=== PATIENT | male | born 1955 | race Caucasian/White ===

== ENCOUNTER 2018-06-12 15:47 | Outpatient (REF) | payer MEDICARE, SELFPAY ==
[2018-06-12 22:00] LABS: Abs Immature Grans 0.03 k/cumm (0.0-0.09); Absolute Basophil Count 0.02 k/cumm (0.0-0.2); Absolute Eosinophil Count 0.16 k/cumm (0.0-0.7); Absolute Lymphocyte Count 1.27 k/cumm (1.2-3.4); Absolute Monocyte Count 0.81 k/cumm (0.11-0.7); Absolute Neutrophil Count 4.76 k/cumm (1.2-6.7); Basophils % 0.3; Eosinophils % 2.3; HCT 38.2 % (40.0-50.0); Immature Grans % 0.4; Mean Corp. HGB Concentration 31.4 g/dL (32.0-36.0); Mean Corpuscular Hemoglobin 30.5 pg (27.0-33.0); Mean Corpuscular Volume 97.2 fL (80-95); Mean Platelet Volume 11.5 fL (8.0-11.0); Monocytes % 11.5; Neutrophils % 67.5; Platelet Count 260 x1000/uL (130-400); RBC 3.93 m/cumm (4.50-6.00); RBC Distribution Width 14.6 % (11.8-14.1); White Blood Cell Count 7.05 k/cumm (4.4-10.8)
[2018-06-12 22:10] LABS: Ferritin 151 ng/mL (8-388); Glucose 86 mg/dL (70-100)
== END 2018-06-12 16:07 ==
LOC: NCHCN 15:47
PROVIDERS: PCP Physician Assistant Medical; Visit Provider Nurse Practitioner Family
DX: D64.9 Anemia, unspecified (principal); E55.9 Vitamin D deficiency, unspecified; E78.5 Hyperlipidemia, unspecified; F32.9 Major depressive disorder, single episode, unspecified
CPT/HCPCS: 82947; 82728; 85025

== ENCOUNTER 2019-04-20 15:10 | Outpatient (REF) | payer MEDICARE, SELFPAY ==
[2019-04-20 21:42] LABS: HCT 37.2 % (40.0-50.0); HGB 12.3 g/dL (13.5-17.5); Mean Corp. HGB Concentration 33.1 g/dL (32.0-36.0); Mean Corpuscular Hemoglobin 31.8 pg (27.0-33.0); Mean Corpuscular Volume 96.1 fL (80-95); Mean Platelet Volume 11.7 fL (8.0-11.0); Platelet Count 245 x1000/uL (130-400); RBC 3.87 m/cumm (4.50-6.00); RBC Distribution Width 14.7 % (11.8-14.1); White Blood Cell Count 7.09 k/cumm (4.4-10.8)
[2019-04-20 21:55] LABS: Anion Gap 10.7 mmol/L (3-11); BUN 14 mg/dL (7-18); CO2 26.3 mmol/L (21.0-32.0); CREATININE 1.02 mg/dL (0.70-1.30); Calcium 9.1 mg/dL (8.5-10.1); Chloride 101 mmol/L (98-107); Glucose 85 mg/dL (74-106); Sodium 138 mmol/L (136-145)
== END 2019-04-20 15:30 ==
LOC: NCHCN 15:10
PROVIDERS: PCP Nurse Practitioner Family; Visit Provider Nurse Practitioner Family
DX: D64.9 Anemia, unspecified (principal)
CPT/HCPCS: 80048; 85027

== ENCOUNTER → 2019-04-21 01:12 | Outpatient (CLI) | payer MEDICARE, SELFPAY ==
--- NOTE | 2019-04-21 08:35 | DI.RAD_ITS ---
EXAM: XR KNEE RT 3V AP,LAT,SHAYE INDICATION: KNEE PAIN RT, M25.561. COMPARISON: No exams were available for comparison TECHNIQUE: 2D digital imaging was performed. FINDINGS: The joint spaces are well maintained. There is mild periarticular spurring. Hardware is noted in th e mid tibia, not fully included on the exam. There is a question of a small joint effusion. IMPRESSION: Mild degenerative changes.
== END ==
PROVIDERS: PCP Nurse Practitioner Family; Visit Provider Nurse Practitioner Family
DX: M25.561 Pain in right knee (principal); M17.11 Unilateral primary osteoarthritis, right knee; M25.461 Effusion, right knee
CPT/HCPCS: 73562

== ENCOUNTER 2019-07-21 11:52 | Outpatient (REF) | payer MEDICARE, SELFPAY ==
[2019-07-21 20:10] LABS: Abs Immature Grans 0.01 k/cumm (0.0-0.09); Absolute Basophil Count 0.04 k/cumm (0.0-0.2); Absolute Eosinophil Count 0.14 k/cumm (0.0-0.7); Absolute Lymphocyte Count 1.32 k/cumm (1.2-3.4); Absolute Monocyte Count 0.64 k/cumm (0.11-0.7); Absolute Neutrophil Count 3.35 k/cumm (1.2-6.7); Basophils % 0.7; Eosinophils % 2.5; HCT 42.2 % (40.0-50.0); Immature Grans % 0.2 %; Mean Corp. HGB Concentration 33.2 g/dL (32.0-36.0); Mean Corpuscular Hemoglobin 31.7 pg (27.0-33.0); Mean Corpuscular Volume 95.5 fL (80-95); Mean Platelet Volume 11.1 fL (8.0-11.0); Monocytes % 11.6; Platelet Count 261 x1000/uL (130-400); RBC 4.42 m/cumm (4.50-6.00); RBC Distribution Width 15.5 % (11.8-14.1)
[2019-07-21 20:47] LABS: Calculated LDL 198 mg/dL (<100); Cholesterol 260 mg/dL (<200); Glucose 96 mg/dL (74-106); HDL Cholesterol 48 mg/dL (40-60); Triglyceride 74 mg/dL (<150)
== END 2019-07-21 12:12 ==
LOC: NCHCN 11:52
PROVIDERS: PCP Nurse Practitioner Family; Visit Provider Nurse Practitioner Family
DX: E78.5 Hyperlipidemia, unspecified (principal); D64.9 Anemia, unspecified
CPT/HCPCS: 80061; 82947; 85025

== ENCOUNTER 2019-09-17 08:55 | Outpatient (REF) | payer MEDICARE, SELFPAY ==
[2019-09-17 19:16] LABS: ALT 32 U/L (16-63); AST 29 U/L (15-37); Creatine Kinase 181 U/L (39-308)
[2019-09-17 19:36] LABS: Calculated LDL 111 mg/dL (<100); Cholesterol 169 mg/dL (<200); HDL Cholesterol 50 mg/dL (40-60); Triglyceride 44 mg/dL (<150)
[2019-09-17 19:55] LABS: Hemoglobin A1C 5.9 % (3.8-5.6)
== END 2019-09-17 09:15 ==
LOC: NCHCN 08:55
PROVIDERS: PCP Nurse Practitioner Family; Visit Provider Nurse Practitioner Family
DX: R73.03 Prediabetes (principal); R53.83 Other fatigue; E78.5 Hyperlipidemia, unspecified
CPT/HCPCS: 80061; 82550; 83036; 84450; 84460

== ENCOUNTER 2019-09-22 00:38 | Outpatient (CLI) | payer MEDICARE, SELFPAY ==
--- NOTE | 2019-09-22 | DI.CTLCSR_ITS ---
EXAM: CT CHEST LUNG CANCER SCREEN CLINICAL HISTORY: SMOKER,F17.210 TECHNIQUE: COMPARISON: CT CHEST - LUNG CANCER SCREENING from 09/30/2017 FINDINGS: CT examination of chest was performed utilizing low-dose lung cancer screening protocol. Current exa mination is compared with prior study of September 30, 2017. Note is again made of severe emphysematous ch anges most prominent in the lung apices. No pulmonary nodule. No consolidation or mass. No pleural effusion. No mediastinal or hilar adenopathy. Tracheobronchial tree appears intact. Images obtained through the upper abdomen show unremarkable appearance of visualized portions of live r, spleen, pancreas, and adrenals. IMPRESSION: Lung RADS Cat 1 - Negative: No nodules and definitely benign nodules Resume annual screening in 12 months.
== END 2019-09-22 00:58 ==
PROVIDERS: PCP Nurse Practitioner Family; Visit Provider Nurse Practitioner Family
DX: Z12.2 Encounter for screening for malignant neoplasm of respiratory organs (principal); F17.210 Nicotine dependence, cigarettes, uncomplicated; J43.8 Other emphysema
CPT/HCPCS: G0297

== ENCOUNTER 2019-11-17 15:24 | Outpatient (REF) | payer MEDICARE, SELFPAY ==
[2019-11-17 20:25] LABS: ALT 125 U/L (16-63); AST 73 U/L (15-37); Anion Gap 11.2 mmol/L (3-11); BUN 23 mg/dL (7-18); CO2 25.8 mmol/L (21.0-32.0); CREATININE 1.21 mg/dL (0.70-1.30); Calcium 9.2 mg/dL (8.5-10.1); Calculated LDL 110 mg/dL (<100); Chloride 99 mmol/L (98-107); Cholesterol 177 mg/dL (<200); Glucose 148 mg/dL (74-106); HDL Cholesterol 48 mg/dL (40-60); Sodium 136 mmol/L (136-145); Triglyceride 97 mg/dL (<150)
[2019-11-17 20:47] LABS: Creatine Kinase 228 U/L (39-308)
== END 2019-11-17 15:44 ==
LOC: NCHCN 15:24
PROVIDERS: PCP Nurse Practitioner Family; Visit Provider Nurse Practitioner Family
DX: E78.5 Hyperlipidemia, unspecified (principal); R73.03 Prediabetes; F32.9 Major depressive disorder, single episode, unspecified; F51.04 Psychophysiologic insomnia
CPT/HCPCS: 80048; 80061; 82550; 84450; 84460

== ENCOUNTER → 2019-12-18 09:29 | Outpatient (BNVA) | payer MEDICARE, SELFPAY | PROVIDERS: PCP Nurse Practitioner Family; Referring Provider Nurse Practitioner Family; Visit Provider Physical Therapy Assistant | DX: Z12.11 Encounter for screening for malignant neoplasm of colon (principal); Z86.010 Personal history of colon polyps ==

== ENCOUNTER 2019-12-30 08:20 | Outpatient (REF) | payer MEDICARE, SELFPAY ==
[2019-12-30 21:49] LABS: ALT 50 U/L (16-63); AST 50 U/L (15-37); HDL Cholesterol 48 mg/dL (40-60); LDL CHOLESTEROL 98 mg/dL (<100)
== END 2019-12-30 08:40 ==
LOC: NCHCN 08:20
PROVIDERS: PCP Nurse Practitioner Family; Visit Provider Nurse Practitioner Family
DX: E78.5 Hyperlipidemia, unspecified (principal)
CPT/HCPCS: 83721; 83718; 84450; 84460

== ENCOUNTER 2020-01-04 08:29 | Day surgery (SDC) | payer MEDICARE, SELFPAY ==
--- NOTE | 2020-01-04 06:37 | W.COLOREPORT ---
Date of service: 01/04/20 Time of Service: : Colonoscopy Report Date of procedure: 01/04/20 Pre-op diagnosis general: Hx of polyps Post-op diagnosis procedure note: other (cecal polyp) Procedure: Colonoscopy with polypectomy Surgeon: Roseanne Altman Anesthesia proc note operative: other (General/ASA 2/Jasbir Newell CRNA) Estimated blood loss (mL): 3 Pathology: other (Cecal polyp) Complications: None Disposition: same day Indications: The patient is here for Colonoscopy pre-op. His last screening was in 2014 and was unremarkable. However previous Colonoscopy was remarkable for tubular adenoma. He has no family history of colon cancer. He has not had any bowel habit changes. -Discussed colonoscopy bowel prep as well as the procedure. Discussed possible complications of the procedure to include bleeding, pain, perforation, missed small lesion/polyp, sore throat, aspiration and adverse reaction to the medications. Questions were answered to patient?s satisfaction. No guarantees were implied or given. Prep: Miralax/Dulcolax Procedure Start Time: Procedure End Time: 10:13 Retraction Time: 18 minutes Findings: one small polyp in the cecum Procedure Description: After informed consent was obtained the patient was taken to the procedure room and placed in a left decubitous position. Monitors were applied and a time out was done. The patients name, date of , procedure, allergies to medications and metal in their body was reviewed. The patient was then sedated. Once sedated and comfortable a rectal exam was done. External exam was normal. Internal exam revealed a normal sphincter tone and no palpable masses. The prostate felt smooth. The scope was then introduced and retro-flexed. No internal hemorrhoids, masses or polyps were identified on retro-flexion. The scope was then advanced to the cecum without difficulty. The ileocecal valve and appendiceal orifice were identified. The prep was adequate. There was a film of stool and bile scattered throughout the large bowel. 1 L of fluid was used to clean the film off the ubsch. The scope was then slowly retracted over 18 minutes back into the rectum. Polyps were removed with cold forceps in the cecum. The scope was removed and the patient was woken up and taken back to Same day surgery in stable condition. The patient tolerated the procedure well and there were no immediate complications. Follow up: The patient should follow up in 5 years unless they develop changes in bowel habits or other new gastrointestinal complaints.
--- NOTE | 2020-01-04 06:38 | W.PM.DSUDISC ---
Discharge Plan Disposition Patient Disposition: HOME Condition: Good Discharge Details Reason For Visit: Colonoscopy Attending Provider: Roseanne Altman Primary Care Provider: Nahomy Curry Home Meds and New Rx's Prescriptions: Continued amitriptyline 150 mg tablet 150 mg PO QHS RF: 0 simvastatin 20 mg tablet 20 mg PO QHS RF: 0 cholecalciferol (vitamin D3) 25 mcg (1,000 unit) capsule 25 mcg PO DAILY RF: 0 trazodone 50 mg tablet 25 mg PO QHS RF: 0 Discontinued polyethylene glycol 3350 17 gram/dose powder 238 g PO ONCE Qty: 238 RF: 0 bisacodyl [Dulcolax (bisacodyl)] 5 mg tablet,delayed release (DR/EC) 5 mg PO ONCE Qty: 4 RF: 0 Discharge Instructions Additional Instructions: Findings:One small polyp Follow up: 5 years Please call if you develop: fevers >101.5 Nausea or Vomiting Abdominal pain that is not transient DAY SURGERY UNIT POST ENDOSCOPY INSTRUCTIONS 1. Because there will be medication in your system for the next 24 hours, you may feel a little sleepy. Your coordination will be affected. Therefore: a. Do not drive or operate dangerous equipment for 24 hours. b. Do not drink alcohol beverages for 24 hours (not even beer). c. Plan to go home and rest for the day. 2. Generally there are no restrictions on your activity after a day or so has gone by, but you may feel a bit fatigued for a few days. 3 After you arrive home you may have a light meal and return to a normal diet as you can tolerate it without feeling sick to your stomach. 4. After surgery, you may feel pain or discomfort. This should be only transient, but if it persists please contact your doctor. 5. If there are any questions regarding the findings of your procedure, please feel free to contact your doctor. 6. If you are unable to contact your doctor with a problem, contact the hospital at [phone]. 7. Continue all your regular medications unless directed otherwise. I understand the above instructions and have no questions. Signature of Patient or Responsible Adult Escort Date/Time Name of Responsible Adult Escort Signature of Nurse Date/Time Activity:: Activity as Tolerated Diet:: As Tolerated Discharge Orders Discharge Orders: Discharge Order (Routine); Ordered 01/04/20 Ordered By: Roseanne Altman
[2020-01-04 08:34] VITALS: BP 140/83; PULSE 103; RESP 22; TEMP 36.6; O2SAT 99
[2020-01-04] MEDS: Lactated Ringers 1,000 ML 80 ML IV (08:56)
--- NOTE | 2020-01-04 09:54 | BOWEL_PTH ---
PATIENT: Karyn Park LOC: [facility] U#:[id number] AGE/SX: 64/M ROOM: RE01/04/[address]: Roseanne Altman MD : [id number] BED: DIS: 01/04/2020 SPEC #: [id number] RECD: 01/04/20 12:45 STATUS: JOHN REQ #: [id number] NAVA: 01/04/20 09:[address]: Roseanne Altman DEPT: Surgical Specimen RECD BY: Kelsie Canchola ENTERED: 01/04/20 12:46 SP TYPE: Bowel OTHR DR: Nahomy Curry Tissues: 1 - BIOPSY BOWEL Procedures: GROSS AND MICRO LEVEL 4 IMMUNOPEROXIDASE STAIN Comments: [id number]
[2020-01-04 10:52] VITALS: BP 133/82; PULSE 90; RESP 18; TEMP 36.6; O2SAT 98
== END 2020-01-04 11:25 | disposition home or self-care (01) ==
LOC: SUR 08:31
PROVIDERS: PCP Nurse Practitioner Family; Visit Provider Surgery
PROC: 0DJD8ZZ Inspection of Lower Intestinal Tract, Via Natural or Artificial Opening Endoscopic (ICD-10-PCS; CPT 45378; principal; 2020-01-04 09:15)
DX: Z12.11 Encounter for screening for malignant neoplasm of colon (principal); Z86.010 Personal history of colon polyps; D12.0 Benign neoplasm of cecum
CPT/HCPCS: 45380; 88305; 88361; J2001

== ENCOUNTER 2020-02-11 11:29 | Outpatient (REF) | payer OTHER, SELFPAY ==
[2020-02-15 20:27] LABS: Nortriptyline 61 ng/mL (70-170)
== END 2020-02-11 11:49 ==
LOC: NCHCN 11:29
PROVIDERS: PCP Nurse Practitioner Family; Visit Provider Nurse Practitioner Family
DX: Z79.899 Other long term (current) drug therapy (principal); Z51.81 Encounter for therapeutic drug level monitoring
CPT/HCPCS: 80335

== ENCOUNTER 2020-12-19 10:16 | Outpatient (REF) | payer OTHER, SELFPAY ==
[2020-12-19 20:30] LABS: Hemoglobin A1C 5.5 % (<5.7)
[2020-12-19 20:42] LABS: ALT 37 U/L (16-63); AST 32 U/L (15-37); Anion Gap 8.7 mmol/L (3-11); BUN 22 mg/dL (7-18); CO2 28.3 mmol/L (21.0-32.0); CREATININE 1.1 mg/dL (0.70-1.30); Calcium 9.9 mg/dL (8.5-10.1); Chloride 102 mmol/L (98-107); Glucose 94 mg/dL (74-106); HDL Cholesterol 56 mg/dL (40-60); LDL CHOLESTEROL 177 mg/dL (<100); Potassium 5.1 mmol/L (3.5-5.1); Sodium 139 mmol/L (136-145)
[2020-12-19 21:06] LABS: Creatine Kinase 97 U/L (39-308)
[2020-12-19 21:44] LABS: Vitamin D 25 Total 36.5 ng/mL (30-100)
== END 2020-12-19 10:17 | disposition home or self-care (01) ==
LOC: NCHCN 10:16
PROVIDERS: PCP Nurse Practitioner Family; Visit Provider Nurse Practitioner Family
DX: E78.5 Hyperlipidemia, unspecified (principal); E55.9 Vitamin D deficiency, unspecified; R73.09 Other abnormal glucose
CPT/HCPCS: 80048; 82306; 82550; 83721; 83036; 83718; 84450; 84460

== ENCOUNTER → 2020-12-27 02:03 | Outpatient (CLI) | payer OTHER, SELFPAY ==
--- NOTE | 2020-12-27 09:00 | ETT_ITS ---
APPROVED REPORT Exam: Exercise Treadmill Patient Location: Out-Patient Room/Bed: Stress Nurse: Josefina Garcia RN Ordering Provider:JOEL FONSECA, Contact Number: [phone] BMI: 18.36 Baseline Rhythm: Sinus Rhythm Indications: Exerrtional SOB Medical History Medical History: Tobacco use, hyperlipidemia, pre-diabetes, ETOH use, brain damage (fall related), de pression, OCD Cardiac Medications: Simvastatin Allergies: bupropion Cardiac Risk Factors: Tobacco use (current), hyperlipidemia, pre-diabetes Previous Cardiac Procedures: None Pretest Chest Pain Characteristics: None Exercise History: Sedentary Physical Disabilities: None Lung Sounds: Diminished BLL Heart Sounds: Regular Stress Test Details Test: Exercise stress testing was performed using a Jono protocol. Rest Stress HR Resting HR Supine: 93 bpm Max Heart Rate (APMHR): 155 bpm Resting HR Standin bpm Target HR (85% APMHR): 131 bpm Max HR Achieved: 146 bpm % of APMHR: 94 Recovery HR: 94 bpm HR response to stress: Accelerated HR response to stress BP Resting BP Supine: 130/68 mmHg Resting BP Standin/72 mmHg Max BP: 198/90 mmHg Recovery BP: 140/72 mmHg BP response to stress: Normal blood pressure response to stress. ECG Resting ECG: Sinus Rhythm Ectopy: None Stress ECG: Sinus Tachycardia ST Change: No significant ST segment changes noted Arrhythmia: Rare PVC, couplet Recovery ECG: Sinus Rhythm Recovery ST Change: No significant ST segment changes noted Clinical Reason for Termination: Fatigue, Dyspnea Stress Symptoms: General Fatigue, Dyspnea Exercise duration: 3 min28 sec Highest Stage Reached: Stage 2: 2.5 mph at 12% grade. Exercise capacity: 5.19 METs Rangel Treadmill Score: 3 Rate Pressure Product: [id number] Stress ECG Conclusion 1. The patient exercised for 3 minutes and 28 seconds (5 METS). Exercise was stopped due to fatigue. 2. The patient's heart rate and blood pressure augmented appropriately. 3. There is no evidence of ischemia on the ECG portion of the exam. Rangel Treadmill Score is 3 which is Moderate risk. Stress Test Summary STAGE Time (mins) Speed (mph) Grade (%) HR BP SYMPTOMS METS Supine 93 130/68 Standing 107 122/72 SpO2 98% 1 3 1.7 10 141 140/70 SpO2 97% moderate/severe SOB 4.6 2 6 2.5 12 146 SpO2 98% 7 1 min recovery 138 148/80 SpO2 98% 3 min recovery 117 198/90 symptoms resolved 6 min recovery 94 140/72
== END ==
PROVIDERS: PCP Nurse Practitioner Family; Visit Provider Nurse Practitioner Family
DX: R06.02 Shortness of breath (principal); F17.210 Nicotine dependence, cigarettes, uncomplicated; E78.5 Hyperlipidemia, unspecified; R73.03 Prediabetes
CPT/HCPCS: 93016; 93018; 93017

== ENCOUNTER 2021-01-18 14:40 | Outpatient (REF) | payer OTHER, SELFPAY ==
[2021-01-18 17:19] LABS: ALT 68 U/L (16-63); AST 53 U/L (15-37); Calculated LDL 111 mg/dL (<100); Cholesterol 189 mg/dL (<200); HDL Cholesterol 67 mg/dL (40-60); Triglyceride 57 mg/dL (<150)
[2021-01-18 17:36] LABS: Creatine Kinase 139 U/L (39-308)
[2021-01-18 21:17] LABS: Bacteria Negative HPF (Negative); Casts Negative LPF (Negative); Crystals Negative HPF (Negative); Epithelial Cells Negative HPF (Negative); Mucus Negative (Negative); Other Cells Negative (Negative)
[2021-01-18 21:18] LABS: C & S Indicated? C&S Done As Ordered
[2021-01-19 17:04] LABS: Anion Gap 8.9 mmol/L (3-11); BUN 12 mg/dL (7-18); CO2 28.1 mmol/L (21.0-32.0); CREATININE 1.3 mg/dL (0.70-1.30); Calcium 9.6 mg/dL (8.5-10.1); Chloride 103 mmol/L (98-107); Glucose 99 mg/dL (74-106); Sodium 140 mmol/L (136-145)
== END 2021-01-18 14:41 | disposition home or self-care (01) ==
LOC: NCHCN 14:40
PROVIDERS: PCP Nurse Practitioner Family; Referring Provider Nurse Practitioner Family; Visit Provider Nurse Practitioner Family
DX: R82.90 Unspecified abnormal findings in urine (principal); E78.5 Hyperlipidemia, unspecified; J43.9 Emphysema, unspecified; R06.09 Other forms of dyspnea; F32.9 Major depressive disorder, single episode, unspecified; L81.9 Disorder of pigmentation, unspecified; R03.0 Elevated blood-pressure reading, without diagnosis of hypertension
CPT/HCPCS: 80048; 80061; 82550; 81015; 84450; 84460; 87086

== ENCOUNTER 2021-02-07 02:24 | Outpatient (CLI) | payer OTHER, SELFPAY ==
--- NOTE | 2021-02-07 | DI.CTLCSR_ITS ---
Exam(s) CT CHEST LUNG CANCER SCREEN EXAM: CT CHEST LUNG CANCER SCREEN CLINICAL HISTORY: SCREENING FOR LUNG CA,CURRENT SMOKER,Z12.9 TECHNIQUE: Imaging Protocol: Axial computed tomography images with coronal and sagittal reformatted images were created and reviewed COMPARISON: CT CT CHEST LUNG CANCER SCREEN from 09/22/2019 FINDINGS: Tracheobronchial tree: Patent where visualized. Pulmonary parenchyma: No consolidation or dominant measurable mass. Moderately severe centrilobular e mphysematous changes are present. Lung Nodules: None. Mediastinum and Sendy: No dominant adenopathy or fluid collection. Pleura: No effusion or pneumothorax. Heart: The heart is not dilated. Mild coronary artery calcification. No pericardial effusion. Aorta: Thoracic aorta non-dilated.Atherosclerosis. Upper abdomen: Unremarkable. Soft Tissues: Unremarkable. Bones: Within normal limits. IMPRESSION: No pulmonary nodules. Lung RADS Cat 1 - Negative: No nodules and definitely benign nodules Lung-RADS 1.0 CATEGORIES: Category 0 - Prior chest CT exam(s) being located for comparison. Category 1 - Annual screening in 12 months. No nodules or definitely benign nodules. Category 2 - Annual screening in 12 months. Benign appearance. Nodules with low likelihood of becomin g active cancer. Category 3 - 6-month follow-up. Probably benign. Short-term follow-up suggested. Nodules with low lik elihood of becoming active cancer. Category 4A - 3-month follow-up and CT/PET if >8 mm in size. Suspicious finding. Findings which requi re additional testing. Category 4B - Findings which require additional testing and tissue sampling. Suspicious finding. Modifier S- Potentially clinically significant finding. (Non lung cancer) RADIATION DOSE DELIVERED: 90.38mGy.cm Total DLP CTDIvol 90.38mGy.cm Total DLP CTDIvol DATA REPOSITORY: All CT scans at this facility are submitted to the National Radiology Data Registry (NRDR) Dose Index Registry (DIR) with the [employer] (ACR). RADIATION OPTIMIZATION: All CT scans at this facility use at least one of these dose optimization te chniques: automated exposure control; mA and/or kV adjustment per patient size (includes targeted exa ms where dose is matched to clinical indication); or iterative reconstruction.
== END 2021-02-07 02:44 ==
PROVIDERS: PCP Nurse Practitioner Family; Visit Provider Nurse Practitioner Family
DX: Z12.2 Encounter for screening for malignant neoplasm of respiratory organs (principal); F17.210 Nicotine dependence, cigarettes, uncomplicated
CPT/HCPCS: 71271

== ENCOUNTER 2021-02-09 04:10 | Outpatient (CLI) | payer OTHER, SELFPAY ==
[2021-02-09] MEDS: Albuterol HFA 18 GM 200 PUFF INH IH (11:04)
[2021-02-09] MEDS: Inhaler, Assist Device 1 EACH MC (11:04)
--- NOTE | 2021-02-14 15:47 | W.PFT ---
Date of service: 02/09/21 Time of Service: 09:59 Pulmonary Function Test Result Requesting Provider Nahomy Curry Indications: Dyspnea on Exertion Interpretation Spirometry: There is no airflow limitation. There is no significant bronchodilator effect. The flow volume loop appears normal. Lung Volumes: Lung volumes are normal. Diffusion Capacity: The diffusion is reduced. Airway Pressure: Noise resistance is normal. Impression There is no airflow limitation and there are normal lung volumes with an isolated decreased diffusion capacity. In the correct clinical setting this could represent pulmonary vascular disease and possibly pulmonary hypertension. Can consider an echocardiogram to assess pulmonary pressures. Clinical Correlation therefore is recommended.
== END 2021-02-09 04:11 | disposition home or self-care (01) ==
LOC: RT 04:10
PROVIDERS: PCP Nurse Practitioner Family; Visit Provider Nurse Practitioner Family
DX: R06.09 Other forms of dyspnea (principal); R94.2 Abnormal results of pulmonary function studies
CPT/HCPCS: 94060; 94726; 94729

== ENCOUNTER → 2021-02-21 08:25 | Outpatient (BNVA) | payer OTHER, SELFPAY | PROVIDERS: PCP Nurse Practitioner Family; Referring Provider Nurse Practitioner Family; Visit Provider Nurse Practitioner Gerontology | DX: R31.29 Other microscopic hematuria (principal); K40.90 Unilateral inguinal hernia, without obstruction or gangrene, not specified as recurrent | CPT/HCPCS: 99214 ==

== ENCOUNTER 2021-03-06 00:26 | Outpatient (CLI) | payer OTHER, SELFPAY ==
--- NOTE | 2021-03-06 15:10 | DI.US_ITS ---
APPROVED REPORT EXAM: Comprehensive 2D, Doppler, and color-flow Echocardiogram Patient Location: Out-Patient [employer]: Anita Brice RDCS (AE) Indications: Abnormal PFT's, Exertional SOB, Chest pain Other Information Study Quality: Adequate Conclusion Normal left ventricular wall thickness and chamber size. Estimated ejection fraction is 60 to 65%. There are no segmental wall motion abnormalities Normal right ventricular size and systolic function Both atria are normal in size Aortic valve is trileaflet and sclerotic. There is no aortic stenosis. There is moderate central ao rtic regurgitation Thickened mitral leaflets with systolic prolapse. There is mild mitral regurgitation. The regurgita nt aortic jet appears to impact the mitral leaflets and restrict their excursion, leading to function al moderate mitral stenosis. Normal tricuspid valve with mild regurgitation Estimated right ventricular systolic pressure is 52 mmHg, moderate pulmonary hypertension Normal pulmonic valve with trace regurgitation Wall motion Left Ventricle The left ventricle is normal size. The left ventricular systolic function is normal. The left ventric ular ejection fraction is within the normal range. There is normal left ventricular wall thickness. T here is normal LV segmental wall motion. There is no ventricular septal defect visualized. LVEF is 60 -65%. Right Ventricle The right ventricle is normal size. The right ventricular systolic function is normal. Estimated righ t ventricular systolic pressure is 52 mmHg Atria The left atrium size is normal. The right atrium size is normal. The interatrial septum is intact wit h no evidence for an atrial septal defect. Aortic Valve The Aortic valve is sclerotic. Aortic valve is trileaflet. There is no aortic valvular stenosis. Mode rate aortic regurgitation. Mitral Valve Mitral valve leaflets are moderately thickened. Moderate mitral stenosis. Mild mitral regurgitation. Bioprosthetic mitral valve appears normal. Tricuspid Valve The tricuspid valve is normal in structure. There is no tricuspid valve stenosis. Mild tricuspid regu rgitation. Pulmonic Valve The pulmonary valve is normal in structure. There is no pulmonic valvular stenosis. Trace pulmonic re gurgitation. Great Vessels The aortic root is normal in size. The ascending aorta is normal in size. Aortic arch is not well vis ualized. IVC is normal in size and collapses >50% with inspiration. Pericardium There is no pericardial effusion. 2D Dimensions IVSD d PLAX 0.89 cm M: 0.6-1.2 LV Vol A2C d MOD 89.7 mL LVPW d PLAX 0.89 cm M: 0.6 - 1.2 LV Vol A4C d MOD 87.8 mL LVID d PLAX 4.53 cm M: 4.2 - 5.8 LA vol/ BSA A2C s A-L 51.7 mL/m2 LVDs 3.05 cm M: 2.5 - 4.0 LA vol/ BSA A4C s A-L 38.6 mL/m2 Ao Root d 2.96 cm M: 3.1 - 3.7 LA Vol/ BSA Biplane s A-L 45.4 mL/m2 RA Area A4C 9.73 cm2 LA Area A4C s MOD 21.22 cm2 RA Vol/ BSA A4C s A-L 11.2 mL/m2 LA Area A2C s MOD 24.97 cm2 Ao Asc Diam d 3.04 cm M: 2.6 - 3.4 LV EF A4C MOD 61.4 % LV EF Teichholz 60.1 % LV EF A2C MOD 61.0 % LVEF (Ealsey's) 62.07 % M: 52 - 72 LV EF Biplane MOD 62.1 % LV Volume 71.68 mL M: 62 - 150 SV 56.35 mL LV Volume Index 41.67 mL/m2 M: 34 - 74 SV Index 32.64 mL/m2 LV Vol Biplane MOD 90.8 mL FS 31.90 % M-Mode TAPSE 2.47 cm (M/F) >1.7 LV Diastology MV E' medial 0.103 (>0.07 m/s) E/A Ratio 0.8 LV E/e MED 22.70 (<14) MV E Vmax 2.33 (0.4-1.3 m/s) MV E' lateral 0.066 (>0.1 m/s) MV A Vmax 2.90 (0.4-1.3 m/s) LV E/e LAT 35.35 (<14) MV E/A Ratio 0.80 MV E/E' medial 22.74 MV E/E' lateral 35.37 Aortic Valve LVOT Area 3.18 cm2 AoV Area Vmax 2.75 cm2 LVOT Vmax 1.18 m/s AoV Area/ BSA (Vmax) 1.59 cm2/m2 LVOT Mean Estiven. 0.82 m/s MERLYN Mean Estiven. 2.76 cm2 LVOT Peak Grad 5.6 mmHg MERLYN Mean Estiven. Index 1.60 cm2/m2 LVOT Mean Grad 3.0 mmHg AR DT 1333 msec LVOT VTI 0.213 m AR PHT 387 msec LVOT Diam s 2.00 cm AoV Vmax 1.37 m/s Velocity Ratio 0.86 AoV Mean Estiven. 0.94 m/s AoV Peak Grad 7.5 mmHg LVOT SV 67.71 mL AoV Mean Grad 4.1 mmHg AoV VTI 0.231 m AoV Area VTI 2.93 cm2 AoV Area/ BSA (VTI) 1.70 cm/m2 Mitral Valve MV DT 456 (160-240 msec) MR Vmax 5.35 m/s MV PHT 132 msec MR VTI 1.415 m MV Area PHT 1.66 cm2 MR Peak Grad 114.3 mmHg MV VTI 0.725 m MR Mean Grad 81.2 mmHg MV VTI Annulus 0.759 m MV Area VTI 0.98 (4.0-6.0 cm2) Pulmonary Valve PV Vmax 0.77 (0.5-1.5 m/s) RVOT Peak Gr. 1.55 mmHg PV Peak Grad 2.4 mmHg RVOT Mean Gr. 1.15 mmHg PV Mean Grad 1.4 mmHg RVOT VTI 0.099 m PV VTI 0.131 m RVOT Vmax 0.62 m/s Tricuspid Valve TR Peak Grad 49.6 mmHg TR Vmax 3.52 m/s RA Pressure 3.00 mmHg RVSP (TR) 52.6 mmHg
== END 2021-03-06 00:46 ==
PROVIDERS: PCP Nurse Practitioner Family; Visit Provider Nurse Practitioner Family
DX: R94.2 Abnormal results of pulmonary function studies; R06.09 Other forms of dyspnea; R07.9 Chest pain, unspecified; I08.3 Combined rheumatic disorders of mitral, aortic and tricuspid valves
CPT/HCPCS: 93306

== ENCOUNTER → 2021-03-16 02:07 | Outpatient (CLI) | payer OTHER, SELFPAY ==
--- NOTE | 2021-03-16 06:45 | DI.CT_ITS ---
Exam(s) CT ABDOMEN PELVIS WO/W EXAM: CT ABDOMEN PELVIS WO/W CLINICAL HISTORY: microhematuria, smoker, wt loss,R31.9. TECHNIQUE: Imaging Protocol: Axial computed tomography images with coronal and sagittal reformatted images were created and reviewed CONTRAST MATERIAL: Intravenous: Omnipaque 100cc Oral: None COMPARISON: CT CT CHEST LUNG CANCER SCREEN from 09/22/2019 FINDINGS: VISUALIZED LUNG BASES: No nodules nor pleural effusions evident. ABDOMEN: There is no ascites. LIVER: There are 2 small benign appearing hypodensities in right hepatic lobe, both measuring approxi mately 4 millimeters probably intrahepatic cysts. No obvious solid masses liver. No dilatation of i ntrahepatic ducts. GALLBLADDER/BILIARY: No obvious gallbladder pathology. CBD is not dilated. PANCREAS: No evidence of pancreatic mass nor dilatation of the pancreatic duct. SPLEEN: Spleen is not enlarged. No obvious intrasplenic lesions. Splenic and portal veins are paten t. ADRENALS: Small nodule noted in the medial limb of the left adrenal gland measuring 8 x 7 millimeters . No findings in the opposite-right adrenal gland KIDNEYS:There is a 5 millimeter benign cyst in the inferior pole region of the left kidney. There is a 3 millimeters cyst in the superior pole the left kidney. No solid renal masses. No calculi nor h ydronephrosis.. Solitary nondilated ureter on each side. There are no obvious filling defects withi n the renal pelves visualized nondilated ureters. There is mild uniform thickening of urinary bladde r wall without prominent trabeculation or obvious mural mass and there are no diverticuli. No calcul i seen. ABDOMINAL AORTA: The abdominal aorta is calcified and atherosclerotic but not enlarged. Same is true of the iliac arteries. LYMPH NODES:There is no retroperitoneal nor paraaortic adenopathy. ABDOMINAL WALL: No evidence of significant anterior abdominal wal hernia. There is a small right ing uinal hernia. GI: Abundant fecal material in the colon noted. No bowel obstruction. PELVIS: GI: No evidence of appendicitis.No evidence of sigmoid diverticulitis. LYMPH NODES: There is no intrapelvic nor inguinal adenopathy. REPRODUCTIVE: Prostate gland is mildly enlarged. Seminal vesicles appear unremarkable. No obvious o bturator adenopathy. URINARY BLADDER: As above. OSSEOUS: No significant osseous lesions. IMPRESSION: 1. No evidence of calculi nor solid masses in either kidney. Few small benign less than 1 cm cysts a re noted in left kidney. 2. There is mild uniform thickening of the urinary bladder wall, without evidence of an obvious focal mass, diverticulum, prominent trabeculation, nor calculus within the urinary bladder. 3. Mild fusiform thickening of the medial limb of the left adrenal gland which may be a small 8 x 7 m illimeter nodule, possibly an incidental adenoma. 4. No adenopathy. No ascites. RADIATION DOSE DELIVERED: 1,731.53mGy.cm Total DLP DATA REPOSITORY: All CT scans at this facility are submitted to the National Radiology Data Registry (NRDR) Dose Index Registry (DIR) with the [employer] (ACR). RADIATION OPTIMIZATION: All CT scans at this facility use at least one of these dose optimization te chniques: automated exposure control; mA and/or kV adjustment per patient size (includes targeted exa ms where dose is matched to clinical indication); or iterative reconstruction.
[2021-03-16] MEDS: Omnipaque 350 MG/ML 100 ML BTL IJ (11:29)
== END ==
PROVIDERS: PCP Nurse Practitioner Family; Visit Provider Nurse Practitioner Gerontology
DX: K40.90 Unilateral inguinal hernia, without obstruction or gangrene, not specified as recurrent; J44.9 Chronic obstructive pulmonary disease, unspecified; R31.29 Other microscopic hematuria; F17.210 Nicotine dependence, cigarettes, uncomplicated; R63.4 Abnormal weight loss
CPT/HCPCS: 99213; 99214; 74178; 82565; J3490

== ENCOUNTER → 2021-03-21 10:09 | Outpatient (BNVA) | payer OTHER, SELFPAY | PROVIDERS: PCP Nurse Practitioner Family; Referring Provider Nurse Practitioner Family; Visit Provider Nurse Practitioner Gerontology | DX: R31.29 Other microscopic hematuria (principal); N40.0 Benign prostatic hyperplasia without lower urinary tract symptoms | CPT/HCPCS: 99214 ==

== ENCOUNTER 2021-03-28 08:47 | Outpatient (CLI) | payer OTHER, SELFPAY ==
[2021-03-28 10:54] LABS: Source Nasal/Nares
[2021-03-28 17:36] LABS: COVID-19 PCR Negative (Negative)
== END 2021-03-28 08:48 | disposition home or self-care (01) ==
LOC: LBO 08:47
PROVIDERS: PCP Nurse Practitioner Family; Visit Provider Urology
DX: Z20.822 Contact with and (suspected) exposure to COVID-19 (principal)
CPT/HCPCS: 87635

== ENCOUNTER 2021-03-30 07:18 | Day surgery (SDC) | payer OTHER, SELFPAY ==
[2021-03-30 07:31] VITALS: BP 124/72; PULSE 78; RESP 18; TEMP 36.4; O2SAT 100
--- NOTE | 2021-03-30 07:44 | W.ANESPRE ---
General Info Date of Service Date Performed: 03/30/21 Height: 5 ft 10 in Weight: 60.9 kg Body Mass Index (BMI): 19.3 Surgical Procedure: Operation Date: 03/30/21 08:40 Proposed Procedures Side Surgeon p Cystoscopy Elian Keen MD s ? Transurethral Resection Bladder Tumor Elina Keen MD Meds Allergies and Home Medications Allergies Allergy/AdvReac Type Severity Reaction Status Date / Time bupropion [From Wellbutrin] Allergy Mild from Verified 03/30/21 07:42 referral note, no reaction noted Home Medication Medication Instructions Recorded cholecalciferol (vitamin D3) 25 25 mcg PO DAILY 11/12/19 mcg (1,000 unit) capsule albuterol sulfate 90 mcg/actuation 2 puff INHALATION Q6H PRN 01/24/21 aerosol inhaler amitriptyline 100 mg tablet 100 mg PO QHS 01/24/21 atorvastatin 80 mg tablet 80 mg PO DAILY 01/24/21 trazodone 50 mg tablet 25 mg PO QHS tab 01/24/21 Current Visit Medications: Current Medications Generic Name Dose Route Start Last Admin Trade Name Freq PRN Reason Stop Dose Admin Ringer's Solution 1,000 mls @ 80 mls/hr 03/30/21 06:00 IV 04/11/21 23:59 INFUSION ROJAS Cefazolin Sodium/Dextrose 1 gm in 50 mls @ 100 mls/hr 03/30/21 06:00 Ancef Duplex IVPB 03/30/21 16:00 PREOP ROJAS IV Miscellaneous Supplies 1 each 03/30/21 06:00 Iv Access IV 04/11/21 23:59 DIRECTED ROJAS Sodium Chloride 0 ml 03/30/21 06:00 Normal Saline Flush 10 Ml Syr IV 04/11/21 23:59 PRN PRN Sodium Chloride 0 ml 03/30/21 06:00 Normal Saline 10 Ml Vial IJ 04/11/21 23:59 DIRECTED PRN Sterile Water 0 ml 03/30/21 06:00 Water,Injection,Sterile 10 Ml Vial IJ 04/11/21 23:59 DIRECTED PRN PFSH Active Problems Active Problems: Problem Status Onset Code BPH (benign prostatic hyperplasia) N40.0 Emphysema lung J43.9 COPD (chronic obstructive pulmonary disease) J44.9 Obsessive compulsive disorder F42.9 Microscopic hematuria R31.29 Reducible right inguinal hernia K40.90 Pulmonary HTN I27.20 Mitral stenosis I05.0 Adenomatous colon polyp D12.6 Medical History Active Problem List BPH (benign prostatic hyperplasia) (Chronic) Emphysema lung (Acute) COPD (chronic obstructive pulmonary disease) (Chronic) Obsessive compulsive disorder (Acute) Microscopic hematuria (Acute) Reducible right inguinal hernia (Acute) Pulmonary HTN (Acute) Mitral stenosis (Acute) Adenomatous colon polyp (Acute) Medical History Abnormal pulmonary function test Alcohol abuse Bad odor of urine Brain damage from a fall Depression Dry skin Elevated blood pressure reading without diagnosis of hypertension Emphysema lung Exertional shortness of breath Fatigue Grief reaction Hamartoma History of anemia Hyperlipidemia Hyperpigmentation of skin Increased frequency of urination Inguinal hernia, right Insomnia Knee pain, right Medication monitoring encounter Other microscopic hematuria Prediabetes Short-term memory loss Smoker Stress at home Tobacco abuse Tubular adenoma of colon Vitamin D deficiency Surgical History Surgical History History of colonoscopy (~2007) 2007 villous adenoma 2014 normal Tibia and fibula open fracture, right plate remains from sx Tobacco Smoking/Tobacco Use Status: Former Tobacco Use Alcohol Alcohol Intake: current Alcohol intake frequency: a few times a week Alcohol type: hard liquor Substance Use Substance use: Daily Substance use type: marijuana Details: smoked marijuana yesterday 03.29.21 Vital Signs and Lab Results Vital Signs Most Recent Vital Signs in EMR: Most Recent Vital Signs Temp Pulse Resp BP Pulse Ox 36.4 C L 78 18 124/72 100 03/30/21 07:31 03/30/21 07:31 03/30/21 07:31 03/30/21 07:31 03/30/21 07:31 Lab Results Blood Type / Crossmatch: No Data to Display Complete Blood Count: No Data to Display Complete Metabolic Panel: Creatinine 1.0 mg/dL (0.70-1.30) 03/16/21 10:35 03/16/21 Estimated GFR/1.73 m2 >= 60.00 (mL/min/1.73m2) 03/16/21 10:35 03/16/21 Liver Function Panel: No Data to Display Coagulation Panel: No Data to Display Cardiac Panel: No Data to Display Arterial Blood Gas: No Data to Display Venous Blood Gas: No Data to Display Pancreas Panel: No Data to Display Thyroid Panel: No Data to Display Infectious Disease: Coronavirus (COVID-19)(PCR) Negative (Negative) 03/28/21 08:44 03/28/21 Coronavirus 2019 Source Nasal/Nares 03/28/21 08:44 03/28/21 Blood Cultures: No Data to Display Toxicology Panel: No Data to Display Imaging and Studies Imaging and Studies Stress Test Summary: DATE/TIME OF SERVICE: 12/27/20 ADMITTING PROVIDER: CARINA HERRERA MD Exam: Exercise Treadmill Indications: Exerrtional SOB Recovery ECG: Sinus Rhythm Recovery ST Change: No significant ST segment changes noted Clinical Reason for Termination: Fatigue, Dyspnea Stress Symptoms: General Fatigue, Dyspnea Exercise duration: 3 min28 sec Highest Stage Reached: Stage 2: 2.5 mph at 12% grade. Exercise capacity: 5.19 METs Rangel Treadmill Score: 3 Rate Pressure Product: [id number] Stress ECG Conclusion 1. The patient exercised for 3 minutes and 28 seconds (5 METS). Exercise was stopped due to fatigue. 2. The patient's heart rate and blood pressure augmented appropriately. 3. There is no evidence of ischemia on the ECG portion of the exam. Rangel Treadmill Score is 3 which is Moderate risk. Echocardiogram Summary: Date of Exam: 03/06/21Sex: M Admission Date: 03/06/21 : 1955 Age: 66 Indications: Abnormal PFT's, Exertional SOB, Chest pain Conclusion Normal left ventricular wall thickness and chamber size. Estimated ejection fraction is 60 to 65%. There are no segmental wall motion abnormalities Normal right ventricular size and systolic function Both atria are normal in size Aortic valve is trileaflet and sclerotic. There is no aortic stenosis. There is moderate central aortic regurgitation Thickened mitral leaflets with systolic prolapse. There is mild mitral regurgitation. The regurgitant aortic jet appears to impact the mitral leaflets and restrict their excursion, leading to functional moderate mitral stenosis. Normal tricuspid valve with mild regurgitation Estimated right ventricular systolic pressure is 52 mmHg, moderate pulmonary hypertension Normal pulmonic valve with trace regurgitation Pulmonary Function Summary: Date of service: 02/09/21 Time of Service: 09:59 Pulmonary Function Test Result Requesting Provider Nahomy Curry Indications: Dyspnea on Exertion Interpretation Spirometry: There is no airflow limitation. There is no significant bronchodilator effect. The flow volume loop appears normal. Lung Volumes: Lung volumes are normal. Diffusion Capacity: The diffusion is reduced. Airway Pressure: Noise resistance is normal. Impression There is no airflow limitation and there are normal lung volumes with an isolated decreased diffusion capacity. In the correct clinical setting this could represent pulmonary vascular disease and possibly pulmonary hypertension. Can consider an echocardiogram to assess pulmonary pressures. Clinical Correlation therefore is recommended. Anesthesia Assessment and Plan Anesthesia History Personal History: No History of Anesthesia Complications Family History: No Family History of Anesthesia Complications Exercise Tolerance Exercise Tolerance: Metabolic Equivalents>4 Pertinent Negatives Pertinent Negatives: No Symptoms of GERD Cardiac & Pulmonary Exam Cardiac Exam: Normal S1/S2 Heart Sounds Pulmonary Exam: Clear Bilateral Breath Sounds Implantable Cardiac Device Does patient have a Pacemaker or an ICD?: No Airway Exam Known Difficult Airway: No Mallampati Class: 2 Mouth Opening: Normal (> 3cm) Thyromental Distance: Greater than 3 cm Facial Hair: Full [place]ck Range of Motion: Full ROM Neck Circumference: Normal Teeth Condition: Edentulous ASA Classification ASA Score: ASA 3 Emergency Case?: No NPO Status NPO Status: NPO Clears >2 hours, Solids >8 hours Anesthesia Plan Resuscitation Status: Full Code Anesthesia Technique: General Anesthesia Airway Planned: Natural Airway Monitors Used: Standard Monitors
--- NOTE | 2021-03-30 07:52 | W.PM.HP.N ---
Date of service: 03/30/21 Time of Service: 07:52 Assessment and Plan Assessment and plan (1) Microscopic hematuria: Status: Acute Assessment and plan: For cystoscopy to complete his hematuria workup. We will be prepared to do a TURBT is a tumor is identified. History of Present Illness History of Present Illness Chief Complaint: microscopic hematuria Narrative: Karyn is a 66-year-old male that was previously seen for microscopic hematuria. He recently had a CTU was one of the first steps for this work-up. He was identified as having renal cysts, but no other abnormalities. he presents for cystoscopy with possible TURBT. He notes since we last saw him that he is having small frequent voids. He feels that he is emptying completely. He denies dysuria and gross hematuria. He notes no urgency or incontinence. He also states that he recently met with one of the general surgeons to have discussion about his hernia repair. His hernia repair is scheduled for early April. Review of Systems Narrative: No fevers or chills No vision change or dysphasia No diabetes or thyroid Shortness of breath related to COPD. No hemoptysis Hx mitral stenosis. No chest pain or palpitations No nausea, vomiting, hepatitis, ulcers, jaundice No seizures, strokes or peripheral neuropathy No bleeding disorders or anemia No gout PFSH Active Problem List BPH (benign prostatic hyperplasia) (Chronic) Emphysema lung (Acute) COPD (chronic obstructive pulmonary disease) (Chronic) Obsessive compulsive disorder (Acute) Microscopic hematuria (Acute) Reducible right inguinal hernia (Acute) Pulmonary HTN (Acute) Mitral stenosis (Acute) Adenomatous colon polyp (Acute) Medical History Abnormal pulmonary function test Alcohol abuse Bad odor of urine Brain damage from a fall Depression Dry skin Elevated blood pressure reading without diagnosis of hypertension Emphysema lung Exertional shortness of breath Fatigue Grief reaction Hamartoma History of anemia Hyperlipidemia Hyperpigmentation of skin Increased frequency of urination Inguinal hernia, right Insomnia Knee pain, right Medication monitoring encounter Other microscopic hematuria Prediabetes Short-term memory loss Smoker Stress at home Tobacco abuse Tubular adenoma of colon Vitamin D deficiency Surgical History History of colonoscopy (~2007) 2007 villous adenoma 2014 normal Tibia and fibula open fracture, right plate remains from sx Social History Smoking/Tobacco Use Status: Former Tobacco Use Quit Date: 03/07/21 Smoking risk assessment performed?: Yes Alcohol Intake: current Alcohol Intake frequency: a few times a week Alcohol type: hard liquor Drug use: Daily Substance use type: marijuana Details: smoked marijuana yesterday 03.29.21 Do you feel safe at home: Yes Do you feel safe in your relationship?: Yes Meds Allergies and Home Medications Allergies Allergy/AdvReac Type Severity Reaction Status Date / Time bupropion [From Wellbutrin] Allergy Mild from Verified 03/30/21 07:42 referral note, no reaction noted Home Medications Medication Instructions Recorded Confirmed Type cholecalciferol (vitamin D3) 25 25 mcg PO DAILY 11/12/19 03/30/21 History mcg (1,000 unit) capsule albuterol sulfate 90 mcg/actuation 2 puff INHALATION Q6H PRN 01/24/21 03/30/21 History aerosol inhaler amitriptyline 100 mg tablet 100 mg PO QHS 01/24/21 03/30/21 History atorvastatin 80 mg tablet 80 mg PO DAILY 01/24/21 03/30/21 History trazodone 50 mg tablet 25 mg PO QHS tab 01/24/21 03/30/21 History Exam Const General: cooperative and comfortable Neck Neck: supple Resp Auscultation: clear to auscultation bilaterally Cardio Rate: regular rate Rhythm: regular rhythm GI Palpation: soft and hernia Neuro General: patient alert, patient awake and patient oriented x3 Results Last Vital Signs Temp 36.4 C L 03/30/21 07:31 Pulse 78 03/30/21 07:31 Resp 18 03/30/21 07:31 BP 124/72 03/30/21 07:31 Pulse Ox 100 03/30/21 07:31
[2021-03-30 08:00] VITALS: BMI 19.3
[2021-03-30] MEDS: Lactated Ringers 1,000 ML 80 ML IV (08:15)
[2021-03-30] MEDS: ceFAZolin 1 GM/50 ML BAG IVPB (08:26)
[2021-03-30] MEDS: Lidocaine 2% Jelly 6 ML SYR (08:37)
--- NOTE | 2021-03-30 08:45 | PDOC.DSDIS_ITS ---
Discharge Plan Disposition Patient Disposition: HOME Condition: Stable Discharge Details Reason For Visit: cystoscopy Attending Provider: Elian Keen Primary Care Provider: Nahomy Curry Home Meds and New Rx's Prescriptions: No Action cholecalciferol (vitamin D3) 25 mcg (1,000 unit) capsule 25 mcg PO DAILY RF: 0 amitriptyline 100 mg tablet 100 mg PO QHS RF: 0 trazodone 50 mg tablet 25 mg PO QHS RF: 0 albuterol sulfate [ProAir HFA] 90 mcg/actuation HFA aerosol inhaler 2 puff inhalation Q6H PRNRF: 0 atorvastatin 80 mg tablet 80 mg PO DAILY RF: 0 Discharge Instructions Additional Instructions: may cancel scheduled followup appt with me (was meant to discuss pathology reports, but no tumor was found) Followup in office 2 to 3 months (either with me or 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
[2021-03-30 08:49] VITALS: BP 103/69; PULSE 82; RESP 16; TEMP 36.4; O2SAT 98
--- NOTE | 2021-03-30 08:49 | ROE_ITS ---
Date of service: 03/30/21 Time of Service: 08:49 Operative Note Operative Note DATE OF PROCEDURE: 03/30/21 PRE-OP DIAGNOSIS: microscopic hematuria POST-OP DIAGNOSIS: same PROCEDURE: cystoscopy SURGEON: Elian Keen ANESTHESIA TYPE: Local By Surgeon and General:No Airway Refer to Anesthesia Record ESTIMATED BLOOD LOSS: 0 PATHOLOGY: none sent COMPLICATIONS: None Patient was transported to: same day Patient's condition: stable Implants: none Indications: This is a 66-year-old gentleman who has a finding of microscopic hematuria. He has had a CT urogram that showed no significant uropathology. He presents now for cystoscopy to complete his hematuria work-up. Findings: No Bladder tumor Procedure Description: Mr Park was brought to the operating room on 03/30/2021. He was given a dose of preoperative antibiotics. After successful induction of general anesthesia without intubation, he was placed in the dorsal lithotomy position. His genitalia was prepped and draped. 2% Xylocaine jelly was instilled into the urethra to act as a local anesthetic. A 22 [place] rigid cystoscope was passed through the urethra into the bladder. The urethra and bladder were inspected with a 30 degree lens. The pendulous, bulbar and membranous urethra was all appeared normal with no strictures. The prostatic urethra showed some lateral lobe enlargement with the left side being larger than the right. No active bleeding was seen. No papillary lesions were seen in the prostatic urethra. The bladder neck was entered and the bladder mucosa was inspected. Both ureteral orifices appeared normal. No blood was seen coming from either side. The remainder of the bladder was trabeculated but no papillary or nodular lesions were seen. These findings were confirmed on reinspection of the bladder using a 70 degree lens. With no significant uropathology identified, we recommend yearly urinalysis and a repeat work-up in 3 to 5 years if the hematuria persists.
--- NOTE | 2021-03-30 08:58 | W.ANESPOSTOP ---
Postoperative Evaluation Date, Time and Location Date Performed: 03/30/21 Time Performed: 08:58 Patient Location: Day Surgery Unit Vital Signs Most Recent Imported Vital Signs: Most Recent Vital Signs Temp Pulse Resp BP Pulse Ox 36.4 C L 82 16 103/69 98 03/30/21 08:49 03/30/21 08:49 03/30/21 08:49 03/30/21 08:49 03/30/21 08:49 Pain Score Most Recent Pain Score: Most Recent Pain Score Pain Level 0 03/30/21 08:49 Assessment Mental Status: Awake (Alert & Oriented to Patient Baseline) Airway and Respiratory Function: Patent airway with normal (patient baseline) respiratory exam Cardiovascular Function: Hemodynamically Stable Hydration Status: Adequately Hydrated Nausea & Vomiting: No Nausea or Vomiting Pain: Pt. Denies Any Pain Peripheral Nerve Block: Patient did not receive a nerve block
[2021-03-30] MEDS: Phenazopyridine 200 MG TAB PO (09:05)
[2021-03-30 09:20] VITALS: BP 128/76; PULSE 73; RESP 16; TEMP 36.6; O2SAT 99
== END 2021-03-30 10:10 | disposition home or self-care (01) ==
PROVIDERS: PCP Nurse Practitioner Family; Visit Provider Urology
PROC: 0TJB8ZZ Inspection of Bladder, Via Natural or Artificial Opening Endoscopic (ICD-10-PCS; CPT 52000; principal; 2021-03-30 08:30)
DX: R31.29 Other microscopic hematuria (principal); J44.9 Chronic obstructive pulmonary disease, unspecified; I34.0 Nonrheumatic mitral (valve) insufficiency; N40.0 Benign prostatic hyperplasia without lower urinary tract symptoms
CPT/HCPCS: 52000; J0690; J1885; J2405

== ENCOUNTER 2021-05-23 18:42 | Outpatient (REF) | payer OTHER, SELFPAY ==
[2021-05-24 16:10] LABS: Rheumatoid Factor <8.6 IU/mL (<12.0)
[2021-05-25 09:20] LABS: Cyclic Citrullinated Peptide <2.5 U/mL (<5.0)
[2021-05-25 18:42] LABS: Scl 70 Antibodies, IgG <0.2 U
[2021-05-26 14:02] LABS: ANA Interpretation Positive (Negative); ANA Titer Pattern 1:320 Homogeneous
== END 2021-05-23 18:43 | disposition home or self-care (01) ==
LOC: LBN 18:42
PROVIDERS: PCP Nurse Practitioner Family; Visit Provider Student in an Organized Health Care Education/Training Program
DX: I27.20 Pulmonary hypertension, unspecified (principal)
CPT/HCPCS: 86200; 86038; 86225; 86235; 86431

== ENCOUNTER 2021-06-30 09:34 | Outpatient (CLI) | payer OTHER, SELFPAY ==
--- NOTE | 2021-06-30 09:45 | RT.EKG_ITS ---
APPROVED REPORT Exam: Resting ECG Reason for Exam: NPW, baseline needed Patient Location: O HR:87 bpm ECG Measurements Heart Rate 87 AXIS VT 148 P 84 QRSd 79 QRS 84 QT 360 T 70 QTc 433 Conclusion Sinus rhythm...normal P axis, V-rate 50- 99 Left atrial enlargement...P, P'>60mS, <-0.15mV V1 Borderline right axis deviation...QRS axis ( 81, 90) Incomplete right bundle branch block
== END 2021-06-30 09:35 | disposition home or self-care (01) ==
LOC: DI.CARD 09:48
PROVIDERS: PCP Nurse Practitioner Family; Referring Provider Nurse Practitioner Family; Visit Provider Internal Medicine Cardiovascular Disease
DX: I05.0 Rheumatic mitral stenosis (principal); I27.20 Pulmonary hypertension, unspecified
CPT/HCPCS: 93010

== ENCOUNTER → 2021-06-30 09:34 | Outpatient (BNVA) | payer OTHER, SELFPAY | PROVIDERS: PCP Nurse Practitioner Family; Referring Provider Nurse Practitioner Family; Visit Provider Internal Medicine Cardiovascular Disease | DX: I35.1 Nonrheumatic aortic (valve) insufficiency (principal); J43.9 Emphysema, unspecified; I27.20 Pulmonary hypertension, unspecified; I05.0 Rheumatic mitral stenosis | CPT/HCPCS: 93005; 99203; 99214 ==

== ENCOUNTER → 2021-07-06 12:32 | Outpatient (BNVA) | payer OTHER, SELFPAY | PROVIDERS: PCP Nurse Practitioner Family; Referring Provider Nurse Practitioner Family; Visit Provider Urology | DX: R31.29 Other microscopic hematuria (principal) | CPT/HCPCS: 81003; 99213 ==

== ENCOUNTER → 2021-11-06 09:50 | Outpatient (BNVA) | payer OTHER, SELFPAY | PROVIDERS: PCP Nurse Practitioner Family; Referring Provider Nurse Practitioner Family; Visit Provider Surgery | DX: F17.210 Nicotine dependence, cigarettes, uncomplicated (principal); K40.90 Unilateral inguinal hernia, without obstruction or gangrene, not specified as recurrent; I35.1 Nonrheumatic aortic (valve) insufficiency; J43.9 Emphysema, unspecified; I27.20 Pulmonary hypertension, unspecified | CPT/HCPCS: 99214; 99242 ==

== ENCOUNTER 2021-12-11 02:32 | Outpatient (CLI) | payer OTHER, SELFPAY ==
[2021-12-11 13:11] LABS: Source Nasal/Nares
[2021-12-11 15:41] LABS: COVID-19 PCR Negative (Negative)
== END 2021-12-11 02:33 | disposition home or self-care (01) ==
LOC: LBO 02:34
PROVIDERS: PCP Nurse Practitioner Family; Visit Provider Surgery
DX: Z20.822 Contact with and (suspected) exposure to COVID-19 (principal); Z01.818 Encounter for other preprocedural examination
CPT/HCPCS: 87635

== ENCOUNTER 2021-12-12 05:58 | Day surgery (SDC) | payer OTHER, SELFPAY ==
--- NOTE | 2021-12-11 20:19 | W.PM.HP.N ---
Assessment and Plan Assessment and plan (1) Alcohol abuse: Status: Chronic (2) Abnormal pulmonary function test: Status: Acute (3) Exertional shortness of breath: Status: Acute (4) Mitral stenosis: Status: Acute (5) Pulmonary HTN: Status: Acute (6) Reducible right inguinal hernia: Status: Acute (7) Emphysema lung: Status: Acute (8) Aortic regurgitation: Status: Acute (9) Edentulous: Status: Acute (10) Marijuana use: Status: Acute (11) Vitamin D deficiency: (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 Assessment and plan: Risks of the surgery include but are not limited to: Bleeding/infection/pneumonia/damage to blood vessels or bladder or? bowels/blood clots or PE/chronic pain/urinary retention/chronic numbness/reoccurrence/reaction to mesh requiring removal/damage to testicle or sterility/complications of anesthesia.? Patient understands that because he is not a smoker he is at increased risk for infections, chronic pain, mesh rejection, and other healing complications including and especially recurrence. The procedure will be done with abx and? under sterile conditions.? The pt requires a ride home from surgery and someone to stay with the pt for 24 hrs after anesthesia.? No lifting over 5 pounds for 2 weeks after surgery. History of Present Illness Narrative: Patient is here today for right inguinal hernia repair. He has been feeling good. no cp/sob. He has a chronic smoker's cough this is only clear. No fevers or chills. He has been having mild pain and has to push the hernia in often. He has had no changes in his medications or his health status. Exam is completed today. All questions are answered we reviewed postoperative instructions. He is stable for the proposed procedure Consult 11/06: ere [facility] that he has had a years, but is now bothering him. He reports having trouble pushing it back in when it? comes out. States it's what's holding my pants up. Patient developed a inguinal hernia after doing heavy lifting.? It is not a workers comp case.? It does keep him from doing any strenuous activities.? He denies straining to move his bowels or urinate.? I did review the consult from neurology. Unfortunately he has started smoking again.? And does have a chronic cough.? I did review with him the biggest risk with surgery for the hernia is pneumonia after surgery and recurrence.? Both of these things are increased risks because of smoking.? He would be much better served by stopping smoking prior to surgery.? He assures me that he is going to quit smoking again. Pulm: This is a 66 yo man referred to pulmonary clinic for pulmonary hypertension and exertional dyspnea. He has an isolated diffusion reduction on his PFT's which led to TTE that confirmed pulmonary HTN to 52mmHg as well as a few valvular pathologies. The mitral valvular abnormalities were though not to be the cause of his pulmonary hypertension by cardiology. He does have significant emphysema but technically no COPD so his pulmonary hypertension is not solely due to his emphysema. He had a negative autoimmune work up. He should have a VQ scan done to rule out CTEPH. I was planning on getting a sleep study but his Philadelphia score is zero and he has zero symptoms of sleep apnea so will defer this for now. It is possible that this is a multifactorial issue between his valvulopathies and emphysema. If his VQ scan returns as being normal then I will opt for conservative observation and repeat his TTE in 6 months time to reassess the pressures. CT 04/02 ABDOMINAL WALL: No evidence of significant anterior abdominal wal hernia.? There is a small right inguinal hernia. Cards: Plan The patient's most pertinent valvular abnormality is his aortic regurgitation.? There is has caused some degree of functional, not fixed , mitral stenosis.? I do not think that these findings are responsible for the patient's elevated pulmonary pressure.? That is more likely due to his chronic lung disease.? From the cardiac standpoint I would recommend he have a follow-up echocardiogram in 2 to 3 years? mostly to check the degree of aortic regurgitation He was advised to continue efforts for smoking cessation No new medications ordered additional cardiac testing was recommended today We have not scheduled a follow-up but remain available should new questions or concerns arise Review of Systems All systems reviewed & are unremarkable except as noted in HPI and below PFSH All Active Problems Right inguinal hernia (Acute) Alcohol abuse (Chronic) Abnormal pulmonary function test (Acute) Exertional shortness of breath (Acute) Mitral stenosis (Acute) Pulmonary HTN (Acute) PAP 52mmHg Reducible right inguinal hernia (Acute) Emphysema lung (Acute) Aortic regurgitation (Acute) Edentulous (Acute) Marijuana use (Acute) Medical History Adenomatous colon polyp Aortic regurgitation Bad odor of urine BPH (benign prostatic hyperplasia) 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 Depression Dry skin Elevated blood pressure reading without diagnosis of hypertension Fatigue Grief reaction Hamartoma History of anemia Hyperlipidemia Hyperpigmentation of skin Increased frequency of urination Insomnia Knee pain, right Medication monitoring encounter Microscopic hematuria Obsessive compulsive disorder Other microscopic hematuria Prediabetes Short-term memory loss Smoker Stress at home Tobacco abuse Tubular adenoma of colon Tubulovillous adenoma of colon Vitamin D deficiency Surgical History History of colonoscopy (~2007) 2007 villous adenoma 2014 normal Tibia and fibula open fracture, right plate remains from sx Social History Smoking/Tobacco Use Status: Current every day Tobacco Type: cigarettes Smoking risk assessment performed?: Yes Alcohol Intake: current Alcohol Intake frequency: a few times a week Alcohol type: hard liquor Drug use: Daily Substance use type: marijuana Details: smoked marijuana yesterday 12/11/21 Do you feel safe at home: Yes (Lives with 2 housemates) Do you feel safe in your relationship?: Yes Meds Allergies and Home Medications Allergies Allergy/AdvReac Type Severity Reaction Status Date / Time bupropion [From Wellbutrin] Allergy Mild from Verified 12/12/21 06:29 referral note, no reaction noted Home Medications Medication Instructions Recorded Confirmed Type cholecalciferol (vitamin D3) 25 25 mcg PO DAILY 11/12/19 12/12/21 History mcg (1,000 unit) capsule albuterol sulfate 90 mcg/actuation 2 puff inhalation Q6H PRN 01/24/21 12/12/21 History aerosol inhaler (ProAir HFA) amitriptyline 100 mg tablet 100 mg PO QHS 01/24/21 12/12/21 History atorvastatin 80 mg tablet 80 mg PO DAILY 01/24/21 12/12/21 History trazodone 50 mg tablet 25 mg PO QHS 01/24/21 12/12/21 History umeclidinium 62.5 mcg/actuation 1 inh inhalation DAILY #30 ea 05/26/21 12/12/21 Rx blister powder for inhalation (Incruse Ellipta) Exam Narrative Exam Narrative: PHYSICAL EXAM GENERAL APPEARANCE: Alert, healthy appearance, oriented, in no acute distress SKIN: No rashes.? No breakdown HYDRATION: Well hydrated HEAD, EYES, EARS, NECK, THROAT: Head is normocephalic, pupils equal, round, reactive to light and accommodation, ocular movement intact, sclera clear and no jaundice. ?no teeth. . No sore throat.? No jaw pain. No thrush NECK: Supple, Trachea midline. No JVD. LUNGS: normal respiration/nl chest excursion. ?Clear to auscultation B/l no R/R/W ?HEART: Regular rate and rhythm, EXTREMITY: No edema or cyanosis? no leg pain, redness, swelling.? No IV infiltration ABDOMEN: non tender to palpation, no masses or distention, . Normal bowel sounds. right inguinal hernia soft and easily reducible. Site marked. NEURO: no focal neuro deficits.
--- NOTE | 2021-12-11 20:27 | W.PM.DSUDISC ---
Discharge Plan Disposition Patient Disposition: HOME Condition: Good Discharge Details Reason For Visit: right hernia repair Attending Provider: Laurita Jacinto Primary Care Provider: Nahomy Curry Home Meds and New Rx's Prescriptions: New oxycodone 5 mg tablet 5 mg PO Q4H PRN (Reason: pain (scale score 7-10)) Qty: 10 0RF Rx Instructions: Will cause constipation. take w/ Miralax Continued cholecalciferol (vitamin D3) 25 mcg (1,000 unit) capsule 25 mcg PO DAILY amitriptyline 100 mg tablet 100 mg PO QHS trazodone 50 mg tablet 25 mg PO QHS albuterol sulfate [ProAir HFA] 90 mcg/actuation HFA aerosol inhaler 2 puff inhalation Q6H PRN atorvastatin 80 mg tablet 80 mg PO DAILY Incruse Ellipta 62.5 mcg/actuation blister with device 1 inh inhalation DAILY Qty: 30 3RF Discharge Instructions Additional Instructions: Dr. Jacinto HERNIA REPAIR ? POSTOPERATIVE INSTRUCTIONS Patients who have this type of surgery can usually be expected to return to work within two weeks and have minimal amounts of discomfort. ? ACTIVITY: The day of surgery should be spent resting. However, you can be up for short periods of time, I.E., going to the bathroom or kitchen. Avoid lifting or straining. On the day following surgery, you can be up and about as desired. ? LIFTING: Restrict your lifting to no more than five (5) pounds for the first week following surgery. For the second week after surgery, don?t lift more than ten pounds.? We will decide when you are done with restrictions and when you can return to work, at your follow-up appointment.? No sexual activity for two weeks.? ? DIET: There are no dietary restrictions following surgery. However, you may want to start with small amounts of liquids to avoid nausea the day of surgery. ? INCISION CARE: You will notice purple skin glue closing the incision.? Do not peel this off- it will wear off on its own.? After 24 hours you may shower. The dressing may be replaced for comfort, but is not necessary. ?An ice bag may be applied to the incision for 72 hours following surgery. ? SIGNS OF INFECTION: It is not unusual to have some black and blue discoloration of the skin around the incision, but also scrotum and penis.? ?It will slowly disappear. If you have any increased redness, drainage, fever (above 100 degrees), please contact your doctor for an examination. ? DISCOMFORT: You may expect to have some mild discomfort at the incision sight. If severe pain develops you should contact your doctor for further instructions. ? URINATION: Patients who have surgery occasionally have problems urinating. If you experience problems and are not able to urinate within 6 hours following your surgery, please call your doctor immediately or go to your nearest Emergency Room for evaluation. ? DRIVING: NO driving for three (3) days after surgery, or if you are still taking narcotic pain medication.? ? MEDICATIONS: Alternate Tylenol 1000mg by mouth every 8 hours and Ibuprofen 600mg every 6 hours. ?Make sure you take ibuprofen with food and not on an empty stomach. ?Take the Tylenol and ibuprofen continuously for the first 72hrs- not just when you have pain.? Use the tramadol for breakthrough pain.? Use ICE!?? Twenty minutes on, and then off, continuously for the first 72hours. If you are taking narcotic pain medication, follow the instructions on the label and do not drive. Pain medications can make you very constipated. Make sure you are moving your bowels daily. If not, take Miralax, milk of magnesia or magnesium citrate.?? Anesthesia makes you very constipated.? Take a dose of milk of magnesia the morning after surgery. ? REPORT: Unusual swelling, severe pain, unresolved nausea, signs of infection, or difficulty in urination to your surgeon. Follow up in clinic with Dr. Jacinto in 2 weeks.? [phone] Stand Alone Forms: Anesthesia Discharge InstTimothy, Nerve Block Instructions, Roni Conner (DSU) Activity:: see above Remove Dressings/Wound Care:: 24 hours Shower/Bathe:: 24 hours Diet:: As Tolerated Discharge Orders Discharge Orders: Discharge Order (Routine); Ordered 12/11/21 Ordered By: Laurita Jacinto DS: Diagnosis Discharge Diagnosis (1) Alcohol abuse: Status: Chronic (2) Abnormal pulmonary function test: Status: Acute (3) Exertional shortness of breath: Status: Acute (4) Mitral stenosis: Status: Acute (5) Pulmonary HTN: Status: Acute (6) Reducible right inguinal hernia: Status: Acute (7) Emphysema lung: Status: Acute (8) Aortic regurgitation: Status: Acute (9) Edentulous: Status: Acute (10) Marijuana use: Status: Acute (11) Vitamin D deficiency: (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
[2021-12-12] VITALS (9 sets, daily range): BP systolic 125–159; BP diastolic 70–83; PULSE 62–84; RESP 11–20; TEMP 36–36.6; O2SAT 94–99; BMI 18.1
[2021-12-12] MEDS: Gabapentin 300 MG CAP 600 MG PO (06:44)
[2021-12-12] MEDS: Tamsulosin 0.4 MG CAPCR PO (06:45)
[2021-12-12] MEDS: Acetaminophen 500 MG TAB 1000 MG PO (06:45)
--- NOTE | 2021-12-12 06:51 | ANES.PREOP_ITS ---
General Info Date of Service Date Performed: 12/12/21 Height: 5 ft 10 in Weight: 57.5 kg Body Mass Index (BMI): 18.1 Surgical Procedure: Operation Date: 12/12/21 07:40 Proposed Procedure Side Surgeon p Herniorrhaphy Inguinal w/Mesh Right Laurita Jacinto DO Meds Allergies and Home Medications Allergies Allergy/AdvReac Type Severity Reaction Status Date / Time bupropion [From Wellbutrin] Allergy Mild from Verified 12/12/21 06:29 referral note, no reaction noted Home Medication Medication Instructions Recorded cholecalciferol (vitamin D3) 25 25 mcg PO DAILY 11/12/19 mcg (1,000 unit) capsule albuterol sulfate 90 mcg/actuation 2 puff inhalation Q6H PRN 01/24/21 aerosol inhaler (ProAir HFA) amitriptyline 100 mg tablet 100 mg PO QHS 01/24/21 atorvastatin 80 mg tablet 80 mg PO DAILY 01/24/21 trazodone 50 mg tablet 25 mg PO QHS 01/24/21 umeclidinium 62.5 mcg/actuation 1 inh inhalation DAILY #30 ea 05/26/21 blister powder for inhalation (Incruse Ellipta) oxycodone 5 mg tablet 5 mg PO Q4H PRN pain (scale score 12/12/21 7-10) #10 tabs Current Visit Medications: Current Medications Generic Name Dose Route Start Last Admin Trade Name Freq PRN Reason Stop Dose Admin Acetaminophen 1,000 mg 12/12/21 06:00 12/12/21 06:45 Acetaminophen 500 Mg Tab PO 12/12/21 16:00 1,000 mg PREOP ROJAS Administration Gabapentin 600 mg 12/12/21 06:00 12/12/21 06:44 Gabapentin 300 Mg Cap PO 12/12/21 16:00 600 mg PREOP ROJAS Administration Ringer's Solution 1,000 mls @ 80 mls/hr 12/12/21 06:00 IV 01/10/22 23:59 INFUSION ROJAS Cefazolin Sodium/Dextrose 2 gm in 50 mls @ 100 mls/hr 12/12/21 06:00 Ancef Duplex IVPB 12/12/21 16:00 PREOP ROJAS Ondansetron HCl 4 mg/ Sodium 52 mls @ 200 mls/hr 12/11/21 20:25 Chloride IVPB Q6H PRN PRN IV Miscellaneous Supplies 1 each 12/12/21 06:00 Iv Access IV 01/10/22 23:59 DIRECTED ROJAS Morphine Sulfate 2 mg 12/11/21 20:25 Morphine 4 Mg/Ml Syr IVP Q1H PRN PRN Oxycodone HCl 5 mg 12/11/21 20:26 Oxycodone 5 Mg Tab PO Q4H PRN PRN Sodium Chloride 0 ml 12/12/21 06:00 Normal Saline Flush 10 Ml Syr IV 01/10/22 23:59 PRN PRN Sodium Chloride 0 ml 12/12/21 06:00 Normal Saline 10 Ml Vial IJ 01/10/22 23:59 DIRECTED PRN Sterile Water 0 ml 12/12/21 06:00 Water,Injection,Sterile 10 Ml Vial IJ 01/10/22 23:59 DIRECTED PRN Tamsulosin HCl 0.4 mg 12/12/21 06:00 12/12/21 06:45 Tamsulosin 0.4 Mg Capcr PO 12/12/21 16:00 0.4 mg PREOP ROJAS Administration PFSH Active Problems Active Problems: Problem Status Onset Code Right inguinal hernia K40.90 Alcohol abuse F10.10 Abnormal pulmonary function test R94.2 Exertional shortness of breath R06.02 Mitral stenosis I05.0 Pulmonary HTN I27.20 Reducible right inguinal hernia K40.90 Emphysema lung J43.9 Aortic regurgitation I35.1 Edentulous K08.109 Marijuana use F12.90 Medical History Medical History Adenomatous colon polyp Aortic regurgitation Bad odor of urine BPH (benign prostatic hyperplasia) 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 Depression Dry skin Elevated blood pressure reading without diagnosis of hypertension Fatigue Grief reaction Hamartoma History of anemia Hyperlipidemia Hyperpigmentation of skin Increased frequency of urination Insomnia Knee pain, right Medication monitoring encounter Microscopic hematuria Obsessive compulsive disorder Other microscopic hematuria Prediabetes Short-term memory loss Smoker Stress at home Tobacco abuse Tubular adenoma of colon Tubulovillous adenoma of colon Vitamin D deficiency Medical History Comments:: smoked cigarette today 12/12/21 smoked marijuana 12/11/21 Surgical History Surgical History History of colonoscopy (~2007) 2007 villous adenoma 2015 normal Tibia and fibula open fracture, right plate remains from sx Tobacco Smoking/Tobacco Use Status: Current every day Tobacco Type: cigarettes Alcohol Alcohol Intake: current Alcohol intake frequency: a few times a week Alcohol type: hard liquor Substance Use Substance use: Daily Substance use type: marijuana Details: smoked marijuana yesterday 12/11/21 Vital Signs and Lab Results Vital Signs Most Recent Vital Signs in EMR: Most Recent Vital Signs Temp Pulse Resp BP Pulse Ox 36.6 C 84 18 125/77 98 12/12/21 06:34 12/12/21 06:34 12/12/21 06:34 12/12/21 06:34 12/12/21 06:34 Lab Results Blood Type / Crossmatch: No Data to Display Complete Blood Count: No Data to Display Complete Metabolic Panel: No Data to Display Liver Function Panel: No Data to Display Coagulation Panel: No Data to Display Cardiac Panel: No Data to Display Arterial Blood Gas: No Data to Display Venous Blood Gas: No Data to Display Pancreas Panel: No Data to Display Thyroid Panel: No Data to Display Infectious Disease: Coronavirus (COVID-19)(PCR) Negative (Negative) 12/11/21 10:35 Coronavirus 2019 Source Nasal/Nares 12/11/21 10:35 Blood Cultures: No Data to Display Toxicology Panel: No Data to Display Imaging and Studies Imaging and Studies Study information below may be from another EMR and interpreted by another provider. Please see original notes in EMR for more complete details. EKG Summary: Conclusion Sinus rhythm...normal P axis, V-rate 50- 99 Left atrial enlargement...P, P'>60mS, <-0.15mV V1 Borderline right axis deviation...QRS axis ( 81, 90) Incomplete right bundle branch block 06/30/21 Stress Test Summary: DATE/TIME OF SERVICE: 12/27/20 ADMITTING PROVIDER: CARINA HERRREA MD Exam: Exercise Treadmill Indications: Exerrtional SOB Recovery ECG: Sinus Rhythm Recovery ST Change: No significant ST segment changes noted Clinical Reason for Termination: Fatigue, Dyspnea Stress Symptoms: General Fatigue, Dyspnea Exercise duration: 3 min28 sec Highest Stage Reached: Stage 2: 2.5 mph at 12% grade. Exercise capacity: 5.19 METs Rangel Treadmill Score: 3 Rate Pressure Product: 14050 Stress ECG Conclusion 1. The patient exercised for 3 minutes and 28 seconds (5 METS). Exercise was s topped due to fatigue. 2. The patient's heart rate and blood pressure augmented appropriately. 3. There is no evidence of ischemia on the ECG portion of the exam. Rangel Treadmill Score is 3 which is Moderate risk. Echocardiogram Summary: Date of Exam: 03/06/21Sex: M Admission Date: 03/06/21 : 1955 Age: 66 Indications: Abnormal PFT's, Exertional SOB, Chest pain Conclusion Normal left ventricular wall thickness and chamber size. Estimated ejection fraction is 60 to 65%. There are no segmental wall motion abnormalities Normal right ventricular size and systolic function Both atria are normal in size Aortic valve is trileaflet and sclerotic. There is no aortic stenosis. There is moderate central aortic regurgitation Thickened mitral leaflets with systolic prolapse. There is mild mitral regurgitation. The regurgitant aortic jet appears to impact the mitral leaflets and restrict their excursion, leading to functional moderate mitral stenosis. Normal tricuspid valve with mild regurgitation Estimated right ventricular systolic pressure is 52 mmHg, moderate pulmonary hypertension Normal pulmonic valve with trace regurgitation Pulmonary Function Summary: Date of service: 02/09/21 Time of Service: 09:59 Pulmonary Function Test Result Requesting Provider Nahomy Curry Indications: Dyspnea on Exertion Interpretation Spirometry: There is no airflow limitation. There is no significant bronchodilator effect. The flow volume loop appears normal. Lung Volumes: Lung volumes are normal. Diffusion Capacity: The diffusion is reduced. Airway Pressure: Noise resistance is normal. Impression There is no airflow limitation and there are normal lung volumes with an isolated decreased diffusion capacity. In the correct clinical setting this could represent pulmonary vascular disease and possibly pulmonary hypertension. Can consider an echocardiogram to assess pulmonary pressures. Clinical Correlation therefore is recommended. Anesthesia Assessment and Plan Anesthesia History Personal History: No History of Anesthesia Complications Family History: No Family History of Anesthesia Complications Exercise Tolerance Exercise Tolerance: Metabolic Equivalents>4 Pertinent Negatives Pertinent Negatives: No Symptoms of GERD, No Major Cardiovascular Symptoms or Complaints, No Major Pulmonary Symptoms or Complaints and No History of CVA/TIA Cardiac & Pulmonary Exam Cardiac Exam: Normal S1/S2 Heart Sounds Pulmonary Exam: Clear Bilateral Breath Sounds Implantable Cardiac Device Does patient have a Pacemaker or an ICD?: No Airway Exam Known Difficult Airway: No Mallampati Class: 2 Mouth Opening: Normal (> 3cm) Thyromental Distance: Greater than 3 cm Facial Hair: Full [place]ck Range of Motion: Full ROM Neck Circumference: Normal Teeth Condition: Edentulous ASA Classification ASA Score: ASA 3 Emergency Case?: No NPO Status NPO Status: NPO Clears >2 hours, Solids >8 hours Anesthesia Plan Resuscitation Status: Full Code Anesthesia Technique: General Anesthesia Airway Planned: LMA Pain Management: Surgeon and patient request nerve block Monitors Used: Standard Monitors
[2021-12-12] MEDS: Lactated Ringers 1,000 ML 80 ML IV (06:58)
[2021-12-12] MEDS: ceFAZolin 2 GM/50 ML BAG IVPB (07:37)
[2021-12-12] MEDS: Bupivacaine 0.25% Pres-Free 30 ML VIAL (08:45)
--- NOTE | 2021-12-12 09:00 | W.PM.OP ---
Date of service: 12/12/21 Time of Service: 09:00 Operative Note Operative Note DATE OF PROCEDURE: 12/12/21 PRE-OP DIAGNOSIS: RIH POST-OP DIAGNOSIS: other PROCEDURE: Open right inguinal hernia with mesh?in diagram SURGEON: Laurita Bustillo OFFICE SERVICES REPRESENTATIVE: Bela Eric ANESTHESIA TYPE: Local By Surgeon, General LMA/ETT and Primary Nerve Block Refer to Anesthesia Record ESTIMATED BLOOD LOSS: 5 PATHOLOGY: none sent COMPLICATIONS: None Patient was transported to: PACU Patient's condition: stable Procedure Description: INDICATIONS: The pt is here today for surgery regarding symptomatic Right inguinal hernia that has failed outpatient conservative medical management and he is here today for repair. Informed consent was obtained, explaining risks and benefits of the procedure including but not limited to bleeding, infection, pneumonia, blood clots, chronic pain, chronic numbness, damage to testicle resulting in removal, recurrence of hernia, reaction to Mesh necessitating removal, and other unforetold complications, and complications of anesthesia-which were addressed by the IRRIGATION SYSTEM INSTALLER. The patient is marked in preOp prior to the procedure DESCRIPTION OF PROCEDURE:? The pt is then brought to the operative room suite. Anesthesia was administered per the Department of Anesthesia. ?A nerve block was performed by anesthesia under US guidance. The patient was prepped and draped in the usual sterile fashion using ChloraPrep scrub solution. Pause for the cause was done. He did receive preop IV antibiotics, and 30 mL of .25% Marcaine w/out epinephrine, was used for local anesthetization. A #12 blade was used to make an incision over the external ring. Electrocautery used to provide hemostasis and dissect down to the fascia. The fascia was pretty much obliterated and there was nothing to open. The cord is elevated. The nerve was not identified. There medium is a cord lipomas.? Electro-cautery is used to provide hemostasis. A Morenci drain was placed around the cord to assist in mobilization. The cord was explored. ?There was is medium hernia sac on the cord. There is no direct hernia pushing through the floor. The hernia sac is dissected off the cord using a combination of blunt dissection and electrocautery.? Electrocautery is used to provide hemostasis.?? There are no contents within the hernia sac.? High ligation of the sac is then performed. The hernia sac stump is than inverted and returned to the abdominal cavity.? A Medium size plug is than inserted into the defect through the internal ring, and over sewn to tighten up the ring with 2-0 vicryl.? Please see RN notes from Lot number of the Bard mesh patch/plug.? The cord structures are still able to freely move through the ring itself.? The patch was then placed onto the floor, and using 2-0 Vicryl, sewn into the pubic tubercle and the shelving portions of the inguinal ligament, in the standard Lichenstein fashion.? ?The tails of the mesh are brought around the cord, sewn together w/ 2-0 Vicryl, and tucked under the external oblique.? The wound was copiously irrigated. There was no bleeding noted. The drain was removed. All structures are returned to normal anatomical position. The nerve is not sewn into the mesh, nor caught up in any sutures. The external oblique is re-approximated using 2-0 vicryl in a running fashion. ?Deep tissue was approximated with 3-0 Vicryl in a running fashion, and skin was approximated with 4-0 Monocryl in a running subcuticular fashion. Skin glue and sterile dressings are applied. The patient tolerated the procedure without complications to recovery in stable condition. LAURITA BUSTILLO, DO
--- NOTE | 2021-12-12 09:04 | W.ANESNERVE ---
Nerve Block Single Injection Procedure Date and Time Date Performed: 12/12/21 Procedure Start: 07:50 Location Where Procedure Performed Procedure Location: Operating Room Procedure Stop: 07:55 Reason Performed: Postoperative Analgesia Requesting Provider: Orville Timeout Performed Timeout Performed: Yes Monitoring Used ECG, Blood Pressure, SpO2 and ETCO2 Sterility Sterility: Hand Hygiene, Surgical Cap, Surgical Mask, Sterile Gloves, Sterile Drape/Sheet, Eye Protection and Chlorhexidine Sedation Given During Procedure Sedation Given (Indicate Dose Given): Propofol IV Dose:: 150 mg Patient Mental Status Patient Mental Status: Performed under general anesthesia Nerve Block 1st Nerve Block: Laterality: Right Block Type: TAP Unilateral Needle / Catheter Used: 100mm SonoPlex II Local Anesthetic Bolus (Indicate Dose Given): Injected in 3-5ml increments after negative blood aspiration, Bupivacaine 0.25% Dose:: 10 cc and Exparel Dose:: 10cc Additives (Indicate Dose Given): None Ultrasound: Sterile probe cover and gel used Ultrasound Image Saved?: Yes Nerve Stimulator: Not Used Paresthesia: None Procedure Tolerated: No Complications and Patient tolerated well Procedure Outcome: Successful Performed By: Jasbir Newell
--- NOTE | 2021-12-12 11:29 | W.ANESPOSTOP ---
Postoperative Evaluation Date, Time and Location Date Performed: 12/12/21 Time Performed: 11:20 Patient Location: Day Surgery Unit Vital Signs Most Recent Imported Vital Signs: Most Recent Vital Signs Temp Pulse Resp BP Pulse Ox 36 C L 74 16 141/70 H 97 12/12/21 10:30 12/12/21 10:30 12/12/21 10:30 12/12/21 10:30 12/12/21 10:30 Pain Score Most Recent Pain Score: Most Recent Pain Score Pain Level 2 12/12/21 10:30 Assessment Mental Status: Awake (Alert & Oriented to Patient Baseline) Airway and Respiratory Function: Patent airway with normal (patient baseline) respiratory exam Cardiovascular Function: Hemodynamically Stable Hydration Status: Adequately Hydrated Nausea & Vomiting: No Nausea or Vomiting Pain: Pain is tolerable per patient Peripheral Nerve Block: Regional nerve block not resolved at time of post operative discharge
== END 2021-12-12 11:20 | disposition home or self-care (01) ==
PROVIDERS: PCP Nurse Practitioner Family; Visit Provider Surgery
PROC: (CPT 49505; principal; 2021-12-12 07:30)
DX: K40.90 Unilateral inguinal hernia, without obstruction or gangrene, not specified as recurrent (principal); F17.210 Nicotine dependence, cigarettes, uncomplicated; E78.5 Hyperlipidemia, unspecified; R73.03 Prediabetes
CPT/HCPCS: 49505; 76942; C1781; J0690; J1100; J1885; J2250; J2405

== ENCOUNTER → 2021-12-21 13:29 | Outpatient (BNVA) | payer OTHER, SELFPAY | PROVIDERS: PCP Nurse Practitioner Family; Referring Provider Nurse Practitioner Family; Visit Provider Surgery | DX: Z48.817 Encounter for surgical aftercare following surgery on the skin and subcutaneous tissue (principal); K40.90 Unilateral inguinal hernia, without obstruction or gangrene, not specified as recurrent ==

== ENCOUNTER 2021-12-25 15:09 | Outpatient (REF) | payer OTHER, SELFPAY ==
[2021-12-25 16:40] LABS: ALT 41 U/L (16-63); AST 35 U/L (15-37); Albumin 3.4 g/dL (3.4-5.0); Alkaline Phosphatase 145 U/L (46-116); Anion Gap 9.9 mmol/L (3-11); BUN 13 mg/dL (7-18); Bilirubin, Total 0.4 mg/dL (0.2-1.0); CO2 26.1 mmol/L (21.0-32.0); CREATININE 0.9 mg/dL (0.70-1.30); Calcium 9.2 mg/dL (8.5-10.1); Calculated LDL 77 mg/dL (<100); Chloride 100 mmol/L (98-107); Cholesterol 133 mg/dL (<200); Glucose 100 mg/dL (74-106); HDL Cholesterol 47 mg/dL (40-60); Potassium 4.7 mmol/L (3.5-5.1); Sodium 136 mmol/L (136-145); Total Protein 7.9 g/dL (6.4-8.2); Triglyceride 46 mg/dL (<150)
[2021-12-25 21:25] LABS: Creatine Kinase 83 U/L (39-308)
[2021-12-26 08:25] LABS: GGT 51 U/L (15-85)
== END 2021-12-25 15:10 | disposition home or self-care (01) ==
LOC: NCHCN 15:09
PROVIDERS: PCP Nurse Practitioner Family; Visit Provider Nurse Practitioner Family
DX: E78.5 Hyperlipidemia, unspecified (principal); F10.10 Alcohol abuse, uncomplicated; Z51.81 Encounter for therapeutic drug level monitoring
CPT/HCPCS: 80053; 80061; 82550; 82977

== ENCOUNTER → 2022-01-25 09:58 | Outpatient (BNVA) | payer OTHER, SELFPAY | PROVIDERS: PCP Nurse Practitioner Family; Referring Provider Nurse Practitioner Family; Visit Provider Surgery | DX: Z48.817 Encounter for surgical aftercare following surgery on the skin and subcutaneous tissue (principal); K40.90 Unilateral inguinal hernia, without obstruction or gangrene, not specified as recurrent ==

== ENCOUNTER → 2022-02-28 12:57 | Outpatient (CLI) | payer OTHER, SELFPAY ==
--- NOTE | 2022-02-28 | DI.RAD_ITS ---
Exam(s) XR HAND LT COMPLETE EXAM: XR HAND LT COMPLETE CLINICAL HISTORY: LOCALIZED SWELLING ON LEFT HAND-R22.32, S/P DOG BITE 2 WKS AGO. TECHNIQUE: 2D digital imaging was performed. COMPARISON: No exams were available for comparison FINDINGS: 3 views Soft tissue swelling dorsally. No acute fracture evident. No radiopaque foreign body. No osseous l esions. Incidentally noted is what is either a remote nonunited fracture of the waist of the scaphoid or deve lopmental bipartite scaphoid-navicular bone of the wrist. IMPRESSION: Findings as above but no acute fractures evident. DATA REPOSITORY: RADIATION DOSE DELIVERED:
== END ==
PROVIDERS: PCP Nurse Practitioner Family; Visit Provider Nurse Practitioner Family
DX: R22.32 Localized swelling, mass and lump, left upper limb (principal)
CPT/HCPCS: 73130

== ENCOUNTER 2022-02-28 16:18 | Outpatient (REF) | payer OTHER, SELFPAY ==
[2022-02-28 14:58] LABS: Abs Immature Grans 0.02 10^3/uL (0.0-0.06); Absolute Basophil Count 0.04 10^3/uL (0.0-0.2); Absolute Eosinophil Count 0.07 10^3/uL (0.0-0.7); Absolute Lymphocyte Count 1.22 10^3/uL (1.2-3.4); Absolute Monocyte Count 0.76 10^3/uL (0.1-0.8); Absolute Neutrophil Count 4.77 10^3/uL (1.2-6.7); Basophils % 0.6; HGB 12.6 g/dL (13.5-17.5); Immature Grans % 0.3; Lymphocytes % 17.7; MCH 32.9 pg (27.0-33.0); MCHC 34.1 % (32.0-36.0); MCV 97 fL (80-95); MPV 11.4 fL (8.0-11.0); Neutrophils % 69.4; Platelet Count 244 10^3/uL (130-400); RBC 3.83 10^6/uL (4.36-5.78); RDW-SD 52.3 fL; WBC 6.88 10^3/uL (4.4-10.8)
[2022-02-28 15:13] LABS: Uric Acid 5.1 mg/dL (3.5-7.2)
== END 2022-02-28 16:19 | disposition home or self-care (01) ==
LOC: NCHCN 16:18
PROVIDERS: PCP Nurse Practitioner Family; Visit Provider Nurse Practitioner Family
DX: R22.32 Localized swelling, mass and lump, left upper limb (principal)
CPT/HCPCS: 84550; 85025

== ENCOUNTER → 2022-03-07 08:45 | Outpatient (BNVA) | payer OTHER, SELFPAY | PROVIDERS: PCP Nurse Practitioner Family; Referring Provider Nurse Practitioner Family; Visit Provider Student in an Organized Health Care Education/Training Program | DX: W54.0XXA Bitten by dog, initial encounter (principal); S66.902A Unspecified injury of unspecified muscle, fascia and tendon at wrist and hand level, left hand, initial encounter | CPT/HCPCS: 99203; 99213 ==

== ENCOUNTER 2022-04-02 11:44 | Outpatient (REF) | payer OTHER, SELFPAY ==
[2022-04-02 16:13] LABS: HCT 41.9 % (40.0-50.0); HGB 13.8 g/dL (13.5-17.5); MCH 31.7 pg (27.0-33.0); MCHC 32.9 % (32.0-36.0); MCV 96 fL (80-95); MPV 11.2 fL (8.0-11.0); Platelet Count 254 10^3/uL (130-400); RBC 4.36 10^6/uL (4.36-5.78); RDW 14.5 % (11.8-14.1); RDW-SD 51.8 fL; WBC 5.21 10^3/uL (4.4-10.8)
== END 2022-04-02 11:45 | disposition home or self-care (01) ==
LOC: NCHCN 11:44
PROVIDERS: PCP Nurse Practitioner Family; Visit Provider Nurse Practitioner Family
DX: R22.32 Localized swelling, mass and lump, left upper limb (principal); L03.114 Cellulitis of left upper limb; R79.89 Other specified abnormal findings of blood chemistry
CPT/HCPCS: 85027

== ENCOUNTER 2022-05-24 02:46 | Outpatient (CLI) | payer OTHER, SELFPAY ==
--- NOTE | 2022-05-24 14:30 | DI.CTLCSR_ITS ---
Exam(s) CT CHEST LUNG CANCER SCREEN EXAM: CT CHEST LUNG CANCER SCREEN CLINICAL HISTORY: SMOKER F17.210, SCREENING FOR CANCER Z12.9 TECHNIQUE: Imaging Protocol: Axial computed tomography images with coronal and sagittal reformatted images were created and reviewed COMPARISON: CT CT CHEST LUNG CANCER SCREEN from 02/07/2021 FINDINGS: Tracheobronchial tree: Patent where visualized. Pulmonary parenchyma: No consolidation or dominant measurable mass. Moderate emphysematous changes ar e present in the lungs. Lung Nodules: None. Mediastinum and Sendy: No dominant adenopathy or fluid collection. The esophagus is unremarkable. Thyroid gland: Unremarkable. Lymph nodes: Unremarkable. Pleura: No effusion or pneumothorax. Heart: The heart is not dilated. Coronary artery calcifications are present. No pericardial effusion . Aorta: Thoracic aorta non-dilated.Atherosclerosis is present. Upper abdomen: Unremarkable. Soft Tissues: Unremarkable. Bones: Within normal limits. IMPRESSION: No pulmonary nodules. Lung RADS Cat 1 - Negative: No nodules and definitely benign nodules Lung-RADS 1.0 CATEGORIES: Category 0 - Prior chest CT exam(s) being located for comparison. Category 1 - Annual screening in 12 months. No nodules or definitely benign nodules. Category 2 - Annual screening in 12 months. Benign appearance. Nodules with low likelihood of becomin g active cancer. Category 3 - 6-month follow-up. Probably benign. Short-term follow-up suggested. Nodules with low lik elihood of becoming active cancer. Category 4A - 3-month follow-up and CT/PET if >8 mm in size. Suspicious finding. Findings which requi re additional testing. Category 4B - Findings which require additional testing and tissue sampling. Suspicious finding. Category 4X - Category 3 or 4 nodules with additional features or imaging findings that increases the suspicion of malignancy. Modifier S- Potentially clinically significant finding. (Non lung cancer) RADIATION DOSE DELIVERED: 87.31mGy.cm Total DLP 87.31mGy.cmTotal DLP DATA REPOSITORY: All CT scans at this facility are submitted to the National Radiology Data Registry (NRDR) Dose Index Registry (DIR) with the [employer] ([employer]). RADIATION OPTIMIZATION: All CT scans at this facility use at least one of these dose optimization te chniques: automated exposure control; mA and/or kV adjustment per patient size (includes targeted exa ms where dose is matched to clinical indication); or iterative reconstruction.
== END 2022-05-24 03:06 ==
LOC: DI 02:47
PROVIDERS: PCP Nurse Practitioner Family; Visit Provider Nurse Practitioner Family
DX: Z12.2 Encounter for screening for malignant neoplasm of respiratory organs (principal); F17.210 Nicotine dependence, cigarettes, uncomplicated
CPT/HCPCS: 71271

== ENCOUNTER 2022-08-30 02:55 | Outpatient (CLI) | payer OTHER, SELFPAY ==
--- NOTE | 2022-08-30 13:50 | DI.US_ITS ---
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 Ejection fraction is 60 to 65%. Wall motio n is normal Normal right ventricular size and systolic function Left atrium is moderately dilated. Right atrial size is normal Thickened aortic valve leaflets. Valve is trileaflet. There is moderate to severe aortic regurgitat ion. There is no aortic stenosis Thickened mitral leaflets with moderate regurgitation Normal tricuspid valve with mild regurgitation. Estimated right ventricular systolic pressure is 43 mmHg Wall motion Left Ventricle The left ventricle is normal size. The left ventricular systolic function is normal. The left ventric ular ejection fraction is within the normal range. There is normal left ventricular wall thickness. T here is normal LV segmental wall motion. There is no ventricular septal defect visualized. LVEF is 60 -65%. Right Ventricle The right ventricle is normal size. The right ventricular systolic function is normal. The RVSP is 42 .6 mmHg. Atria Left atrium is moderately dilated. The right atrium size is normal. The interatrial septum is intact with no evidence for an atrial septal defect. Aortic Valve Thickened aortic valve leaflets Aortic valve is trileaflet. There is no aortic valvular stenosis. Mo derate to severe aortic regurgitation Mitral Valve Mitral valve leaflets are moderately thickened. Moderate mitral stenosis. Moderate mitral regurgitat ion. Tricuspid Valve The tricuspid valve is normal in structure. There is no tricuspid valve stenosis. Mild tricuspid regu rgitation. Pulmonic Valve The pulmonary valve is normal in structure. There is no pulmonic valvular stenosis. Trace pulmonic re gurgitation. Great Vessels The aortic root is normal in size. The ascending aorta is normal in size. IVC is normal in size and c ollapses >50% with inspiration. Pericardium There is no pericardial effusion. 2D Dimensions IVSD d PLAX 0.80 cm M: 0.6-1.2 LV Vol A2C d MOD 114.9 mL LVPW d PLAX 0.83 cm M: 0.6 - 1.2 LV Vol A4C d MOD 98.2 mL LVID d PLAX 4.91 cm M: 4.2 - 5.8 LA vol/ BSA A2C s A-L 40.2 mL/m2 LVDs 3.35 cm M: 2.5 - 4.0 LA vol/ BSA A4C s A-L 46.0 mL/m2 Ao Root d 3.17 cm M: 3.1 - 3.7 LA Vol/ BSA Biplane s A-L 43.4 mL/m2 RA Area A4C 10.62 cm2 LA Area A4C s MOD 24.33 cm2 RA Vol/ BSA A4C s A-L 13.2 mL/m2 LA Area A2C s MOD 22.56 cm2 Ao Asc Diam d 3.08 cm M: 2.6 - 3.4 LV EF A4C MOD 65.6 % LV EF Teichholz 58.5 % LV EF A2C MOD 60.6 % LVEF (Easley's) 60.40 % M: 52 - 72 LV EF Biplane MOD 60.4 % LV Volume 83.94 mL M: 62 - 150 SV 64.22 mL LV Volume Index 48.52 mL/m2 M: 34 - 74 SV Index 37.19 mL/m2 LV Vol Biplane MOD 106.3 mL FS 30.95 % M-Mode TAPSE 2.08 cm (M/F) >1.7 LV Diastology MV E' medial 0.060 (>0.07 m/s) E/A Ratio 0.9 LV E/e MED 27.60 (<14) MV E Vmax 1.66 (0.4-1.3 m/s) MV E' lateral 0.049 (>0.1 m/s) MV A Vmax 1.80 (0.4-1.3 m/s) LV E/e LAT 33.80 (<14) MV E/A Ratio 0.91 MV E/E' medial 27.62 MV E/E' lateral 33.84 Aortic Valve LVOT Area 3.21 cm2 AoV Area Vmax 3.01 cm2 LVOT Vmax 1.28 m/s AoV Area/ BSA (Vmax) 1.74 cm2/m2 LVOT Mean Estiven. 0.81 m/s MERLYN Mean Estiven. 2.68 cm2 LVOT Peak Grad 6.6 mmHg MERLYN Mean Estiven. Index 1.55 cm2/m2 LVOT Mean Grad 3.1 mmHg AR DT 1584 msec LVOT VTI 0.257 m AR PHT 459 msec LVOT Diam s 2.00 cm AoV Vmax 1.37 m/s Velocity Ratio 0.93 AoV Mean Estiven. 0.97 m/s AoV Peak Grad 7.5 mmHg LVOT SV 82.43 mL AoV Mean Grad 4.2 mmHg AoV VTI 0.273 m AoV Area VTI 3.02 cm2 AoV Area/ BSA (VTI) 1.75 cm/m2 Mitral Valve MV DT 791 (160-240 msec) MV Mean Grad 10.8 (<2mmHg) MV PHT 230 msec MV Area PHT 0.96 cm2 MV VTI 0.810 m MV VTI Annulus 0.810 m Pulmonary Valve PV Vmax 0.88 (0.5-1.5 m/s) RVOT Peak Gr. 1.89 mmHg PV Peak Grad 3.1 mmHg RVOT Mean Gr. 0.95 mmHg PV Mean Grad 1.6 mmHg RVOT VTI 0.131 m PV VTI 0.159 m RVOT Vmax 0.69 m/s Tricuspid Valve TR Peak Grad 39.5 mmHg TR Vmax 3.15 m/s RA Pressure 3.00 mmHg RVSP (TR) 42.6 mmHg
== END 2022-08-30 03:15 ==
PROVIDERS: PCP Nurse Practitioner Family; Visit Provider Nurse Practitioner Family
DX: R06.09 Other forms of dyspnea (principal)
CPT/HCPCS: 93306

== ENCOUNTER → 2022-10-11 15:06 | Outpatient (BNVA) | payer OTHER, SELFPAY | PROVIDERS: PCP Nurse Practitioner Family; Visit Provider Nurse Practitioner Gerontology | DX: R31.29 Other microscopic hematuria (principal) | CPT/HCPCS: 81003; 99213 ==

== ENCOUNTER 2022-11-15 10:08 | Outpatient (CLI) | payer OTHER, SELFPAY ==
--- NOTE | 2022-11-15 10:00 | RT.EKG_ITS ---
APPROVED REPORT Exam: Resting ECG Reason for Exam: aoritc regurg Patient Location: O HR:75 bpm ECG Measurements Heart Rate 75 AXIS IN 167 P 81 QRSd 86 QRS 91 QT 409 T 79 QTc 457 Conclusion Sinus rhythm...normal P axis, V-rate 50- 99 Right axis deviation...QRS axis ( 91,269) Baseline wander in lead(s) V2
== END 2022-11-15 10:09 | disposition home or self-care (01) ==
LOC: DI.CARD 10:09
PROVIDERS: PCP Nurse Practitioner Family; Visit Provider Internal Medicine Cardiovascular Disease
DX: I05.0 Rheumatic mitral stenosis (principal); I35.1 Nonrheumatic aortic (valve) insufficiency
CPT/HCPCS: 93010

== ENCOUNTER → 2022-11-15 12:41 | Outpatient (BNVA) | payer OTHER, SELFPAY | PROVIDERS: PCP Nurse Practitioner Family; Referring Provider Nurse Practitioner Family; Visit Provider Internal Medicine Cardiovascular Disease | DX: R06.09 Other forms of dyspnea (principal); I34.0 Nonrheumatic mitral (valve) insufficiency; F17.210 Nicotine dependence, cigarettes, uncomplicated; I35.1 Nonrheumatic aortic (valve) insufficiency | CPT/HCPCS: 93005; 99214 ==

== ENCOUNTER 2022-11-27 00:30 | Outpatient (CLI) | payer OTHER, SELFPAY ==
--- NOTE | 2022-11-27 06:45 | DI.NM_ITS ---
APPROVED REPORT Exam: Pharmacologic Patient Location: Out-Patient Room/Bed: Stress Nurse: Stacy Velazquez RN Ordering Provider:CORNELIA BARRON, Contact Number: [phone] BMI: 18.36 Baseline Rhythm: Sinus Rhythm Indications: Exertional SOB, SOB Medical History Medical History: Mitral regurgitation, ETOH abuse, abnormal PFT's, mitral stenosis, pulmonary HTN, em physema, aortic regurgitation, depression, HLD, prediabetes, smoker, Vit D deficiency Cardiac Medications: Trazadone, umeclidinium, fuosemide, vit D3, atorvastatin, amitriptyline, albuter ol sulfate Allergies: Bupropion Cardiac Risk Factors: Smoker, HLD Previous Cardiac Procedures: None Pretest Chest Pain Characteristics: None Exercise History: Sedentary Physical Disabilities: None Lung Sounds: Diminished throughout Heart Sounds: Regular Stress Test Details Test: Exercise stress converted to pharmacologic stress due to failure to obtain a diagnostic stress test. Reason for pharmacologic stress test: physical limitation. Nuclear Acquisition: Rest Tc-99m/Stress Tc-99m 1 day Rest Isotope: Tc-99m Sestamibi. Dose: 10.0 Date: 11/27/2022 Injection Time: 0825 Stress Isotope: Tc-99m Sestamibi. Dose: 31.0 Date: 11/27/2022 Injection Time: 1010 HR Resting HR Supine: 71 bpm Max Heart Rate (APMHR): 153.341848 bpm Resting HR Standin bpm Target HR (85% APMHR): 130.810584 bpm Max HR Achieved: 120 bpm % of APMHR: 78.43 Recovery HR: 92 bpm HR response to stress: Normal HR response to stress BP Resting BP Supine: 126/62 mmHg Resting BP Standin/60 mmHg Max BP: 140/64 mmHg Recovery BP: 130/64 mmHg BP response to stress: Normal blood pressure response to stress. ECG Resting ECG: Sinus Rhythm Ectopy: None Stress ECG: Sinus Tachycardia ST Change: Nondiagnostic low heart rate Arrhythmia: None Recovery ECG: Sinus Rhythm Recovery ST Change: Nondiagnostic low heart rate Recovery Arrhythmia: Rare Couplet Clinical Reason for Termination: Fatigue Stress Symptoms: Moderate SOB, fatigue Angina Score: None Rate Pressure Product: 80093 Stress ECG Conclusion 1. Resting electrocardiogram showed voltage for left ventricular hypertrophy 2. Patient underwent testing using a combination of low-level exercise and pharmacologic stress with regadenoson 3. Peak heart rate achieved was 78% of predicted for age 4. The electrocardiographic portion of the test was nondiagnostic 5. See MPI report Stress Test Summary STAGE Time (mins) Speed (mph) Grade (%) HR BP SpO2 SYMPTOMS METS Supine 71 126/62 98 Standing 81 102/60 98 1 3 1.7 10 102 98 Generalized fatigue 4.5 1 min post Lexiscan injection 113 126/60 Mod SOB, fatigue 3 min post Lexiscan injection 101 140/64 6 min post Lexiscan injection 92 130/60 98 All symptoms resolved MPI Conclusion Myocardial perfusion is normal. There is no ischemia or evidence of prior infarction EF is 61% with normal wall motion Radiologist Interpretation Radiologist Interpretation by: Harrison Welch MD Interpretation Date/Time: 11/27/2022 16:49:00
[2022-11-27] MEDS: Regadenoson 0.4 MG/5 ML SYR IVP (10:20)
== END 2022-11-27 00:50 ==
LOC: DI 00:30
PROVIDERS: PCP Nurse Practitioner Family; Visit Provider Internal Medicine Cardiovascular Disease
DX: R06.02 Shortness of breath (principal)
CPT/HCPCS: 78452; 93016; 93018; 93017; J2785

== ENCOUNTER 2022-12-24 12:09 | Outpatient (REF) | payer OTHER, SELFPAY ==
[2022-12-24 15:55] LABS: HCT 40.2 % (40.0-50.0); HGB 13.4 g/dL (13.5-17.5); MCH 32.4 pg (27.0-33.0); MCHC 33.3 % (32.0-36.0); MCV 97 fL (80-95); MPV 11.1 fL (8.0-11.0); Platelet Count 213 10^3/uL (130-400); RBC 4.14 10^6/uL (4.36-5.78); RDW 14.3 % (11.8-14.1); RDW-SD 51.3 fL; WBC 4.92 10^3/uL (4.4-10.8)
[2022-12-24 16:29] LABS: Anion Gap 7.2 mmol/L (3-11); BUN 15 mg/dL (7-18); CO2 29.8 mmol/L (21.0-32.0); Calcium 9.3 mg/dL (8.5-10.1); Calculated LDL 112 mg/dL (<100); Chloride 99 mmol/L (98-107); Cholesterol 184 mg/dL (<200); Estimated GFR 82.49 (mL/min/1.73m2); Glucose 134 mg/dL (74-106); HDL Cholesterol 58 mg/dL (40-60); Potassium 3.9 mmol/L (3.5-5.1); Sodium 136 mmol/L (136-145); Triglyceride 72 mg/dL (<150)
== END 2022-12-24 12:10 | disposition home or self-care (01) ==
LOC: NCHCN 12:09
PROVIDERS: PCP Nurse Practitioner Family; Visit Provider Nurse Practitioner Family
DX: E78.5 Hyperlipidemia, unspecified (principal); R06.09 Other forms of dyspnea; I34.0 Nonrheumatic mitral (valve) insufficiency; J43.8 Other emphysema
CPT/HCPCS: 80048; 80061; 85027

== ENCOUNTER → 2022-12-24 13:04 | Outpatient (BNVA) | payer OTHER, SELFPAY | PROVIDERS: PCP Nurse Practitioner Family; Visit Provider Internal Medicine Cardiovascular Disease | DX: J44.9 Chronic obstructive pulmonary disease, unspecified (principal); I34.0 Nonrheumatic mitral (valve) insufficiency; I35.1 Nonrheumatic aortic (valve) insufficiency; R06.02 Shortness of breath | CPT/HCPCS: 99214 ==

== ENCOUNTER → 2022-12-26 01:35 | Outpatient (CLI) | payer OTHER, SELFPAY ==
--- NOTE | 2022-12-26 | DI.US_ITS ---
Exam(s) US HERNIA EXAM: US HERNIA CLINICAL HISTORY: RT INGUINAL HERNIA, H/O REPAIR,RECENT WT LOSS. TECHNIQUE: Ultrasound was performed using standard protocol. COMPARISON: CT CT ABDOMEN PELVIS WO/W from 03/16/2021 FINDINGS: Sonographic assessment utilizing grayscale and color Doppler imaging was performed and targeted to th e area of clinical concern in the right inguinal region. There is shadowing in the right groin region likely related to mesh from prior inguinal hernia repair . There is a question of a new area of hernia medial to the area of shadowing mash with neck measuri ng 9 millimeters in diameter. The hernia appears to contain fat and no peristalsing bowel.. IMPRESSION: Prior right inguinal hernia repair. Question of new adjacent fatty hernia. DATA REPOSITORY:
== END ==
PROVIDERS: PCP Nurse Practitioner Family; Visit Provider Nurse Practitioner Family
DX: K40.90 Unilateral inguinal hernia, without obstruction or gangrene, not specified as recurrent (principal)
CPT/HCPCS: 76857

== ENCOUNTER → 2023-01-07 10:43 | Outpatient (BNVA) | payer OTHER, SELFPAY | PROVIDERS: PCP Nurse Practitioner Family; Referring Provider Nurse Practitioner Family; Visit Provider Surgery | DX: K40.90 Unilateral inguinal hernia, without obstruction or gangrene, not specified as recurrent (principal); F10.10 Alcohol abuse, uncomplicated; F17.210 Nicotine dependence, cigarettes, uncomplicated | CPT/HCPCS: 99212; 99213 ==

== ENCOUNTER 2023-01-24 16:39 | Outpatient (REF) | payer MEDICARE, SELFPAY ==
[2023-01-24 15:56] LABS: HCT 41.7 % (40.0-50.0); HGB 13.7 g/dL (13.5-17.5); MCH 31.9 pg (27.0-33.0); MCHC 32.9 % (32.0-36.0); MCV 97 fL (80-95); Platelet Count 193 10^3/uL (130-400); RBC 4.29 10^6/uL (4.36-5.78); RDW-SD 50.1 fL; WBC 4.91 10^3/uL (4.4-10.8)
== END 2023-01-24 16:40 | disposition home or self-care (01) ==
LOC: NCHCN 16:39
PROVIDERS: PCP Nurse Practitioner Family; Visit Provider Nurse Practitioner Family
DX: R89.8 Other abnormal findings in specimens from other organs, systems and tissues (principal); R71.8 Other abnormality of red blood cells
CPT/HCPCS: 85027

== ENCOUNTER 2023-02-13 10:22 | Outpatient (REF) | payer MEDICARE, SELFPAY ==
[2023-02-13 16:48] LABS: Vitamin B12 438 pg/mL (193-986)
[2023-02-13 17:04] LABS: Hemoglobin A1C 6.1 % (<5.7)
== END 2023-02-13 10:23 | disposition home or self-care (01) ==
LOC: NCHCN 10:22
PROVIDERS: PCP Nurse Practitioner Family; Visit Provider Nurse Practitioner Family
DX: R89.9 Unspecified abnormal finding in specimens from other organs, systems and tissues (principal)
CPT/HCPCS: 82607; 83036

== ENCOUNTER → 2023-05-01 12:53 | Outpatient (BNVA) | payer MEDICARE, SELFPAY | PROVIDERS: PCP Nurse Practitioner Family; Referring Provider Nurse Practitioner Family; Visit Provider Psychiatry & Neurology Neurology | DX: G56.03 Carpal tunnel syndrome, bilateral upper limbs (principal); J44.9 Chronic obstructive pulmonary disease, unspecified | CPT/HCPCS: 95910; 99214 ==

== ENCOUNTER → 2023-10-03 12:42 | Outpatient (BNVA) | payer MEDICARE, SELFPAY | PROVIDERS: PCP Nurse Practitioner Family; Referring Provider Nurse Practitioner Family; Visit Provider Student in an Organized Health Care Education/Training Program | DX: G56.01 Carpal tunnel syndrome, right upper limb (principal); G56.02 Carpal tunnel syndrome, left upper limb; M65.341 Trigger finger, right ring finger; M65.331 Trigger finger, right middle finger | CPT/HCPCS: 20550; J1010 ==

== ENCOUNTER → 2023-12-09 01:11 | Outpatient (CLI) | payer MEDICARE, SELFPAY ==
--- OUTSIDE RECORDS SUMMARY | 2023-12-09 01:13 | XMS_ITS | Encounter Summary ---
Author Name [facility] [place] Organization [facility] [place] [place] [facility] [place] Address [address] [place] [address] Care Team Providers Care Senior Computer Specialist Name Role Phone AG SALGUERO Primary Care Provider Unavailabl e Insurance Providers: All historical and current Section Date Range: From patient's date of to the date document was created. This section includes the names of all active insurance providers for the patient. Insurance Provider Type of Coverage Plan Name Start of Policy Coverage End of Policy Coverage Group Number Member ID Insurance Provider's Telephone Number Policy Lorenzo's Name Patient's Relationship to Policy [facility] ([facility]) MEDICARE ADVANTAGE [facility] (WNR) Feb 10, 2023 [id number] [place] PAT[place] Selected Encounter This section includes the information on record at [place] for the Encounter. Date/Time Encounter Type Encounter Description Reason Provider Source Feb 13, 2023 09:30 AM Outpatient Encounter TELEPHONE PRIMARY CARE BEN ALANIS Encounter Template Text not used by [place] Plan of Treatment: Future Appointments (+ 6 months) and Future Tests (+/- 45 days) The Plan of Treatment section includes future care activities for the patient from all [facility] treatmentfacilities. This section includes future appointments and future orders which are active, pending or scheduled. Future Appointments This section includes appointments that were scheduled to occur 6 months from the date of the Encounter, up to a maximum of 20 appointments. The data comes from all [place] treatment facilities. Appointment Date/Time Appointment Type Appointme nt Facility Name Feb 19, 2023 01:00 PM AMBULATORY - NONE [facility] [place] [facility] Mar 01, 2023 10:20 AM AMBULATORY - NONE [place] [facility] Mar 13, 2023 02:00 PM AMBULATORY - SURGERY [facility] Active, Pending, and Scheduled Orders This section includes a listing of several types of active, pending, and scheduled orders, including clinic medications orders, diagnostic test orders, procedure orders and consult orders; where the start date of the order is 45 days before the date of the Encounter or 45 days after the date of theEncounter. The data comes from all [facility]. Test Date/Time Test Type Test Details Facility Name Feb 04, 2023 12:00 AM Laboratory - Chemistry Order CBC PROFILE BLOOD(LAV-EDTA) [facility] Feb 04, 2023 12:00 AM Laboratory - Chemistry Order URINALYSIS W/REFLEX TO CULTURE CLEAN CATCH URINE [facility] Feb 04, 2023 12:00 AM Laboratory - Chemistry Order GLYCOHEMOGLOBIN (A1C ONLY) BLOOD(LAV-EDTA) [facility] Feb 04, 2023 12:00 AM Laboratory - Chemistry Order MICROALBUMIN/CREATININE RATIO PANEL URINE RANDOM [facility] Feb 04, 2023 12:00 AM Laboratory - Chemistry Order P4 GLU,BUN,CREAT,LYTES,CA LT GREEN(LI HEP) PLASMA [facility] Feb 04, 2023 12:00 AM Laboratory - Chemistry Order LIVER PROFILE LT GREEN(LI HEP) PLASMA [facility] Feb 04, 2023 12:00 AM Laboratory - Chemistry Order LIPOPROTEIN CHOLESTEROL FRACT. PANEL LT GREEN(LI HEP) PLASMA [facility] Encounter Notes: All associated encounter notes This section contains the clinical notes associated to the Encounter. Date/Time Encounter Note(s) Provider Source Feb 13, 2023 09:32 AM PRIMARY CARE TELEP NICKOLAS ENCOUNTER NOTE: LOCAL TITLE: Telephone Note/Tool Planner STANDARD TITLE: PRIMARY CARE TELEPHONE ENCOUNTER NOTE DATE OF NOTE: FEB 13, 2023@09:32 ENTRY DATE: FEB 13, 2023@09:32:09 AUTHOR: BEN ALANIS COSIGNER: URGENCY: STATUS: COMPLETED Work Phone: Cell phone: attempting to contact vet- no answer home phone- left vm to please contact clinic. (attempt cell number- disconnected.) will attempt contact at another time /kwesi/ BEN ALANIS RN Signed: 02/13/2023 09:38 BEN ALANIS [facility]
--- OUTSIDE RECORDS SUMMARY | 2023-12-09 01:13 | XMS_ITS ---
Author Name [facility] [place] Organization [facility] [place] [facility] [place] Address [address] [place] [address] Care Team Providers Care Concrete Bucket Hooker Name Role Phone AG SALGUERO Primary Care [...] Lorenzo's Name Patient's Relationship to Policy Lorenzo AARP [facility] (WNR) MEDICARE ADVANTAGE [facility] (WNR) Feb 10, 2023 [id number] [place] Y PATIENT Selected Encounter This section includes the information on record at [place] for the Encounter. Date/Time Encounter Type Encounter Description Reason Pro vider Source Feb 13, 2023 11:45 AM Outpatient Encounter ADMIN PAT ACTIVTIES (MASNONCT) I[facility] Encounter Template Text not used by [facility] Plan of Treatment: Future Appointments (+ 6 [...] 20 appointments. The data comes from all [facility] treatment facilities. Appointment Date/Time Appointment Type Appointme nt Facility Name Feb 19, 2023 01:00 PM AMBULATORY - NONE [facility] [place] [facility] Mar 01, 2023 10:20 AM AMBULATORY - NONE [place] [facility] Mar 13, 2023 02:00 PM AMBULATORY - SURG[facility] [place] [facility] Active, Pending, and Scheduled Orders This section includes a listing of several types of active, pending, and scheduled orders, including clinic medications orders, diagnostic test orders, procedure orders and consult orders; where the start date of the order is 45 days before the date of the Encounter or 45 days after the date of theEncounter. The data comes from all [facility]. Test Date/Time Test Type Test Details Facility Name Feb 04, 2023 12:00 AM Laboratory - Chemistry Order CBC PROFILE BLOOD(LAV-EDTA) [facility] Feb 04, 2023 12:00 AM Laboratory - Chemistry Order URINALYSIS W/REFLEX TO CULTURE CLEAN CATCH URINE [facility] Feb 04, 2023 12:00 AM Laboratory - Chemistry Order GLYCOHEMOGLOBIN (A1C ONLY) BLOOD(LAV-EDTA) [facility] Feb 04, 2023 12:00 AM Laboratory - Chemistry Order MICROALBUMIN/CREATININE RATIO PANEL URINE RANDOM [facility] Feb 04, 2023 12:00 AM Laboratory - Chemistry Order P4 GLU,BUN,CREAT,LYTES,CA LT GREEN(LI HEP) PLASMA [facility] Feb 04, 2023 12:00 AM Laboratory - Chemistry Order LIVER PROFILE LT GREEN(LI HEP) PLASMA [facility] Feb 04, 2023 12:00 AM Laboratory - Chemistry Order LIPOPROTEIN CHOLESTEROL FRACT. PANEL LT GREEN(LI HEP) PLASMA [facility] Encounter Notes: All associated encounter notes This section contains the clinical notes associated to the Encounter. Date/Time Encounter Note(s) Provider Source Feb 13, 2023 11:45 AM ADMINISTRATIVE NOT E: LOCAL TITLE: CCC: SCHEDULING ADMINISTRATION STANDARD TITLE: ADMINISTRATIVE NOTE DATE OF NOTE: FEB 13, 2023@11:45:58 ENTRY DATE: FEB 13, 2023@11:45:58 AUTHOR: MELVIN BROWN COSIGNER: URGENCY: STATUS: COMPLETED CCC: SCHEDULING ADMINISTRATION Has ADDENDA Patient Demographics Patient Name: ABBY PARTIDA SSN: [id number] Patient Primary Address: [address] [place] [address]
[place] [address] Patient Primary Phone: [phone] Patient : 1955 Patient Age: 67 Caller/Recipient Relation to Patient: Self Call Back Number: [phone] Administrative Administrative Note Reason: Returned Call Administrative Note Comments: Patient returning call to RN left on V/M states best time to call would be tomorrow morning 02/14/2023. /kwesi/ MELVIN TOMLIN 1 [facility] Signed: 02/13/2023 11:46 Receipt Acknowledged By: 02/13/2023 11:53 /es/ MICHAEL GRADY LPN 02/13/2023 17:12 /es/ BEN ALANIS RN for JEWELS BROWNE 02/13/2023 14:30 /kwesi/ HERMILO MORENO 02/13/2023 ADDENDUM STATUS: COMPLETED Appt was made with patient for 02/13/2023 No availablity for phone appt 02/14/2023 /kwesi/ MICHAEL GRADY LPN Signed: 02/13/2023 11:54 02/13/2023 ADDENDUM STATUS: COMPLETED TW attempted to reach to r/s today's phone intake, LMOM /kwesi/ HERMILO MORENO Signed: 02/13/2023 14:29 MELVIN BROWN [facility]
--- OUTSIDE RECORDS SUMMARY | 2023-12-09 01:13 | XMS_ITS | Encounter Summary ---
Author Name [facility] [place] Organization [facility] [place] Address [address] [place] [address] Care Team Providers Care Pneumatic Tube Repairer Name Role Phone AG SALGUERO Primary Care [...] Name Patient's Relationship to Policy Lorenzo AARP [facility] (WNR) MEDICARE ADVANTAGE [facility] (WNR) Feb 10, 2023 [id number] [place] Y PATIENT Selected Encounter This section includes the information on record at [place] for the Encounter. Date/Time Encounter Type Encounter Description Reason Pro vider Source Feb 07, 2023 11:27 AM Outpatient Encounter PRIMARY CARE/MEDICINE IHE Encounter Template Text not used by [place] Plan of Treatment: Future Appointments (+ 6 [...] 20 appointments. The data comes from all [place] treatment facilities. Appointment Date/Time Appointment Type Appointme nt Facility Name Feb 19, 2023 01:00 PM AMBULATORY - NONE [facility] Mar 01, 2023 10:20 AM AMBULATORY - NONE [facility] Mar 13, 2023 02:00 PM [facility]ORY - [place] [facility] Active, Pending, and Scheduled Orders This section includes a listing of several types of active, pending, and scheduled orders, including clinic medications orders, diagnostic test orders, procedure orders and consult orders; where the start date of the order is 45 days before the date of the Encounter or 45 days after the date of theEncounter. The data comes from all [facility]. Test Date/Time Test Type Test Details Facility Name Feb 04, 2023 12:00 AM Laboratory - Chemistry Order CBC PROFILE BLOOD(LAV-EDTA) [facility] Feb 04, 2023 12:00 AM Laboratory - Chemistry Order URINALYSIS W/REFLEX TO CULTURE CLEAN CATCH URINE [facility] Feb 04, 2023 12:00 AM Laboratory - Chemistry Order GLYCOHEMOGLOBIN (A1C ONLY) BLOOD(LAV-EDTA) [facility] Feb 04, 2023 12:00 AM Laboratory - Chemistry Order MICROALBUMIN/CREATININE RATIO PANEL URINE RANDOM [facility] Feb 04, 2023 12:00 AM Laboratory - Chemistry Order P4 GLU,BUN,CREAT,LYTES,CA LT GREEN(LI HEP) PLASMA [facility] Feb 04, 2023 12:00 AM Laboratory - Chemistry Order LIVER PROFILE LT GREEN(LI HEP) PLASMA [facility] Feb 04, 2023 12:00 AM Laboratory - Chemistry Order LIPOPROTEIN CHOLESTEROL FRACT. PANEL LT GREEN(LI HEP) PLASMA [facility] Encounter Notes: All associated encounter notes This section contains the clinical notes associated to the Encounter. Date/Time Encounter Note(s) Provider Source Feb 07, 2023 11:44 AM NURSING IMMUNIZATI ON NOTE: LOCAL TITLE: IMMUNIZATION AND VACCINATION NOTE STANDARD TITLE: NURSING IMMUNIZATION NOTE DATE OF NOTE: FEB 07, 2023@11:44 ENTRY DATE: FEB 07, 2023@11:44:14 AUTHOR: MICHAEL GRADY COSIGNER: URGENCY: STATUS: COMPLETED EVENT PROCEDURE: DATE OF SERVICE: TREATING FACILITY: THE ATTACHED SCANNED DOCUMENT HAS BEEN REVIEWED AND AUTHORIZED BY DOCUMENT (S) SENT TO [facility] TO BE SCANNED. TO VIEW THIS DOCUMENT, OPEN LellanS TOOLS MENU AND THEN OPEN THE IMAGE DISPLAY VIEWER. *Immunizations No INFLUENZA Immunizations on file within 1Y. No prior COVID-19 immunization No FLU,HI DOS Immunizations on file within 1Y. Recorded Pneumococcal Vaccinations Information: No prior doses of pneumococcal vaccine recorded. No TD-ADULT Immunizations on file within 10Y. No TDAP Immunizations on file within 10Y. Date of last Zoster Vaccine unknown Pneumovax 23 Prior pneumococcal vaccination The patient may have been vaccinated in the past but written documentation of vaccination is not available today. The patient has previously received the pneumococcal polysaccharide vaccine PPSV23 (Pneumovax). Documented: PNEUMOCOCCAL POLYSACCHARIDE PPV23 Historical Date Administered: Mar 02, 2020 Information Source: FROM OTHER REGISTRY Tdap Immunization: Td/Tdap given previously - written records available The patient has previously received the Tetanus, Diphtheria vaccine (Td). Documented: TD(ADULT) UNSPECIFIED FORMULATION Historical Date Administered: Feb 28, 2022 Information Source: FROM OTHER PROVIDER The patient has previously received the Tetanus, Diphtheria, Pertussis vaccine (Tdap). Documented: TDAP Historical Date Administered: Jul 15, 2013 Outside Location: [facility] Provider Information Source: FROM OTHER REGISTRY /kwesi/ MICHAEL GRADY INTERNATIONAL ACCOUNT EXECUTIVE Signed: 02/07/2023 11:48 MICHAEL GRADY [facility] Dec 24, 2022 11:27 AM NONVA NOTE: LOCAL TITLE: NonVA Laboratory STANDARD TITLE: NONVA NOTE DATE OF NOTE: DEC 24, 2022@11:27 ENTRY DATE: FEB 07, 2023@11:28:16 AUTHOR: MICHAEL GRADY EXP COSIGNER: URGENCY: STATUS: COMPLETED EVENT PROCEDURE: LAB REPORT TREATING FACILITY: [facility] BUN 15 Creat 1.0 Calcium 9.3 Glucose 134 eGFR 82.49 NA 136 K 3.9 Chlor 99 C02 29.8 anion gap 7.2 THE ATTACHED SCANNED DOCUMENT HAS BEEN REVIEWED AND AUTHORIZED BY DOCUMENT (S) SENT TO [facility] TO BE SCANNED. TO VIEW THIS DOCUMENT, OPEN LellanS TOOLS MENU AND THEN OPEN THE IMAGE DISPLAY VIEWER. Lipid Screening: has documentation of outside lipid profile results. Outside Location and date. Date: December 24, 2022 Location: [facility] Provider Total Cholesterol result: 184 FASTING Triglycerides result: 72 HDL result: 58 LDL result: 112 /kwesi/ MICHAEL GRADY INTERNATIONAL ACCOUNT EXECUTIVE Signed: 02/07/2023 11:32 MICHAEL GRADY [facility] Jan 04, 2020 08:00 AM NONVA OPERATIVE RE PORT: LOCAL TITLE: NonVA Operation Report STANDARD TITLE: NONVA OPERATIVE REPORT DATE OF NOTE: JAN 04, 2020@08:00 ENTRY DATE: FEB 07, 2023@11:35:38 AUTHOR: MICHAEL GRADY EXP COSIGNER: URGENCY: STATUS: COMPLETED NonVA Operation Report Has ADDENDA EVENT PROCEDURE: Colonoscopy Report TREATING FACILITY: [facility] Date of service: 01/04/20 Time of Service: : Colonoscopy Report Date of procedure: 01/04/20 Pre-op diagnosis general: 1-Ix of polyps Post-op diagnosis procedure note: other (cecal polyp) Procedure: Colonoscopy with polypectomy Surgeon: Jeremias Altman Anesthesia proc note operative: other (General/ASA 2/Jasbir Newell, PATRICIA) Estimated blood loss (mL); 3 Pathology: other (Cecal polyp) Complications: None Disposition: same day Indications: The patient is here for Colonoscopy pre-op. His last screening was in 2014 and was unremarkable, However previous Colonoscopy was remarkable ?or tubular adenoma. He has no family hi story of colon cancer. He has not had any bowel habit changes. -Discussed Colonoscopy bowel prep as well as the procedure. Discussed possible complications of the procedure to include bleeding, pain, perforation, missed small lesion/polyp, sore throat, aspiration and adverse reaction to the medications. Questions were answered to patient???s satisfaction. No guarantees were implied or given. Prep; Miralax/Dulcolax Procedure Start Time; Procedure End Time: 10:13 Retraction Time: 18 minutes Findings: one small polyp in the cecum Procedure Description: After informed consent was obtained the patient was taken to the procedure room and placed in a left decubitous position. Monitors were applied and a time out was done. The patients name, date of , procedure, allergies to medications and metal in their body was reviewed. The patient was then sedated. Once sedated and comfortable a rectal exam was done. External exam was normal. Internal exam revealed a normal sphincter tone and no palpable masses. The prostate felt smooth. The scope was then introduced and retro-flexed. No internal hemorrhoids, masses or polyps were identified on retro-flexion. The scope was then advanced to the cecum without difficulty. The ileocecal valve and appendiceal orifice were identified. The prep was adequate. There was a of stool and bile scattered throughout the large bowel. 1 L of fluid was usedto clean the film off the busch. The scope was then slowly retracted over 18 minutes back into the rectum. Polyps were removed with cold forceps in the cecum. The scope was removed and the patient was woken up and taken back to Same, day surgery in stable condition. The patient tolerated the procedure well and there were no immediate complications. Follow up: The patient should follow up in 5 years unless they develop changes in bowel habits or other new gastrointestinal complaints. THE ATTACHED SCANNED DOCUMENT HAS BEEN REVIEWED AND AUTHORIZED BY DOCUMENT (S) SENT TO [facility] TO BE SCANNED. TO VIEW THIS DOCUMENT, OPEN LellanS TOOLS MENU AND THEN OPEN THE IMAGE DISPLAY VIEWER. /kwesi/ MICHAEL GRADY LPN Signed: 02/07/2023 11:39 02/07/2023 ADDENDUM STATUS: COMPLETED Follow Up Colonoscopy: Colonoscopy is due based on information available to this reminder. Prior/outside Colonoscopy results: other (Cecal polyp) Date: January 04, 2020 Colonoscopy reminder set 2 years from FEB 07, 2023. /kwesi/ MICHAEL GRADY LPN Signed: 02/07/2023 11:42 MICHAEL GRADY [facility]
--- OUTSIDE RECORDS SUMMARY | 2023-12-09 01:13 | XMS_ITS | Encounter Summary ---
Author Name [facility] [place] Organization [place] Address [address] [place] [address] Care Team Providers Care Photographic Double Name Role Phone AG SALGUERO Primary Care [...] Name Patient's Relationship to Policy Lorenzo AARP [facility] (WNR) MEDICARE ADVANTAGE [facility] (WNR) Feb 10, 2023 [id number] JENN PARTIDA Y PATIENT Selected Encounter This section includes the information on record at [place] for the Encounter. Date/Time Encounter Type Encounter Description Reason Pro vider Source Feb 07, 2023 12:00 AM Outpatient Encounter EVENT (HISTORICAL) IHE Encounter Template Text not used by [...] 20 appointments. The data comes from all [place] treatment facilities. Appointment Date/Time Appointment Type Appointme nt Facility Name Feb 19, 2023 01:00 PM AMBULATORY - NONE [facility] Mar 01, 2023 10:20 AM AMBULATORY - NONE [facility] Mar 13, 2023 02:00 PM AM[facility] - [place] [facility] Active, Pending, and Scheduled Orders This section includes a listing of several types of active, pending, and scheduled orders, including clinic medications orders, diagnostic test orders, procedure orders and consult orders; where the start date of the order is 45 days before the date of the Encounter or 45 days after the date of theEncounter. The data comes from all [facility]. Test Date/Time Test Type Test Details Facility Name Feb 04, 2023 12:00 AM Laboratory - Chemistry Order CBC PROFILE BLOOD(LAV-EDTA) [facility] Feb 04, 2023 12:00 AM Laboratory - Chemistry Order URINALYSIS W/REFLEX TO CULTURE CLEAN CATCH URINE [facility] Feb 04, 2023 12:00 AM Laboratory - Chemistry Order GLYCOHEMOGLOBIN (A1C ONLY) BLOOD(LAV-EDTA) [facility] Feb 04, 2023 12:00 AM Laboratory - Chemistry Order MICROALBUMIN/CREATININE RATIO PANEL URINE RANDOM [facility] Feb 04, 2023 12:00 AM Laboratory - Chemistry Order P4 GLU,BUN,CREAT,LYTES,CA LT GREEN(LI HEP) PLASMA [facility] Feb 04, 2023 12:00 AM Laboratory - Chemistry Order LIVER PROFILE LT GREEN(LI HEP) PLASMA [facility] Feb 04, 2023 12:00 AM Laboratory - Chemistry Order LIPOPROTEIN CHOLESTEROL FRACT. PANEL LT GREEN(LI HEP) PLASMA [facility]
--- OUTSIDE RECORDS SUMMARY | 2023-12-09 01:13 | XMS_ITS | Encounter Summary ---
Author Name [facility] [place] Organization [place] Address [address] [place] [address] Care Team Providers Care Attorney General Name Role Phone AG SALGUERO Primary Care [...] Name Patient's Relationship to Policy Lorenzo AARP [facility] (WNR) MEDICARE ADVANTAGE [facility] (WNR) Feb 10, 2023 [id number] HELGAJENN Y PATIENT Selected Encounter This section includes the information on record at [place] for the Encounter. Date/Time Encounter Type Encounter Description Reason Pro vider Source Feb 14, 2023 09:53 AM Outpatient Encounter ADMIN PAT ACTIVTIES (MASNONCT) [...] - NONE [facility] Mar 01, 2023 10:20 AM AMBULATORY - NONE [facility] [place] [facility] Mar 13, 2023 02:00 PM AMBULATORY - [...] of theEncounter. The data comes from all [facility]. Test Date/Time Test Type Test Details Facility Name Feb 04, 2023 12:00 AM Laboratory - Chemistry Order CBC PROFILE BLOOD(LAV-EDTA) [facility] Feb 04, 2023 12:00 AM Laboratory - Chemistry Order URINALYSIS W/REFLEX TO CULTURE CLEAN CATCH URINE [facility] Feb 04, 2023 12:00 AM Laboratory - Chemistry Order GLYCOHEMOGLOBIN (A1C ONLY) BLOOD(LAV-EDTA) [facility] Feb 04, 2023 12:00 AM Laboratory - Chemistry Order MICROALBUMIN/CREATININE RATIO PANEL URINE RANDOM [facility] Feb 04, 2023 12:00 AM Laboratory - Chemistry Order P4 GLU,BUN,CREAT,LYTES,CA LT GREEN(LI HEP) PLASMA [facility] Feb 04, 2023 12:00 AM Laboratory - Chemistry Order LIVER PROFILE LT GREEN(LI HEP) PLASMA [facility] Feb 04, 2023 12:00 AM Laboratory - Chemistry Order LIPOPROTEIN CHOLESTEROL FRACT. PANEL LT GREEN(LI HEP) PLASMA [facility] Encounter Notes: All associated encounter notes This section contains the clinical notes associated to the Encounter. Date/Time Encounter Note(s) Provider Source Feb 14, 2023 09:54 AM ADDENDUM: LOCAL TITLE: Addendum STANDARD TITLE: ADDENDUM DATE OF NOTE: FEB 14, 2023@09:54:33 ENTRY DATE: FEB 14, 2023@09:54:34 AUTHOR: MICHAEL GRADY EXP COSIGNER: URGENCY: STATUS: COMPLETED Patient was a no show for this and needs to be rescheduled /es/ MICHAEL GRADY LPN Signed: 02/14/2023 09:54 Receipt Acknowledged By: 02/14/2023 11:36 /es/ JOEL SOLER * AWAITING SIGNATURE * HERMILO MORENO --- Original Document --- 02/14/23 CCC: SCHEDULING ADMINISTRATION: Patient Demographics Patient Name: ABBY PARTIDA SSN: [id number] Patient Primary Address: [address]
[place] [address] Patient Primary Phone: [phone] Patient : 1955 Patient Age: 67 Caller/Recipient Relation to Patient: Self Administrative Administrative Note Reason: Other Administrative Note Comments: Pt would like a call back regarding yesterday's appointment. He will be home at 1pm and would like a call back then. Thank you. /kwesi/ LEONARDA TOMLIN 1 [facility] Signed: 02/14/2023 09:53 Receipt Acknowledged By: 02/14/2023 09:55 /kwesi/ MICHAEL MERCADO LPN [facility] Feb 14, 2023 09:53 AM ADMINISTRATIVE NOT E: LOCAL TITLE: CCC: SCHEDULING ADMINISTRATION STANDARD TITLE: ADMINISTRATIVE NOTE DATE OF NOTE: FEB 14, 2023@09:53:35 ENTRY DATE: FEB 14, 2023@09:53:35 AUTHOR: LEONARDA SMITH COSIGNER: URGENCY: STATUS: COMPLETED CCC: SCHEDULING ADMINISTRATION Has ADDENDA Patient Demographics Patient Name: ABBY PARTIDA SSN: [id number] Patient Primary Address: [address]
[place] [address] Patient Primary Phone: [phone] Patient : 1955 Patient Age: 67 Caller/Recipient Relation to Patient: Self Administrative Administrative Note Reason: Other Administrative Note Comments: Pt would like a call back regarding yesterday's appointment. He will be home at 1pm and would like a call back then. Thank you. /kwesi/ LEONARDA TOMLIN 1 [facility] Signed: 02/14/2023 09:53 Receipt Acknowledged By: 02/14/2023 09:55 /kwesi/ MICHAEL GRADY LPN 02/14/2023 ADDENDUM STATUS: COMPLETED Patient was a no show for this and needs to be rescheduled /kwesi/ MICHAEL GRADY LPN Signed: 02/14/2023 09:54 Receipt Acknowledged By: * AWAITING SIGNATURE * JOEL XIE,LEONARDA STUART [facility]
--- OUTSIDE RECORDS SUMMARY | 2023-12-09 01:13 | XMS_ITS | Encounter Summary ---
Author Name Department of [place] Organization [place] Address [address] [place] [address] Care Team Providers Care Document Review Specialist Name Role Phone AG SALGUERO Primary [...] Name Patient's Relationship to Policy Lorenzo AARP [facility] ([place]NR) MEDICARE ADVANTAGE [facility] (WNR) Feb 10, 2023 [id number] 72 HELGAJENN Y PATIENT Selected Encounter This section includes the information on record at [place] for the Encounter. Date/Time Encounter Type Encounter Description Reason Pro vider Source Feb 05, 2023 12:14 PM Outpatient Encounter ADMIN PAT ACTIVTIES (MASNONCT) IHE [...] AMBULATORY - NONE [facility] [facility] Mar 01, 2023 10:20 AM AMBULATORY - NONE [facility] [place] [facility] Mar 13, 2023 02:00 PM AMBULATORY - SURGERY [place] [facility] Active, Pending, and Scheduled Orders This section includes a listing of several types of active, pending, and scheduled orders, including clinic medications orders, diagnostic test orders, procedure orders and consult orders; where the start date of the order is 45 days before the date of the Encounter or 45 days after the date of theEncounter. The data comes from all [facility]. Test Date/Time Test Type Test Details Facility Name Feb 04, 2023 12:00 AM Laboratory - Chemistry Order CBC PROFILE BLOOD(LAV-EDTA) [facility] Feb 04, 2023 12:00 AM Laboratory - Chemistry Order URINALYSIS W/REFLEX TO CULTURE CLEAN CATCH URINE [facility] Feb 04, 2023 12:00 AM Laboratory - Chemistry Order GLYCOHEMOGLOBIN (A1C ONLY) BLOOD(LAV-EDTA) [facility] Feb 04, 2023 12:00 AM Laboratory - Chemistry Order MICROALBUMIN/CREATININE RATIO PANEL URINE RANDOM [facility] Feb 04, 2023 12:00 AM Laboratory - Chemistry Order P4 GLU,BUN,CREAT,LYTES,CA LT GREEN(LI HEP) PLASMA [facility] Feb 04, 2023 12:00 AM Laboratory - Chemistry Order LIVER PROFILE LT GREEN(LI HEP) [facility]AS[facility] Feb 04, 2023 12:00 AM Laboratory - Chemistry Order LIPOPROTEIN CHOLESTEROL FRACT. PANEL LT GREEN(LI HEP) [facility]ASMA [facility] Encounter Notes: All associated encounter notes This section contains the clinical notes associated to the Encounter. Date/Time Encounter Note(s) Provider Source Jan 24, 2023 12:14 PM NONVA NOTE: LOCAL TITLE: NonVA Medical Records STANDARD TITLE: NONVA NOTE DATE OF NOTE: JAN 24, 2023@12:14 ENTRY DATE: FEB 05, 2023@12:14:49 AUTHOR: DELIA MEDINA COSIGNER: URGENCY: STATUS: COMPLETED NonVA Medical Records Has ADDENDA NONVA 12/24/2022 - LAB RESULTS 01/24/2023 - PRIMARY CARE VISIT/FOLLOW UP SOBE, PARASTHESIAS HANDS & ABNORMAL LABS [facility] /es/ Delia Domonique Medina MRT Signed: 02/05/2023 12:16 Receipt Acknowledged By: 02/05/2023 17:13 /kwesi/ AG SALGUERO PA-C 02/07/2023 ADDENDUM STATUS: COMPLETED Abnormal labs; decreased H&H?thought to be related to frequent blood donations. He has not donated blood in several months we will recheck CBC today. Paresthesias hands; tried and failed CTS splints, refer to [facility] neurology for EMGs, will plan to check vitamin B12 and hemoglobin A1c levels in 2 weeks. He did have a prediabetic level 5.9 in June. Right ingulnal hernia; he knows to call [facility] general surgery to schedule follow-up Exortional shortness of breath; thought to be multifactorial by cardiology? likely mainly driven by COPD. Unfortunately, he is not taking his Incruse Ellipta seems to be forgetting it every day, and he has not using his rescue inhaler. I have encouraged him to use both inhalers. He has not called pulmonology to schedule a follow-up?I have given him the phone number again and advised that he contact them for follow-up appointment. We will plan to follow-up in 6 weeks for hand symptoms. Problem list reviewed during this visit. Medication list reviewed during this visit. Medication List: nicotine (polacrilex) 2 mg gum (nicotine (polacrilex)) Chew 1 piece to inside of mouth (buccal) as directed with craving to smoke. Do not exceed 20 pieces of gum in 24 hours. furosemide 20 mg tablet (furosemide) Take I tablet by mouth once a day as needed cholecalciferol (vitamin 03) 25 mcg (1,000 unit) tablet (cholecalciferol (vitamin d3)) 1 tablet by mouth once a day atorvastatin 80 mg tablet (atorvastatin) Take 1 tablet by mouth every night amitriptyline 100 mg tablet (amitriptyline) Take 1 tablet by mouth every night trazodone 50 mg tablet (trazodone) Take 0.5 tablet by mouth every night Centrum Silver Ultra Men's 300-600-300 mcg tablet (otmgeetc-wft-jr-lycopen- lutein) take one a day Incruse Ellipta 62.5 mcg/actuation blister with device (umeclidinium) Inhale 1 puff as directed once a day ProAir HFA 90 mcg/actuation HFA aerosol inhaler (albuterol sulfate) Inhale 1-2 puff using inhaler every four to six hours as needed for wheezing/SOB Allergies: WELLBUTRIN (BUPROPION HCL) (Mild) History of Present Illness 67-year-old man here for follow-up abnormal labs, paresthesias in fingertips, exertional shortness of breath/emphysema, tobacco abuse. He has been riding his motorcycle throughout the winter and all summer, has noticed an increase in sensations of paresthesias in his fingertips on both hands?tried using a CTS splint which seemed to make symptoms worse. He is noticing that he does not feel as strong of a redipper in the left hand. Exertional shortness of breath intermittent persistent?no COPD exacerbations. He did meet with cardiology regarding symptoms on 12/24/2022 for MR?moderate, AR?moderate to severe (LV dimensions are normal would not indicating need for valvular intervention)?cardiology believes this is multifactorial and mostly driven by COPD. He has not scheduled with pulmonology for follow-up yet. Continues to smoke a pack of his own rolled cigarettes daily, Chantix was too expensive, and he feels that he can quit on his own without any medication. There is a question inguinal hernia that was seen through ultrasound?he met with general surgery he needs to call them in follow-up for intervention. /kwesi/ MICHAEL GRADY LPN Signed: 02/07/2023 11:34 DELIA MEDINA [facility]
--- OUTSIDE RECORDS SUMMARY | 2023-12-09 01:13 | XMS_ITS | Encounter Summary ---
Author Name [facility] Organization [facility] [place] Address [address] [place] [address] Care Team Providers Care Dry Sand Molder Name Role Phone AG SALGUERO Primary Care [...] Name Patient's Relationship to Policy Lorenzo AARP [facility] (WNR) MEDICARE ADVANTAGE [facility] (WNR) Feb 10, 2023 [id number] [place] PATIENT Selected Encounter This section includes the information on record at DC for the Encounter. Date/Time Encounter Type Encounter Description Reason Pro vider Source Jan 30, 2023 09:57 AM Outpatient Encounter PRIMARY CARE/MEDICINE IHE Encounter Template Text not used by DC Plan of Treatment: Future Appointments (+ 6 [...] 20 appointments. The data comes from all [place] treatment facilities. Appointment Date/Time Appointment Type Appointme nt Facility Name Feb 19, 2023 01:00 PM AMBULATORY - NONE [place] [facility] [facility] Mar 01, 2023 10:20 AM AMBULATORY - NONE [place] [facility] [facility] Mar 13, 2023 02:00 PM AMBULATORY - [...] of theEncounter. The data comes from all [facility]. Test Date/Time Test Type Test Details Facility Name Feb 04, 2023 12:00 AM Laboratory - Chemistry Order CBC PROFILE BLOOD(LAV-EDTA) [facility] Feb 04, 2023 12:00 AM Laboratory - Chemistry Order URINALYSIS W/REFLEX TO CULTURE CLEAN CATCH URINE [facility] Feb 04, 2023 12:00 AM Laboratory - Chemistry Order GLYCOHEMOGLOBIN (A1C ONLY) BLOOD(LAV-EDTA) [facility] Feb 04, 2023 12:00 AM Laboratory - Chemistry Order MICROALBUMIN/CREATININE RATIO PANEL URINE RANDOM [facility] Feb 04, 2023 12:00 AM Laboratory - Chemistry Order P4 GLU,BUN,CREAT,LYTES,CA LT GREEN(LI HEP) PLASMA [facility] Feb 04, 2023 12:00 AM Laboratory - Chemistry Order LIVER PROFILE LT GREEN(LI HEP) PLASMA [facility] Feb 04, 2023 12:00 AM Laboratory - Chemistry Order LIPOPROTEIN CHOLESTEROL FRACT. PANEL LT GREEN(LI HEP) PLASMA [facility] Encounter Notes: All associated encounter notes This section contains the clinical notes associated to the Encounter. 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 - Upon receipt, medical records will be forwarded to Pact Team and HIMS for scanning Patient encouraged to bring all active medications to this appt Appointment letter mailed, address and phone number confirmed with patient /es/ HERMILO MORENO Signed: 02/04/2023 09:06 Receipt Acknowledged By: 02/04/2023 10:42 /es/ JOEL SOLER 02/04/2023 09:13 /es/ MICHAEL GRADY LPN 02/04/2023 09:23 /es/ JEWELS BROWNE Registered Nurse --- Original Document --- 01/30/23 Letter To Patient: [facility] [address] [place] [address] JAN 30, 2023 MR. ABBY PARTIDA [address], [place] [address] Dear ABBY PARTIDA: The [facility] Primary Care Team is trying to reach you to schedule an appointment to establish your care with a VA Primary Care Provider. The [facility] is your nearest VA clinic, please confirm this is the clinic assignment you prefer. If you have already been in contact with the clinic and scheduled an appointment or if you are no longer interested in establishing with a VA PCP, you may disregard this letter. Please call one of the numbers provided below Saturday - Saturday 7:30am - 4:00pm Direct: [phone] Toll Free: [phone] I can also be reached via email at We look forward to hearing from you! Sincerely, KARLENE Bowman New Patient Coordinator for [facility] Primary Care [facility] [place] [facility] Email: 01/30/2023 ADDENDUM STATUS: COMPLETED Attempted to reach by phone, LMOM with TW direct call back ext. [phone], 14-day letter mailed /es/ HERMILO MORENO Signed: 01/30/2023 09:58 02/04/2023 ADDENDUM STATUS: COMPLETED LAbs ordered per protocol /es/ MICHAEL GRADY LPN Signed: 02/04/2023 09:11 HERMIOL MORENO [facility] Jan 30, 2023 09:57 AM LETTERS: LOCAL TITLE: Letter To Patient STANDARD TITLE: LETTERS DATE OF NOTE: JAN 30, 2023@09:57 ENTRY DATE: JAN 30, 2023@09:57:14 AUTHOR: HERMILO MORENO EXP COSIGNER: URGENCY: STATUS: COMPLETED Letter To Patient Has [facility] DEPART[facility] OF [facility] [address] [place] [address] JAN 30, 2023 MR. ABBY PARTIDA [address], [place] [address] Dear ABBY PARTIDA: The [facility] Primary Care Team is trying to reach you to schedule an appointment to establish your care with a [place] Primary Care Provider. The [facility] is your nearest VA clinic, please confirm this is the clinic assignment you prefer. If you have already been in contact with the clinic and scheduled an appointment or if you are no longer interested in establishing with a VA PCP, you may disregard this letter. Please call one of the numbers provided below Saturday - Saturday 7:30am - 4:00pm Direct: [phone] Toll Free: [phone] I can also be reached via email at We look forward to hearing from you! Sincerely, KARLENE Bowman New Patient Coordinator for [facility] Primary Care [facility] Email: 01/30/2023 ADDENDUM STATUS: COMPLETED Attempted to reach by phone, LMOM with TW direct call back ext. 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 - Upon receipt, medical records will be forwarded to Pact Team and HIMS for scanning Patient encouraged to bring all active medications to this appt Appointment letter mailed, address and phone number confirmed with patient /kwesi/ HERMILO MORENO Signed: 02/04/2023 09:06 Receipt Acknowledged By: 02/04/2023 10:42 /es/ JOEL SOLER 02/04/2023 09:13 /kwesi/ MICHAEL GARDY LPN 02/04/2023 09:23 /es/ JEWELS BROWNE Registered Nurse 02/04/2023 ADDENDUM STATUS: COMPLETED LAbs ordered per protocol /kwesi/ MICHAEL GRADY LPN Signed: 02/04/2023 09:11 02/05/2023 ADDENDUM STATUS: COMPLETED New patient medical records have been received, forwarded to HIMS for scanning and pact team for review /abigail MORENO Signed: 02/05/2023 11:17 HERMILO MORENO [facility]
--- OUTSIDE RECORDS SUMMARY | 2023-12-09 01:13 | XMS_ITS | Continuity of Care Document ---
Author Name [facility] Organization [facility] Care Team Providers Care Occupational Therapy Manager Name Role Phone [facility] Unavailable Unavailable Problems Combined list of problems from Department of Defense and Veterans Affairs facilities. It does not include entries that were removed or entered in error. Problem Status Onset Date Problem Type Date of Resolution Comments Source Alcohol intake above recommended sensible limits Active Condition [place] [facility] Chronic obstructive lung disease Active [facility] [place] [facility] Depression ([facility] [id number][facility] Active Condition [place] [facility] Hyperlipidemia ([facility] [id number]) Active [facility] [place] [facility] Impaired fasting glucose Active Condition [place] [facility] Insomnia Active Condition [place] [facility] Right inguinal hernia Active Condition [place] [facility] Tobacco User ([facility] [id number]) Active Condition [place] [facility] Traumatic brain injury Active Condition [place] [facility] Valvular heart disease Active Condition Feb 19, 2023 Entered By: AG SALGUERO Comment: Mod MR, Mod to severe AR [place] [facility] Diagnosis: ICD-10-CM Z46.0 Encounter for fit/adjst of spectacles and contact lenses Active Diagnosis [place] [facility] Diagnosis: ICD-10-CM Z76.89 Persons encountering health services in oth circumstances Active Diagnosis [place] [facility] Diagnosis: ICD-10-CM J44.9 Chronic obstructive pulmonary disease, unspecified Active Diagnosis [facility] Medications Combined list of outpatient medications from Department of Defense and Veterans Affairs facilities.Medications provided include 1) outpatient medications from the last 15 months, and 2) patient-reported medications. Medication Details Route Status Patient Instructions Prescription Expires Prescription Number Last Dispense Date Ordering Provider Order Date Order Qty Source ALBUTEROL 90MCG/ACTUA T (CFC-F) INHL,ORAL,8 .5GM DOSE COUNTER ALBUTERO L 90MCG/AC TUAT (CFC-F) INHL,ORA L,8.5GM DOSE COUNTER Active INHALE 2 PUFFS BY MOUTH FOUR TIMES DAILY NEEDED FOR COPD FOR COPD Feb 19, 2023 1 Feb 20, 2024 [id number] Jul 31, 2023 REKHA SALGUERO . [facility] [place] [facility] RESPIR ATORY (INHAL ATION) ACTIVE 02/20/2024 [id number] 4 KORIN SALGUERO N 2022 1 [facility] ALBUTEROL INHL,ORAL ALBUTERO L INHL,ORA L Non-VA INHALE BY MOUTH FOUR TIMES DAILY NEEDED Feb 19, 2023 Non-VA Document ed by: REKHA SALGUERO Document ed at: [facility] RESPIR ATORY (INHAL ATION) ACTIVE KORIN SALGUERO 2022 [facility] AMITRIPTYLI NE HCL 100MG TAB AMITRIPT YLINE HCL 100MG TAB Active TAKE ONE TABLET BY MOUTH AT BEDTIME FOR SLEEP FOR SLEEP Aug 02, 2023 90 Aug 02, 2024 [id number] Oct 19, 2023 REKHA SALGUERO [facility] ORAL ACTIVE 08/02/2024 [id number] 4 KORIN SALGUERO 2023 90 [facility] AMITRIPTYLI NE HCL 100MG TAB AMITRIPT YLINE HCL 100MG TAB Disconti nued TAKE ONE TABLET BY MOUTH AT BEDTIME FOR SLEEP FOR SLEEP Feb 28, 2023 90 Feb 29, 2024 [id number] Jul 31, 2023 REKHA SALGUERO [facility] ORAL DISCONT INUED 02/29/2024 [id number] KORIN SALGUERO 2022 90 [facility] AMITRIPTYLI NE HCL 100MG TAB AMITRIPT YLINE HCL 100MG TAB Non-VA TAKE ONE TABLET BY MOUTH AT BEDTIME Sep 02, 2020 Non-VA Document ed by: [place] Document ed at: [facility] ORAL ACTIVE [place] 2020 [facility] ATORVASTATI N CA 80MG TAB ATORVAST ATIN CA 80MG TAB Active TAKE ONE TABLET BY MOUTH ONCE DAILY TO LOWER CHOLESTE ROL TO LOWER CHOLESTE ROL Feb 28, 2023 90 Feb 29, 2024 [id number] Jul 31, [address] [place] [facility] ORAL ACTIVE 02/29/2024 [id number] 4 KORIN SALGUERO 2022 90 [facility] ATORVASTATI N CA 80MG TAB ATORVAST ATIN CA 80MG TAB Non-VA TAKE ONE TABLET BY MOUTH AT BEDTIME Feb 19, 2023 Non-VA Document ed by: REKHA SALGUERO Document ed at: [facility] ORAL ACTIVE KORIN SALGUERO 2022 [facility] CHOLECALCIF ZEYNEP 25MCG (1,000UNIT) TAB CHOLECAL CIFEROL 25MCG (1,000UN IT) TAB Active TAKE ONE TABLET BY MOUTH ONCE DAILY FOR VITAMIN D DEFICIEN CY FOR VITAMIN D DEFICIEN CY Feb 28, 2023 100 Feb 29, 2024 [id number] Jul 31, 2023 REKHA SALGUERO [facility] ORAL ACTIVE 02/29/2024 [id number] 4 KORIN SALGUERO 2022 100 [facility] CHOLECALCIF ZEYNEP 25MCG (1,000UNIT) TAB CHOLECAL CIFEROL 25MCG (1,000UN IT) TAB Non-VA TAKE ONE TABLET BY MOUTH EVERY DAY Sep 02, 2020 Non-VA Document ed by: [place] Document ed at: [facility] ORAL ACTIVE [place] 2020 [facility] FUROSEMIDE 20MG TAB FUROSEMI DE 20MG TAB Active TAKE ONE TABLET BY MOUTH EVERY MORNING FOR EDEMA FOR EDEMA Feb 28, 2023 90 Feb 29, 2024 [id number] Mar 01, 2023 REKHA SALGUERO [facility] ORAL ACTIVE 02/29/2024 [id number] KORIN SALGUERO 2022 90 [facility] FUROSEMIDE 20MG TAB FUROSEMI DE 20MG TAB Non-VA TAKE ONE TABLET BY MOUTH ONCE DAILY NEEDED Feb 19, 2023 Non-VA Document ed by: REKHA SALGUERO Document ed at: [facility] ORAL ACTIVE KORIN ASLGUERO 2022 [facility] MULTIVITAMI N W/MINERALS CAP/TAB MULTIVIT PATHAK W/MINERA LS CAP/TAB Non-VA TAKE BY MOUTH ONCE DAILY Feb 19, 2023 Non-VA Document ed by: REKHA SALGUERO Document ed at: [facility] ORAL ACTIVE KORIN SALGUERO 2022 [facility] MULTIVITAMI NS W/MINERALS CAP/TAB MULTIVIT AMINS W/MINERA LS CAP/TAB Active TAKE ONE CAP/TAB BY MOUTH ONCE DAILY TO SUPPLEME NT VITAMINS TO SUPPLEME NT VITAMINS Feb 28, 2023 130 Feb 29, 2024 [id number] Jul 31, 2023 REKHA SALGUERO EN [facility] ORAL ACTIVE 02/29/2024 [id number] KORIN SALGUERO N 2022 130 [facility] NICOTINE POLACRILEX 2MG TAB,CHEWG GUM NICOTINE POLACRIL EX 2MG TAB,CHEW G GUM Active CHEW 1 PIECE BY MOUTH EVERY TWO HOURS NEEDED FOR SMOKING CESSATIO N FOR SMOKING CESSATIO N Feb 28, 2023 110 Feb 29, 2024 [id number] Mar 01, 2023 REKHA SALGUERO EN [facility] ORAL ACTIVE 02/29/2024 [id number] KORIN SALGUERO N 2022 110 [facility] NICOTINE POLACRILEX 2MG TAB,CHEWG GUM NICOTINE POLACRIL EX 2MG TAB,CHEW G GUM Non-VA CHEW 1 PIECE BY MOUTH EVERY TWO HOURS NEEDED Feb 19, 2023 Non-VA Document ed by: REKHA SALGUERO Document ed at: [facility] ORAL ACTIVE KORIN SALGUERO 2022 [facility] TIOTROPIUM 2.5MCG/ACTU AT INHL,ORAL,6 0D,4GM TIOTROPI UM 2.5MCG/A CTUAT INHL,ORA L,60D,4G M Active INHALE 2 PUFFS BY MOUTH ONCE DAILY FOR COPD FOR COPD Feb 19, 2023 3 Feb 20, 2024 [id number] Jul 31, 2023 REKHA SALGUERO EN [facility] RESPIR ATORY (INHAL ATION) ACTIVE 02/20/2024 [id number] 4 KORIN SALGUERO N [address] [facility] TRAZODONE HCL 50MG TAB TRAZODON E HCL 50MG TAB Active TAKE ONE-HALF TABLET BY MOUTH AT BEDTIME FOR INSOMNIA FOR INSOMNIA Feb 28, 2023 45 Feb 29, 2024 [id number] Jul 31, [address] [facility] ORAL ACTIVE 02/29/2024 [id number] 4 KORIN SALGUERO N [address] [facility] TRAZODONE HCL 50MG TAB TRAZODON E HCL 50MG TAB Non-VA TAKE ONE-HALF TABLET BY MOUTH AT BEDTIME Feb 19, 2023 Non-VA Document ed by: REKHA SALGUERO Document ed at: [facility] ORAL ACTIVE KORIN SALGUERO [address] [facility] VARENICLINE 1MG TAB VARENICL INE 1MG TAB Active TAKE ONE-HALF TABLET BY MOUTH ONCE DAILY FOR 3 DAYS, THEN TAKE ONE-HALF TABLET TWICE A DAY FOR 4 DAYS, THEN TAKE ONE TABLET TWICE A DAY FOR SMOKING CESSATIO N FOR SMOKING CESSATIO N Aug 02, 2023 56 Aug 02, 2024 [id number] Aug 02, [address] [facility] [place] [facility] ORAL ACTIVE 08/02/2024 [id number] 4 KORIN SALGUERO N [address] [facility] VARENICLINE 1MG TAB VARENICL INE 1MG TAB TAKE ONE-HALF TABLET BY MOUTH ONCE DAILY FOR 3 DAYS, THEN TAKE ONE-HALF TABLET TWICE A DAY FOR 4 DAYS, THEN TAKE ONE TABLET TWICE A DAY FOR SMOKING CESSATIO N FOR SMOKING CESSATIO N Feb 19, 2023 168 May 14, 2023 [id number] Feb 19, [address] [facility] [place] [facility] ORAL 05/14/2023 [id number] KORIN SALGUERO N [address] [facility] Allergies, Adverse Reactions, Alerts Combined list of allergies from Department of Defense and Veterans Affairs facilities. It does not include entries that were removed or entered in error. Substance Category Reaction Severity Reaction type Status Date Reported Comments Source WELLBUTRIN Propensity to adverse reactions to drug (finding) active 02/19/2023 [facility] Immunizations Combined list of available immunizations from the Department of Defense and Veterans Affairs facilities. Immunization Series Date Given Administered By Site Reaction Lot Number CVX Code Drug Slat Twister Status Comments Source TD(ADULT) UNSPECIFIED FORMULATION 2021 139 complet ed [facility] PNEUMOCOCCAL POLYSACCHARID E PPV23 2019 33 complet ed [facility] TDAP 2013 115 complet ed [facility] Vital Signs Combined list of inpatient and outpatient Vital Signs from Department of Defense and Veterans Affairs, ranging from 12 months to all on record, depending upon the facility. Vital Sign Value Date Comments Source Encounters Combined list of: 1) Encounters from Department of Veterans Affairs facilities going back up to thelast 18 months. 2) Encounters from the Department of Defense facilities going back up to 280 months. Location Location Details Encounter Type Encounter Number Reason For Visit Attending Provider ADM Date DC Date Status Disposition Source [facility] Outpatient Encounter [id number] 12/24 [facility] Outpatient Encounter [id number] 01/30 [facility] Outpatient Encounter [id number] 02/05 [facility] Outpatient [facility]counter [id number] [facility] Out[facility]counter [id number] 02[facility] Outpatient Encounter [id number] BEN ALANIS 02/13 [facility] Outpatient Encounter [id number] 02/13 [facility] Outpatient Encounter [id number] 02/14 [facility] OFFICE O/P [place] 60-74 MIN [id number] Diagnos is: ICD-10- CM J44.9 Chronic obstruc tive pulmona ry disease , unspeci fied
AG SALGUERO 02/19 [facility] HC PRO PHONE CALL 5-10 MIN [id number] Diagnos is: ICD-10- CM Z76.89 Persons encount [facility] in oth circums tances< br/> BETTINAKatiHAMIDA Fontaine P 02/20 [facility] Outpatient Encounter [id number] 02/21 [facility] Outpatient Encounter [id number] 02/25 [facility] Outpatient Encounter [id number] 02/28 [place] [facility] Outpatient Encounter [id number] 02/28 [facility] Outpatient Encounter [id number] 03/08 [facility] Outpatient Encounter [id number] 03/11 [place] [facility] [place] [facility] FIT SPECTACLES BIFOCAL [id number] Diagnos is: ICD-10- CM Z46.0 Encount er for fit/adj st of spectac les and contact lenses< br/> MANISH DIETRICH JA 03/13 [facility] [place] [facility] FIT [employer] BIFOCAL [id number] Diagnos is: ICD-10- CM Z46.0 Encount er for fit/adj st of spectac les and contact lenses< br/> MANISH DIETRICH JA 05/01 [facility] Outpatient Encounter [id number] 07/17 [facility] Outpatient Encounter [id number] 07/29 [facility] Social History Combined list of available smoking, tobacco, and other social history from Department of Defense and Veterans Affairs facilities. Social History Type Response Date Comment [facility] e Tobacco smoking status INIS VA-TOBACCO USER EVERY DAY 02/19/2023 [facility] History of tobacco use VA-TOBACCO USE WI 30 MIN OF WAKEUP 02/19/2023 [facility]
--- OUTSIDE RECORDS SUMMARY | 2023-12-09 01:13 | XMS_ITS | Encounter Summary ---
Author Name [facility] Organization [facility] Address [address] [place] [address] Care Team Providers Care Retail Equipment Associate Name Role Phone AG SALGUERO Primary Care [...] Name Patient's Relationship to Policy Lorenzo AARP [facility] (WNR) MEDICARE ADVANTAGE [facility] (WNR) Feb 10, 2023 [id number] JENN PARTIDA Y PATIENT Selected Encounter This section includes the information on record at [facility] for the Encounter. Date/Time Encounter Type Encounter Description Reason Pro vider Source Dec 24, 2022 12:00 AM Outpatient Encounter EVENT (HISTORICAL) IHE [...] 20 appointments. The data comes from all [facility] treatment facilities. Appointment Date/Time Appointment Type Appointme nt Facility Name Feb 19, 2023 01:00 PM AMBULATORY - NONE [place] [facility] Mar 01, 2023 10:20 AM AMBULATORY - NONE [place] [facility] Mar 13, 2023 02:00 PM AMBULATORY - SURGERY [place] [facility] Active, Pending, and Scheduled Orders This section includes a listing of several types of active, pending, and scheduled orders, including clinic medications orders, diagnostic test orders, procedure orders and consult orders; where the start date of the order is 45 days before the date of the Encounter or 45 days after the date of theEncounter. The data comes from all [facility]. Test Date/Time Test Type Test Details Facility Name Feb 04, 2023 12:00 AM Laboratory - Chemistry Order CBC PROFILE BLOOD(LAV-EDTA) [facility] Feb 04, 2023 12:00 AM Laboratory - Chemistry Order URINALYSIS W/REFLEX TO CULTURE CLEAN CATCH URINE [facility] Feb 04, 2023 12:00 AM Laboratory - Chemistry Order GLYCOHEMOGLOBIN (A1C ONLY) BLOOD(LAV-EDTA) [facility] Feb 04, 2023 12:00 AM Laboratory - Chemistry Order MICROALBUMIN/CREATININE RATIO PANEL URINE RANDOM [facility] Feb 04, 2023 12:00 AM Laboratory - Chemistry Order P4 GLU,BUN,CREAT,LYTES,CA LT GREEN(LI HEP) PLASMA [facility] Feb 04, 2023 12:00 AM Laboratory - Chemistry Order LIVER PROFILE LT GREEN(LI HEP) PLASMA [facility] Feb 04, 2023 12:00 AM Laboratory - Chemistry Order LIPOPROTEIN CHOLESTEROL FRACT. PANEL LT GREEN(LI HEP) PLASMA [facility]
--- OUTSIDE RECORDS SUMMARY | 2023-12-09 01:14 | XMS_ITS | Encounter Summary ---
Author Name [facility] [place] Organization [facility] [place] Address [address] [place] [address] Care Team Providers Care Casing Sewer Name Role Phone AG SALGUERO Primary Care [...] Name Patient's Relationship to Policy Lorenzo AARP [facility] (WNR) MEDICARE ADVANTAGE [facility] (WNR) Feb 10, 2023 [id number] JENN PARTIDA Y PATIENT Selected Encounter This section includes the information on record at [place] for the Encounter. Date/Time Encounter Type Encounter Description Reason Pro vider Source Feb 28, 2023 02:37 PM Outpatient Encounter PRIMARY CARE/MEDICINE IHE Encounter Template Text not used by [place] Plan of Treatment: Future Appointments (+ 6 months) and Future Tests (+/- 45 days) The Plan of Treatment section includes future care activities for the patient from all [place] treatmentfacilities. This section includes future appointments and future orders which are active, pending or scheduled. Future Appointments This section includes appointments that were scheduled to occur 6 months from the date of the Encounter, up to a maximum of 20 appointments. The data comes from all [place] treatment facilities. Appointment Date/Time Appointment Type Appointme nt Facility Name Mar 01, 2023 10:20 AM AMBULATORY - NONE [place] [facility] Mar 13, 2023 02:00 PM AMBULATORY - SURGERY [place] [facility] Active, Pending, and Scheduled Orders This section includes a listing of several types of active, pending, and scheduled orders, including clinic medications orders, diagnostic test orders, procedure orders and consult orders; where the start date of the order is 45 days before the date of the Encounter or 45 days after the date of theEncounter. The data comes from all [place] treatment facilities. Test Date/Time Test Type Test Details Facility Name Feb 04, 2023 12:00 AM Laboratory - Chemistry Order CBC PROFILE BLOOD(LAV-EDTA) [facility] Feb 04, 2023 12:00 AM Laboratory - Chemistry Order URINALYSIS W/REFLEX TO CULTURE CLEAN CATCH URINE [facility] Feb 04, 2023 12:00 AM Laboratory - Chemistry Order GLYCOHEMOGLOBIN (A1C ONLY) BLOOD(LAV-EDTA) [facility] Feb 04, 2023 12:00 AM Laboratory - Chemistry Order MICROALBUMIN/CREATININE RATIO PANEL URINE RANDOM [facility] Feb 04, 2023 12:00 AM Laboratory - Chemistry Order P4 GLU,BUN,CREAT,LYTES,CA LT GREEN(LI HEP) PLASMA [facility] Feb 04, 2023 12:00 AM Laboratory - Chemistry Order LIVER PROFILE LT GREEN(LI HEP) PLASMA [facility] Feb 04, 2023 12:00 AM Laboratory - Chemistry Order LIPOPROTEIN CHOLESTEROL FRACT. PANEL LT GREEN(LI HEP) PLASMA [facility] Encounter Notes: All associated encounter notes This section contains the clinical notes associated to the Encounter. Date/Time Encounter Note(s) Provider Source Feb 28, 2023 02:38 PM PRIMARY CARE NOTE: LOCAL TITLE: Proofer Black And White Note STANDARD TITLE: PRIMARY CARE NOTE DATE OF NOTE: FEB 28, 2023@14:38 ENTRY DATE: FEB 28, 2023@14:38:10 AUTHOR: JEWELS BROWNE COSIGNER: URGENCY: STATUS: COMPLETED Pt. to clinic as walk-in. Reports that he is low on some of his meds and needs short scripts. Med Rec is done with pt. Short script for Amytriptyline//trazadone. Requesting all meds through. Non-VA ALBUTEROL INHL,ORAL BY MOUTH ACTIVE 2) Non-VA AMITRIPTYLINE HCL 100MG TAB 100MG BY MOUTH AT ACTIVE BEDTIME 3) Non-VA ATORVASTATIN CALCIUM 80MG TAB 80MG BY MOUTH AT ACTIVE BEDTIME 4) Non-VA CHOLECALCIF 25MCG (D3-1,000UNIT) TAB 25MCG BY ACTIVE MOUTH EVERY DAY 5) Non-VA FUROSEMIDE 20MG TAB 20MG BY MOUTH EVERY DAY ACTIVE NEEDED 6) Non-VA MULTIVITAMIN W/MINERALS CAP/TAB BY MOUTH ACTIVE 7) Non-VA NICOTINE 2MG GUM 1 PIECE BY MOUTH EVERY TWO ACTIVE HOURS NEEDED 8) Non-VA TRAZODONE HCL 50MG TAB 25MG BY MOUTH AT ACTIVE BEDTIME 9) Non-VA UMECLIDINIUM 62.5MCG 30D ORAL INHL ONE PUFF BY ACTIVE MOUTH ONCE DAILY /kwesi/ JEWELS BROWNE Registered Nurse Signed: 02/28/2023 14:48 Receipt Acknowledged By: 02/28/2023 17:17 /kwesi/ JEWELS BELL PA-C [facility]
--- OUTSIDE RECORDS SUMMARY | 2023-12-09 01:14 | XMS_ITS | Clinical Summary ---
Author Organization [facility] Address [facility] [place] [address] Care Team Providers Care Director Pharmacovigilance Name Role Phone Antoinette Nahomy Mae SMITH Primary Care Provider [phone] Allergies No known active allergies Medications Medication Sig Dispensed Refills Start Date End Date Status amitriptyline (Elavil) 100 mg Tablet Take 100 mg by mouth nightly. 02/28/2022 Active atorvastatin (Lipitor) 80 mg Tablet Take 80 mg by mouth nightly. 02/28/2022 Active cholecalciferol (Vitamin D3) 1,000 unit Tablet Take 1 tablet by mouth daily. 09/02/2020 Active traZODone (Desyrel) 50 mg Tablet TAKE 1/2 (ONE-HALF) TABLET BY MOUTH ONCE DAILY AT NIGHT 01/24/2022 Active Incruse Ellipta 62.5 mcg/actuation Disk with Device Inhale 1 puff into the lungs daily. 12/06/2021 Active Active Problems No known active problems Social History Tobacco Use Types Packs/Day Years Used Date Smoking Tobacco: Every Day Cigarettes Smokeless Tobacco: Never Alcohol Use Standard Drinks/Week Comments Yes 0 (1 standard drink = 0.6 oz pur e alcohol) Sex and Gender Information Value Date Recorded Sex Assigned at Not on file Gender Identity Not on file Sexual Orientation Not on file Last Filed Vital Signs Vital Sign Reading Time Taken Comments Blood Pressure 140/69 03/20/2022 11:54 AM EST Pulse - - Temperature - - Respiratory Rate - - Oxygen Saturation - - Inhaled Oxygen Concentration - - Weight 58.1 kg (128 lb) 03/20/2022 11:54 AM EST Height 177.8 cm (5' 10) 03/20/2022 11:54 AM EST Body Mass Index 18.37 03/20/2022 11:54 AM EST Plan of Treatment Health Maintenance Due Date Last Done Comments CT Colonography 1955 Colonoscopy 1955 Colorectal Cancer Screening 1955 FIT DNA 1955 FIT 1955 Sigmoidoscopy (10 year) with FIT yearly 1955 Sigmoidoscopy 1955 Pneumoccocal Vaccine: 65+ (1 of 2 - PCV) 1961 Hepatitis C Screening 1973 Tdap adult 1974 Tetanus vaccine 1974 Zoster vaccine (1 of 2) 2005 Advance Directive 2010 AAA Screen 02/24/2020 Covid-19 Vaccine ( - season) 2023 Influenza (Flu) vaccine (1 o f 1 - Influenza standard series) 01/12/2024 Care Teams Director Pharmacovigilance Relationship Specialty Start Date End Date Nahomy Curry APRN PCP - General Family Medicine 01/30/21
--- OUTSIDE RECORDS SUMMARY | 2023-12-09 01:14 | XMS_ITS | Encounter Summary ---
Author Organization [facility] [place] [address] Care Team Providers Care Rubber And Plastics Worker Name Role Phone Nahomy Curry GENERATOR SWITCHBOARD OPERATOR Primary Care Provider [phone] Encounter Details Date Type Department Care Team (Latest Contact Info) Description 03/20/2022 Travel Social History Tobacco Use Types Packs/Day Years Used Date Smoking Tobacco: Every Day Cigarettes Smokeless Tobacco: Never Alcohol Use Standard Drinks/Week Comments Yes 0 (1 standard drink = 0.6 oz pur e alcohol) Sex and Gender Information Value Date Recorded Sex Assigned at Not on file Gender Identity Not on file Sexual Orientation Not on file documented as of this encounter Plan of Treatment Not on file documented as of this encounter Visit Diagnoses Not on filedocumented in this encounter Care Teams Rubber And Plastics Worker Relationship Specialty Start Date End Date Nahomy Curry APRN PCP - General Family Medicine 01/30/21 documented as of this encounter
--- OUTSIDE RECORDS SUMMARY | 2023-12-09 01:14 | XMS_ITS | Encounter Summary ---
Author Name [facility] [place] Organization [facility] [place] [facility] [place] Address [address] [place] [address] Care Team Providers Care Museum Registrar Name Role Phone AG SALGUERO Primary Care [...] Name Patient's Relationship to Policy Lorenzo AARP [facility] (WNR) MEDICARE ADVANTAGE [facility] (WNR) Feb 10, 2023 [id number] SANT[place] PARTIDAReinaldo Y PATIENT Selected Encounter This section includes the information on record at [place] for the Encounter. Date/Time Encounter Type Encounter Description Reason Pro vider Source Feb 28, 2023 10:06 AM Outpatient Encounter PRIMARY CARE/MEDICINE IHE Encounter Template Text not used by [place] Plan of Treatment: Future Appointments (+ 6 [...] 20 appointments. The data comes from all [place] treatment facilities. Appointment Date/Time Appointment Type Appointme nt Facility Name Mar 01, 2023 10:20 AM AMBULATORY - NONE [place] [facility] Mar 13, 2023 02:00 PM AMBULATORY - SURGERY [place] [facility] Active, Pending, and Scheduled Orders This section includes a listing of several types of active, pending, and scheduled orders, including clinic medications orders, diagnostic test orders, procedure orders and consult orders; where the start date of the order is 45 days before the date of the Encounter or 45 days after the date of theEncounter. The data comes from all [place] treatment facilities. Test Date/Time Test Type Test Details Facility Name Feb 04, 2023 12:00 AM Laboratory - Chemistry Order CBC PROFILE BLOOD(LAV-EDTA) [facility] Feb 04, 2023 12:00 AM Laboratory - Chemistry Order URINALYSIS W/REFLEX TO CULTURE CLEAN CATCH URINE [facility] Feb 04, 2023 12:00 AM Laboratory - Chemistry Order GLYCOHEMOGLOBIN (A1C ONLY) BLOOD(LAV-EDTA) [facility] Feb 04, 2023 12:00 AM Laboratory - Chemistry Order MICROALBUMIN/CREATININE RATIO PANEL URINE RANDOM [facility] Feb 04, 2023 12:00 AM Laboratory - Chemistry Order P4 GLU,BUN,CREAT,LYTES,CA LT GREEN(LI HEP) PLASMA [facility] Feb 04, 2023 12:00 AM Laboratory - Chemistry Order LIVER PROFILE LT GREEN(LI HEP) PLASMA [facility] Feb 04, 2023 12:00 AM Laboratory - Chemistry Order LIPOPROTEIN CHOLESTEROL FRACT. PANEL LT GREEN(LI HEP) PLASMA [facility] Encounter Notes: All associated encounter notes This section contains the clinical notes associated to the Encounter. Date/Time Encounter Note(s) Provider Source Feb 28, 2023 10:06 AM NONVA MEDICATION M GT NOTE: LOCAL TITLE: Prescription Slip for NonVA Pharmacy STANDARD TITLE: NONVA MEDICATION MGT NOTE DATE OF NOTE: FEB 28, 2023@10:06 ENTRY DATE: FEB 28, 2023@10:06:30 AUTHOR: AG SALGUERO EXP COSIGNER: URGENCY: STATUS: [place] [address] Patient: Date: FEB 28, 2023 ABBY PARTIDA [address] [place] [id number] :Feb Medication: Amitriptyline HCL 100mg Quantity: 7 Sig: Administer one tab at HS Refills: 0 Substitution Permitted Medication: Trazadone HCL 50mg Quantity: 7 Sig: Administer 25mg po @HS Refills: 0 Substitution Permitted NPI # [id number] MARTÍNEZ # Feb /es/ AG Buchanan PA-C [facility]
--- OUTSIDE RECORDS SUMMARY | 2023-12-09 01:14 | XMS_ITS | Encounter Summary ---
[place] [address] Care Team Providers Care Fingernail Former Name Role Phone Nahomy Curry SARAH Primary Care Provider [phone] Reason for Referral * Consultation (Urgent) - Closed Specialty Diagnoses / Procedures Referred By Contac t Referred To Contact Orthopaedics Diagnoses Injury of extensor tendon of left hand, initial encounter Dog bite, initial encounter Injury of extensor tendon of left hand DOG BITE DOI APPROX 1 MONTH AGO Yvan Hodge MD [address] [place] [address] [facility] [address] [place] [id number] Referral ID Status Reason Start Date Expiration Date V isits Requested Visits Authorized [id number] Closed Consult, Test & Treat PCP Updated and/or Approved 03/07/2022 03/07/2023 6 6 Encounter Details Date Type Department Care Team (Latest Contact Info) Description 03/07/2022 Transcribe Orders eDH Incoming Referrals [phone] Yvan Hodge MD [address] [place], [place] [id number] Injury of extensor tendon of left hand, initial encounter; Dog bite, initial encounter Social History Tobacco Use Types Packs/Day Years Used Date Smoking Tobacco: Never Assessed Sex and Gender Information Value Date Recorded Sex Assigned at Not on file Gender Identity Not on file Sexual Orientation Not on file documented as of this encounter Plan of Treatment Scheduled Referrals Name Type Priority Associated Diagnoses Order Schedule Referral to Orthopaedics Outpatient Referral Urgent Injury of extensor tendon of left hand, initial encounter Dog bite, initial encounter Ordered: 03/07/2022 documented as of this encounter Visit Diagnoses Diagnosis Injury of extensor tendon of left hand, initial encounter Dog bite, initial encounter documented in this encounter Care Teams Fingernail Former Relationship Specialty Start Date End Date Nahomy Curry, WEBSPHERE ADMINISTRATOR PCP - General Family Medicine 01/30/21 documented as of this encounter
--- OUTSIDE RECORDS SUMMARY | 2023-12-09 01:14 | XMS_ITS | Referral Summary ---
Author Organization [facility] Address [address] [place] [address] Care Team Providers Care Dessert Cup Machine Feeder Name Role Phone Nahomy Curry SENIOR MORTGAGE UNDERWRITER Primary Care Provider [phone] Social History Tobacco Use Types Packs/Day Years Used Date Smoking Tobacco: Never Assessed Interpersonal Safety Answer Date Record ed Physically Hurt Never 01/14/2020 Verbally Threaten Not on file 01/14/2020 Sex and Gender Information Value Date Recorded Sex Assigned at Not on file Gender Identity Not on file Sexual Orientation Not on file Plan of Treatment Not on file Care Teams Dessert Cup Machine Feeder Relationship Specialty Start Date End Date Nahomy Curry NP [address] [place] [address] PCP - General 01/04/20
--- OUTSIDE RECORDS SUMMARY | 2023-12-09 01:14 | XMS_ITS | Encounter Summary ---
Author Name [facility] [place] Organization [facility] [place] Address [address] [place] [address] Care Team Providers Care Supervisor Sewer Maintenance Name Role Phone AG SALGUERO Primary Care [...] Name Patient's Relationship to Policy Lorenzo AARP [facility] (WNR) MEDICARE ADVANTAGE [facility] (WNR) Feb 10, 2023 [id number] HELGAJENN Y PATIENT Selected Encounter This section includes the information on record at [place] for the Encounter. Date/Time Encounter Type Encounter Description Reason Pro vider Source Feb 25, 2023 11:59 AM Outpatient Encounter ADMIN PAT ACTIVTIES (MASNONCT) [...] AM AMBULATORY - NONE [place] Mar 13, 2023 02:00 PM AMBULATORY [...] of theEncounter. The data comes from all [facility]. Test Date/Time Test Type Test Details [...] Encounter. Date/Time Encounter Note(s) Provider Source Feb 25, 2023 11:59 AM ADMINISTRATIVE NOT E: LOCAL TITLE: CCC: SCHEDULING ADMINISTRATION STANDARD TITLE: ADMINISTRATIVE NOTE DATE OF NOTE: FEB 25, 2023@11:59:33 ENTRY DATE: FEB 25, 2023@11:59:33 AUTHOR: JULIEN PRESTON COSIGNER: URGENCY: STATUS: COMPLETED Patient Demographics Patient Name: ABBY PARTIDA SSN: [id number] Patient Primary [address]: [address] [place] [address]
[place] [address] Patient Primary Phone: [phone] Patient : 1955 Patient Age: 68 Caller/Recipient Relation to Patient: Self Administrative Administrative Note Reason: Other Administrative Note Comments: Call the - he believes he left his Medicare card at the front end developer /kwesi/ JULIEN SOLER Signed: 02/25/2023 11:59 Receipt Acknowledged By: 02/25/2023 15:32 /es/ JULIEN LEE [facility]
--- OUTSIDE RECORDS SUMMARY | 2023-12-09 01:14 | XMS_ITS | Encounter Summary ---
Author Name [facility] [place] Organization [facility] [place] [place] Address [address] [place] [address] Care Team Providers Care Cylinder Head Assembler Name Role Phone AG SALGUERO Primary Care [...] Name Patient's Relationship to Policy Lorenzo AARP [facility] (WNR) MEDICARE ADVANTAGE [facility] (WNR) Feb 10, 2023 [id number] JENN PARTIDA Y PATIENT Selected Encounter This section includes the information on record at [place] for the Encounter. Date/Time Encounter Type Encounter Description Reason Provider Source Feb 20, 2023 08:57 AM HC PRO PHONE CALL 5-10 MIN TELEPHONE/ANCILLA RY ICD-10-CM Z76.89 Persons encountering health services in oth circumstances ELI AKBAR CAS P IHE Encounter Template Text not used by [facility] Assessments - Encounter Diagnoses This section includes the primary and secondary diagnoses documented for the Encounter. Date/Time Primary/Secondary Diagnosis Diagnosis Name Provider Source Feb 20, 2023 08:57 AM PRIMARY Persons encountering health services in oth circumstances DEWEY AKBAR P ANT [facility] Plan of Treatment: Future Appointments (+ 6 months) and Future Tests (+/- 45 days) The Plan of Treatment section includes future care activities for the patient [facility] [place] [facility] This section includes future appointments and future orders which are active, pending or scheduled. Future Appointments This section includes appointments that were scheduled to occur 6 months from the date of the Encounter, up to a maximum of 20 appointments. The data comes from all [facility]. Appointment Date/Time Appointment Type Appointme nt Facility Name Mar 01, 2023 10:20 AM AMBULATORY - NONE [place] [facility] Mar 13, 2023 02:00 PM AMBULATORY - SURGERY [place] [facility] Active, Pending, and Scheduled Orders This section includes a listing of several types of active, pending, and scheduled orders, including clinic medications orders, diagnostic test orders, procedure orders and consult orders; where the start date of the order is 45 days before the date of the Encounter or 45 days after the date of theEncounter. The data comes from all [facility]. Test Date/Time Test Type Test Details Facility [...] Encounter. Date/Time Encounter Note(s) Provider Source Feb 20, 2023 08:57 AM SOCIAL WORK CONSUL T: LOCAL TITLE: CONSULT: Social Work Service STANDARD TITLE: SOCIAL WORK CONSULT DATE OF NOTE: FEB 20, 2023@08:57 ENTRY DATE: FEB 20, 2023@08:57:58 AUTHOR: HAMIDA AKBAR EXP COSIGNER: URGENCY: STATUS: COMPLETED T/w called to introduce myself and to discuss possible financial resources. After talking to edmundo it was determined that he does not have any VA debt or bills that are effecting his financial situation. Reubens reported that he is in the process of switching his prescriptions through the VA to save money and will start receiving his VA prescriptions hopefully next month. reported he has one chord of wood so far and daigle about 5 chords of wood each winter. Reubens shared he knows someone whom he trusts to get his firewood. Reubens's reported income would qualify to receive fuel assistance through the [facility]. said he is two months behind on his rent because of unforeseen expenses, but added he ahs reached out to his lender who is working with him to catch up on his mortgage payments. feels he has enough income to pay his bills but things have been difficult after he was scammed for $7k. T/w discussed available resources with such as [facility] Fuel assistance and how to apply. Reubens requested a copy of financial resources specific be sent to his email adding he would contact t/w if he required further assistance or had a question but felt confident he could complete the applications independently. shared his appreciation at the end of our visit, no further questions currently. /kwesi/ WILFRED AKBAR SLEEVE SETTER Signed: 02/20/2023 09:12 HAMIDA AKBAR [facility]
--- OUTSIDE RECORDS SUMMARY | 2023-12-09 01:14 | XMS_ITS | Encounter Summary ---
Author Organization [facility] Address [facility] [place] [address] Care Team Providers Care Hot Braider Name Role Phone AnthonyNahomy veloz Mae SMITH Primary Care Provider [phone] Reason for Visit * Reason Comments Establish Care LT hand injury * Consultation (Urgent) - Closed Specialty Diagnoses / Procedures Referred By Contac t Referred To Contact Orthopaedics Diagnoses Injury of extensor tendon of left hand, initial encounter Dog bite, initial encounter Injury of extensor tendon of left hand DOG BITE DOI APPROX 1 MONTH AGO Yvan Hodge MD [address] [place] [address] [facility] [address] [place] [id number] Referral ID Status Reason Start Date Expiration Date V isits Requested Visits Authorized [id number] Closed Consult, Test & Treat PCP Updated and/or Approved 03/07/2022 03/07/2023 6 6 Encounter Details Date Type Department Care Team (Late st Contact Info) Description 03/20/2022 11:30 AM EST [place] [address] David Vaughn Jr., MD [facility] [address] [place] [address] Extensor tendon laceration of finger with open wound, sequela Social History Tobacco Use Types Packs/Day Years Used Date Smoking Tobacco: Every Day Cigarettes Smokeless Tobacco: Never Alcohol Use Standard Drinks/Week Comments Yes 0 (1 standard drink = 0.6 oz pur e alcohol) Sex and Gender Information Value Date Recorded Sex Assigned at Not on file Gender Identity Not on file Sexual Orientation Not on file documented as of this encounter Last Filed Vital Signs Vital Sign Reading Time Taken Comments Blood Pressure 140/69 03/20/2022 11:54 AM EST Pulse - - Temperature - - Respiratory Rate - - Oxygen Saturation - - Inhaled Oxygen Concentration - - Weight 58.1 kg (128 lb) 03/20/2022 11:54 AM EST Height 177.8 cm (5' 10) 03/20/2022 11:54 AM EST Body Mass Index 18.37 03/20/2022 11:54 AM EST documented in this encounter Progress Notes * David Vaughn Jr., MD - 03/20/2022 11:30 AM EST Karyn Park 1955 [id number] 03/20/2022 HPI: Karyn is 67 y.o. 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 The onset of symptoms was subacute, but immediately after the dogfight between his [place] and a small dog, he sustained multiple tooth wound punctures over the skin of the third LEFT MCPJ. He self-treated these and about 3 weeks later, when pickup up and loading some cut wood, he felt a snap in the finger and has not been able to fully extend the middle finger since that time . The pain is localized to the dorsum of the middle finger MCPJ and radiates nowhere. The patient notes NO neurosensory symptoms. There is modest pain at rest, no pain at night interfering with sleep, and primarily pain aggravated by activity. The patient complains of inability to fully extend the middle finger of the left hand and that it gets in the way when riding his motorcycle and he is grabbing the handle bars. Takes nothing specific in the way of medication. Specific treatment and/or therapy to date include self treatment and wound care. No related injury. Interferes with ADLs and use of motorcycle. History reviewed. No pertinent past medical history. History reviewed. No pertinent surgical history. History reviewed. No pertinent family history. Social History Socioeconomic History ??? Marital status: Spouse name: Not on file ??? Number of children: Not on file ??? Years of education: Not on file ??? Highest education level: Not on file Occupational History ??? Not on file Tobacco Use ??? Smoking status: Current Every Day Smoker Types: Cigarettes ??? Smokeless tobacco: Never Used Vaping Use ??? Vaping Use: Never used Substance and Sexual Activity ??? Alcohol use: Yes ??? Drug use: Never ??? Sexual activity: Not on file Other Topics Concern ??? Not on file Social History Narrative ??? Not on file Social Determinants of Health Financial Resource Strain: Not on file Food Insecurity: Not on file Transportation Needs: Not on file Physical Activity: Not on file Housing Stability: Not on file Review of Systems General: Negative Skin: Negative Eyes: Negative Cardiac: Negative Respiratory: Negative GI: Negative : Negative Musculoskeletal: Negative other than related to the chief complaint. Neurological: Negative Meds: Current Outpatient Medications on File Prior to Visit Medication Sig Dispense Refill ??? amitriptyline (Elavil) 100 mg Tablet Take 100 mg by mouth nightly. ??? atorvastatin (Lipitor) 80 mg Tablet Take 80 mg by mouth nightly. ??? cholecalciferol (Vitamin D3) 1,000 unit Tablet Take 1 tablet by mouth daily. ??? traZODone (Desyrel) 50 mg Tablet TAKE 1/2 (ONE-HALF) TABLET BY MOUTH ONCE DAILY AT NIGHT ??? Incruse Ellipta 62.5 mcg/actuation Disk with Device Inhale 1 puff into the lungs daily. No current facility-administered medications on file prior to visit. Physical Exam: Blood pressure 140/69, height 177.8 cm (5' 10), weight 58.1 kg (128 lb). Patient is well-appearing, alert and oriented, accompanied by noone. Breathing is easy at rest. Ambulates with normal gait. Uses no cane. 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 Range of motion Cervical spine; flex/extension, rotation, and lateral bending wnl. Remainder upper limbs with normal ROM bilaterally, EXCEPT 30 degree extensor lag LEFT middle fingerMCPJ. Once passively place in full extension on a table top, patient is still unable to extend the middleMCPJ. No thenar atrophy or softening noted. No palmar crepitus or flexor tenosynovitis. No clinical triggering. Pain to palpation at dorsum of left middle MCPJ, associated with localized swelling to moderate degree. Crank test neg LEFT, neg RIGHT; Grind test neg LEFT, neg RIGHT. Flexion-axial loading with no subluxation with no pain LEFT, and no subluxation and no pain RIGHT. Jerrica's test neg. Motor strength 5/5 bilateral to manual resistance testing, except inability to extend the LEFT MCPJmiddle finger. Deep tendon reflexes 2+, symmetrical bilateral. Sensation intact bilateral to light touch at rest. No skin lesions or stasis dermatitis. Minimal erythema suggested over LEFT middle MCPJ c/w resolving mild cellulitis. Imaging: Plain films of the and, from February, demonstrate no FB or bony abnormality Active Problem List: There is no problem list on file for this patient. Assessment: Traumatic rupture EDC LEFT middle finger from dog bite, 3 months old Plan: The nature of the problem and the individual situation was discussed at length with the patient. Consistent with treatment of the primary diagnosis, we have recommended observation to allow residual cellulitis to resolve. Should he realize persistent functional limitations he will return for delayed repair of EDC which should remain possible due to lack of EDC retraction secondary to juncturae tendinae. We will see him on prn basis per sxs. David Vaughn Jr, MD Department of Orthopaedics [facility] documented in this encounter Plan of Treatment Not on file documented as of this encounter Visit Diagnoses Diagnosis Extensor tendon laceration of finger with open wound, sequela documented in this encounter Care Teams Hot Braider Relationship Specialty Start Date End Date Nahomy Curry APRN PCP - General Family Medicine 01/30/21 documented as of this encounter
--- OUTSIDE RECORDS SUMMARY | 2023-12-09 01:14 | XMS_ITS | Encounter Summary ---
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 experienced this kind of event? NO 1. Had nightmares about the event(s) or thought about the event(s) when you did not want to? Response not required due to responses to other questions. 2. Tried hard not to think about the event(s) or went out of your way to avoid situations that reminded you of the event(s)? Response not required due to responses to other questions. 3. Been constantly on guard, watchful, or easily startled? Response not required due to responses to other questions. 4. [place] numb or detached from people, activities, or your surroundings? Response not required due to responses to other questions. 5. [place] guilty or unable to stop blaming yourself or others for the event(s) or any problems the event(s) may have caused? Response not required due to responses to other questions. /kwesi/ CELIA VO Health Access Lead Signed: 02/19/2023 13:44 CELIA VO [facility]
--- OUTSIDE RECORDS SUMMARY | 2023-12-09 01:14 | XMS_ITS | Encounter Summary ---
Author Organization [facility] Address [address] [place] [address] Care Team Providers Care Pin Sticker Name Role Phone Nahomy Curry INFRASTRUCTURE ENGINEER Primary Care Provider [phone] Encounter Details Date Type Department Care Team (Late st Contact Info) Description 01/04/2020 Lab Requisition [facility] Pathology & Laboratory Medicine - [address] [address] Huey Altman MD [address] [place] [address] [address] [place], [place] [id number] Encounter for screening for malignant neoplasm of colon Social History Tobacco Use Types Packs/Day Years Used Date Smoking Tobacco: Never Assessed Sex and Gender Information Value Date Recorded Sex Assigned at Not on file Gender Identity Not on file Sexual Orientation Not on file documented as of this encounter Plan of Treatment Not on file documented as of this encounter Procedures Procedure Name Priority Date/Time Associated Diagnosis Comments SURGICAL PATHOLOGY Today 01/04/2020 9:54 EDT Encounter for screening for malignant neoplasm of colon documented in this encounter Results * SURGICAL PATHOLOGY (01/04/2020 9:54 EDT) Final Diagnosis A. COLON, CECUM, POLYP, BIOPSY: - Mucosal schwann cell hamartoma. - Deeper sections have been examined. 01/08/2020 17:15 EDT [facility] Diagnosis Comment The immunohistochemical profile of this polypoid lesion is that of a benign mucosal schwann cell hamartoma. Vehicle Check In Clerk slides of this case were reviewed at the intradepartmental GI consultation conference. ANTIBODY(CLONE)(BLOCK ):RESULT SMA (alpha Smooth Muscle Actin (asm-1, Leica) (A1): Negative DOG-1 (K9,Leica) (A1): Negative S-100 Protein DAB (4C4.9, [place]) (A1): Strongly positive NOTE: One or more of the reagents used in immunoperoxidase testing in this case may not have been cleared or approved by the U.S. Food and Drug Administration (FDA). The FDA has determined that such clearance or approval is not necessary. These tests are used for clinical purposes. They should not be regarded as investigational or for research. These reagents' performance characteristics have been determined by [facility] and/or by the referring laboratory. The positive and negative controls worked appropriately. If immunoperoxidase staining has been performed on alcohol fixed cytology specimens, which has not been fully validated, the assays should be interpreted with caution and correlated with clinical data. This laboratory is certified under the Clinical Laboratory Improvement Amendments of 1988 (CLIA-88) as qualified to perform high complexity clinical laboratory testing. 01/08/2020 17:15 [facility] Attestation There was significan t resident/fellow involvement in the diagnostic evaluation of this case. By the signature below, the attending physician certifies that they have personally conducted a gross and/or microscopic examination of the described specimens and rendered or confirmed the above diagnosis. 01/08/2020 17:15 [facility] at 1715 Clinical History Colon cancer screening; personal history of polyp 01/08/2020 17:15 [facility] Gross Description A. Received in formalin labelled with proper patient identification (initials M, T) and cecal polyp is a single fragment of crystal tissue (0.2 x 0.2 x 0.2 cm). The specimen is submitted entirely in A1. 01/05/2020 7:26 01/08/2020 17:15 [facility] Resident/Fell ow: Dain Weems MD 01/08/2020 17:15 [facility] Performing Lab [facility] 01/08/2020 17:15 [facility] Scanned Images 01/08/2020 17:15 EDT [facility] Tissue CECUM STRUCTURE / Unknown 01/04/2020 9:54 EDT 01/04/2020 17:05 EDT Huey Altman MD PATHOLOGY OZZY US [facility] [address] [place] [address] documented in this encounter Visit Diagnoses Diagnosis Encounter for screening for malignant neoplasm of colon Special screening for malignant neoplasms, colon documented in this encounter Care Teams Pin Sticker Relationship Specialty Start Date End Date Nahomy Curry NP [address] [place] [address] PCP - General 01/04/20 documented as of this encounter
--- OUTSIDE RECORDS SUMMARY | 2023-12-09 01:14 | XMS_ITS | Clinical Summary ---
Author Organization [facility] Address [address] [place] [address] Care Team Providers Care Soil Technician Name Role Phone Nahomy Curry NARROW GAUGE BRAKEMAN Primary Care Provider [phone] Social History Tobacco Use Types Packs/Day Years Used Date Smoking Tobacco: Never Assessed Interpersonal Safety Answer Date Record ed Physically Hurt Never 01/14/2020 Verbally Threaten Not on file 01/14/2020 Sex and Gender Information Value Date Recorded Sex Assigned at Not on file Gender Identity Not on file Sexual Orientation Not on file Plan of Treatment Health Maintenance Due Date Last Done Comments Hepatitis C Screen 1955 RSV Immunization ( o r 60+ Years) (1 - 1-dose 60+ series) 2015 Fall Risk Screening 02/24/2020 COVID-19 Vaccine ( season) 2023 Care Teams Soil Technician Relationship Specialty Start Date End Date Nahomy Curry NP [address] [place] [address] PCP - General 01/04/20
--- OUTSIDE RECORDS SUMMARY | 2023-12-09 01:14 | XMS_ITS | Encounter Summary ---
Author Organization [facility] Address [address] [place] [address] Care Team Providers Care Pocket Creaser Name Role Phone Antoinette Nahomy Mae RAISE DRILL OPERATOR Primary Care Provider [phone] Encounter Details Date Type Department Care Team (Late st Contact Info) Description 05/24/2021 Lab Requisition [facility] Pathology & Laboratory Medicine - [address] [address] Outr Resulting Lab, Provider Social History Tobacco Use Types Packs/Day Years [...] Procedure Name Priority Date/Time Associated Diagnosis Comments HOLD SST Today 05/23/2021 15:35 EST HOLD SST Today 05/23/2021 15:35 EST CCP ANTIBODIES Today 05/23/2021 15:35 EST DOUBLE STRANDED DNA ANTIBODY, IGG Today 05/23/2021 15:35 EST RHEUMATOID FACTOR Today 05/23/2021 15: 35 EST ANTI NUCLEAR AB (LEATHA), IFA Today 05/23/2021 15:35 EST documented in this encounter Results * HOLD SST (05/23/2021 15:35 EST) Hold Hold 05/24/2021 17:01 EST [facility] Blood VENOUS BLOOD / Unknown 05/23/2021 15:35 EST 05/24/2021 15:54 EST Provider Outr Resulting Lab LAB INFO SER VICE AND SUPPORT & PHONE RESULT Performing Organization Address City/[facility]/ZIP Co de Phone Number [facility] [address] [place] [address] * HOLD SST (05/23/2021 15:35 EST) Hold Hold 05/24/2021 17:01 EST [facility] Blood VENOUS BLOOD / Unknown 05/23/2021 15:35 EST 05/24/2021 15:54 EST Provider Outr Resulting Lab LAB INFO SER VICE AND SUPPORT & PHONE RESULT Performing Organization Address [facility]/ZIP Co de Phone Number [facility] [address] [place] [address] * RHEUMATOID FACTOR (05/23/2021 15:35 EST) Pathologist [facility] Rheumatoid Factor <8.6 <12.0 IU/mL 05/24/2021 16:06 EST [facility] Blood VENOUS BLOOD / Unknown 05/23/2021 15:35 EST 05/24/2021 15:52 EST Provider Outr Resulting Lab CHEMISTRY & BLOOD GAS ORDERABLES Performing Organization Address [facility] Co de Phone Number [facility] [address] [place] [address] * ANTI DNA (DOUBLE STRANDED) (05/23/2021 15:35 EST) Anti-DNA (Double Stranded) 14.0 <30.0 IU/mL 05/25/2021 12:32 EST [facility] Comment: ? Negative: ??<30.0 IU/mL ? Borderline Positive: ??30.0 - 75.0 IU/mL ? Positive: ??>75.0 IU/mL Results were obtained with the INOVA QUANTA Lite dsDNA SC MOON assay on the Electric Imp DSX. Blood VENOUS BLOOD / Unknown 05/23/2021 15:35 EST 05/24/2021 15:52 EST Provider Outr Resulting Lab IMMUNOLOGY A ND SEROLOGY ORDERABLES Performing Organization Address [facility] Phone Number [facility] [address] [place] [address] * (ABNORMAL) ANTI NUCLEAR AB (LEATHA), IFA (05/23/2021 15:35 EST) LEATHA Interpretation Positive(A) Negative 05/26/2021 13:58 EST [facility] Comment: For titers greater than or equal to 1:160 (except the centromere and nucleolar patterns) it is recommended that specific follow-up autoantibody testing ??(such as for dsDNA and Extractable Nuclear Antigens) be performed on all diffuse and/or speckled patterns NOTE: For add-on testing dsDNA is stable for 7 days refrigerated while Extractable Nuclear Antigens are only stable for 48 hours refrigerated. LEATHA Titer and Pattern 1 1:320 Homogeneous 05/26/2021 13:58 EST [facility] Blood VENOUS BLOOD / Unknown 05/23/2021 15:35 EST 05/24/2021 15:52 EST Narrative [facility] - 05/26/2021 13:58 EST Results were obtained with the INOVA NOVA Lite HEp-2 LEATHA Kit by indirect immunofluorescence. Provider Outr Resulting Lab IMMUNOLOGY A ND SEROLOGY ORDERABLES Performing Organization Address [facility] de Phone Number [facility] [address] [place] [address] * CCP ANTIBODIES (05/23/2021 15:35 EST) CCP Antibodies <2.5 <5.0 U/mL 05/25/2021 9:16 EST [facility] Blood VENOUS BLOOD / Unknown 05/23/2021 15:35 EST 05/24/2021 15:52 EST Provider Outr Resulting Lab IMMUNOLOGY A ND SEROLOGY ORDERABLES [facility] [address] [place] [address] documented in this encounter Visit Diagnoses Not on filedocumented in this encounter Care Teams Pocket Creaser Relationship Specialty Start Date End Date Nahomy Curry NP [address] [place] [address] PCP - General 01/04/20 documented as of this encounter
--- OUTSIDE RECORDS SUMMARY | 2023-12-09 01:14 | XMS_ITS | Encounter Summary ---
Author Name [facility] Address [address] [place] [address] Care Team Providers Care Consumer Advocate Name Role Phone AG SALGUERO Primary Care [...] Name Patient's Relationship to Policy Lorenzo [facility] (WNR) MEDICARE ADVANTAGE [facility] (WNR) Feb 10, 2023 [id number] JENN PARTIDA Y PATIENT Selected Encounter This section includes the information on record at [place] for the Encounter. Date/Time Encounter Type Encounter Description Reason Pro vider Source Jul 18, 2023 02:02 PM Outpatient Encounter ADMIN PAT ACTIVTIES (MASNONCT) IHE Encounter Template Text not used by [facility] Encounter Notes: All associated encounter notes This section contains the clinical notes associated to the Encounter. Date/Time Encounter Note(s) Provider Source Jul 18, 2023 02:02 PM PHARMACY OUTPATIEN T NOTE: LOCAL TITLE: Pharmacy Outpatient Note STANDARD TITLE: PHARMACY OUTPATIENT NOTE DATE OF NOTE: JUL 18, 2023@14:02 ENTRY DATE: JUL 18, 2023@14:02:46 AUTHOR: GOVEA,LATRICE EXP COSIGNER: URGENCY: STATUS: COMPLETED Prescriptions were received from a non-VA provider. This patient does not have an active Community Care Consult for this provider. The patient has been contacted with instructions to have their non-VA provider send the prescriptions to an outside pharmacy. The prescription was from [facility]. /kwesi/ LATRICE GOVEA PHARM.D Clinical Pharmacist Signed: 07/18/2023 14:03 LATRICE GOVEA [facility]
--- OUTSIDE RECORDS SUMMARY | 2023-12-09 01:14 | XMS_ITS | Encounter Summary ---
Author Name [facility] Organization [facility] [place] Address [address] [place] [id number] Care Team Providers Care Event Attendant Name Role Phone AG SALGUERO Primary Care [...] Name Patient's Relationship to Policy Lorenzo AARP [facility] (WNR) MEDICARE ADVANTAGE [facility] (WNR) Feb 10, 2023 [id number] JENN PARTIDA Y PATIENT Selected Encounter This section includes the information on record at [place] for the Encounter. Date/Time Encounter Type Encounter Description Reason Pro vider Source Jul 30, 2023 12:06 PM Outpatient Encounter PRIMARY CARE/MEDICINE IHE Encounter Template Text not used by [facility] Encounter Notes: All associated encounter notes This section contains the clinical notes associated to the Encounter. Date/Time Encounter Note(s) Provider Source Aug 01, 2023 04:25 PM ADDENDUM: LOCAL TITLE: Addendum STANDARD TITLE: ADDENDUM DATE OF NOTE: AUG 01, 2023@16:25:34 ENTRY DATE: AUG 01, 2023@16:25:34 AUTHOR: MICHAEL GRADY COSIGNER: URGENCY: STATUS: COMPLETED It looks like they are all current these were script verifications with added refills for renewal so just adjust how many refills he will have in the future /kwesi/ MICHAEL GRADY LPN Signed: 08/01/2023 16:26 Receipt Acknowledged By: 08/02/2023 13:19 /kwesi/ AG SALGUERO PA-C --- Original Document --- 07/02/23 NonVA Medical Records: EVENT PROCEDURE: Primary Care Note [facility] Notes: Comments. Problems. 1. 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 traumatic brain injury 02/11, full disability 3. smoker, current 2003 4. ETOH? Pulm HTN, AR, emphysema, hip, depression, predm, insomnia, O00, vit D clef, tubulovillous adenoma, alcohol HX 68-year-old man here for follow-up COPD, tobacco abuse. He brought all of his prescription medications in today?he has been getting them from a Dr. Jennifer Salguero out of [place] at the OR, which has been more cost effective for him. He Is asking about coming off of some of his medications. He is , lives alone, sleeping 5 to 6 hours a night using trazodone and amitriptyline?he believes that if he came off of those medications his sleep would worsen. He is smoking anywhere between a pack and a half to a pack of cigarettes a day, is quite frustrated with himself that he cannot quit smoking. Has tried using the nicotine gum without much improvement. He has been successful quitting smoking for short periods of time in the past?typically for a few weeks, he notices that his breathing improves. He typically has to use his rescue elbuterol inhaler when he is carrying and stacking wood after each arm load. When he does not smoke he can take 3-4 loads into the house without needing his inhaler. No CP, cough or edema. Constitutional. General Appearance: Unkempt appearance, long white hair. Level of Distress: chronically Ill. Ambulation: i ambulates without assistance. Psychiatric: Insight: good judgement. Mental Status; normal mood and affect and active and alert. Orientation: oriented to time, place, and person. Lungs: Respiratory effort: no dyspnea. Auscultation: no wheezing, rales/crackles, or rhonchi and breath sounds normal, good air movement, and CTA except as noted; Diminished throughout.. Cardiovascular: Apical Impulse: not displaced. Heart Auscultation: normal Si and S2; no murmurs, rubs, or gallops; and RRR. 1. Nicotine dependence- Will trial Varenicline along with nicotene patch. F17.200: Nicotine dependence, unspecified, uncomplicated *varenicline 0.5 mg (11)-1 mg (42) tablets in a dose pack - Take I tablet by mouth as directed follow instructions on pack Qty: (42) tablet Pharmacy: [facility] [id number] Note to Pharmacy: please prescribe starter pack *nicotine 21 mg/24 hr daily tranadermal patch - Apply 1 patch to skin once a day removing old patch before putting on new patch and also alternating arms/areas Qty; (30) 21 patch, transdermal 24 hours box Refills: 1 Pharmacy: [facility] [id number] 2. Pulmonary emphysema - Stable. Continues on Spiriva inhaler, only using albuterol inhaler as needed for exertion. Encouraged smoking cessation. J43.9: Emphysema, unspecified 3. Hyperllipidemia - Reviewed last cholesterol reading?Ll3L 112 while taking atorvastatin 80 mg daily. Concern it will increase his cardiac risk of coming off this medication especially considering his smoking status (in the past LDLs have been 170? greater than 200 off statin). He is agreeable to stay on atorvastatin at the current time, plan to recheck lipids later this summer. Will meet with [facility] today for guidance on low-fat diet. He is asking me to refill all of his medications, although he has a [facility] prescriber?I have asked that he contact them for refills as to avoid confusion. E78.5: Hyperlipidemia, unspecified I. Major depression, single episode- 3QO-9 score of 11: will order BHS. F32.9: Major depressive disorder, single episode, unspecified 'atient Instructions Karyn: start varenicline: one tab daily for 3 days then increase to 1 tablet twice a day- after one week quit smoking and at that time start using the patch along with the pill, follow up in one month for smoking Prescriptions for the following cholecalciferol (vitamin 03) 25 mcg (1,000 unit) tablet 1 tablet by mouth daily 90 day supply 3 refills furosemide 20 mg tablet 1 tablet daily as needed 30 tabs 3 refills albuterol sulfate HFA 90 mcglactuation aerosol inhaler 1 (one) 200 inhalation canister (ALBUTEROL SULFATE HFA or equivalent) Inhale 2 puff using inhaler every four to six hours as needed 3 Refills amitriptyline 100 mg tablet 90 (ninety) tablet Take 1 tablet by mouth every night 3 Refills atorvastatin 80 mg tablet 90 (ninety) tablet Take 1 tablet by mouth every night 3 Refills Centrum Silver Ultra Men's 300 mcg-60 mcg-600 lili-300 lili tablet 90 (ninety) tablet take one a day 3 Refills nicotine (polacrilex) 2 mg gum 1 (one) 100 gum box Chew I piece to inside of mouth (buccal) as directed with craving to smoke. Do not exceed 20 pieces of gum in 24 hours. 2 Refills Spiriva Respimat 1.25 mcg/actuation solution for inhalation 1 (one) 60 inhalation aerosol with adapter Inhale 2 puff as directed once a day 3 Refills traZODone 50 mg tablet 45 (forty-five) tablet Take 0.5 tablet by mouth every night for sleep 2 Refills varenicline 0.5 mg (11)-1 mg (42) tablets in a dose pack 42 (forty-two) tablet Take 1 tablet by mouth as directed follow instructions on pack 2 Refills Nicotine Patch 21MG/24 HR daily Transdermal patch 30 21mg patch Apply 1 patch to skin once a day removing old patch before putting on new patch 1 refills THE ATTACHED SCANNED DOCUMENT HAS BEEN REVIEWED AND AUTHORIZED BY DOCUMENT (S) SENT TO [facility] TO BE SCANNED. TO VIEW THIS DOCUMENT, OPEN CPRS TOOLS MENU AND THEN OPEN THE IMAGE DISPLAY VIEWER. /kwesi/ MICHAEL GRADY LPN Signed: 07/30/2023 12:18 Receipt Acknowledged By: 08/01/2023 16:14 /kwesi/ AG SALGUERO PA-C 07/30/2023 ADDENDUM STATUS: COMPLETED all medications seem to be ordered please adjust refills /kwesi/ MICHAEL GRADY LPN Signed: 07/30/2023 12:19 08/01/2023 ADDENDUM STATUS: COMPLETED Tara: Can you please clarify what needs to be done? Does he need all meds refilled? /abigail SALGUERO PA-C Signed: 08/01/2023 16:15 Receipt Acknowledged By: 08/01/2023 16:25 /MICHAEL Honeycutt LPN [facility] Aug 01, 2023 04:14 PM ADDENDUM: LOCAL TITLE: Addendum STANDARD TITLE: ADDENDUM DATE OF NOTE: AUG 01, 2023@16:14:59 ENTRY DATE: AUG 01, 2023@16:14:59 AUTHOR: AG SALGUERO EXP COSIGNER: URGENCY: STATUS: COMPLETED Tara: Can you please clarify what needs to be done? Does he need all meds refilled? /abigail SALGUERO PA-C Signed: 08/01/2023 16:15 Receipt Acknowledged By: 08/01/2023 16:25 /kwesi/ MICHAEL GRADY LPN --- Original Document --- 07/02/23 NonVA Medical Records: EVENT PROCEDURE: Primary Care Note [facility] Notes: Comments. Problems. 1. 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 traumatic brain injury 02/11, full disability 3. smoker, current 2003 4. ETOH? Pulm HTN, AR, emphysema, hip, depression, predm, insomnia, O00, vit D clef, tubulovillous adenoma, alcohol HX 68-year-old man here for follow-up COPD, tobacco abuse. He brought all of his prescription medications in today?he has been getting them from a Dr. Jennifer Salguero out of [place] at the OR, which has been more cost effective for him. He Is asking about coming off of some of his medications. He is , lives alone, sleeping 5 to 6 hours a night using trazodone and amitriptyline?he believes that if he came off of those medications his sleep would worsen. He is smoking anywhere between a pack and a half to a pack of cigarettes a day, is quite frustrated with himself that he cannot quit smoking. Has tried using the nicotine gum without much improvement. He has been successful quitting smoking for short periods of time in the past?typically for a few weeks, he notices that his breathing improves. He typically has to use his rescue elbuterol inhaler when he is carrying and stacking wood after each arm load. When he does not smoke he can take 3-4 loads into the house without needing his inhaler. No CP, cough or edema. Constitutional. General Appearance: Unkempt appearance, long white hair. Level of Distress: chronically Ill. Ambulation: i ambulates without assistance. Psychiatric: Insight: good judgement. Mental Status; normal mood and affect and active and alert. Orientation: oriented to time, place, and person. Lungs: Respiratory effort: no dyspnea. Auscultation: no wheezing, rales/crackles, or rhonchi and breath sounds normal, good air movement, and CTA except as noted; Diminished throughout.. Cardiovascular: Apical Impulse: not displaced. Heart Auscultation: normal Si and S2; no murmurs, rubs, or gallops; and RRR. 1. Nicotine dependence- Will trial Varenicline along with nicotene patch. F17.200: Nicotine dependence, unspecified, uncomplicated *varenicline 0.5 mg (11)-1 mg (42) tablets in a dose pack - Take I tablet by mouth as directed follow instructions on pack Qty: (42) tablet Pharmacy: [facility] [id number] Note to Pharmacy: please prescribe starter pack *nicotine 21 mg/24 hr daily tranadermal patch - Apply 1 patch to skin once a day removing old patch before putting on new patch and also alternating arms/areas Qty; (30) 21 patch, transdermal 24 hours box Refills: 1 Pharmacy: [facility] [id number] 2. Pulmonary emphysema - Stable. Continues on Spiriva inhaler, only using albuterol inhaler as needed for exertion. Encouraged smoking cessation. J43.9: Emphysema, unspecified 3. Hyperllipidemia - Reviewed last cholesterol reading?Ll3L 112 while taking atorvastatin 80 mg daily. Concern it will increase his cardiac risk of coming off this medication especially considering his smoking status (in the past LDLs have been 170? greater than 200 off statin). He is agreeable to stay on atorvastatin at the current time, plan to recheck lipids later this summer. Will meet with [facility] today for guidance on low-fat diet. He is asking me to refill all of his medications, although he has a [facility] prescriber?I have asked that he contact them for refills as to avoid confusion. E78.5: Hyperlipidemia, unspecified I. Major depression, single episode- 3QO-9 score of 11: will order BHS. F32.9: Major depressive disorder, single episode, unspecified 'atient Instructions Karyn: start varenicline: one tab daily for 3 days then increase to 1 tablet twice a day- after one week quit smoking and at that time start using the patch along with the pill, follow up in one month for smoking Prescriptions for the following cholecalciferol (vitamin 03) 25 mcg (1,000 unit) tablet 1 tablet by mouth daily 90 day supply 3 refills furosemide 20 mg tablet 1 tablet daily as needed 30 tabs 3 refills albuterol sulfate HFA 90 mcglactuation aerosol inhaler 1 (one) 200 inhalation canister (ALBUTEROL SULFATE HFA or equivalent) Inhale 2 puff using inhaler every four to six hours as needed 3 Refills amitriptyline 100 mg tablet 90 (ninety) tablet Take 1 tablet by mouth every night 3 Refills atorvastatin 80 mg tablet 90 (ninety) tablet Take 1 tablet by mouth every night 3 Refills Centrum Silver Ultra Men's 300 mcg-60 mcg-600 lili-300 lili tablet 90 (ninety) tablet take one a day 3 Refills nicotine (polacrilex) 2 mg gum 1 (one) 100 gum box Chew I piece to inside of mouth (buccal) as directed with craving to smoke. Do not exceed 20 pieces of gum in 24 hours. 2 Refills Spiriva Respimat 1.25 mcg/actuation solution for inhalation 1 (one) 60 inhalation aerosol with adapter Inhale 2 puff as directed once a day 3 Refills traZODone 50 mg tablet 45 (forty-five) tablet Take 0.5 tablet by mouth every night for sleep 2 Refills varenicline 0.5 mg (11)-1 mg (42) tablets in a dose pack 42 (forty-two) tablet Take 1 tablet by mouth as directed follow instructions on pack 2 Refills Nicotine Patch 21MG/24 HR daily Transdermal patch 30 21mg patch Apply 1 patch to skin once a day removing old patch before putting on new patch 1 refills THE ATTACHED SCANNED DOCUMENT HAS BEEN REVIEWED AND AUTHORIZED BY DOCUMENT (S) SENT TO [facility] TO BE SCANNED. TO VIEW THIS DOCUMENT, OPEN CPRS TOOLS MENU AND THEN OPEN THE IMAGE DISPLAY VIEWER. /kwesi/ MICHAEL GRADY LPN Signed: 07/30/2023 12:18 Receipt Acknowledged By: 08/01/2023 16:14 /kwesi/ AG SALGUERO PA-C 07/30/2023 ADDENDUM STATUS: COMPLETED all medications seem to be ordered please adjust refills /abigail GRADY LPN Signed: 07/30/2023 12:[address] [facility] Jul 02, 2023 12:06 PM NONVA NOTE: LOCAL TITLE: NonVA Medical Records STANDARD TITLE: NONVA NOTE DATE OF NOTE: JUL 02, 2023@12:06 ENTRY DATE: JUL 30, 2023@12:06:58 AUTHOR: MICHAEL GRADY EXP COSIGNER: URGENCY: STATUS: COMPLETED NonVA Medical Records Has ADDENDA EVENT PROCEDURE: Primary Care Note [facility] Notes: Comments. Problems. 1. 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 traumatic brain injury 02/11, full disability 3. smoker, current 2003 4. ETOH? Pulm HTN, AR, emphysema, hip, depression, predm, insomnia, O00, vit D clef, tubulovillous adenoma, alcohol HX 68-year-old man here for follow-up COPD, tobacco abuse. He brought all of his prescription medications in today?he has been getting them from a Dr. Jennifer Salguero out of [place] at the OR, which has been more cost effective for him. He Is asking about coming off of some of his medications. He is , lives alone, sleeping 5 to 6 hours a night using trazodone and amitriptyline?he believes that if he came off of those medications his sleep would worsen. He is smoking anywhere between a pack and a half to a pack of cigarettes a day, is quite frustrated with himself that he cannot quit smoking. Has tried using the nicotine gum without much improvement. He has been successful quitting smoking for short periods of time in the past?typically for a few weeks, he notices that his breathing improves. He typically has to use his rescue elbuterol inhaler when he is carrying and stacking wood after each arm load. When he does not smoke he can take 3-4 loads into the house without needing his inhaler. No CP, cough or edema. Constitutional. General Appearance: Unkempt appearance, long white hair. Level of Distress: chronically Ill. Ambulation: i ambulates without assistance. Psychiatric: Insight: good judgement. Mental Status; normal mood and affect and active and alert. Orientation: oriented to time, place, and person. Lungs: Respiratory effort: no dyspnea. Auscultation: no wheezing, rales/crackles, or rhonchi and breath sounds normal, good air movement, and CTA except as noted; Diminished throughout.. Cardiovascular: Apical Impulse: not displaced. Heart Auscultation: normal Si and S2; no murmurs, rubs, or gallops; and RRR. 1. Nicotine dependence- Will trial Varenicline along with nicotene patch. F17.200: Nicotine dependence, unspecified, uncomplicated *varenicline 0.5 mg (11)-1 mg (42) tablets in a dose pack - Take I tablet by mouth as directed follow instructions on pack Qty: (42) tablet Pharmacy: [facility] 268 Note to Pharmacy: please prescribe starter pack *nicotine 21 mg/24 hr daily tranadermal patch - Apply 1 patch to skin once a day removing old patch before putting on new patch and also alternating arms/areas Qty; (30) 21 patch, transdermal 24 hours box Refills: 1 Pharmacy: [facility] [id number] 2. Pulmonary emphysema - Stable. Continues on Spiriva inhaler, only using albuterol inhaler as needed for exertion. Encouraged smoking cessation. J43.9: Emphysema, unspecified 3. Hyperllipidemia - Reviewed last cholesterol reading?Ll3L 112 while taking atorvastatin 80 mg daily. Concern it will increase his cardiac risk of coming off this medication especially considering his smoking status (in the past LDLs have been 170? greater than 200 off statin). He is agreeable to stay on atorvastatin at the current time, plan to recheck lipids later this summer. Will meet with [facility] today for guidance on low-fat diet. He is asking me to refill all of his medications, although he has a [facility] prescriber?I have asked that he contact them for refills as to avoid confusion. E78.5: Hyperlipidemia, unspecified I. Major depression, single episode- 3QO-9 score of 11: will order BHS. F32.9: Major depressive disorder, single episode, unspecified 'atient Instructions Karyn: start varenicline: one tab daily for 3 days then increase to 1 tablet twice a day- after one week quit smoking and at that time start using the patch along with the pill, follow up in one month for smoking Prescriptions for the following cholecalciferol (vitamin 03) 25 mcg (1,000 unit) tablet 1 tablet by mouth daily 90 day supply 3 refills furosemide 20 mg tablet 1 tablet daily as needed 30 tabs 3 refills albuterol sulfate HFA 90 mcglactuation aerosol inhaler 1 (one) 200 inhalation canister (ALBUTEROL SULFATE HFA or equivalent) Inhale 2 puff using inhaler every four to six hours as needed 3 Refills amitriptyline 100 mg tablet 90 (ninety) tablet Take 1 tablet by mouth every night 3 Refills atorvastatin 80 mg tablet 90 (ninety) tablet Take 1 tablet by mouth every night 3 Refills Centrum Silver Ultra Men's 300 mcg-60 mcg-600 lili-300 lili tablet 90 (ninety) tablet take one a day 3 Refills nicotine (polacrilex) 2 mg gum 1 (one) 100 gum box Chew I piece to inside of mouth (buccal) as directed with craving to smoke. Do not exceed 20 pieces of gum in 24 hours. 2 Refills Spiriva Respimat 1.25 mcg/actuation solution for inhalation 1 (one) 60 inhalation aerosol with adapter Inhale 2 puff as directed once a day 3 Refills traZODone 50 mg tablet 45 (forty-five) tablet Take 0.5 tablet by mouth every night for sleep 2 Refills varenicline 0.5 mg (11)-1 mg (42) tablets in a dose pack 42 (forty-two) tablet Take 1 tablet by mouth as directed follow instructions on pack 2 Refills Nicotine Patch 21MG/24 HR daily Transdermal patch 30 21mg patch Apply 1 patch to skin once a day removing old patch before putting on new patch 1 refills THE ATTACHED SCANNED DOCUMENT HAS BEEN REVIEWED AND AUTHORIZED BY DOCUMENT (S) SENT TO [facility] TO BE SCANNED. TO VIEW THIS DOCUMENT, OPEN CPRS TOOLS MENU AND THEN OPEN THE IMAGE DISPLAY VIEWER. /abigail GRADY LPN Signed: 07/30/2023 12:18 Receipt Acknowledged By: 08/01/2023 16:14 /abigail SALGUERO PA-C 07/30/2023 ADDENDUM STATUS: COMPLETED all medications seem to be ordered please adjust refills /abigail GRADY LPN Signed: 07/30/2023 12:19 08/01/2023 ADDENDUM STATUS: COMPLETED Tara: Can you please clarify what needs to be done? Does he need all meds refilled? /abigail SALGUERO PA-C Signed: 08/01/2023 16:15 Receipt Acknowledged By: 08/01/2023 16:25 /abigail GRADY LPN 08/01/2023 ADDENDUM STATUS: COMPLETED It looks like they are all current these were script verifications with added refills for renewal so just adjust how many refills he will have in the future /abigail GRADY LPN Signed: 08/01/2023 16:26 Receipt Acknowledged By: * AWAITING SIGNATURE * AG SALGUERO [facility]IZABETH M [facility]
--- OUTSIDE RECORDS SUMMARY | 2023-12-09 01:14 | XMS_ITS | Encounter Summary ---
Author Name [facility] [place] [facility] [place] Address [address] [place] [address] Care Team Providers Care Lead Slot Technician Name Role Phone AG SALGUERO Primary Care [...] Name Patient's Relationship to Policy Lorenzo AARP [facility] (WNR) MEDICARE ADVANTAGE [facility] (WNR) Feb 10, 2023 [id number] JENN PARTIDA Y PATIENT Selected Encounter This section includes the information on record at [place] for the Encounter. Date/Time Encounter Type Encounter Description Reason Pro vider Source Mar 11, 2023 04:13 PM Outpatient Encounter PRIMARY CARE/MEDICINE IHE Encounter Template Text not used by [place] Plan of Treatment: Future Appointments (+ 6 months) and Future Tests (+/- 45 days) The Plan of Treatment section includes future care activities for the patient from all [place] treatmentfacilities. This section includes future appointments and future orders which are active, pending or scheduled. Future Appointments This section includes appointments that were scheduled to occur 6 months from the date of the Encounter, up to a maximum of 20 appointments. The data comes from all [place] treatment facilities. Appointment Date/Time Appointment Type Appointme nt Facility Name Mar 13, 2023 02:00 PM AMBULATORY - SURGERY [facility] Active, Pending, and Scheduled Orders This section includes a listing of several types of active, pending, and scheduled orders, including clinic medications orders, diagnostic test orders, procedure orders and consult orders; where the start date of the order is 45 days before the date of the Encounter or 45 days after the date of theEncounter. The data comes from all [place] treatment facilities. Test Date/Time Test Type Test Details Facility Name Feb 04, 2023 12:00 AM Laboratory - Chemistry Order CBC PROFILE BLOOD(LAV-EDTA) [facility] Feb 04, 2023 12:00 AM Laboratory - Chemistry Order URINALYSIS W/REFLEX TO CULTURE CLEAN CATCH URINE [facility] Feb 04, 2023 12:00 AM Laboratory - Chemistry Order GLYCOHEMOGLOBIN (A1C ONLY) BLOOD(LAV-EDTA) [facility] Feb 04, 2023 12:00 AM Laboratory - Chemistry Order MICROALBUMIN/CREATININE RATIO PANEL URINE RANDOM [facility] Feb 04, 2023 12:00 AM Laboratory - Chemistry Order P4 GLU,BUN,CREAT,LYTES,CA LT GREEN(LI HEP) PLASMA [facility] Feb 04, 2023 12:00 AM Laboratory - Chemistry Order LIVER PROFILE LT GREEN(LI HEP) PLASMA [facility] Feb 04, 2023 12:00 AM Laboratory - Chemistry Order LIPOPROTEIN CHOLESTEROL FRACT. PANEL LT GREEN(LI HEP) PLASMA [facility] Encounter Notes: All associated encounter notes This section contains the clinical notes associated to the Encounter. Date/Time Encounter Note(s) Provider Source Mar 11, 2023 04:13 PM NONVA NOTE: LOCAL TITLE: NonVA Note STANDARD TITLE: NONVA NOTE DATE OF NOTE: MAR 11, 2023@16:13 ENTRY DATE: MAR 11, 2023@16:14:03 AUTHOR: MICHAEL GRADY EXP COSIGNER: URGENCY: STATUS: COMPLETED EVENT PROCEDURE: Request to forward all mnedical records TREATING FACILITY: [facility] This is forwarded to our medical records department THE ATTACHED SCANNED DOCUMENT HAS BEEN REVIEWED AND AUTHORIZED BY DOCUMENT (S) SENT TO [facility] TO BE SCANNED. TO VIEW THIS DOCUMENT, OPEN CPRS TOOLS MENU AND THEN OPEN THE IMAGE DISPLAY VIEWER. /kwesi/ MICHAEL GRADY LPN Signed: 03/11/2023 16:15 [facility]
--- OUTSIDE RECORDS SUMMARY | 2023-12-09 01:14 | XMS_ITS | Encounter Summary ---
Author Name [facility] [place] [facility] [place] Address [address] [place] [address] Care Team Providers Care Pet Care Technician Name Role Phone AG SALGUERO Primary [...] Name Patient's Relationship to Policy Lorenzo AARP [facility] (WNR) MEDICARE ADVANTAGE [facility] (WNR) Feb 10, 2023 [id number] HEL[address] Y PATIENT Selected Encounter This section includes the information on record at [place] for the Encounter. Date/Time Encounter Type Encounter Description Reason Provider Source Mar 13, 2023 02:00 PM FIT SPECTACLES BIFOCAL OPTOMETRY ICD-10-CM Z46.0 Encounter for fit/adjst of spectacles and contact lenses TAMMY DIETRICH Encounter Template Text not used by [place] Assessments - Encounter Diagnoses This section includes the primary and secondary diagnoses documented for the Encounter. Date/Time Primary/Secondary Diagnosis Diagnosis Name Provider Source Mar 13, 2023 02:40 PM PRIMARY Encounter for fit/adjst of spectacles and contact lenses TAMMY DIETRICH [facility] Plan of Treatment: Future Appointments (+ 6 months) and Future Tests (+/- 45 days) The Plan of Treatment section includes future care activities for the patient from all [place] treatmentfacilities. This section includes future appointments and future orders which are active, pending or scheduled. Active, Pending, and Scheduled Orders This section includes a listing of several types of active, pending, and scheduled orders, including clinic medications orders, diagnostic test orders, procedure orders and consult orders; where the start date of the order is 45 days before the date of the Encounter or 45 days after the date of theEncounter. The data comes from all [place] treatment facilities. Test Date/Time Test Type Test [...] Encounter. Date/Time Encounter Note(s) Provider Source Mar 13, 2023 02:35 PM EYE NOTE: LOCAL TITLE: Eye Optical Fitting Note STANDARD TITLE: EYE NOTE DATE OF NOTE: MAR 13, 2023@14:35 ENTRY DATE: MAR 13, 2023@14:35:58 AUTHOR: TAMMY DIETRICH COSIGNER: URGENCY: STATUS: COMPLETED NEW FIT Bifocal [place]farland was fit with new bifocal eyeglasses (58807), which will be mailed to the 's home address in approximately three weeks. was informed that he or she may return to the clinic by appointment for fittings, repairs and adjustments as needed. CC RX: [facility] [phone] 03/01/23 EXP - 03/01/25 REQUESTS BIFOCALS/AR/TRANSITIONS/POLYC ARB Dr Li Zaman, [place] [phone] The quote provided below is for informational purposes only. Please verify prior to the creation of a purchase order. ABBY M[employer] 1772 RX INFORMATION OD +1.50 -0.75 X130 Add:+2.50 Pzm:0.00 Dir: Prz2:0.00 Dir2: OS +2.00 -1.00 X60 Add:+2.50 Pzm:0.00 Dir: Prz2:0.00 Dir2: FITTING INFORMATION FPD:63 NPD:60 Adams:R: L: SEG HT:R:14 L:14 Tint:None Shade:None [place] Billable Items FRAME: [id number] ANTIQUE [facility] 52-20-140 Right Lens: POLY BIFOCAL FT28 TRANSITIONS [place] 1.586 POLY Left Lens: POLY BIFOCAL FT28 TRANSITIONS [place] 1.586 POLY SCRATCH RESISTANT COATING RHIANNON KLEAR ANTI-REFLECTIVE COATING Glasses fit by:Tammy Dietrich /kwesi/ TAMMY DIETRICH MILK RECEIVER TANK TRUCK Signed: 03/13/2023 14:40 Receipt Acknowledged By: 03/13/2023 16:04 /kwesi/ TOVA LEIVA FNP TAMMY DIETRICH [facility]
--- OUTSIDE RECORDS SUMMARY | 2023-12-09 01:14 | XMS_ITS | Encounter Summary ---
Author Organization [facility] Address [address] [place] [address] Care Team Providers Care Parking Lot Supervisor Name Role Phone Unavailable Primary Care Provider Unavailabl e Encounter Details Date Type Department Care Team (Late st Contact Info) Description 08/14/2007 Results Only [facility] [address] [place] [address] John Paul Menezes MD [address] [place] [id number] Social History Tobacco Use Types Packs/Day Years Used Date Smoking Tobacco: Never Assessed Sex and Gender Information Value Date Recorded Sex Assigned at Not on file Gender Identity Not on file Sexual Orientation Not on file documented as of this encounter Plan of Treatment Not on file documented as of this encounter Procedures Procedure Name Priority Date/Time Associated Diagnosis Comments SURGICAL PATHOLOGY Routine 08/14/2007 0:00 EDT documented in this encounter Results * SURGICAL PATHOLOGY (08/14/2007 0:00 EDT) Pathology Report: SURGICAL PATHOLOGY REPORT Reports generated via electronic interface contain original data; however they are lacking the format of the original report. Caution should be taken when reading/interpreti ng unformatted reports. Name: ? KARYN PARTIDA ? Accession #: ? [id number] ? : ? 1955 (Age: 52) ??M ? Collect Date: ? 08/14/2007 ? Location: ? [facility] ? Receive Date: ? 08/15/2007 ? Provider: JOHN PAUL MENEZES MD Copy to: CORNELIA ERIC MD ? Final Pathologic Diagnosis: ? Rectum, polyp, biopsy: - Tubular adenoma (1 piece); no high grade dysplasia. Document reviewed and electronically signed by: Elver Moy MD Report ??Date: 08/18/2007 17:08 By the signature above, the attending physician certifies that he/she has personally conducted a gross and/or microscopic examination of the described specimens and rendered or confirmed the above diagnosis. Specimen(s) Received: ? Polyp rectum Clinical History: ? Rectal bleeding Gross Description: ? Received in Hollande's fixative labelled [place] and #1 polyp rectum is a 0.5 x 0.4 x 0.4 cm firm smooth surfaced sessile polyp which is trisected and submitted entirely in one cassette. ??(Ruslan Gee/vinicius End of Report ALTHEA ESPINOZA 08/14/2007 08/15/2007 10: 20 EDT John Paul Menezes MD PATHOLOGY ORDERABLE S [facility] [address] [place] [address] documented in this encounter Visit Diagnoses Not on filedocumented in this encounter
--- OUTSIDE RECORDS SUMMARY | 2023-12-09 01:14 | XMS_ITS ---
Author Name [facility] [place] [facility] [place] Organization [facility] [place] Address [address] [place] [address] Care Team Providers Care Sheet Metal Layout Worker Name Role Phone AG SALGUERO Primary Care [...] Name Patient's Relationship to Policy Lorenzo AARP [facility] (WNR) MEDICARE ADVANTAGE [facility] (WNR) Feb 10, 2023 [id number] HELGASANTAReinaldo Y PATIENT Selected Encounter This section includes the information on record at [place] for the Encounter. Date/Time Encounter Type Encounter Description Reason Pro vider Source Feb 21, 2023 04:53 PM Outpatient Encounter ADMIN PAT ACTIVTIES (MASNONCT) [...] AM AMBULATORY - NONE [place] Mar 13, 2023 02:00 PM AMBULATORY - SURGERY [place] [facility] Active, Pending, and Scheduled Orders This section includes a listing of several types of active, pending, and scheduled orders, including clinic medications orders, diagnostic test orders, procedure orders and consult orders; where the start date of the order is 45 days before the date of the Encounter or 45 days after the date of theEncounter. The data comes from all [facility]. Test Date/Time Test Type Test Details Facility [...] LT GREEN(LI HEP) PLASMA [facility] Encounter Notes: All associated encounter notes This section contains the clinical notes associated to the Encounter. Date/Time Encounter Note(s) Provider Source May 17, 2009 04:53 PM NONVA NOTE: LOCAL TITLE: NonVA Medical Records STANDARD TITLE: NONVA NOTE DATE OF NOTE: MAY 17, 2009@16:53 ENTRY DATE: FEB 21, 2023@16:54:33 AUTHOR: AKANKSHA RODRIGUEZ EXP COSIGNER: URGENCY: STATUS: COMPLETED NONVA DATE RANGE: 05/17/2009-04/25/2022 IMMUNIZATION RECORD [facility] /kwesi/ AKANKSHA RODRIGUEZ CONDUIT INSTALLER Signed: 02/21/2023 16:55 Receipt Acknowledged By: 02/21/2023 19:09 /kwesi/ AKANKSHA FUNEZ PA-C [facility]
--- OUTSIDE RECORDS SUMMARY | 2023-12-09 01:14 | XMS_ITS ---
Author Name [facility] [place] [facility] [place] Organization [facility] [place] Address [address] [place] [address] Care Team Providers Care Certified Personal Trainer Name Role Phone AG SALGUERO Primary Care [...] Policy Lorenzo's Name Patient's Relationship to Policy Lorezno AARP [facility] (WNR) MEDICARE ADVANTAGE [facility] (WNR) Feb 10, 2023 [id number] 72 HELGAJENN Y PATIENT Selected Encounter This section includes the information on record at [place] for the Encounter. Date/Time Encounter Type Encounter Description Reason Pro vider Source Mar 08, 2023 12:12 PM Outpatient Encounter ADMIN PAT ACTIVTIES (MASNONCT) [...] 2023 02:00 PM AMBULATORY - SURGERY [facility] Active, Pending, and Scheduled Orders This section includes a listing of several types of active, pending, and scheduled orders, including clinic medications orders, diagnostic test orders, procedure orders and consult orders; where the start date of the order is 45 days before the date of the Encounter or 45 days after the date of theEncounter. The data comes from all [facility]. Test Date/Time Test Type Test Details Facility Name Feb 04, 2023 12:00 AM Laboratory - Chemistry Order CBC PROFILE BLOOD(LAV-EDTA) [facility] Feb 04, 2023 12:00 AM Laboratory - Chemistry Order URINALYSIS W/REFLEX TO CULTURE CLEAN CATCH URINE [facility] Feb 04, 2023 12:00 AM Laboratory - Chemistry Order GLYCOHEMOGLOBIN (A1C ONLY) BLOOD(LAV-EDTA) [facility] Feb 04, 2023 12:00 AM Laboratory - Chemistry Order MICROALBUMIN/CREATININE RATIO PANEL URINE RANDOM [facility] Feb 04, 2023 12:00 AM Laboratory - Chemistry Order P4 GLU,BUN,CREAT,LYTES,CA LT GREEN(LI HEP) PLASMA [facility] Feb 04, 2023 12:00 AM Laboratory - Chemistry Order LIVER PROFILE LT GREEN(LI HEP) PLASMA [facility] Feb 04, 2023 12:00 AM Laboratory - Chemistry Order LIPOPROTEIN CHOLESTEROL FRACT. PANEL LT GREEN(LI HEP) PLASMA [facility] Encounter Notes: All associated encounter notes This section contains the clinical notes associated to the Encounter. Date/Time Encounter Note(s) Provider Source Mar 08, 2023 12:12 PM ADMINISTRATIVE NOT E: LOCAL TITLE: Has Admin Note STANDARD TITLE: ADMINISTRATIVE NOTE DATE OF NOTE: MAR 08, 2023@12:12 ENTRY DATE: MAR 08, 2023@12:12:41 AUTHOR: LELAND MARINELLI EXP COSIGNER: URGENCY: STATUS: COMPLETED Has Admin Note Has ADDENDA The pt left a vm (maybe regarding the eye clinic). I called call and left a vm. /kwesi/ LELAND MARINELLI Signed: 03/08/2023 12:15 03/08/2023 ADDENDUM STATUS: COMPLETED *called back /kwesi/ LELAND MARINELLI Signed: 03/08/2023 12:16 LELAND MARINELLI [facility]
--- OUTSIDE RECORDS SUMMARY | 2023-12-09 01:14 | XMS_ITS ---
Author Name [facility] [place] [facility] [place] Organization [facility] [place] Address [address] [place] [address] Care Team Providers Care Museum Exhibit Designer Name Role Phone AG SALGUERO Primary Care [...] Name Patient's Relationship to Policy Lorenzo AARP [facility] (WNR) MEDICARE ADVANTAGE [facility] (WNR) Feb 10, 2023 [id number] 72 HELGAJENN Y PATIENT Selected Encounter This section includes the information on record at [place] for the Encounter. Date/Time Encounter Type Encounter Description Reason Provider Source May 01, 2023 08:32 AM FIT SPECTACLES BIFOCAL ADMIN PAT ACTIVTIES (MASNONCT) ICD-10-CM Z46.0 Encounter for fit/adjst of spectacles and contact lenses TAMMY DIETRICH Encounter Template Text not used by [place] Assessments - Encounter Diagnoses This section includes the primary and secondary diagnoses documented for the Encounter. Date/Time Primary/Secondary Diagnosis Diagnosis Name Provider Source May 01, 2023 08:32 AM PRIMARY Encounter for fit/adjst of spectacles and contact lenses TAMMY DIETRICH [facility]3] Encounter Notes: All associated encounter notes This section contains the clinical notes associated to the Encounter. Date/Time Encounter Note(s) Provider Source May 01, 2023 08:54 AM ADDENDUM: LOCAL TITLE: Addendum STANDARD TITLE: ADDENDUM DATE OF NOTE: MAY 01, 2023@08:54:31 ENTRY DATE: MAY 01, 2023@08:54:33 AUTHOR: TAMMY DIETRICH COSIGNER: URGENCY: STATUS: COMPLETED NEW FIT Bifocal was fit with new bifocal eyeglasses (13585), which will be mailed to the 's home address in approximately three weeks, replacement for 03/15/23 pair LOST by !!! was informed that he or she may return to the clinic by appointment for fittings, repairs and adjustments as needed. The quote provided below is for informational purposes only. Please verify prior to the creation of a purchase order. [facility]Y M[employer] 1772 RX INFORMATION OD +1.50 -0.75 X130 Add:+2.50 Pzm:0.00 Dir: Prz2:0.00 Dir2: OS +2.00 -1.00 X60 Add:+2.50 Pzm:0.00 Dir: Prz2:0.00 Dir2: FITTING INFORMATION FPD:63 NPD:60 Schleicher:R: L: SEG HT:R:14 L:14 Tint:None Shade:None [place] Billable Items FRAME: [id number] ANTIQUE [facility] 52-20-140 Right Lens: POLY BIFOCAL FT28 TRANSITIONS [place] 1.586 POLY Left Lens: POLY BIFOCAL FT28 TRANSITIONS [place] 1.586 POLY SCRATCH RESISTANT COATING RHIANNON KLEAR ANTI-REFLECTIVE COATING Glasses fit by:Tammy Dietrich /kwesi/ TAMMY DIETRICH INSURANCE CUSTOMER SERVICE SPECIALIST Signed: 05/01/2023 08:57 Receipt Acknowledged By: 05/01/2023 09:20 /kwesi/ TOVA LEIVA PROCESS VALIDATION ENGINEER --- Original Document --- 05/01/23 Has Admin Note: Reason for call 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 The new glasses have been lost. Could the pt order a new pair? /kwesi/ LELAND MARINELLI Signed: 05/01/2023 08:36 Receipt Acknowledged By: 05/01/2023 08:57 /es/ TAMMY DIETRICH INSURANCE CUSTOMER SERVICE SPECIALIST TAMMY DIETRICH [facility] May 01, 2023 08:32 AM ADMINISTRATIVE NOT E: LOCAL TITLE: Has Admin Note STANDARD TITLE: ADMINISTRATIVE NOTE DATE OF NOTE: MAY 01, 2023@08:32 ENTRY DATE: MAY 01, 2023@08:32:28 AUTHOR: LELAND MARINELLI EXP COSIGNER: URGENCY: STATUS: COMPLETED Has Admin Note Has ADDENDA Reason for call Clinic Name:[facility] eye paper reel operator 1 The pt left a vm. The new glasses have been lost. Could the pt order a new pair? /kwesi/ LELAND MARINELLI Signed: 05/01/2023 08:36 Receipt Acknowledged By: 05/01/2023 08:57 /es/ TAMMY DALE 05/01/2023 ADDENDUM STATUS: COMPLETED NEW FIT Bifocal Agency was fit with new bifocal eyeglasses (94275), which will be mailed to the 's home address in approximately three weeks, replacement for 03/15/23 pair LOST by !!! Agency was informed that he or she may return to the clinic by appointment for fittings, repairs and adjustments as needed. The quote provided below is for informational purposes only. Please verify prior to the creation of a purchase order. A[facility]Y M[facility] 1772 RX INFORMATION OD +1.50 -0.75 X130 Add:+2.50 Pzm:0.00 Dir: Prz2:0.00 Dir2: OS +2.00 -1.00 X60 Add:+2.50 Pzm:0.00 Dir: Prz2:0.00 Dir2: FITTING INFORMATION FPD:63 NPD:60 Schleicher:R: L: SEG HT:R:14 L:14 Tint:None Shade:None [place] Billable Items FRAME: OG090 ANTIQUE [facility] 52-20-140 Right Lens: POLY BIFOCAL FT28 TRANSITIONS [place] 1.586 POLY Left Lens: POLY BIFOCAL FT28 TRANSITIONS [place] 1.586 POLY SCRATCH RESISTANT COATING RHIANNON LO ANTI-REFLECTIVE COATING Glasses fit by:Tammy Dietrich /kwesi/ TAMMY DIETRICH INSURANCE CUSTOMER SERVICE SPECIALIST Signed: 05/01/2023 08:57 Receipt Acknowledged By: * AWAITING SIGNATURE * TOVA LEIVA JEANIE M [facility]
--- OUTSIDE RECORDS SUMMARY | 2023-12-09 01:15 | XMS_ITS | Encounter Summary ---
Author Organization [facility] [place] [address] Care Team Providers Care Access Nurse Name Role Phone Nahomy Curry APRN Primary Care Provider [phone] Encounter Details Date Type Department Care Team (Late st Contact Info) Description 02/28/2022 Ancillary Procedure Radiology Library at [facility] [place] [address] Nahomy Curry APRN [address] [place] [address] Social History Tobacco Use Types Packs/Day Years Used Date Smoking Tobacco: Never Assessed Sex and Gender Information Value Date Recorded Sex Assigned at Not on file Gender Identity Not on file Sexual Orientation Not on file documented as of this encounter Plan of Treatment Not on file documented as of this encounter Procedures Procedure Name Priority Date/Time Associated Diagnosis Comments FILM LIBRARY STORAGE ONLY DX HAND Routine 02/28/2022 12:00 AM EDT documented in this encounter Results * Film Library- Storage Only DX Hand (02/28/2022 12:00 AM EDT) Narrative KENRICK - 03/07/2022 4:10 PM EDT This exam is auto-finalizing. It's purpose is for storage only. Nahomy Curry APRN IMG FILM LIBRARY ORD ERABLES [place], [place] documented in this encounter Visit Diagnoses Not on filedocumented in this encounter Care Teams Access Nurse Relationship Specialty Start Date End Date Nahomy Curry APRN PCP - General Family Medicine 01/30/21 documented as of this encounter
--- OUTSIDE RECORDS SUMMARY | 2023-12-09 01:15 | XMS_ITS | Encounter Summary ---
Author Organization [facility] Address [facility] [place] [address] Care Team Providers Care Cryptologic Supervisor Name Role Phone Nahomy Curry BIAS CUTTER HELPER Primary Care Provider [phone] Reason for Visit * Consultation (Routine) - Closed Specialty Diagnoses / Procedures Referred By Kaylie pope Referred To Contact Dermatology Diagnoses Disorder of pigmentation, unspecified Macule - L forearm and forehead Nahomy Curry, SARAH [address] [place] [address] [facility] Dermatology [address] [place] [address] Referral ID Status Reason Start Date Expiration Date V isits Requested Visits Authorized [id number] Closed Consult, Test & Treat Connection Center PCP Updated and/or Approved 01/24/2021 01/24/2022 6 6 Encounter Details Date Type Department Care Team (Late st Contact Info) Description 03/23/2021 10:00 AM EST Office Visit Dermatology at [facility] [address] [place] [address] Carl Seo MD [facility] [place] [address] SK (seborrheic keratosis); Ecchymosis Social History Tobacco Use Types Packs/Day Years Used Date Smoking Tobacco: Never Assessed Sex and Gender Information Value Date Recorded Sex Assigned at Not on file Gender Identity Not on file Sexual Orientation Not on file documented as of this encounter Progress Notes * Carl Seo MD - 03/23/2021 10:00 AM EST Images from the original note were not included. DEPARTMENT OF DERMATOLOGY Medical Dermatology Clinic Note Provider: Carl Seo MD Patient's preferred name Karyn Preferred contact method for results [x]Phone []myD-H []Letter Detailed phone message OK? yes Are there any other people with whom we may discuss your care? Past Medical History Date, location, treatment Melanoma no Dysplastic nevi no SCC no BCC no AKs no UV Exposure & Protection Sun Protection: no Other relevant past medical history no Family History Details Melanoma no NMSC no Other relevant family history no Social History Occupation: retired Hobbies: Other: Pre-Procedure Questions Details Allergy to lidocaine, epinephrine, Dermabond, chlorhexidine, or adhesives no Bleeding disorder or blood thinners no Implanted devices (Pacemaker, defibrillator, deep brain stimulator, cochlear implant) no History of Present Illness: Karyn Park is a 66 y.o. Patient is referred to the clinic at the request of Nahomy Curry for lesions of concern - Left forearm irregular lesion. Comes and goes gets solar electric practitioner and darker. Denies bleeding. Reports carries firewood a lot. - Dark spot on forehead present for most of life, also has a wound from a fall when he was a toddler. Denies symptom. Review of Systems: General: Feeling well. Skin: No other skin concerns. Medications: Reviewed in eD-H Allergies: Reviewed in eD-H Skin Examination: Focused skin examination of the left forearm forehea was normal with the exception of the findings below. Assessment/Plan #. Seborrheic keratoses - yellow to crystal stuck on plaque on mid forehead -benign nature of lesions discussed -patient reassured. #. Ecchymosis - On the left forearm, dark red subcutaneous hemorrhage noted. -Reassured. Other: ??? N/A RTC: PRN Scribe attestation: FLOR GONZALEZ LPN has performed the documentation for this encounter in the presence of and acting as a scribe for Carl Seo MD. I performed the above scribed service and agree with the accuracy of the documentation in this encounter. Reviewed and signed by: Carl Seo MD Dermatology [facility] Patient seen and evaluated with staff transmission repairer: Grayson Fernandez MD Department of Dermatology [facility] * Grayson Fernandez MD - 03/23/2021 10:00 AM EST I directly supervised Dr. Seo in the care of this patient. I saw and evaluated this patient with Dr. Seo. He presented the history and physical exam detailsto me, then we saw the patient together and I confirmed these findings. I agree with details as written. My physical examination confirms Dr. Seo's findings. The assessment and plan were formulated in discussion with me at the time of visit and I agree withthem as documented. GRAYSON FERNANDEZ MD FAAD Staff Physician documented in this encounter Plan of Treatment Not on file documented as of this encounter Visit Diagnoses Diagnosis SK (seborrheic keratosis) Other seborrheic keratosis Ecchymosis Other specified circulatory system disorders documented in this encounter Care Teams Cryptologic Supervisor Relationship Specialty Start Date End Date Nahomy Curry APRN PCP - General Family Medicine 01/30/21 documented as of this encounter
--- NOTE | 2023-12-09 13:45 | DI.US_ITS ---
APPROVED REPORT EXAM: Comprehensive 2D, Doppler, and color-flow Echocardiogram Patient Location: Out-Patient Grain Packer: Ifeanyi Oliveros RDCS (AE) Indications: Mixed valve disease, exertional SOB Conclusion Normal left ventricular wall thickness and chamber size. Ejection fraction is 60 to 65%. Wall motio n is normal Normal right ventricular size and function Left atrium is moderately dilated. Right atrial size is normal Aortic valve is sclerotic and trileaflet with moderate regurgitation. There is no hemodynamically si gnificant aortic stenosis Thickened mitral leaflets. Mild eccentric mitral regurgitation. Moderate mitral stenosis Estimated right ventricular systolic pressure is 40 mmHg Wall motion Left Ventricle The left ventricle is normal size. The left ventricular systolic function is normal. The left ventric ular ejection fraction is within the normal range. There is normal left ventricular wall thickness. T here is normal LV segmental wall motion. There is no ventricular septal defect visualized. LVEF is 60 -65%. Right Ventricle The right ventricle is normal size. The right ventricular systolic function is normal. Atria The left atrium is moderately dilated The right atrium size is normal. The interatrial septum is inta ct with no evidence for an atrial septal defect. Aortic Valve Aortic valve is thickened but has adequate excursion. There is no aortic valvular stenosis. Moderate aortic regurgitation. Mitral Valve Mitral valve leaflets are moderately thickened. Moderate mitral stenosis. Mild eccentric mitral regur gitation. Tricuspid Valve The tricuspid valve is normal in structure. There is no tricuspid valve stenosis. Mild tricuspid regu rgitation. The RVSP is 40.5 mmHg. Pulmonic Valve The pulmonary valve is normal in structure. There is no pulmonic valvular stenosis. There is no pulmo louis valvular regurgitation. Great Vessels The aortic root is normal in size. The ascending aorta is normal in size. IVC is normal in size and c ollapses >50% with inspiration. Pericardium There is no pericardial effusion. 2D Dimensions IVSD d PLAX 0.58 cm M: 0.6-1.2 Ao Root d 3.12 cm M: 3.1 - 3.7 LVPW d PLAX 0.58 cm M: 0.6 - 1.2 Ao Asc Diam d 2.93 cm M: 2.6 - 3.4 LVID d PLAX 4.83 cm M: 4.2 - 5.8 LVDs 3.28 cm M: 2.5 - 4.0 LV EF Teichholz 60.2 % FS 32.14 % LV EDV (Teich) 109.2 mL LV ESV (Teich) 43.5 mL Stroke Vol Index (Teich) 38.01 M-Mode TAPSE 2.74 cm (M/F) >1.7 Auto EF LV EDV A4C 79.7 mL LV EDV A2C 81.8 mL LV EDV BP 82.1 mL LV ESV A4C 32.1 mL LV ESV A2C 31.5 mL LV ESV BP 32.6 mL LVEF(%) A4C 59.7 % LVEF(%) A2C 61.5 % LVEF(%) BP 60.3 % LV SV A4C 47.5 ml LV SV A2C 50.4 ml LV SV BP 49.5 ml LV CO A4C 3.7 L/min LV CO A2C 4.0 L/min LV CO BP 3.8 L/min HR A4C 77.42 BPM HR A2C 79.13 BPM LV EDV Index (BP) LA Volume LA Length A4C 5.6 cm LA Length A2C 5.9 cm LA Area A4C s 14.51 cm2 LA Area A2C s 24.33 cm2 LA Vol A4C A-L 31.77 mL LA Vol A2C A-L 85.75 mL LA Vol Biplane A-L 53.3 mL LA Vol/BSA A4C A-L LA Vol/BSA A2C A-L LA Vol/BSA BP A-L 30.8 mL/m2 LA Vol A4C MOD 30.3 mL LA Vol A2C MOD 81.0 mL LA Vol BP MOD 50.2 mL RA Volume RA Area A4C 8.2 cm2 RA ESV A4C (A-L) 16.9mL RA Vol/BSA A4C A-L RA Length A4C 3.4 cm RA ESV A4C (MOD) 15.4mL LV Diastology MV E' medial 0.071 (>0.07 m/s) MV E Vmax 1.49 (0.4-1.3 m/s) MV E/E' MED 20.91 (<14) MV A Vmax 1.95 (0.4-1.3 m/s) MV E' lateral 0.045 (>0.1 m/s) E/A Ratio 0.8 MV E/E' LAT 33.15 (<14) MV E' Average 0.058 m/s MV E/E'(average) 25.64 Aortic Valve AoV Vmax 1.47 m/s LVOT Vmax 1.25 m/s AoV Peak Grad 44.7 mmHg LVOT Peak Grad 6.2 mmHg AoV Area (Vmax) 2.54 cm2 LVOT VTI 0.272 m AoV VTI 0.316 m LVOT Mean Grad 2.9 mmHg AoV Mean Estiven. 1.08 m/s LVOT SV 81.86 mL AoV Mean Grad 5.2 mmHg LVOT Diam s 1.95 cm AoV Area (VTI) 2.59 cm2 AV Regurg Peak Gr. 8.67 mmHg Velocity Ratio 0.85 AR Decel Dauphin 3.2m/sec2 AR DT 1382 msec AR PHT 401 msec AR Vmax 4.49 m/s Mitral Valve MV DT 335 (160-240 msec) MV Vmax TIPS 2.26 m/s MV Mean Grad 9.5 (<2mmHg) MV VTI 0.713 m Pulmonary Valve PV Vmax 0.89 (0.5-1.5 m/s) RVOT Vmax 0.70 m/s PV Peak Grad 3.2 mmHg RVOT Peak Gr. 2.0 mmHg PV Mean Estiven 0.61 m/s RVOT VTI 0.144 m PV Mean Grad 1.7 mmHg RVOT Mean Gr. 1.0 mmHg Tricuspid Valve RA Pressure 3.00 mmHg TR Vmax 3.06 m/s TR Peak Grad 37.4 mmHg RVSP (TR) 40.5 mmHg
== END ==
PROVIDERS: PCP Nurse Practitioner Family; Visit Provider Internal Medicine Cardiovascular Disease
DX: R06.02 Shortness of breath (principal); I34.0 Nonrheumatic mitral (valve) insufficiency; I35.1 Nonrheumatic aortic (valve) insufficiency
CPT/HCPCS: 93306

== ENCOUNTER 2024-01-14 06:13 | Day surgery (SDC) | payer MEDICARE, SELFPAY ==
--- NOTE | 2024-01-14 06:18 | ANES.PREOP_ITS ---
General Info Date of Service Date Performed: 01/14/24 Height: 5 ft 10 in Weight: 58.06 kg Body Mass Index (BMI): 18.3 Surgical Procedure: Operation Date: 01/14/24 07:40 Proposed Procedure Side Surgeon p Wrist ECTR Left Vijay Blank MD Meds Allergies and Home Medications Allergies Allergy/AdvReac Type Severity Reaction Status Date / Time bupropion (From Wellbutrin) Allergy Mild from Verified 01/14/24 06:36 referral note, no reaction noted Home Medication ?Medication ?Instructions ?Recorded cholecalciferol (vitamin D3) 25 25 mcg PO DAILY 11/12/19 mcg (1,000 unit) capsule albuterol sulfate 90 mcg/actuation 2 puff inhalation Q6H PRN 01/24/21 aerosol inhaler (ProAir HFA) amitriptyline 100 mg tablet 100 mg PO QHS 01/24/21 atorvastatin 80 mg tablet 80 mg PO DAILY 01/24/21 trazodone 50 mg tablet 25 mg PO QHS 01/24/21 umeclidinium 62.5 mcg/actuation See Rx Instructions .Route 06/28/22 blister powder for inhalation .COMPLEX #30 ea (Incruse Ellipta) thrpvwud-nd-daflc 300 mcg-K 60 1 tab PO DAILY 09/21/22 mcg-lycop 600 mcg-lutein 300 mcg tablet (Centrum Silver Ultra Men's) furosemide 20 mg tablet 20 mg PO DAILY #90 tabs 11/15/22 trazodone 50 mg tablet 50 mg PO DAILY 09/10/23 Current Visit Medications: Current Medications Generic Name Dose Route Start Last Admin Trade Name Freq PRN Reason Stop Dose Admin Ringer's Solution 1,000 mls @ 80 mls/hr 01/14/24 06:00 IV 01/14/24 23:59 INFUSION ROJAS Cefazolin Sodium/Dextrose 2 gm in 50 mls @ 100 mls/hr 01/14/24 06:00 Ancef Duplex IVPB 01/14/24 23:59 PREOP ROJAS IV Miscellaneous Supplies 1 each 01/14/24 06:00 Iv Access IV 01/14/24 23:59 DIRECTED ORJAS Sodium Chloride 0 ml 01/14/24 06:00 Normal Saline Flush 10 Ml Syr IV 01/14/24 23:59 PRN PRN Sodium Chloride 0 ml 01/14/24 06:00 Normal Saline 10 Ml Vial IJ 01/14/24 23:59 DIRECTED PRN Sterile Water 0 ml 01/14/24 06:00 Water,Injection,Sterile 10 Ml Vial IJ 01/14/24 23:59 DIRECTED PRN PFSH Active Problems Active Problems: Problem Status Onset Code Trigger finger, right middle finger Acute M65.331 Trigger finger, right ring finger Acute M65.341 Carpal tunnel syndrome of right wrist Acute G56.01 Carpal tunnel syndrome of left wrist Acute G56.02 Mitral regurgitation Chronic I34.0 Alcohol abuse Chronic F10.10 Abnormal pulmonary function test Acute R94.2 Exertional shortness of breath Acute R06.02 Mitral stenosis Acute I05.0 Pulmonary HTN Acute I27.20 Reducible right inguinal hernia Acute K40.90 Emphysema lung Acute J43.9 Aortic regurgitation Acute I35.1 Edentulous Acute K08.109 Marijuana use Acute F12.90 Medical History Medical History Right inguinal hernia Recurrence. 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 Aortic regurgitation BPH (benign prostatic hyperplasia) Dry skin Elevated blood pressure reading without diagnosis of hypertension Hyperpigmentation of skin Medication monitoring encounter Other microscopic hematuria Tobacco abuse Bad odor of urine Microscopic hematuria Adenomatous colon polyp Hamartoma Knee pain, right Tubular adenoma of colon Short-term memory loss Smoker Depression Hyperlipidemia History of anemia 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 Increased frequency of urination Fatigue Vitamin D deficiency Obsessive compulsive disorder Insomnia Stress at home Grief reaction Prediabetes Surgical History Surgical History S/P hernia repair Tibia and fibula open fracture, right plate remains from sx History of colonoscopy (~2007) 2007 villous adenoma 2014 normal Tobacco Smoking/Tobacco Use Status: Current every day Tobacco Type: cigarettes Years smoked: 50 Alcohol Alcohol Intake: former Substance Use Substance use: Daily Substance use type: marijuana Vital Signs and Lab Results Vital Signs Most Recent Vital Signs in EMR: Temp Pulse Resp BP Pulse Ox 36.6 C 82 16 105/81 99 01/14/24 06:26 01/14/24 06:26 01/14/24 06:26 01/14/24 06:26 01/14/24 06:26 Lab Results Blood Type / Crossmatch: No Data to Display Complete Blood Count: No Data to Display Complete Metabolic Panel: No Data to Display Liver Function Panel: No Data to Display Coagulation Panel: No Data to Display Cardiac Panel: No Data to Display Arterial Blood Gas: No Data to Display Venous Blood Gas: No Data to Display Pancreas Panel: No Data to Display Thyroid Panel: No Data to Display Infectious Disease: No Data to Display Blood Cultures: 2 No Data to Display Toxicology Panel: No Data to Display Imaging and Studies Imaging and Studies Study information below may be from another EMR and interpreted by another provider. Please see original notes in EMR for more complete details. EKG Summary: 12/02: sinus. Stress Test Summary: 12/02: ECG with LVH. perfusion is normal. no ischemia or evidence of prior infarction. 61%. Echocardiogram Summary: 12/03: LVEF 60-65%. LA moderate dilation. moderate AR. moderate MS. RVSP 40 mmhg. Pulmonary Function Summary: 03/02: no airflow limitation and normal lung volumes with isolated decreased diffusion capacity. Anesthesia Assessment and Plan Anesthesia History Personal History: No History of Anesthesia Complications Family History: No Family History of Anesthesia Complications Exercise Tolerance Exercise Tolerance: Metabolic Equivalents>4 Cardiac & Pulmonary Exam Cardiac Exam: Heart Murmur Present Pulmonary Exam: Clear Bilateral Breath Sounds Implantable Cardiac Device Does patient have a Pacemaker or an ICD?: No Airway Exam Known Difficult Airway: No Mallampati Class: 2 Mouth Opening: Normal (> 3cm) Thyromental Distance: Greater than 3 cm Neck Range of Motion: Full ROM Neck Circumference: Normal Teeth Condition: Edentulous ASA Classification ASA Score: ASA 3 Emergency Case?: No NPO Status NPO Status: NPO Clears >2 hours, Solids >8 hours Anesthesia Plan Resuscitation Status: Full Code Anesthesia Technique: General Anesthesia Airway Planned: Natural Airway Monitors Used: Standard Monitors Preoperative Comments:: 68 yo male for ECTR. Sig PMHx: mod AR/MS (furosemide), COPD Previous Anes: - inguinal hernia, LMA 4, no issues. - cysto, prop, natural airway, no issues. - colo, prop, no issues.
[2024-01-14 06:25] VITALS: BMI 18.3
[2024-01-14 06:26] VITALS: BP 105/81; PULSE 82; RESP 16; TEMP 36.6; O2SAT 99
[2024-01-14] MEDS: Lactated Ringers 1,000 ML 80 ML IV (06:53)
--- NOTE | 2024-01-14 07:15 | PDOC.DSDIS_ITS ---
Date of service: 01/14/24 Time of Service: 07:17 Discharge Plan Disposition Patient Disposition: Home Condition: Good Discharge Details Reason For Visit: Left carpal tunnel syndrome Attending Provider: Vijay Blank Primary Care Provider: Nahomy Yo Home Meds and New Rx's Prescriptions: New hydrocodone-acetaminophen 5-325 mg tablet 1 tab PO Q6H PRN (Reason: severe pain) Qty: 4 0RF Rx Instructions: Take one tablet up to every 6 hours as needed for severe postoperative pain acetaminophen 500 mg tablet 500 mg PO Q6H PRN (Reason: pain) Qty: 60 2RF ibuprofen 600 mg tablet 600 mg PO TID PRN (Reason: pain) Qty: 60 0RF Continued furosemide 20 mg tablet 20 mg PO DAILY Qty: 90 3RF cholecalciferol (vitamin D3) 25 mcg (1,000 unit) capsule 25 mcg PO DAILY amitriptyline 100 mg tablet 100 mg PO QHS trazodone 50 mg tablet 25 mg PO QHS albuterol sulfate [ProAir HFA] 90 mcg/actuation HFA aerosol inhaler 2 puff inhalation Q6H PRN atorvastatin 80 mg tablet 80 mg PO DAILY Incruse Ellipta 62.5 mcg/actuation blister with device See Rx Instructions .ROUTE .COMPLEX Qty: 30 12RF Dose Instruction: Inhale 1 puff by mouth once daily Rx Instructions: Inhale 1 puff by mouth once daily Centrum Silver Ultra Men's 300-600-300 mcg tablet 1 tab PO DAILY trazodone 50 mg tablet 50 mg PO DAILY Discharge Instructions Stand Alone Forms: Anesthesia Discharge Inst., Roni Conner (DS[facility]), Abhay Weinstein Tunnel Release Referrals: Vijay Blank MD [ [facility] STAFF PHYSICIAN] - 01/24/24 10:15 am Activity:: Elevate Remove Dressings/Wound Care:: 48 hours Shower/Bathe:: 48 hours Diet:: As Tolerated Discharge Orders Discharge Orders: Discharge Order (Routine); Ordered 01/14/24 Ordered By: Laurita Montana
--- NOTE | 2024-01-14 07:16 | HPE_ITS ---
Assessment and Plan Assessment and plan (1) Carpal tunnel syndrome of left wrist: Status: Acute Assessment and plan: Karyn is a 68-year-old male with carpal tunnel syndrome about the left side. He has failed other nonoperative options and does have severe carpal tunnel syndrome with some early atrophy and therefore I recommend proceeding with carpal tunnel release. I discussed the technical details of carpal tunnel release and that I perform an endoscopic release, but would make a larger, open, incision if necessary for visualization. I discussed the risks of the procedure to include, but not limited to, bleeding, infection, palmar pain, stiffness, damage to nerves, damage to vessels, damage to tendons, weakness, recurrence, and incomplete release. Given these risks, Karyn desires to proceed. History of Present Illness Narrative: Karyn is a 68-year-old male who has known carpal tunnel syndrome, worse on the left side. Please see the previous office note for complete detailed history. He continues to be limited by numbness and tingling about the hand. I have recommended carpal tunnel releases. He is here today for that procedure. He denies any acute changes to his medical history. Review of Systems All systems reviewed & are unremarkable except as noted in HPI and below PFSH All Active Problems Trigger finger, right middle finger (Acute) Trigger finger, right ring finger (Acute) Carpal tunnel syndrome of right wrist (Acute) Carpal tunnel syndrome of left wrist (Acute) Mitral regurgitation (Chronic) Alcohol abuse (Chronic) Abnormal pulmonary function test (Acute) Exertional shortness of breath (Acute) Mitral stenosis (Acute) Severe Pulmonary HTN (Acute) PAP 52mmHg Reducible right inguinal hernia (Acute) Emphysema lung (Acute) Aortic regurgitation (Acute) Edentulous (Acute) Marijuana use (Acute) Medical History Right inguinal hernia Recurrence. 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 Aortic regurgitation BPH (benign prostatic hyperplasia) Dry skin Elevated blood pressure reading without diagnosis of hypertension Hyperpigmentation of skin Medication monitoring encounter Other microscopic hematuria Tobacco abuse Bad odor of urine Microscopic hematuria Adenomatous colon polyp Hamartoma Knee pain, right Tubular adenoma of colon Short-term memory loss Smoker Depression Hyperlipidemia History of anemia 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 Increased frequency of urination Fatigue Vitamin D deficiency Obsessive compulsive disorder Insomnia Stress at home Grief reaction Prediabetes Surgical History S/P hernia repair Tibia and fibula open fracture, right plate remains from sx History of colonoscopy (~2007) 2007 villous adenoma 2014 normal Family History Other Hyperlipidemia Social History Smoking/Tobacco Use Status: Current every day Tobacco Type: cigarettes Years smoked: 50 Smoking risk assessment performed?: Yes Alcohol Intake: former Drug use: Daily Substance use type: marijuana Details: 01/13/24 smoked marijuana Household members: none Housing: house Number of Children: 0 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 Current gender identity: male What is your relationship status?: Panel score (0-1 are the most socially isolated patients): 0 Do you feel safe at home: Yes (Lives with 2 housemates) Do you feel safe in your relationship?: Yes Meds Allergies and Home Medications Allergies Allergy/AdvReac Type Severity Reaction Status Date / Time bupropion (From Wellbutrin) Allergy Mild from Verified 01/14/24 06:36 referral note, no reaction noted Home Medications ?Medication ?Instructions ?Recorded ?Confirmed ?Type cholecalciferol (vitamin D3) 25 25 mcg PO DAILY 11/12/19 01/14/24 History mcg (1,000 unit) capsule albuterol sulfate 90 mcg/actuation 2 puff inhalation Q6H PRN 01/24/21 01/14/24 History aerosol inhaler (ProAir HFA) amitriptyline 100 mg tablet 100 mg PO QHS 01/24/21 01/14/24 History atorvastatin 80 mg tablet 80 mg PO DAILY 01/24/21 01/14/24 History trazodone 50 mg tablet 25 mg PO QHS 01/24/21 01/14/24 History umeclidinium 62.5 mcg/actuation See Rx Instructions .Route 06/28/22 01/14/24 Rx blister powder for inhalation .COMPLEX #30 ea (Incruse Ellipta) ceulapdw-rx-dprsw 300 mcg-K 60 1 tab PO DAILY 09/21/22 01/14/24 History mcg-lycop 600 mcg-lutein 300 mcg tablet (Centrum Silver Ultra Men's) furosemide 20 mg tablet 20 mg PO DAILY #90 tabs 11/15/22 01/14/24 Rx trazodone 50 mg tablet 50 mg PO DAILY 09/10/23 01/14/24 History acetaminophen 500 mg tablet 500 mg PO Q6H PRN pain #60 tabs 01/14/24 Rx hydrocodone 5 mg-acetaminophen 325 1 tab PO Q6H PRN severe pain #4 01/14/24 Rx mg tablet tabs ibuprofen 600 mg tablet 600 mg PO TID PRN pain #60 tabs 01/14/24 Rx Exam Const General: cooperative, healthy appearing, comfortable and no acute distress Resp Effort & Inspection: normal respiratory effort Auscultation: clear to auscultation bilaterally Cardio Rate: regular rate Rhythm: regular rhythm Results Last Vital Signs Temp 36.6 C 01/14/24 06:26 Pulse 82 01/14/24 06:26 Resp 16 01/14/24 06:26 BP 105/81 01/14/24 06:26 Pulse Ox 99 01/14/24 06:26
[2024-01-14] MEDS: ceFAZolin 2 GM/50 ML BAG IVPB (07:25)
[2024-01-14] MEDS: Lidocaine 1% Pres-Free W/EPI 1/200,000 10 ML VIAL (07:34)
--- NOTE | 2024-01-14 07:49 | W.PM.OP ---
Date of service: 01/14/24 Time of Service: 07:30 Operative Note Operative Note PRE-OP DIAGNOSIS: Left Carpal Tunnel Syndrome POST-OP DIAGNOSIS: same PROCEDURE: Left Endoscopic Carpal Tunnel Release SURGEON: Vijay Blank ANESTHESIA TYPE: General:No Airway Refer to Anesthesia Record ESTIMATED BLOOD LOSS: 0 PATHOLOGY: none sent TOURNIQUET TIME: 4 COMPLICATIONS: None Patient was transported to: same day Patient's condition: stable Indications: I have seen Karyn in clinic for symptoms of carpal tunnel syndrome. The numbness, tingling, and pain limited function. Clinical exam findings [with nerve conduction tests ]confirmed the diagnosis of carpal tunnel syndrome. Nonoperative measures such as bracing, time, activity modifications had been tried but disability and pain persisted. I discussed carpal tunnel release with the patient. I reviewed the risks of the procedure to include, but not limited to, bleeding, infection, pain, stiffness, incomplete release, damage to nerves or vessels, persistent numbness, recurrence. Despite these risks, the patient elected to proceed. Findings: There was tightened carpal tunnel. This was dilated and released successfully with the endoscopic with increased space within the tunnel. The antebrachial fascia was released proximally freeing the median nerve at the wrist. Procedure Description: Karyn was greeted in the preoperative holding area where the correct side was identified and marked. The consent was reviewed with the patient and signed. The history and physical was updated. All questions were answered. Karyn was taken back to the operating room. The patient was placed into the supine position on the operating room table with the left arm on an arm board. A nonsterile tourniquet was placed high onto the arm. All bony prominences were well padded. Prophylactic antibiotics in the form of Cefazolin were administered. The left arm was then prepped with Chloraprep and draped in a standard fashion with stockinette and extremity drape. A timeout to confirm correct identity, side and site, procedure, allergies, anesthesia, and medical concerns was performed. The surgical site was marked in the volar wrist creases in line with the radial border of the fourth ray. This area was anesthetized with approximately 6cc of 1% Lidocaine. The limb was then exsanguinated with an Esmarch. The skin was incised with a 15 blade, approximately 1cm. The skin only was cut and the deeper tissue was dissected bluntly with a tenotomy scissor, avoiding passing nerve and venous structures. The fascia was penetrated and opened bluntly. A two-prong skin hook was placed under this proximal fascial edge. A series of hamate finders were used to identify and dilate the carpal tunnel. Synovial elevator was used to free synovial attachments to the underside of the transverse carpal ligament. My thumb was kept in the palm to marielle the distal extent of the carpal tunnel and correctly position the hand. The [employer] endoscope was inserted without difficulty and without resistance. Excellent visualization showed horizontally running fibers of the transverse carpal ligament (TCL). The distal extent of the TCL was visualized and the end of the scope palpated with the thumb. The blade was elevated and withdrawn from distal to proximal. The TCL was split into two flaps. The endoscope was reinserted to confirm complete release and any remnant ligament was incised. The scope was withdrawn and the proximal aspect of the carpal tunnel was grossly inspected and appeared release with the median nerve visible. The antebrachial fascia at the level of the wrist was then freed from the overlying skin and then the underlying median nerve with blunt dissection. This was transected longitudinally for about 3cm proximal to the wrist incision. The wound was then irrigated with easy flow of irrigant distally and proximally. The incision was closed with a single 4-0 Nylon suture. The wound was dressed with Xeroform, Gauze, Kerlix and Rick. The tourniquet was deflated with the initial dressing and held with some pressure. Blood flow returned easily to all digits with capillary refill less than 2 seconds. The patient tolerated the procedure well and was returned to the Same Day Surgery area in a stable condition suffering no known complication.
[2024-01-14 07:50] VITALS: BP 101/56; PULSE 80; RESP 16; TEMP 36.3; O2SAT 97
--- NOTE | 2024-01-14 08:18 | W.ANESPOSTOP ---
Postoperative Evaluation Date, Time and Location Date Performed: 01/14/24 Time Performed: 08:18 Patient Location: Day Surgery Unit Vital Signs Most Recent Imported Vital Signs: Most Recent Vital Signs Temp Pulse Resp BP Pulse Ox 36.3 C L 80 16 101/56 L 97 01/14/24 07:50 01/14/24 07:50 01/14/24 07:50 01/14/24 07:50 01/14/24 07:50 Pain Score Most Recent Pain Score: Most Recent Pain Score Pain Level 0 01/14/24 07:50 Assessment Mental Status: Awake (Alert & Oriented to Patient Baseline) Airway and Respiratory Function: Patent airway with normal (patient baseline) respiratory exam Cardiovascular Function: Hemodynamically Stable Hydration Status: Adequately Hydrated Nausea & Vomiting: No Nausea or Vomiting Pain: Pt. Denies Any Pain Peripheral Nerve Block: Patient did not receive a nerve block
[2024-01-14 08:24] VITALS: BP 105/60; PULSE 712; RESP 16; TEMP 36.4; O2SAT 95
== END 2024-01-14 08:45 | disposition home or self-care (01) ==
PROVIDERS: PCP Nurse Practitioner Family; Visit Provider Student in an Organized Health Care Education/Training Program
PROC: 01N54ZZ Release Median Nerve, Percutaneous Endoscopic Approach (ICD-10-PCS; CPT 29848; principal; 2024-01-14 07:30)
DX: G56.02 Carpal tunnel syndrome, left upper limb (principal)
CPT/HCPCS: 29848; J0690; J1885; J2004; J2704; J3010

== ENCOUNTER → 2024-01-24 09:57 | Outpatient (BNVA) | payer MEDICARE, SELFPAY | PROVIDERS: PCP Nurse Practitioner Family; Referring Provider Nurse Practitioner Family | DX: Z47.89 Encounter for other orthopedic aftercare (principal); R60.0 Localized edema ==

== ENCOUNTER 2024-03-02 20:47 | Outpatient (REF) | payer MEDICARE, SELFPAY ==
[2024-03-02 17:38] LABS: ALT 51 U/L (16-63); AST 60 U/L (15-37); Albumin 3.7 g/dL (3.4-5.0); Alkaline Phosphatase 190 U/L (46-116); Anion Gap 8.9 mmol/L (3-11); BUN 32 mg/dL (7-18); Bilirubin, Total 0.32 mg/dL (0.2-1.0); CO2 29.1 mmol/L (21.0-32.0); CREATININE 1.1 mg/dL (0.70-1.30); Calcium 9.8 mg/dL (8.5-10.1); Calculated LDL 93 mg/dL (<100); Chloride 101 mmol/L (98-107); Cholesterol 163 mg/dL (<200); Estimated GFR 72.67 (mL/min/1.73m2); Glucose 112 mg/dL (74-106); HDL Cholesterol 60 mg/dL (40-60); Potassium 5.7 mmol/L (3.5-5.1); Sodium 139 mmol/L (136-145); Total Protein 7.8 g/dL (6.4-8.2); Triglyceride 51 mg/dL (<150)
--- OUTSIDE RECORDS SUMMARY | 2024-03-02 20:48 | XMS_ITS | Continuity of Care Document ---
Author Name [facility] Organization [facility] Care Team Providers Care Architectural Engineer Name Role Phone [facility] Unavailable Unavailable Problems Combined list of problems from Department of Defense and Veterans Affairs facilities. It does not include entries that were removed or entered in error. Problem Status Onset Date Problem Type Date of Resolution Comments Source Alcohol intake above recommended sensible limits Active Condition [facility] Chronic obstructive lung disease Active Condition [facility] Depression ([facility] [id number]) Active Condition [facility] Hyperlipidemia ([facility] [id number]) Active Condition [facility] Impaired [facility] glucose Active Condition [facility] Insomnia Active Condition [facility] Right inguinal hernia Active Condition [facility] Tobacco User (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 [facility] Valvular heart disease Active Condition Feb 19, 2023 Entered By: AG SALGUERO Comment: Mod MR, Mod to severe AR [facility] Diagnosis: ICD-10-CM Z46.0 Encounter for fit/adjst of spectacles and contact lenses Active Diagnosis [facility] Diagnosis: ICD-10-CM Z76.89 Persons encountering health services in oth circumstances Active Diagnosis [facility] Diagnosis: ICD-10-CM J44.9 Chronic obstructive pulmonary disease, unspecified Active Diagnosis [facility] Medications Combined list of outpatient medications from Department of Defense and Veterans Affairs facilities.Medications provided include 1) outpatient medications from the last 15 months, and 2) patient-reported medications. Medication Details Route Status Patient Instructions Prescription Expires Prescription Number Last Dispense Date Ordering Provider Order Date Order Qty Source ALBUTEROL 90MCG/ACTUA T (CFC-F) INHL,ORAL,8 .5GM DOSE COUNTER INHALE 2 PUFFS BY MOUTH FOUR TIMES DAILY NEEDED FOR COPD RESPIR ATORY (INHAL ATION) DISCONT INUED BY PROVIDE R 02/20/2024 [id number] 4 KORIN SALGUERO 2022 1 [facility] ALBUTEROL INHL,ORAL INHALE BY MOUTH FOUR TIMES DAILY NEEDED RESPIR ATORY (INHAL ATION) ACTIVE KORIN SALGUERO 2022 [facility] AMITRIPTYLI NE HCL 100MG TAB TAKE ONE TABLET BY MOUTH AT BEDTIME FOR SLEEP ORAL DISCONT INUED BY PROVIDE R 08/02/2024 [id number] 4 KORIN SALGUERO 2023 90 [facility] AMITRIPTYLI NE HCL 100MG TAB TAKE ONE TABLET BY MOUTH AT BEDTIME FOR SLEEP ORAL DISCONT INUED 02/29/2024 [id number] 4 KORIN SALGUERO 2022 90 [facility] AMITRIPTYLI NE HCL 100MG TAB TAKE ONE TABLET BY MOUTH AT BEDTIME ORAL ACTIVE [place] O 2020 [facility] ATORVASTATI N CA 80MG TAB TAKE ONE TABLET BY MOUTH ONCE DAILY TO LOWER CHOLESTE ROL ORAL DISCONT INUED BY PROVIDE R 02/29/2024 [id number] 4 KORIN SALGUERO 2022 90 [facility] ATORVASTATI N CA 80MG TAB TAKE ONE TABLET BY MOUTH AT BEDTIME ORAL ACTIVE KORIN SALGUERO 2022 [facility] CHOLECALCIF ZEYNEP 25MCG (1,000UNIT) TAB TAKE ONE TABLET BY MOUTH ONCE DAILY FOR VITAMIN D DEFICIEN CY ORAL DISCONT INUED BY PROVIDE R 02/29/2024 [id number] 4 KORIN SALGUERO 2022 100 [facility] CHOLECALCIF ZEYNEP 25MCG (1,000UNIT) TAB TAKE ONE TABLET BY MOUTH EVERY DAY ORAL ACTIVE KOLYUE DUBOISALD O 2020 [facility] FUROSEMIDE 20MG TAB TAKE ONE TABLET BY MOUTH EVERY MORNING FOR EDEMA ORAL DISCONT INUED BY PROVIDE R 02/29/2024 [id number] 3 KORIN SALGUERO 2022 90 [facility] FUROSEMIDE 20MG TAB TAKE ONE TABLET BY MOUTH ONCE DAILY NEEDED ORAL ACTIVE KORIN SALGUERO 2022 [facility] MULTIVITAMI N W/MINERALS CAP/TAB TAKE BY MOUTH ONCE DAILY ORAL ACTIVE KORIN SALGUERO 2022 [facility] MULTIVITAMI NS W/MINERALS CAP/TAB TAKE ONE CAP/TAB BY MOUTH ONCE DAILY TO SUPPLEME NT VITAMINS ORAL DISCONT INUED BY PROVIDE R 02/29/2024 [id number] 4 KORIN SALGUERO 2022 130 [facility] NICOTINE POLACRILEX 2MG TAB,CHEWG GUM CHEW 1 PIECE BY MOUTH EVERY TWO HOURS NEEDED FOR SMOKING CESSATIO N ORAL DISCONT INUED BY PROVIDE R 02/29/2024 [id number] 3 KORIN SALGUERO 2022 110 [facility] NICOTINE POLACRILEX 2MG TAB,CHEWG GUM CHEW 1 PIECE BY MOUTH EVERY TWO HOURS NEEDED ORAL ACTIVE KORIN SALGUERO 2022 [facility] TIOTROPIUM 2.5MCG/ACTU AT INHL,ORAL,6 0D,4GM INHALE 2 PUFFS BY MOUTH ONCE DAILY FOR COPD RESPIR ATORY (INHAL ATION) DISCONT INUED BY PROVIDE R 02/20/2024 [id number] 4 KORIN SALGUERO 2022 3 [facility] TRAZODONE HCL 50MG TAB TAKE ONE-HALF TABLET BY MOUTH AT BEDTIME FOR INSOMNIA ORAL DISCONT INUED BY PROVIDE R 02/29/2024 [id number] 4 KORIN SALGUERO 2022 45 [facility] TRAZODONE HCL 50MG TAB TAKE ONE-HALF TABLET BY MOUTH AT BEDTIME ORAL ACTIVE KORIN SALGUERO 2022 [facility] VARENICLINE 1MG TAB TAKE ONE-HALF TABLET BY MOUTH ONCE DAILY FOR 3 DAYS, THEN TAKE ONE-HALF TABLET TWICE A DAY FOR 4 DAYS, THEN TAKE ONE TABLET TWICE A DAY FOR SMOKING CESSATIO N ORAL DISCONT INUED BY PROVIDE R 08/02/2024 [id number] 4 [facility] SALGUERO N 2023 [facility] VAREN[facility] 1MG TAB TAKE ONE-HALF TABLET BY MOUTH ONCE DAILY FOR 3 DAYS, THEN TAKE ONE-HALF TABLET TWICE A DAY FOR 4 DAYS, THEN TAKE ONE TABLET TWICE A DAY FOR SMOKING CESSATIO N ORAL 05/14/2023 [id number] 3 KORIN SALGUERO N 2022 168 [facility] Allergies, Adverse Reactions, Alerts Combined list of [...] Site Reaction Lot Number CVX Code Drug Campus Security Director Status Comments Source COVID-19 (MODERNA), MRNA, LNP-S, PF, 50 MCG/0.5 ML (AGES 12+ YEARS) 2023 VASILE JIMENEZ LEFT DELTO ID [id number] 312 complet ed [facility] INFLUENZA, HIGH-DOSE, TRIVALENT, PF 2023 VASILE JIMENEZ RIGHT DELTO ID [id number] 135 complet ed [facility] COVID-19 (PFIZER), MRNA, LNP-S, PF, LAKSHMI-SUCROSE, 30 MCG/0.3 ML (AGES 12+ YEARS) 2021 309 complet ed Lot#: [id number] [facility] TD (ADULT) 2021 138 complet ed [facility] TD(ADULT) UNSPECIFIED FORMULATION 2021 139 complet ed [facility] COVID-19 (MODERNA), MRNA, LNP-S, PF, 100 MCG/0.5ML DOSE OR 50 MCG/0.25ML DOSE 2021 207 complet ed Lot#: [id number] [facility] COVID-19 (NOVAVAX), SUBUNIT, RS-NANOPARTIC LE, ADJUVANTED, PF, 5 MCG/0.5 ML (AGES 12+ YEARS) 2020 313 complet ed [facility] COVID-19 (MODERNA), MRNA, LNP-S, PF, 50 MCG/0.5 ML (AGES 12+ YEARS) 2020 312 complet ed [facility] PNEUMOCOCCAL POLYSACCHARID E PPV23 2019 33 complet ed [facility] ZOSTER LIVE 2014 121 complet ed [facility] TDAP 2013 115 complet ed [facility] Vital Signs Combined list of inpatient and outpatient Vital Signs from Department of Defense and Veterans Affairs, ranging from 12 months to all on record, depending upon the facility. Vital Sign Value Date Comments Source SYSTOLIC BLOOD PRESSURE 132 02/27/2024 14:28:00 [facility] DIASTOLIC BLOOD PRESSURE 74 02/27/2024 14:28:00 [facility] PULSE OXIMETRY 90 02/27/2024 14:28:00 [facility] WEIGHT 128.8 02/27/2024 14:28:00 [facility] BMI 19kg/m2 02/27/2024 14:28:00 [facility] PAIN 0 02/27/2024 14:28:00 [facility] HEIGHT 69.75 02/27/2024 14:28:00 [facility] TEMPERATURE 96.6 02/27/2024 14:28:00 [facility] PULSE 59 02/27/2024 14:28:00 [facility] Encounters Combined list of: 1) Encounters from Department of Veterans Affairs facilities going back up to thelast 18 months. 2) Encounters from the Department of Defense facilities going back up to 280 months. Location Location Details Encounter Type Encounter Number Reason For Visit Attending Provider ADM Date DC Date Status Disposition Source [facility] Outpatient Encounter [id number] 12/24 [facility] Outpatient Encounter [id number] 01/30 [facility] Outpatient Encounter [id number] 02/05 [facility] Outpatient Encounter [id number] 02/07 [facility] Outpatient Encounter [id number] 02/07 [place] [facility] Outpatient Encounter [id number] PETTIGBEN MENON A 02/13 [facility] Outpatient Encounter [id number] 02/13 [facility] Outpatient Encounter [id number] 02/14 [place] [facility] OFFICE O/P [place] 60-74 MIN [id number] Diagnos is: ICD-10- CM J44.9 Chronic obstruc tive pulmona ry disease , unspeci fied
AG SALGUERO 02/19 [facility] HC PRO PHONE CALL 5-10 MIN [id number] Diagnos is: ICD-10- CM Z76.89 Persons encount [facility] in oth circums tances< br/> HAMIDA AKBAR P 02/20 [facility] Outpatient Encounter [id number] 02/21 [facility] Outpatient Encounter [id number] 02/25 [facility] Outpatient Encounter [id number] 02/28 [facility] Outpatient Encounter [id number] 02/28 [place] Outpatient Encounter [id number] 03/08 [facility] [id number] 03/11 [facility] FIT SPECTACLES BIFOCAL [id number] Diagnos is: ICD-10- CM Z46.0 Encount er for fit/adj st of spectac les and contact lenses< br/> MANISH DIETRICH JA 03/13 [facility] FIT SPECTACLES BIFOCAL [id number] Diagnos is: ICD-10- CM Z46.0 Encount er for fit/adj st of spectac les and contact lenses< br/> MANISH DIETRICH 05/01 [facility] Outpatient Encounter [id number] 07/17 [facility] Outpatient Encounter [id number] 07/29 [facility] Outpatient Encounter [id number] 01/20 [facility] Outpatient Encounter [id number] 01/21 [facility] Outpatient Encounter [id number] 01/27 [facility] Outpatient Encounter [id number] 01/27 [facility] [place] En[facility] [id number] 02/04 [place] [facility] ADMN SARSCOV2 VACC 1 DOSE [id number] AG SALGUERO 02/26 [facility] Outpatient Encounter [id number] 02/27 [facility] Outpatient Encounter [id number] 03/02 [facility] Outpatient Encounter [id number] 03/02 [facility] Outpatient Encounter [id number] 03/02 [facility] Social History Combined list of available smoking, tobacco, and other social history from Department of Defense and Veterans Affairs facilities. Social History Type Response Date Comment Sourc e Tobacco smoking status NHIS VA-TOBACCO USER EVERY DAY 02/19/2023 [facility] History of tobacco use VA-TOBACCO USE WI 30 MIN OF WAKEUP 02/19/2023 [facility] Plan of Care List of future care activities from Department of Veterans Affairs facilities. Additional future care activities may be listed in the Assessment and Plan section. Date/Time Care Activity Care Activity Detail Facili ty 04/21/2024 AMBULATORY - NONE AMBULATORY - NONE [facility] 01/22/2024 Consult Order COMMUNITY CARE-O PTOMETRY ROUTINE EYE EXAM Cons Retail Analytics Manager's Choice [facility] 02/25/2024 Laboratory - Plating Foreman ry Order CBC PROFILE BLOOD(LAV-EDTA-WB) [facility] 02/25/2024 Laboratory - Plating Foreman ry Order LIVER PROFILE LT GREEN(LI HEP) PLASMA [facility] 02/25/2024 Laboratory - Plating Foreman ry Order LIPOPROTEIN CHOLESTEROL FRACT. PANEL LT GREEN(LI HEP) PLASMA [facility] 02/25/2024 Laboratory - Plating Foreman ry Order VIT D 25-OH(WRJ) BLOOD(GOLD) SERUM [facility] 02/25/2024 Laboratory - Plating Foreman ry Order PSA (TILE PRESSER) BLOOD(GOLD) SER[facility] 02/25/2024 Laboratory - Plating Foreman ry Order TSH BLOOD(GOLD) SER[facility] 02/25/2024 Laboratory - Plating Foreman ry Order VITAMIN B-12 BLOOD(GOLD) SER[facility] SP [facility] 02/25/2024 Laboratory - Plating Foreman ry Order GLYCOHEMOGLOBIN (A1C ONLY) BLOOD(LAV-EDTA-WB) SP [facility] 02/25/2024 Laboratory - Plating Foreman ry Order P4 GLU,BUN,CREAT,LYTES,CA LT GREEN(LI HEP) PLASMA [facility] 02/27/2024 Laboratory - Plating Foreman ry Order HEPATITIS C AB(WRJ)w/Reflex BLOOD(GOLD)(3) [facility] 02/27/2024 Laboratory - Plating Foreman ry Order HIV Ag/Ab SCREEN BLOOD(GOLD) [facility] 02/27/2024 Consult Order SOCIAL WORK OUTPATIENT-LINCH Cons Retail Analytics Manager's Choice [facility] 02/27/2024 Consult Order COMMUNITY CARE-C T Cons Retail Analytics Manager's Choice [facility] 02/27/2024 Consult Order COMMUNITY CARE-R ADIOLOGY VASCULAR Cons Retail Analytics Manager's Choice [facility] 02/27/2024 Consult Order COMMUNITY CARE-C T Cons Retail Analytics Manager's Choice [facility]
--- OUTSIDE RECORDS SUMMARY | 2024-03-02 20:48 | XMS_ITS ---
Author Name [facility] [place] [facility] [place] Address [address] [place] [address] Care Team Providers Care Continuity Writer Name Role Phone AG SALGUERO Primary Care [...] Name Patient's Relationship to Policy Lorenzo AARP [facility] (WNR) MEDICARE ADVANTAGE [facility] (WNR) Feb 10, 2023 [id number] HELGAJENN Y PATIENT Selected Encounter This section includes the information on record at [place] for the Encounter. Date/Time Encounter Type Encounter Description Reason Pro vider Source Jan 21, 2024 05:03 PM Outpatient Encounter ADMIN PAT ACTIVTIES (MASNONCT) [...] Appointment Type Appointme nt Facility Name Feb 27, 2024 02:30 PM AMBULATORY - NONE [facility] Apr 21, 2024 11:00 AM AMBULATORY - NONE [facility] Active, Pending, and Scheduled Orders This section includes a listing of several types of active, pending, and scheduled orders, including clinic medications orders, diagnostic test orders, procedure orders and consult orders; where the start date of the order is 45 days before the date of the Encounter or 45 days after the date of theEncounter. The data comes from all [facility]. Test Date/Time Test Type Test Details Facility Name Jan 22, 2024 10:34 AM Consult Order COMMUNITY CARE-OPTOMETRY ROUTINE EYE EXAM Cons Acquisitions Analyst's Choice [facility] Feb 25, 2024 12:00 AM Laboratory - Chemistry Order CBC PROFILE BLOOD(LAV-EDTA-WB) [facility] Feb 25, 2024 12:00 AM Laboratory - Chemistry Order LIVER PROFILE LT GREEN(LI HEP) PLASMA [facility] Feb 25, 2024 12:00 AM Laboratory - Chemistry Order LIPOPROTEIN CHOLESTEROL FRACT. PANEL LT GREEN(LI HEP) PLASMA [facility] Feb 25, 2024 12:00 AM Laboratory - Chemistry Order VIT D 25-OH(WRJ) BLOOD(GOLD) SERUM [facility] Feb 25, 2024 12:00 AM Laboratory - Chemistry Order PSA (SURVEY WORKERS SUPERVISOR) BLOOD(GOLD) [facility] Feb 25, 2024 12:00 AM Laboratory - Chemistry Order TSH BLOOD(GOLD) [facility] Feb 25, 2024 12:00 AM Laboratory - Chemistry Order VITAMIN B-12 BLOOD(GOLD) [facility] Feb 25, 2024 12:00 AM Laboratory - Chemistry Order GLYCOHEMOGLOBIN (A1C ONLY) BLOOD(LAV-EDTA-WB) [facility] Feb 25, 2024 12:00 AM Laboratory - Chemistry Order P4 GLU,BUN,CREAT,LYTES,CA LT GREEN(LI HEP) PLASMA [facility] Feb 27, 2024 12:00 AM Laboratory - Chemistry Order HEPATITIS C AB(WRJ)w/Reflex BLOOD(GOLD)(3) SERUM [facility] Feb 27, 2024 12:00 AM Laboratory - Chemistry Order HIV Ag/Ab SCREEN BLOOD(GOLD) [facility] [place] [facility] Feb 27, 2024 03:16 PM Consult Order SOCIAL WORK OUTPATIENT-CASSEL Cons Acquisitions Analyst's Choice [place] [facility] Feb 27, 2024 03:16 PM Consult Order COMMUNITY CARE-CT Cons Acquisitions Analyst's Choice ANT [facility] Feb 27, 2024 03:16 PM Consult Order COMMUNITY CARE-RADIOLOGY VASCULAR Cons Acquisitions Analyst's Choice [facility]T [facility] Feb 27, 2024 03:35 PM Consult Order COMMUNITY CARE-CT Cons Acquisitions [facility] Encounter Notes: All associated encounter notes This section contains the clinical notes associated to the Encounter. Date/Time Encounter Note(s) Provider Source Jan 21, 2024 05:03 PM ADMINISTRATIVE NOT E: LOCAL TITLE: CCC: SCHEDULING ADMINISTRATION STANDARD TITLE: ADMINISTRATIVE NOTE DATE OF NOTE: JAN 21, 2024@17:03 ENTRY DATE: JAN 21, 2024@17:03:33 AUTHOR: AFTAB MORALES EXP COSIGNER: URGENCY: STATUS: COMPLETED Verify Patient Demographics Successfully verified patient demographics vet calling and is requesting a call back regarding benefits- refer to pact /kwesi/ AFTAB TOMLIN 2 HELENE SOLER Signed: 01/21/2024 17:03 Receipt Acknowledged By: 01/22/2024 09:50 /kwesi/ JEWELS BROWNE Registered Nurse * AWAITING SIGNATURE * STAR RUSSELL 02/06/2024 07:37 /kwesi/ AFTAB MARCUS [facility]
--- OUTSIDE RECORDS SUMMARY | 2024-03-02 20:49 | XMS_ITS | Encounter Summary ---
[place] [address] Care Team Providers Care Mechanical Design Engineer Products Name Role Phone Nahomy Curry SARAH Primary Care Provider [phone] Reason for Referral * Consultation (Urgent) - Closed Specialty Diagnoses / Procedures Referred By Contac t Referred To Contact Orthopaedics Diagnoses Injury of extensor tendon of left hand, initial encounter Dog bite, initial encounter Injury of extensor tendon of left hand DOG BITE DOI APPROX 1 MONTH AGO Yvan Hodge MD [address] [place] [address] [facility] [address] [place] [phone] Referral ID Status Reason Start Date Expiration Date V isits Requested Visits Authorized [id number] Closed Consult, Test & Treat PCP Updated and/or Approved 03/07/2022 03/07/2023 6 6 Encounter Details Date Type Department Care Team (Latest Contact Info) Description 03/07/2022 Transcribe Orders eDH Incoming Referrals [phone] Yvan Hodge MD [address] [place], [place] [id number] Injury of extensor tendon of left hand, [...] encounter documented in this encounter Care Teams Mechanical Design Engineer Products Relationship Specialty Start Date End Date Nahomy Curry, VISUAL STYLIST PCP - General Family Medicine 01/30/21 documented as of this encounter
--- OUTSIDE RECORDS SUMMARY | 2024-03-02 20:49 | XMS_ITS | Encounter Summary ---
Author Organization [facility] Address [address] [place] [address] Care Team Providers Care Diesel Roller Operator Name Role Phone Antoinette Nahomy Mae NETWORK SUPPORT Primary Care Provider [phone] Encounter Details Date Type Department Care Team (Late st Contact Info) Description 05/24/2021 Lab Requisition [facility] Pathology & Laboratory Medicine - [address] [id number] Outr Resulting Lab, Provider Social History Tobacco [...] 15:35 EST) Hold Hold 05/24/2021 17:[address] [facility] Blood VENOUS BLOOD / Unknown 05/23/2021 15:35 EST 05/24/2021 15:54 EST Provider Outr Resulting Lab LAB INFO SER VICE AND SUPPORT & PHONE RESULT Performing Organization Address City/[facility]/ZIP Co de Phone Number [facility] [address] [place] [address] * HOLD SST (05/23/2021 15:35 EST) Hold Hold 05/24/2021 17:[address] [facility] Blood VENOUS BLOOD / Unknown 05/23/2021 15:35 EST 05/24/2021 15:54 EST Provider Outr Resulting Lab LAB INFO SER VICE AND SUPPORT & PHONE RESULT Performing Organization Address [facility]/ZIP Co de Phone Number [facility] [address] [place] [address] * RHEUMATOID FACTOR (05/23/2021 15:35 EST) Pathologist [facility] Rheumatoid Factor <8.6 <12.0 IU/mL 05/24/2021 16:[address] [facility] Blood VENOUS BLOOD / Unknown 05/23/2021 15:35 EST 05/24/2021 15:52 EST Provider Outr Resulting Lab CHEMISTRY & BLOOD GAS ORDERABLES Performing Organization Address [facility] Co de Phone Number [facility] [address] [place] [address] * ANTI DNA (DOUBLE STRANDED) (05/23/2021 15:35 EST) Anti-DNA (Double Stranded) 14.0 <30.0 IU/mL 05/25/2021 12:[address] [facility] Comment: ? Negative: ??<30.0 IU/mL ? Borderline Positive: ??30.0 - 75.0 IU/mL ? Positive: ??>75.0 IU/mL Results were obtained with the INOVA QUANTA Lite dsDNA [place]ON assay on the [employer] DSX. Blood VENOUS BLOOD / Unknown 05/23/2021 15:35 EST 05/24/2021 15:52 EST Provider Outr Resulting Lab IMMUNOLOGY A ND SEROLOGY ORDERABLES Performing Organization Address [facility] Phone Number [facility] [address] [place] [address] * (ABNORMAL) ANTI NUCLEAR AB (LEATHA), IFA (05/23/2021 15:35 EST) LEATHA Interpretation Positive(A) Negative 05/26/2021 13:[address] [facility] Comment: For titers greater than [...] Pattern 1 1:320 Homogeneous 05/26/2021 13:[address] [facility] Blood VENOUS BLOOD / Unknown 05/23/2021 15:35 EST 05/24/2021 15:[address] [facility] - 05/26/2021 13:58 EST Results were obtained with the INOVA NOVA Lite HEp-2 LEATHA Kit by indirect immunofluorescence. Provider Outr Resulting Lab IMMUNOLOGY A ND SEROLOGY ORDERABLES Performing Organization Address [facility] de Phone Number [facility] [address] [place] [address] * CCP ANTIBODIES (05/23/2021 15:35 EST) CCP Antibodies <2.5 <5.0 U/mL 05/25/2021 9:[address] [facility] Blood VENOUS BLOOD / Unknown 05/23/2021 15:35 EST 05/24/2021 15:52 EST Provider Outr Resulting Lab IMMUNOLOGY A ND SEROLOGY ORDERABLES [facility] [address] [place] [address] documented in this encounter Visit Diagnoses Not on filedocumented in this encounter Care Teams Diesel Roller Operator Relationship Specialty Start Date End Date Nahomy Curry NP [address] [place] [address] PCP - General 01/04/20 documented as of this encounter
--- OUTSIDE RECORDS SUMMARY | 2024-03-02 20:49 | XMS_ITS | Encounter Summary ---
Author Organization [facility] Address [address] [place] [address] Care Team Providers Care Flat Drier Name Role Phone Nahomy Curry CAFE SITE ATTENDANT Primary Care Provider [phone] Encounter Details Date Type Department Care Team (Late st Contact Info) Description 01/04/2020 Lab Requisition [facility] Pathology & Laboratory Medicine - [address] [address] Huey Altman MD [address] [place] [address] [address] [place], [place] [id number] Encounter for screening for malignant neoplasm of [...] sections have been examined. 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 Aerial Applicator Pilot slides of this case were reviewed at the intradepartmental GI consultation conference. ANTIBODY(CLONE)(BLOCK ):RESULT SMA (alpha Smooth Muscle Actin (asm-1, Leica) (A1): Negative DOG-1 (K9,Leica) (A1): Negative S-100 Protein DAB (4C4.9, [place]) (A1): Strongly positive NOTE: One or more [...] performance characteristics have been determined by [facility] and/or by the referring laboratory. [...] high complexity clinical laboratory testing. 01/08/2020 17:15 [facility] Attestation There was significan t resident/fellow involvement in the diagnostic evaluation of this case. By the signature below, the attending physician certifies that they have personally conducted a gross and/or microscopic examination of the described specimens and rendered or confirmed the above diagnosis. 01/08/2020 17:15 [facility] at 1715 Clinical History Colon cancer screening; personal history of polyp 01/08/2020 17:15 [facility] Gross Description A. Received in formalin labelled with proper patient identification (initials M, T) and cecal polyp is a single fragment of crystal tissue (0.2 x 0.2 x 0.2 cm). The specimen is submitted entirely in A1. 01/05/2020 7:26 01/08/2020 17:15 [facility] Resident/Fell ow: Dain Weems MD 01/08/2020 17:15 [facility] Performing Lab [facility] 01/08/2020 17:15 [facility] Scanned Images 01/08/2020 17:15 EDT [facility] Tissue CECUM STRUCTURE / Unknown 01/04/2020 9:54 EDT 01/04/2020 17:05 EDT Huey Altman MD PATHOLOGY OZZY US [facility] [address] [place] [address] documented in this encounter Visit Diagnoses Diagnosis Encounter for screening for malignant neoplasm of colon Special screening for malignant neoplasms, colon documented in this encounter Care Teams Flat Drier Relationship Specialty Start Date End Date Nahomy Curry NP [address] [place] [address] PCP - General 01/04/20 documented as of this encounter
--- OUTSIDE RECORDS SUMMARY | 2024-03-02 20:49 | XMS_ITS | Clinical Summary ---
Author Organization [facility] Address [address] [place] [address] Care Team Providers Care Boarder Hand Name Role Phone Nahomy Curry WHEEL TUNER Primary Care Provider [phone] Social History Tobacco Use Types Packs/Day Years [...] Risk Screening 02/24/2020 COVID-19 Vaccine ( season) 2024 Care Teams Boarder Hand Relationship Specialty Start Date End Date Nahomy Curry NP [address] [place] [address] PCP - General 01/04/20
--- OUTSIDE RECORDS SUMMARY | 2024-03-02 20:49 | XMS_ITS | Encounter Summary ---
Author Organization [facility] Address [address] [place] [address] Care Team Providers Care Basket Sorter Name Role Phone Unavailable Primary Care Provider Unavailabl e Encounter Details Date Type Department Care Team (Late st Contact Info) Description 08/14/2007 Results Only [facility] - Maple conversion [address] [place] [address] John Paul Menezes MD [address] [place] [address] Social History Tobacco Use Types Packs/Day Years [...] ? KARYN PARTIDA ? Accession #: ? [id number] ? : ? 1955 (Age: 52) ??M [...] Description: ? Received in Hollande's fixative labelled Hastings and #1 polyp rectum is a 0.5 x 0.4 x 0.4 cm firm smooth surfaced sessile polyp which is trisected and submitted entirely in one cassette. ??(Ruslan Gee/vinicius End of Report ALTHEA ESPINOZA 08/14/2007 08/15/2007 10: 20 EDT John Paul Menezes MD PATHOLOGY ORDERABLE S [facility] [address] [place] [address] documented in this encounter Visit Diagnoses Not on filedocumented in this encounter
--- OUTSIDE RECORDS SUMMARY | 2024-03-02 20:49 | XMS_ITS | Encounter Summary ---
Author Name [facility] [place] [facility] [place] [facility] [place] Address [address] [place] [id number] Care Team Providers Care Set Up Technician Name Role Phone AG SALGUERO Primary [...] Name Patient's Relationship to Policy Lorenzo AARP [facility] (WNR) MEDICARE ADVANTAGE [facility] (WNR) Feb 10, 2023 [id number] HELGAJENN Y PATIENT Selected Encounter This section includes the information on record at [place] for the Encounter. Date/Time Encounter Type Encounter Description Reason Pro vider Source Feb 28, 2024 01:46 PM Outpatient Encounter COMMUNITY CARE CONSULT IHE Encounter Template Text not used by [...] 20 appointments. The data comes from all [place] treatment facilities. Appointment Date/Time Appointment Type Appointme nt Facility Name Apr 21, 2024 11:00 AM AMBULATORY - NONE [facility] Active, Pending, and Scheduled Orders This section includes a listing of several types of active, pending, and scheduled orders, including clinic medications orders, diagnostic test orders, procedure orders and consult orders; where the start date of the order is 45 days before the date of the Encounter or 45 days after the date of theEncounter. The data comes from all [facility] facilities. Test Date/Time Test Type Test Details Facility Name Jan 22, 2024 10:34 AM Consult Order COMMUNITY CARE-OPTOMETRY ROUTINE EYE EXAM Cons Health Care Consultant's Choice [facility] Feb 25, 2024 12:00 AM Laboratory - Chemistry Order CBC PROFILE BLOOD(LAV-EDTA-WB) [facility] Feb 25, 2024 12:00 AM Laboratory - Chemistry Order LIVER PROFILE LT GREEN(LI HEP) PLASMA [facility] Feb 25, 2024 12:00 AM Laboratory - Chemistry Order LIPOPROTEIN CHOLESTEROL FRACT. PANEL LT GREEN(LI HEP) PLASMA [facility] Feb 25, 2024 12:00 AM Laboratory - Chemistry Order VIT D 25-OH(WRJ) BLOOD(GOLD) SERUM [facility] Feb 25, 2024 12:00 AM Laboratory - Chemistry Order PSA (FIELD SERVICER) BLOOD(GOLD) [facility] Feb 25, 2024 12:00 AM Laboratory - Chemistry Order TSH BLOOD(GOLD) [facility] Feb 25, 2024 12:00 AM Laboratory - Chemistry Order VITAMIN B-12 BLOOD(GOLD) [facility] Feb 25, 2024 12:00 AM Laboratory - Chemistry Order GLYCOHEMOGLOBIN (A1C ONLY) BLOOD(LAV-EDTA-WB) [facility] Feb 25, 2024 12:00 AM Laboratory - Chemistry Order P4 GLU,BUN,CREAT,LYTES,CA LT GREEN(LI HEP) PLASMA [facility] Feb 27, 2024 12:00 AM Laboratory - Chemistry Order HEPATITIS C AB(WRJ)w/Reflex BLOOD(GOLD)(3) SER[facility] Feb 27, 2024 12:00 AM Laboratory - Chemistry Order HIV Ag/Ab SCREEN BLOOD(GOLD) [facility] Feb 27, 2024 03:16 PM Consult Order SOCIAL WORK OUTPATIENT-SRIKANTH Cons Health Care Consultant's Choice [place] [facility] Feb 27, 2024 03:16 PM Consult Order COMMUNITY CARE-CT Cons Health Care Consultant's Choice [place] [facility] Feb 27, 2024 03:16 PM Consult Order COMMUNITY CARE-RADIOLOGY VASCULAR Cons Health Care Consultant's Choice [place] [facility] Feb 27, 2024 03:35 PM Consult Order COMMUNITY CARE-CT Cons [facility] Encounter Notes: All associated encounter notes This section contains the clinical notes associated to the Encounter. Date/Time Encounter Note(s) Provider Source Feb 28, 2024 01:46 PM NONVA NOTE: LOCAL TITLE: COMMUNITY CARE-CARE COORDINATION PLAN NOTE STANDARD TITLE: NONVA NOTE DATE OF NOTE: FEB 28, 2024@13:46 ENTRY DATE: FEB 28, 2024@13:47:02 AUTHOR: RUKHSANA DENTON EXP COSIGNER: URGENCY: STATUS: COMPLETED Per [facility] would like the CT Neck to be WITH CONTRAST, and would like a CREATNINE LAB ORDER. Asking Provider if approved for WITH Contrast on the CT Neck and to place a cr lab order. /kwesi/ RUKHSANA DENTON Registered Nurse Signed: 02/28/2024 13:48 Receipt Acknowledged By: * AWAITING SIGNATURE * JEANE VIZCAINO 03/02/2024 08:58 /es/ TEAGAN TERRELL * AWAITING SIGNATURE * AG SALGUERO SARAH E [facility]
--- OUTSIDE RECORDS SUMMARY | 2024-03-02 20:49 | XMS_ITS | Encounter Summary ---
Author Organization [facility] [place] [address] Care Team Providers Care Actuarial Science Professor Name Role Phone Nahomy Curry APRN Primary Care Provider [phone] Encounter Details Date Type Department Care Team (Late st Contact Info) Description 02/28/2022 Ancillary Procedure Radiology Library at [facility] [place] [address] Nahomy Curry APRN [address] [place] [address] Social History Tobacco Use Types Packs/Day Years [...] Curry APRN IMG FILM LIBRARY ORD ERABLES [place] documented in this encounter Visit Diagnoses Not on filedocumented in this encounter Care Teams Actuarial Science Professor Relationship Specialty Start Date End Date Nahomy Curry, SARAH PCP - General Family Medicine 01/30/21 documented as of this encounter
--- OUTSIDE RECORDS SUMMARY | 2024-03-02 20:49 | XMS_ITS | Encounter Summary ---
Author Name [facility] [place] Organization [facility] [place] Address [address] [place] [address] Care Team Providers Care Enzyme Chemist Name Role Phone AG SALGUERO Primary Care [...] Name Patient's Relationship to Policy Lorenzo AARP [facility] (WNR) MEDICARE ADVANTAGE [facility] (WNR) Feb 10, 2023 [id number] HELGAJENN Y PATIENT Selected Encounter This section includes the information on record at [place] for the Encounter. Date/Time Encounter Type Encounter Description Reason Pro vider Source Mar 02, 2024 01:27 PM Outpatient Encounter ADMIN PAT ACTIVTIES (MASNONCT) [...] 21, 2024 11:00 AM AMBULATORY - NONE [facility] Active, Pending, and Scheduled Orders [...] 22, 2024 10:34 AM Consult Order COMMUNITY [facility]-OPTOMETRY ROUTINE EYE EXAM Cons Dry Food Products Mixer's Choice [facility] Feb 25, 2024 12:00 AM Laboratory - Chemistry Order CBC PROFILE BLOOD(LAV-EDTA-WB) [facility] Feb 25, 2024 12:00 AM Laboratory - Chemistry Order LIVER PROFILE LT GREEN(LI HEP) PLASMA [facility] Feb 25, 2024 12:00 AM Laboratory - Chemistry Order LIPOPROTEIN CHOLESTEROL FRACT. PANEL LT GREEN(LI HEP) PLASMA [facility] Feb 25, 2024 12:00 AM Laboratory - Chemistry Order VIT D 25-OH(WRJ) BLOOD(GOLD) SERUM [facility] Feb 25, 2024 12:00 AM Laboratory - Chemistry Order PSA (PLASTERER SPOT) BLOOD(GOLD) [facility] Feb 25, 2024 12:00 AM Laboratory - Chemistry Order TSH BLOOD(GOLD) [facility] Feb 25, 2024 12:00 AM Laboratory - Chemistry Order VITAMIN B-12 BLOOD(GOLD) [facility] Feb 25, 2024 12:00 AM Laboratory - Chemistry Order GLYCOHEMOGLOBIN (A1C ONLY) BLOOD(LAV-EDTA-WB) [facility] Feb 25, 2024 12:00 AM Laboratory - Chemistry Order P4 GLU,BUN,CREAT,LYTES,CA LT GREEN(LI HEP) PLASMA [facility] Feb 27, 2024 12:00 AM Laboratory - Chemistry Order HEPATITIS C AB(WRJ)w/Reflex BLOOD(GOLD)(3) SERUM [facility] Feb 27, 2024 12:00 AM Laboratory - Chemistry Order HIV Ag/Ab SCREEN BLOOD(GOLD) [facility] [place] [facility] Feb 27, 2024 03:16 PM Consult Order SOCIAL WORK OUTPATIENT-BETHANY Cons Dry Food Products [facility] Feb 27, 2024 03:16 PM Consult Order COMMUNITY CARE-CT Cons Dry Food Products Mixer's Choice [place] [facility] Feb 27, 2024 03:16 PM Consult Order COMMUNITY CARE-RADIOLOGY VASCULAR Cons Dry Food Products Mix[facility]'s [facility] Feb 27, 2024 03:35 PM Consult Order COMMUNITY CARE-CT Cons Dry Food Products [facility] Encounter Notes: All associated encounter notes This section contains the clinical notes associated to the Encounter. Date/Time Encounter Note(s) Provider Source Mar 02, 2024 01:27 PM ADMINISTRATIVE NOT E: LOCAL TITLE: ELIGIBILITY NOTE STANDARD TITLE: ADMINISTRATIVE NOTE DATE OF NOTE: MAR 02, 2024@13:27 ENTRY DATE: MAR 02, 2024@13:27:28 AUTHOR: GIANNI CERVANTES I EXP COSIGNER: URGENCY: STATUS: COMPLETED TRANSFER Eligible: YES Priority Group: 5 Limited Eligibility: NO What is Available to : All SERVICES [place] Copay status: Exempt RX Copay status: Required Bene Travel Eligible: Not Eligible Next MEANS Test Due: 02/2025 Preferred Facility: [facility] or Jessica /kwesi/ GIANNI SOLER Signed: 03/02/2024 13:28 GIANNI CERVANTES [facility]
--- OUTSIDE RECORDS SUMMARY | 2024-03-02 20:49 | XMS_ITS | Encounter Summary ---
Author Name [facility] [place] Organization [facility] [place] Address [address] [place] [address] Care Team Providers Care Ic Design Manager Name Role Phone AG SALGUERO Primary Care [...] Lorenzo's Name Patient's Relationship to Policy [facility] (WNR) MEDICARE ADVANTAGE [facility] (WNR) Feb 10, 2023 [id number] [place] Y PATIENT Selected Encounter This section includes the information on record at [place] for the Encounter. Date/Time Encounter Type Encounter Description Reason Pro vider Source Mar 02, 2024 02:43 PM Outpatient Encounter PRIMARY CARE/MEDICINE IHE Encounter Template Text not used by [place] Plan of Treatment: Future Appointments (+ 6 months) and Future Tests (+/- 45 days) The Plan of Treatment section includes future care activities for the patient from all [place] treatmentfacilities. This section includes future appointments and future orders which are active, pending or scheduled. Future Appointments This section includes appointments that were scheduled to occur 6 months from the date of the Encounter, up to a maximum of 20 appointments. The data comes from all [place] treatment facilities. Appointment Date/Time Appointment Type Appointme nt Facility Name Apr 21, 2024 11:00 AM AMBULATORY - NONE [facility] Active, Pending, and Scheduled Orders This section includes a listing of several types of active, pending, and scheduled orders, including clinic medications orders, diagnostic test orders, procedure orders and consult orders; where the start date of the order is 45 days before the date of the Encounter or 45 days after the date of theEncounter. The data comes from all [facility] facilities. Test Date/Time Test Type Test Details Facility Name Jan 22, 2024 10:34 AM Consult Order COMMUNITY CARE-OPTOMETRY ROUTINE EYE EXAM Cons Peanut Cleaner's Choice [facility] Feb 25, 2024 12:00 AM [...] 12:00 AM Laboratory - Chemistry Order PSA (NON FERROUS MATERIAL HANDLER) BLOOD(GOLD) [facility] Feb 25, [...] Chemistry Order HIV Ag/Ab SCREEN BLOOD(GOLD) [facility] Feb 27, 2024 03:16 PM Consult Order SOCIAL WORK OUTPATIENT-ARGYLE Cons Peanut Cleaner's Choice [place] [facility] Feb 27, 2024 03:16 PM Consult Order COMMUNITY CARE-CT Cons Peanut Cleaner's Choice [place] [facility] Feb 27, 2024 03:16 PM Consult Order COMMUNITY CARE-RADIOLOGY VASCULAR Cons Peanut Cleaner's Choice [place] [facility] Feb 27, 2024 03:35 PM Consult Order COMMUNITY CARE-CT Cons Peanut Cleaner's Choice [facility] Social History: Smoking Status (Most current) and Tobacco Use (All prior to encounter date) This section includes the most current, and the historical, smoking and tobacco- related health factors from the [place] facility where the Encounter took place. Current Smoking Status This section includes the most current smoking, or tobacco-related health factor, from the [place] facility where the Encounter took place. Date/Time Current Smoking Status Comment Facil ity Feb 19, 2023 01:00 PM VA-TOBACCO USER EVERY DAY [facility] Tobacco Use History This section includes a history of the smoking, or tobacco-related health factors, that were collected on or before the date of the Encounter. The data comes from the [place] facility where the Encounter took place. Date/Time Smoking Status/Tobacco Use Comment F acility Feb 19, 2023 01:00 PM VA-TOBACCO USE ADVICE [facility] Feb 19, 2023 01:00 PM VA-TOBACCO USE YOUTH ASSOCIATE NO [facility] Feb 19, 2023 01:00 PM VA-TOBACCO USE MED YES [facility] Feb 19, 2023 01:00 PM VA-TOBACCO USE WI 30 MIN OF WAKE UP [facility] Feb 19, 2023 01:00 PM VA-TOBACCO USER EVERY DAY [facility]
--- OUTSIDE RECORDS SUMMARY | 2024-03-02 20:49 | XMS_ITS | Encounter Summary ---
Author Organization [facility] Address [facility] [place] [address] Care Team Providers Care Celebrity Chef Entrepreneur Media Personality Name Role Phone Nahomy Curry BEAUTY SPECIALIST Primary Care Provider [phone] Reason for Visit * Consultation (Routine) - Closed Specialty Diagnoses / Procedures Referred By Kaylie pope Referred To Contact Dermatology Diagnoses Disorder of pigmentation, unspecified Macule - L forearm and forehead Nahomy Curry, SARAH [address] [place] [address] [facility] Dermatology [address] [place] [address] Referral ID Status Reason Start Date Expiration Date V isits Requested Visits Authorized [id number] Closed Consult, Test & Treat Connection [facility] PCP Updated and/or Approved 01/24/2021 01/24/2022 6 6 Encounter Details Date Type Department Care Team (Late st Contact Info) Description 03/23/2021 10:00 AM EST Office Visit Dermatology at [facility] [address] [place] [address] Carl Seo MD [facility] [address] [place] [address] SK (seborrheic keratosis); Ecchymosis Social History Tobacco [...] forearm irregular lesion. 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 Denies bleeding. Reports carries firewood [...] and signed by: Carl Seo MD Dermatology [facility] Patient seen and evaluated with staff measurement analyst: Grayson Fernandez MD Department of Dermatology [facility] * Grayson Fernandez MD - 03/23/2021 [...] disorders documented in this encounter Care Teams Celebrity Chef Entrepreneur Media Personality Relationship Specialty Start Date End Date Nahomy Curry APRN PCP - General Family Medicine 01/30/21 documented as of this encounter
--- OUTSIDE RECORDS SUMMARY | 2024-03-02 20:49 | XMS_ITS ---
Author Name [facility] [place] Organization [facility] [place] Address [address] [place] [address] Care Team Providers Care Drafter Engineering Name Role Phone AG SALGUERO Primary Care [...] Name Patient's Relationship to Policy Lorenzo AARP [facility] (WNR) MEDICARE ADVANTAGE [facility] (WNR) Feb 10, 2023 [id number] JENN PARTIDA Y PATIENT Selected Encounter This section includes the information on record at [place] for the Encounter. Date/Time Encounter Type Encounter Description Reason Pro vider Source Jan 28, 2024 08:47 AM Outpatient Encounter ADMIN PAT ACTIVTIES (MASNONCT) [...] PM AMBULATORY - NONE [place] [facility] Apr 21, 2024 11:00 AM AMBULATORY - NONE [place] [facility] Active, Pending, and Scheduled Orders This [...] from all [facility]. Test Date/Time Test Type Test Details Facility Name Jan 22, 2024 10:34 AM Consult Order COMMUNITY CARE-OPTOMETRY ROUTINE EYE EXAM Cons Handicrafts Teacher's Choice [facility] Feb 25, 2024 12:00 AM Laboratory - Chemistry Order CBC PROFILE BLOOD(LAV-EDTA-WB) [facility] Feb 25, 2024 12:00 AM Laboratory - Chemistry Order LIVER PROFILE LT GREEN(LI HEP) PLASMA [facility] Feb 25, 2024 12:00 AM Laboratory - Chemistry Order LIPOPROTEIN CHOLESTEROL FRACT. PANEL LT GREEN(LI HEP) PLASMA [facility] Feb 25, 2024 12:00 AM Laboratory - Chemistry Order VIT D 25-OH(WRJ) BLOOD(GOLD) SERUM [facility] Feb 25, 2024 12:00 AM Laboratory - Chemistry Order PSA (HEARTH FEEDER) BLOOD(GOLD) [facility] Feb 25, 2024 12:00 AM Laboratory - Chemistry Order TSH BLOOD(GOLD) [facility] Feb 25, 2024 12:00 AM Laboratory - Chemistry Order VITAMIN B-12 BLOOD(GOLD) [facility] Feb 25, 2024 12:00 AM Laboratory - Chemistry Order GLYCOHEMOGLOBIN (A1C ONLY) BLOOD(LAV-EDTA-WB) [facility] Feb 25, 2024 12:00 AM Laboratory - Chemistry Order P4 GLU,BUN,CREAT,LYTES,CA LT GREEN(LI HEP) PLASMA [facility] Feb 27, 2024 12:00 AM Laboratory - Chemistry Order HEPATITIS C AB(WRJ)w/Reflex BLOOD(GOLD)(3) [facility] Feb 27, 2024 12:00 AM Laboratory - Chemistry Order HIV Ag/Ab SCREEN BLOOD(GOLD) [facility] Feb 27, 2024 03:16 PM Consult Order SOCIAL WORK OUTPATIENT-SRIKANTH Cons Handicrafts [facility] Feb 27, 2024 03:16 PM Consult Order COMMUNITY CARE-CT Cons Handicrafts [facility] Feb 27, 2024 03:16 PM Consult Order COMMUNITY CARE-RADIOLOGY VASCULAR Cons Handicrafts Teacher's Choice [facility] Feb 27, 2024 03:35 PM Consult Order COMMUNITY CARE-CT Cons Handicrafts Teacher's Choice [facility] Encounter Notes: All associated encounter notes This section contains the clinical notes associated to the Encounter. Date/Time Encounter Note(s) Provider Source Jan 28, 2024 08:47 AM ADMINISTRATIVE NOT E: LOCAL TITLE: CCC: SCHEDULING ADMINISTRATION STANDARD TITLE: ADMINISTRATIVE NOTE DATE OF NOTE: JAN 28, 2024@08:47:07 ENTRY DATE: JAN 28, 2024@08:47:08 AUTHOR: RAYMOND ABRAHAM EXP COSIGNER: URGENCY: STATUS: COMPLETED Patient Demographics Patient Name: ABBY PARTIDA Patient Primary Phone: [phone] Patient Primary [address]: [address] [place] [address] Patient : 1955 Patient Age: 68 Call Back Number: Caller/Recipient Relation to Patient: Self Administrative Administrative Note Reason: Other Administrative Note Comments: PT REQUESTING TO SPEAK WITH SW TO DISCUSS LEGAL ISSUES. IMPORTANT: This note was created by [facility] Clinical Contact Center staff. Please do not alert the staff member by adding them as a signer for future communications. Alerts are not monitored by this user. /kwesi/ RAYMOND ABRAHAM VISN 1 CCC AMSA Signed: 01/28/2024 08:47 Receipt Acknowledged By: * AWAITING SIGNATURE * STAR RUSSELL 01/28/2024 11:17 /es/ JEWELS BROWNE Registered Nurse RAYMOND ABRAHAM [facility]
--- OUTSIDE RECORDS SUMMARY | 2024-03-02 20:49 | XMS_ITS | Encounter Summary ---
Author Organization [facility] [place] [address] Care Team Providers Care Fabricator Assembler Metal Products Name Role Phone Nahomy Curry TEA BAG PACKER Primary Care Provider [phone] Encounter Details Date Type Department Care Team [...] on filedocumented in this encounter Care Teams Fabricator Assembler Metal Products Relationship Specialty Start Date End Date Nahomy Curry APRN PCP - General Family Medicine 01/30/21 documented as of this encounter
--- OUTSIDE RECORDS SUMMARY | 2024-03-02 20:49 | XMS_ITS | Referral Summary ---
Author Organization [facility] Address [address] [place] [address] Care Team Providers Care Thinner Sprayer Name Role Phone Nahomy Curry COATING INSPECTOR Primary Care Provider [phone] Social History Tobacco Use Types Packs/Day Years Used Date Smoking Tobacco: Never Assessed Interpersonal Safety Answer Date Record ed Physically Hurt Never 01/14/2020 Verbally Threaten Not on file 01/14/2020 Sex and Gender Information Value Date Recorded Sex Assigned at Not on file Gender Identity Not on file Sexual Orientation Not on file Plan of Treatment Not on file Care Teams Thinner Sprayer Relationship Specialty Start Date End Date Nahomy Curry NP [address] [place] [address] PCP - General 01/04/20
--- OUTSIDE RECORDS SUMMARY | 2024-03-02 20:49 | XMS_ITS | Encounter Summary ---
Author Organization [facility] Address [facility] [place] [address] Care Team Providers Care Gate Operator Name Role Phone AnthonyNahomy veloz Mae SMITH Primary Care Provider [phone] Reason for Visit * Reason Comments Establish Care LT hand injury * Consultation (Urgent) - Closed Specialty Diagnoses / Procedures Referred By Contac t Referred To Contact Orthopaedics Diagnoses Injury of extensor tendon of left hand, initial encounter Dog bite, initial encounter Injury of extensor tendon of left hand DOG BITE DOI APPROX 1 MONTH AGO Yvan Hodge MD [address] [place] [address] [facility] [address] [place] [id number] Referral ID Status Reason Start Date Expiration Date V isits Requested Visits Authorized [id number] Closed Consult, Test & Treat PCP Updated and/or Approved 03/07/2022 03/07/2023 6 6 Encounter Details Date Type Department Care Team (Late st Contact Info) Description 03/20/2022 11:30 AM EST Office [place] [address] David Vaughn Jr., MD [facility] [address] [place] [address] Extensor tendon laceration of finger [...] 03/20/2022 11:30 AM EST Karyn Park 1955 [id number] 03/20/2022 HPI: Karyn is 67 y.o. 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
--- OUTSIDE RECORDS SUMMARY | 2024-03-02 20:49 | XMS_ITS | Encounter Summary ---
Author Name [facility] [place] [facility] [place] Organization [facility] [place] [facility] [place] Address [address] [place] [address] Care Team Providers Care Education Program Coordinator Name Role Phone AG SALGUERO Primary Care [...] Relationship to Policy Lorenzo AARP [facility] (WNR) MEDICARE ADVANTAGE [facility] (WNR) Feb 10, 2023 [id number] JENN PARTIDA Y PATIENT Selected Encounter This section includes the information on record at [place] for the Encounter. Date/Time Encounter Type Encounter Description Reason Pro vider Source Feb 05, 2024 09:37 AM Outpatient Encounter ADMIN PAT ACTIVTIES (MASNONCT) [...] PM AMBULATORY - NONE [facility] Apr 21, 2024 11:00 AM AMBULATORY - NONE [facility] Active, Pending, and Scheduled Orders This section includes a listing of several types of active, pending, and scheduled orders, including clinic medications orders, diagnostic test orders, procedure orders and consult orders; where the start date of the order is 45 days before the date of the Encounter or 45 days after the date of theEncounter. The data comes from all [facility]. Test Date/Time Test Type Test Details Facility Name Jan 22, 2024 10:34 AM Consult Order COMMUNITY CARE-OPTOMETRY ROUTINE EYE EXAM Cons Railroad Car [facility]ter[facility] Feb 25, 2024 12:00 AM Laboratory - Chemistry Order CBC PROFILE BLOOD(LAV-EDTA-WB) [facility] Feb 25, 2024 12:00 AM Laboratory - Chemistry Order LIVER PROFILE LT GREEN(LI HEP) PLASMA [facility] Feb 25, 2024 12:00 AM Laboratory - Chemistry Order LIPOPROTEIN CHOLESTEROL FRACT. PANEL LT GREEN(LI HEP) PLASMA [facility] Feb 25, 2024 12:00 AM Laboratory - Chemistry Order VIT D 25-OH(WRJ) BLOOD(GOLD) SERUM [facility] Feb 25, 2024 12:00 AM Laboratory - Chemistry Order PSA (SOFTWARE TEST TECHNICIAN) BLOOD(GOLD) SERUM [facility] Feb 25, 2024 12:00 AM Laboratory - Chemistry Order TSH BLOOD(GOLD) [facility] Feb 25, 2024 12:00 AM Laboratory - Chemistry Order VITAMIN B-12 BLOOD(GOLD) SERUM [facility] Feb 25, 2024 12:00 AM Laboratory - Chemistry Order GLYCOHEMOGLOBIN (A1C ONLY) BLOOD(LAV-EDTA-WB) [facility] Feb 25, 2024 12:00 AM Laboratory - Chemistry Order P4 GLU,BUN,CREAT,LYTES,CA LT GREEN(LI HEP) PLASMA [facility] Feb 27, 2024 12:00 AM Laboratory - Chemistry Order HEPATITIS C AB(WRJ)w/Reflex BLOOD(GOLD)(3) SERUM [facility] Feb 27, 2024 12:00 AM Laboratory - Chemistry Order HIV Ag/Ab SCREEN BLOOD(GOLD) SERUM SP [place] [facility] Feb 27, 2024 03:16 PM Consult Order SOCIAL WORK OUTPATIENT-[place] Cons Railroad Car Painter's Choice [place] [facility] Feb 27, 2024 03:16 PM Consult Order COMMUNITY CARE-CT Cons Railroad Car Painter's Choice [place] [facility] Feb 27, 2024 03:16 PM Consult Order COMMUNITY CARE-RADIOLOGY VASCULAR Cons Railroad [facility] Feb 27, 2024 03:35 PM Consult Order COMMUNITY CARE-CT Cons Railroad Car Painter's [facility] Encounter Notes: All associated encounter notes This section contains the clinical notes associated to the Encounter. Date/Time Encounter Note(s) Provider Source Feb 05, 2024 09:37 AM ADMINISTRATIVE NOT E: LOCAL TITLE: CCC: SCHEDULING ADMINISTRATION STANDARD TITLE: ADMINISTRATIVE NOTE DATE OF NOTE: FEB 05, 2024@09:37:26 ENTRY DATE: FEB 05, 2024@09:37:27 AUTHOR: RUKHSANA BERMEO EXP COSIGNER: URGENCY: STATUS: COMPLETED Patient Demographics Patient Name: ABBY PARTIDA Patient Primary Phone: [phone] Patient Primary [address]: [address] [place] [address] Patient : 1955 Patient Age: 68 Caller/Recipient Relation to Patient: Self Administrative Administrative Note Reason: Other Administrative Note Comments: Vet wanted to make PACT team aware that he no longer wishes to have [facility]s [facility] through the [facility] and reports he will be refilling them through the state as it is a lower cost for . IMPORTANT: This note was created by [facility] Clinical Contact Center staff. Please do not alert the staff member by adding them as a signer for future communications. Alerts are not monitored by this user. /kwesi/ RUKHSANA BERMEO VISN 1 [facility]3] AMSA Signed: 02/05/2024 09:37 Receipt Acknowledged By: 02/06/2024 09:11 /es/ MICHAEL GRADY LPN 02/05/2024 10:01 /es/ JEWELS BROWNE Registered Nurse RUKHSANA BERMEO [facility]
--- OUTSIDE RECORDS SUMMARY | 2024-03-02 20:49 | XMS_ITS | Encounter Summary ---
Author Name [facility] [place] [place] [facility] [place] Organization [facility] [place] [facility] [place] Address [address] [place] [address] Care Team Providers Care Service Establishment Attendant Name Role Phone AG SALGUERO Primary [...] Lorenzo's Name Patient's Relationship to Policy Lorenzo [facility] (WNR) MEDICARE ADVANTAGE [facility] (WNR) Feb 10, 2023 [id number] HELGAJENN Y PATIENT Selected Encounter This section includes the information on record at [place] for the Encounter. Date/Time Encounter Type Encounter Description Reason Provider Source Feb 27, 2024 02:30 PM ADMN SARSCOV2 VACC 1 DOSE PRIMARY CARE/MEDICINE ICD-10-CM Z23. Encounter for immunization AG SALGUERO E Encounter Template Text not used by [place] Assessments - Encounter Diagnoses This section includes the primary and secondary diagnoses documented for the Encounter. Date/Time Primary/Secondary Diagnosis Diagnosis Name Provider Source Feb 27, 2024 02:30 PM SECONDARY Encounter for immunization AG SALGUERO [facility] Plan of Treatment: Future Appointments (+ [...] 20 appointments. The data comes from all [facility]. Appointment Date/Time Appointment Type Appointme nt Facility Name Apr 21, 2024 11:00 AM AMBULATORY - NONE [facility] Active, Pending, and Scheduled Orders This section includes a listing of several types of active, pending, and scheduled orders, including clinic medications orders, diagnostic test orders, procedure orders and consult orders; where the start date of the order is 45 days before the date of the Encounter or 45 days after the date of theEncounter. The data comes from all [facility]. Test Date/Time Test Type Test Details Facility Name Jan 22, 2024 10:34 AM Consult Order COMM[facility]ITY [facility]-OPTOMETRY ROUTINE EYE EXAM Cons Executive Coordinator's Choice [facility] Feb 25, 2024 12:00 AM Laboratory - Chemistry Order CBC PROFILE BLOOD(LAV-EDTA-WB) [facility] Feb 25, 2024 12:00 AM Laboratory - Chemistry Order LIVER PROFILE LT GREEN(LI HEP) PLASMA [facility] Feb 25, 2024 12:00 AM Laboratory - Chemistry Order LIPOPROTEIN CHOLESTEROL FRACT. PANEL LT GREEN(LI HEP) PLASMA [facility] Feb 25, 2024 12:00 AM Laboratory - Chemistry Order VIT D 25-OH(WRJ) BLOOD(GOLD) SERUM [facility] Feb 25, 2024 12:00 AM Laboratory - Chemistry Order PSA (THERMOSPRAY OPERATOR) BLOOD(GOLD) [facility] Feb 25, 2024 12:00 AM Laboratory - Chemistry Order TSH BLOOD(GOLD) [facility] Feb 25, 2024 12:00 AM Laboratory - Chemistry Order VITAMIN B-12 BLOOD(GOLD) [facility]UM [facility] Feb 25, 2024 12:00 AM Laboratory - Chemistry Order GLYCOHEMOGLOBIN (A1C ONLY) BLOOD(LAV-EDTA-WB) [facility] Feb 25, 2024 12:00 AM Laboratory - Chemistry Order P4 GLU,BUN,CREAT,LYTES,CA LT GREEN(LI HEP) PLASMA [facility] Feb 27, 2024 12:00 AM Laboratory - Chemistry Order HEPATITIS C AB(WRJ)w/Reflex BLOOD(GOLD)(3) SERUM SP [facility] Feb 27, 2024 12:00 AM Laboratory - Chemistry Order HIV Ag/Ab SCREEN BLOOD(GOLD) SERUM SP [facility] Feb 27, 2024 03:16 PM Consult Order SOCIAL WORK OUTPATIENT-[place] Cons Executive Coordinator's [facility] Feb 27, 2024 03:16 PM Consult Order COMMUNITY CARE-CT Cons Executive Coordinator's [facility] Feb 27, 2024 03:16 PM Consult Order COMMUNITY CARE-RADIOLOGY VASCULAR Cons Executive Coordinator's [facility] Feb 27, 2024 03:35 PM Consult Order COMMUNITY CARE-CT Cons Executive Coordinator's [facility] Immunizations: All administered on the encounter date This section contains immunizations associated to the Encounter. Immunization Series Date Issued Reaction Comments COVID-19 (MODERNA), MRNA, LN P-S, PF, 50 MCG/0.5 ML (AGES 12+ YEARS) Feb 27, 2024 INFLUENZA, HIGH-DOSE, TRIVALENT, PF Feb 26 Social History: Smoking Status (Most current) and Tobacco Use (All prior to encounter date) This section includes the most current, and the historical, smoking and tobacco- related health factors from the [place] facility where the Encounter took place. Current Smoking Status This section includes the most current smoking, or tobacco-related health factor, from the [place] facility where the Encounter took place. Date/Time Current Smoking Status Comment Mami ity Feb 19, 2023 01:00 PM VA-TOBACCO USER EVERY DAY [facility] Tobacco Use History This section includes a history of the smoking, or tobacco-related health factors, that were collected on or before the date of the Encounter. The data comes from the [place] facility where the Encounter took place. Date/Time Smoking Status/Tobacco Use Comment F acility Feb 19, 2023 01:00 PM VA-TOBACCO USE ADVICE [facility] Feb 19, 2023 01:00 PM VA-TOBACCO USE SPECIMEN TECHNICIAN NO [facility] Feb 19, 2023 01:00 PM VA-TOBACCO USE MED YES [facility] Feb 19, 2023 01:00 PM VA-TOBACCO USE WI 30 MIN OF WAKE UP [facility] Feb 19, 2023 01:00 PM VA-TOBACCO USER EVERY DAY [facility] Encounter Notes: All associated encounter notes This section contains the clinical notes associated to the Encounter. Date/Time Encounter Note(s) Provider Source Feb 27, 2024 02:50 PM NURSING IMMUNIZATI ON NOTE: LOCAL TITLE: IMMUNIZATION AND VACCINATION NOTE STANDARD TITLE: NURSING IMMUNIZATION NOTE DATE OF NOTE: FEB 27, 2024@14:50:18 ENTRY DATE: FEB 27, 2024@14:50:18 AUTHOR: WILL JIMENEZ EXP COSIGNER: URGENCY: STATUS: COMPLETED Administered: COVID-19 (MODERNA), MRNA, LNP-S, PF, 50 MCG/0.5 ML (AGES 12+ YEARS) Date Administered: Feb 27, 2024 14:30 Fleet Assistant: MODERNA [employer]. Lot: [id number] Exp Date: October 02, 2024 NDC: [id number] Admin Route/Site: INTRAMUSCULAR/LEFT DELTOID Dosage: 0.5mL Vaccine Information Statement(s): COVID-19 MRNA VACCINE (12+ YRS) VACCINE VIS Feb 28, 2023 ([place]) Order By: Policy Administered By: Will Jimenez /kwesi/ WILL JIMENEZ Signed: 02/27/2024 14:51 WILL JIMENEZ [facility] Feb 27, 2024 02:48 PM NURSING IMMUNIZATI ON NOTE: LOCAL TITLE: IMMUNIZATION AND VACCINATION NOTE STANDARD TITLE: NURSING IMMUNIZATION NOTE DATE OF NOTE: FEB 27, 2024@14:48:24 ENTRY DATE: FEB 27, 2024@14:48:24 AUTHOR: WILL JIMENEZ EXP COSIGNER: URGENCY: STATUS: COMPLETED Administered: INFLUENZA, HIGH-DOSE, TRIVALENT, PF Date Administered: Feb 27, 2024 14:30 Fleet Assistant: SANOFI PASTEUR Lot: [id number] Exp Date: Nov 09, 2024 NDC: [id number] Admin Route/Site: INTRAMUSCULAR/RIGHT DELTOID Dosage: 0.5mL Vaccine Information Statement(s): INFLUENZA(FLU) VACC(INACTIVATED OR RECOMBINANT)VIS Dec 16, 2020 ([place]) Order By: Policy Administered By: Will Jimenez /kwesi/ WILL JIMENEZ Signed: 02/27/2024 14:[address] [facility] Feb 27, 2024 02:33 PM PRIMARY CARE VITOR Brown EVALUATION NOTE: LOCAL TITLE: Preventive Health Annual Review STANDARD TITLE: PRIMARY CARE ANNUAL EVALUATION NOTE DATE OF NOTE: FEB 27, 2024@14:33 ENTRY DATE: FEB 27, 2024@14:33:39 AUTHOR: CELIA VO COSIGNER: URGENCY: STATUS: COMPLETED Suicide Screen: C-SSRS Screening [place]-Suicide Severity Rating Scale (C-SSRS Screener) 1. Over [...] Not worried about housing near future The reports the following: Within the past 12 [...] An alcohol screening test (AUDIT-C) was negative (score=3). 1. How often did you have a drink containing alcohol in the past year? Consider a drink to be a 12 ounce can or bottle of regular beer, 8 ounces of malt liquor, a 5 ounce glass of table wine, or a 1.5 ounce shot of liquor (like scotch, gin, or vodka). Two to three times per week 2. How many drinks containing alcohol did you have on a typical day when you were drinking in the past year? One or two drinks 3. How often did you have six or more drinks on one occasion in the past year? Never Sexual Orientation: The patient thinks of their [...] down, depressed, or hopeless Not at all /kwesi/ CELIA VO [employer] Fixed Capital Clerk Signed: 02/27/2024 14:36 CELIA VO [facility]
--- OUTSIDE RECORDS SUMMARY | 2024-03-02 20:49 | XMS_ITS | Clinical Summary ---
Author Organization [facility] Address [facility] [place] [address] Care Team Providers Care Oil Field Equipment Mechanic Name Role Phone Antoinette Nahomy Mae SMITH Primary Care Provider [phone] Allergies No known active allergies Medications Medication [...] - PCV) 1961 Hepatitis C Screening 1973 Tetanus/Diphtheria/Pertussis Vaccines (1 - Tdap) 02/23 Zoster vaccine (1 of 2) 2005 Advance Directive 2010 AAA Screen 02/24/2020 Covid-19 Vaccine (1 - season) 2024 Influenza (Flu) vaccine (1 o f 1 - Influenza standard series) 01/12/2024 Care Teams Oil Field Equipment Mechanic Relationship Specialty Start Date End Date Nahomy Curry APRN PCP - General Family Medicine 01/30/21
--- OUTSIDE RECORDS SUMMARY | 2024-03-02 20:49 | XMS_ITS | Encounter Summary ---
Author Name [facility] [place] Organization [facility] [place] Address [address] [place] [address] Care Team Providers Care Latex Caster Name Role Phone AG SALGUERO Primary Care [...] Name Patient's Relationship to Policy Lorenzo AARP [facility] (WNR) MEDICARE ADVANTAGE [facility] (WNR) Feb 10, 2023 [id number] HELGAJENN Y PATIENT Selected Encounter This section includes the information on record at [place] for the Encounter. Date/Time Encounter Type Encounter Description Reason Pro vider Source Jan 28, 2024 08:43 AM Outpatient Encounter ADMIN PAT ACTIVTIES (MASNONCT) [...] PM AMBULATORY - NONE [facility] Apr 21, 2024 11:00 AM AMBULATORY - NONE [facility] Active, Pending, and Scheduled Orders [...] Order COMMUNITY CARE-OPTOMETRY ROUTINE EYE EXAM Cons [facility] Feb 25, 2024 12:00 AM Laboratory - Chemistry Order CBC PROFILE BLOOD(LAV-EDTA-WB) [facility] Feb 25, 2024 12:00 AM Laboratory - Chemistry Order LIVER PROFILE LT GREEN(LI HEP) PLASMA [facility] Feb 25, 2024 12:00 AM Laboratory - Chemistry Order LIPOPROTEIN CHOLESTEROL FRACT. PANEL LT GREEN(LI HEP) PLASMA [facility] Feb 25, 2024 12:00 AM Laboratory - Chemistry Order VIT D 25-OH(WRJ) BLOOD(GOLD) SERUM [facility] Feb 25, 2024 12:00 AM Laboratory - Chemistry Order PSA (JEWEL BEARING FACER) BLOOD(GOLD) SERUM [facility] Feb 25, 2024 12:00 AM Laboratory - Chemistry Order TSH BLOOD(GOLD) SER[facility] Feb 25, 2024 12:00 AM Laboratory - Chemistry Order VITAMIN B-12 BLOOD(GOLD) SERUM [facility] Feb 25, 2024 12:00 AM Laboratory - Chemistry Order GLYCOHEMOGLOBIN (A1C ONLY) BLOOD(LAV-EDTA-WB) [facility] Feb 25, 2024 12:00 AM Laboratory - Chemistry Order P4 GLU,BUN,CREAT,LYTES,CA LT GREEN(LI HEP) PLASMA [facility] Feb 27, 2024 12:00 AM Laboratory - Chemistry Order HEPATITIS C AB(WRJ)w/Reflex BLOOD(GOLD)(3) SERUM [facility] Feb 27, 2024 12:00 AM Laboratory - Chemistry Order HIV Ag/Ab SCREEN BLOOD(GOLD) [facility] SP [place] [facility] Feb 27, 2024 03:16 PM Consult Order SOCIAL WORK OUTPATIENT-[place] Cons Pyrotechnician's Choice [place] [facility] Feb 27, 2024 03:16 PM Consult Order COMMUNITY CARE-CT Cons Pyrotechnician's Choice [place] [facility] Feb 27, 2024 03:16 PM Consult Order COMMUNITY CARE-RADIOLOGY VASCULAR Cons Pyrotechnician's Choice [place] [facility] Feb 27, 2024 03:35 PM Consult Order COMMUNITY CARE-CT Cons [place]chnician's [place] [facility] Encounter Notes: All associated encounter notes This section contains the clinical notes associated to the Encounter. Date/Time Encounter Note(s) Provider Source Jan 28, 2024 08:43 AM ADMINISTRATIVE NOT E: LOCAL TITLE: CCC: SCHEDULING ADMINISTRATION STANDARD TITLE: ADMINISTRATIVE NOTE DATE OF NOTE: JAN 28, 2024@08:43:45 ENTRY DATE: JAN 28, 2024@08:43:45 AUTHOR: RAYMOND ABRAHAM EXP COSIGNER: URGENCY: STATUS: COMPLETED Patient Demographics Patient Name: ABBY PARTIDA Patient Primary Phone: [phone] Patient Primary Address: [address] [place] [address] Patient : 1955 Patient Age: 68 Call Back Number: [phone] Caller/Recipient Relation to Patient: Self Administrative Administrative Note Reason: [facility] / [place] Act Administrative Note Comments: PT REQUESTING A CC CONSULT FOR OPTOMETRY, PT STATES [facility] OPTOMETRY DOESNT HAVE APPTS UNTIL JULY 2024. IMPORTANT: This note was created by [facility] Clinical Contact Center staff. Please do not alert the staff member by adding them as a signer for future communications. Alerts are not monitored by this user. /es/ RAYMOND ABRAHAM VISN 1 CCC AMSA Signed: 01/28/2024 08:43 Receipt Acknowledged By: 01/28/2024 11:36 /es/ MICHAEL GRADY LPN 01/28/2024 11:19 /es/ JEWELS BROWNE Registered Nurse RAYMOND [facility]
--- OUTSIDE RECORDS SUMMARY | 2024-03-02 20:49 | XMS_ITS | Encounter Summary ---
Author Name Department [place] Address [address] [place] [address] Care Team Providers Care Chair Post Machine Operator Name Role Phone AG SALGUERO Primary Care [...] Lorenzo's Name Patient's Relationship to Policy [facility] (WNR) MEDICARE ADVANTAGE [facility] (WNR) Feb 10, 2023 [id number] JENN PARTIDA Y PATIENT Selected Encounter This section includes the information on record at [place] for the Encounter. Date/Time Encounter Type Encounter Description Reason Pro vider Source Mar 02, 2024 03:06 PM Outpatient Encounter PRIMARY CARE/MEDICINE IHE Encounter Template Text not used by [place] Plan of Treatment: Future Appointments (+ 6 [...] 20 appointments. The data comes from all [place] treatment facilities. Appointment Date/Time Appointment Type Appointme nt Facility Name Apr 21, 2024 11:00 AM AMBULATORY - NONE [facility] Active, Pending, and Scheduled Orders This section includes a listing of several types of active, pending, and scheduled orders, including clinic medications orders, diagnostic test orders, procedure orders and consult orders; where the start date of the order is 45 days before the date of the Encounter or 45 days after the date of theEncounter. The data comes from all [facility] facilities. Test Date/Time Test Type Test Details Facility Name Jan 22, 2024 10:34 AM Consult Order COMMUNITY CARE-OPTOMETRY ROUTINE EYE EXAM Cons Tank Hoop Bender's Choice [facility] Feb 25, 2024 12:00 AM Laboratory - Chemistry Order CBC PROFILE BLOOD(LAV-EDTA-WB) [facility] Feb 25, 2024 12:00 AM Laboratory - Chemistry Order LIVER PROFILE LT GREEN(LI HEP) PLASMA [facility] Feb 25, 2024 12:00 AM Laboratory - Chemistry Order LIPOPROTEIN CHOLESTEROL FRACT. PANEL LT GREEN(LI HEP) PLASMA [facility] Feb 25, 2024 12:00 AM Laboratory - Chemistry Order VIT D 25-OH(WRJ) BLOOD(GOLD) [facility] Feb 25, 2024 12:00 AM Laboratory - Chemistry Order PSA (VALET RUNNER) BLOOD(GOLD) [facility] Feb 25, 2024 12:00 AM Laboratory - Chemistry Order TSH BLOOD(GOLD) [facility] Feb 25, 2024 12:00 AM Laboratory - Chemistry Order VITAMIN B-12 BLOOD(GOLD) [facility] Feb 25, 2024 12:00 AM Laboratory - Chemistry Order GLYCOHEMOGLOBIN (A1C ONLY) BLOOD(LAV-EDTA-WB) [facility] Feb 25, 2024 12:00 AM Laboratory - Chemistry Order P4 GLU,BUN,CREAT,LYTES,CA LT GREEN(LI HEP) PLASMA [facility] Feb 27, 2024 12:00 AM Laboratory - Chemistry Order HEPATITIS C AB(WRJ)w/Reflex BLOOD(GOLD)(3) [facility] Feb 27, 2024 12:00 AM Laboratory - Chemistry Order HIV Ag/Ab SCREEN BLOOD(GOLD) [facility] Feb 27, 2024 03:16 PM Consult Order SOCIAL WORK OUTPATIENT-SRIKANTH Cons Tank Hoop Bender's Choice [facility] Feb 27, 2024 03:16 PM Consult Order COMMUNITY CARE-CT Cons Tank Hoop Bender's Choice [facility] Feb 27, 2024 03:16 PM Consult Order COMMUNITY CARE-RADIOLOGY VASCULAR Cons Tank Hoop Bender's Choice [facility] Feb 27, 2024 03:35 PM Consult Order COMMUNITY CARE-[place] Cons Tank Hoop Bender's [facility] [place] [facility] Encounter Notes: All associated encounter notes This section contains the clinical notes associated to the Encounter. Date/Time Encounter Note(s) Provider Source Mar 02, 2024 03:11 PM NURSING IMMUNIZATI ON NOTE: LOCAL TITLE: IMMUNIZATION AND VACCINATION NOTE STANDARD TITLE: NURSING IMMUNIZATION NOTE DATE OF NOTE: MAR 02, 2024@15:11:53 ENTRY DATE: MAR 02, 2024@15:11:53 AUTHOR: MICHAEL GRADY EXP COSIGNER: URGENCY: STATUS: COMPLETED Documented: COVID-19 (PFIZER), MRNA, LNP-S, PF, LAKSHMI-SUCROSE, 30 MCG/0.3 ML (AGES 12+ YEARS) Historical Date Administered: Apr 25, 2022 Lot: [id number] Exp Date: Unknown Information Source: FROM OTHER REGISTRY Documented: COVID-19 (MODERNA), MRNA, LNP-S, PF, 100 MCG/0.5ML DOSE OR 50 MCG/0.25ML DOSE Historical Date Administered: Dec 25, 2021 Lot: [id number] Exp Date: Unknown Information Source: FROM OTHER REGISTRY Documented: COVID-19 (NOVAVAX), SUBUNIT, RS-NANOPARTICLE, ADJUVANTED, PF, 5 MCG/0.5 ML (AGES 12+ YEARS) Historical Date Administered: Apr 11, 2021 Information Source: FROM OTHER REGISTRY Documented: COVID-19 (MODERNA), MRNA, LNP-S, PF, 50 MCG/0.5 ML (AGES 12+ YEARS) Historical Date Administered: Aug 09, 2020 Information Source: FROM OTHER REGISTRY Documented: TD (ADULT) Historical Date Administered: Feb 28, 2022 Information Source: FROM OTHER REGISTRY Documented: ZOSTER LIVE Historical Date Administered: Feb 28, 2015 Information Source: FROM OTHER REGISTRY /kwesi/ MICHAEL GRADY LPN Signed: 03/02/2024 15:12 [facility]
== END 2024-03-02 20:48 | disposition home or self-care (01) ==
LOC: NCHCN 20:47
PROVIDERS: PCP Nurse Practitioner Family; Visit Provider Physician Assistant Medical
DX: E78.5 Hyperlipidemia, unspecified (principal)
CPT/HCPCS: 80053; 80061

== ENCOUNTER 2024-05-04 08:49 | Outpatient (REF) | payer MEDICARE, SELFPAY ==
--- OUTSIDE RECORDS SUMMARY | 2024-05-04 08:51 | XMS_ITS ---
Author Name [place] Organization [place] Address [address] [place] [address] Care Team Providers Care Perforator Operator Name Role Phone AG SALGUERO Primary [...] Lorenzo's Name Patient's Relationship to Policy Lorenzo [employer]MANA [facility] (WNR) MEDICARE ADVANTAGE [facility](W NR) Jun 13, 2023 [id number] JENN PARTIDA Y PATIENT Selected Encounter This section includes the information on record at [place] for the Encounter. Date/Time Encounter Type Encounter Description Reason Pro vider Source Jan 28, 2024 08:43 AM Outpatient Encounter ADMIN PAT ACTIVTIES (MASNONCT) IHE Encounter Template Text not used by CT Plan of Treatment: Future Appointments (+ 6 [...] 2024 02:30 PM AMBULATORY - NONE [facility] K[facility]STIN [facility]ONE [facility] Mar 19, 2024 10:00 AM AMBULATORY - NONE [facility]ITE RI K[facility]A [facility] Mar 19, 2024 10:30 AM AMBULATORY - NONE [facility] Apr 21, 2024 11:00 AM AMBULATORY - NONE [facility] Jun 17, 2024 11:00 AM AMBULATORY - NONE [facility] Active, Pending, and Scheduled Orders This section includes a listing of several types of active, pending, and scheduled orders, including clinic medications orders, diagnostic test orders, procedure orders and consult orders; where the start date of the order is 45 days before the date of the Encounter or 45 days after the date of theEncounter. The data comes from all [facility]. Test Date/Time Test Type Test Details Facility Name Jan 22, 2024 10:34 AM Consult Order COMMUNITY CARE-OPTOMETRY ROUTINE EYE EXAM Cons Radiophone Operator's Choice [facility] Feb 25, 2024 12:00 [...] 12:00 AM Laboratory - Chemistry Order PSA (SENIOR MATERIALS SCIENTIST) BLOOD(GOLD) [facility] Feb 25, [...] P4 GLU,BUN,CREAT,LYTES,CA LT GREEN(LI HEP) PLASMA SP ANT [facility] Feb 27, 2024 12:00 AM Laboratory - Chemistry Order HEPATITIS C AB(WRJ)w/Reflex BLOOD(GOLD)(3) SERUM SP ANT [facility] Feb 27, 2024 12:00 AM Laboratory - Chemistry Order HIV Ag/Ab SCREEN BLOOD(GOLD) [facility]UM SP [facility] Encounter Notes: All associated [...] Patient Name: ABBY PARTIDA Patient Primary Phone: [phone] Patient Primary Address: [address] [place] [address] Patient : 1955 Patient Age: 68 Call Back Number: [phone] Caller/Recipient Relation to Patient: Self Administrative Administrative Note Reason: Community Care / [place] Act Administrative Note Comments: PT REQUESTING A CC CONSULT FOR OPTOMETRY, PT STATES [facility] OPTOMETRY DOESNT HAVE APPTS UNTIL JULY 2024. IMPORTANT: This note was created by [facility] Clinical Contact Center staff. Please do not alert the staff member by adding them as a signer for future communications. Alerts are not monitored by this user. /es/ RAYMOND ABRAHAM VISN [address] [facility] AMSA Signed: 01/28/2024 08:43 Receipt Acknowledged By: 01/28/2024 11:36 /es/ MICHAEL GRADY WOOD DRILLING MACHINE OPERATOR 01/28/2024 11:19 /kwesi/ JEWELS BROWNE Registered Nurse RAYMOND ABRAHAM [facility]
--- OUTSIDE RECORDS SUMMARY | 2024-05-04 08:51 | XMS_ITS | Encounter Summary ---
Author Name [place] Address [address] [place] [address] Care Team Providers Care Retort Condenser Attendant Name Role Phone AG SALGUERO Primary [...] Name Patient's Relationship to Policy Lorenzo [employer]MANA [facility] (WNR) MEDICARE ADVANTAGE [facility](W NR) Jun 13, 2023 [id number] JENN PARTIDA Y PATIENT Selected Encounter This section includes the information on record at [place] for the Encounter. Date/Time Encounter Type Encounter Description Reason Pro vider Source Jan 28, 2024 08:47 AM Outpatient Encounter ADMIN PAT ACTIVTIES (MASNONCT) IHE Encounter Template Text not used by [place] Plan of Treatment: Future Appointments (+ 6 [...] PM AMBULATORY - NONE WHITE KRISTIN MALONE [facility] Mar 19, 2024 10:00 AM AMBULATORY - NONE WHITE RI KIRA [facility] Mar 19, 2024 10:30 AM AMBULATORY - NONE WHITE RI KIRA [facility] Apr 21, 2024 11:00 AM AMBULATORY - NONE WHITE RI KIRA [facility] Jun 17, 2024 11:00 AM AMBULATORY - NONE WHITE RI KIRA [facility] Active, Pending, and [...] of theEncounter. The data comes from all [facility]. Test Date/Time Test Type Test Details Facility Name Jan 22, 2024 10:34 AM Consult Order COMMUNITY CARE-OPTOMETRY ROUTINE EYE EXAM Cons Planting Material Carrier's Choice [facility] Feb 25, 2024 12:00 AM Laboratory - Chemistry Order CBC PROFILE BLOOD(LAV-EDTA-WB) [facility] Feb 25, 2024 12:00 AM Laboratory - Chemistry Order LIVER PROFILE LT GREEN(LI HEP) PLASMA [facility] Feb 25, 2024 12:00 AM Laboratory - Chemistry Order LIPOPROTEIN CHOLESTEROL FRACT. PANEL LT GREEN(LI HEP) PLASMA [facility] Feb 25, 2024 12:00 AM Laboratory - Chemistry Order VIT D 25-OH(WRJ) BLOOD(GOLD) SERUM [facility] Feb 25, 2024 12:00 AM Laboratory - Chemistry Order PSA (DIRECTOR ORACLE DATABASE) BLOOD(GOLD) [facility] Feb 25, 2024 12:00 AM Laboratory - Chemistry Order TSH BLOOD(GOLD) [facility] Feb 25, 2024 12:00 AM Laboratory - Chemistry Order VITAMIN B-12 BLOOD(GOLD) [facility] Feb 25, 2024 12:00 AM Laboratory - Chemistry Order GLYCOHEMOGLOBIN (A1C ONLY) BLOOD(LAV-EDTA-WB) [facility] Feb 25, 2024 12:00 AM Laboratory - Chemistry Order P4 GLU,BUN,CREAT,LYTES,CA LT GREEN(LI HEP) PLASMA SP ANT [facility] Feb 27, 2024 12:00 AM Laboratory - Chemistry Order HEPATITIS C AB(WRJ)w/Reflex BLOOD(GOLD)(3) SERUM SP ANT [facility] Feb 27, 2024 12:00 AM Laboratory - Chemistry Order HIV Ag/Ab SCREEN BLOOD(GOLD) [facility] SP [facility] Encounter Notes: All [...] Patient Name: ABBY PARTIDA Patient Primary Phone: [phone] Patient Primary Address: [address] [place] [address] Patient : 1955 Patient Age: 68 Call Back Number: Caller/Recipient Relation to Patient: Self Administrative Administrative Note Reason: Other Administrative Note Comments: PT REQUESTING TO SPEAK WITH SW TO DISCUSS LEGAL ISSUES. IMPORTANT: This note was created by [facility] Clinical Contact Center staff. Please do not alert the staff member by adding them as a signer for future communications. Alerts are not monitored by this user. /kwesi/ RAYMOND ABRAHAM VISN 1 [facility] AMSA Signed: 01/28/2024 08:47 Receipt Acknowledged By: * AWAITING SIGNATURE * STAR RUSSELL 01/28/2024 11:17 /es/ JEWELS BROWNE Registered Nurse RAYMOND ABRAHAM [facility]
--- OUTSIDE RECORDS SUMMARY | 2024-05-04 08:51 | XMS_ITS | Encounter Summary ---
Author Name Department of Vetera Affairs [place] Organization [place] Address [address] [place] [address] Care Team Providers Care Drop Forge Hand Name Role Phone AG SALGUERO Primary Care [...] Name Patient's Relationship to Policy Lorenzo [employer]NA [facility] (WNR) MEDICARE ADVANTAGE [facility](W NR) Jun 13, 2023 [id number] JENN PARTIDA Y PATIENT Selected Encounter This [...] Medical Records: EVENT PROCEDURE: Primary Care Note [facility] Notes: Comments. Problems. 1. post concussion syndome [...] from a Dr. Jennifer Salguero out of [place] at the [place], which has been more cost effective for [...] instructions on pack Qty: (42) tablet Pharmacy: [id number] Note to Pharmacy: please prescribe starter pack *nicotine 21 mg/24 hr daily tranadermal patch - Apply 1 patch to skin once a day removing old patch before putting on new patch and also alternating arms/areas Qty; (30) 21 patch, transdermal 24 hours box Refills: 1 Pharmacy: [id number] 2. Pulmonary emphysema - [...] lipids later this summer. Will meet with [facility] today for guidance on low-fat diet. He [...] AND AUTHORIZED BY DOCUMENT (S) SENT TO [facility] TO BE SCANNED. TO VIEW THIS [...] Acknowledged By: 08/01/2023 16:25 /MICHAEL Honeycutt LPN [facility] Aug 01, 2023 04:14 PM ADDENDUM: [...] Medical Records: EVENT PROCEDURE: Primary Care Note [facility] Notes: Comments. Problems. 1. post concussion syndome [...] from a Dr. Jennifer Salguero out of [place] at the [place], which has been more cost effective for [...] instructions on pack Qty: (42) tablet Pharmacy: [facility] [id number] Note to Pharmacy: please prescribe starter pack *nicotine 21 mg/24 hr daily tranadermal patch - Apply 1 patch to skin once a day removing old patch before putting on new patch and also alternating arms/areas Qty; (30) 21 patch, transdermal 24 hours box Refills: 1 Pharmacy: [id number] 2. Pulmonary emphysema - Stable. Continues on [...] lipids later this summer. Will meet with [facility] today for guidance on low-fat diet. He [...] AND AUTHORIZED BY DOCUMENT (S) SENT TO [facility] TO BE SCANNED. TO VIEW THIS DOCUMENT, OPEN CPRS TOOLS MENU AND THEN OPEN THE IMAGE DISPLAY VIEWER. /kwesi/ MICHAEL GRADY LPN Signed: 07/30/2023 12:18 Receipt Acknowledged By: 08/01/2023 16:14 /kwesi/ AG SALGUERO PA-C 07/30/2023 ADDENDUM STATUS: COMPLETED all medications seem to be ordered please adjust refills /abigail GRADY LPN Signed: 07/30/2023 12:19 AG SALGUERO [facility] Jul 02, 2023 12:06 PM NONVA NOTE: LOCAL TITLE: NonVA Medical Records STANDARD TITLE: NONVA NOTE DATE OF NOTE: JUL 02, 2023@12:06 ENTRY DATE: JUL 30, 2023@12:06:58 AUTHOR: MICHAEL GRADY EXP COSIGNER: URGENCY: STATUS: COMPLETED NonVA Medical Records Has ADDENDA EVENT PROCEDURE: Primary Care Note [facility] Notes: Comments. Problems. 1. post concussion syndome [...] from a Dr. Jennifer Salguero out of [place] at the [facility], which has been more cost effective for [...] instructions on pack Qty: (42) tablet Pharmacy: [id number] Note to Pharmacy: please prescribe starter pack *nicotine 21 mg/24 hr daily tranadermal patch - Apply 1 patch to skin once a day removing old patch before putting on new patch and also alternating arms/areas Qty; (30) 21 patch, transdermal 24 hours box Refills: 1 Pharmacy: [id number] 2. Pulmonary emphysema - [...] lipids later this summer. Will meet with [facility] today for guidance on low-fat diet. He [...] AND AUTHORIZED BY DOCUMENT (S) SENT TO [facility] TO BE SCANNED. TO VIEW THIS [...] AWAITING SIGNATURE * AG SALGUERO [facility]IZABETH M [facility]
--- OUTSIDE RECORDS SUMMARY | 2024-05-04 08:51 | XMS_ITS | Encounter Summary ---
Author Name [place] Address [address] [place] [address] Care Team Providers Care Electrician Office Name Role Phone AG SALGUERO Primary Care [...] Name Patient's Relationship to Policy Lorenzo HUMANA [facility] (WNR) MEDICARE ADVANTAGE [facility](W NR) Jun 13, 2023 [id number] JENN PARTIDA Y PATIENT Selected Encounter This section includes the information on record at [place] for the Encounter. Date/Time Encounter Type Encounter Description Reason Pro vider Source Jan 22, 2024 09:49 AM Outpatient Encounter ADMIN PAT ACTIVTIES (MASNONCT) [...] PM AMBULATORY - NONE WHITE KRISTIN MALONE [facility] Mar 19, 2024 10:00 AM AMBULATORY - NONE WHITE RI KIRA [facility] Mar 19, 2024 10:30 AM AMBULATORY - NONE WHITE RI KIRA [facility] Apr 21, 2024 11:00 AM AMBULATORY - NONE WHITE RI KIRA [facility] Jun 17, 2024 11:00 AM AMBULATORY - NONE WHITE RI KIRA [facility] Active, Pending, and [...] of theEncounter. The data comes from all [facility]. Test Date/Time Test Type Test Details Facility Name Jan 22, 2024 10:34 AM Consult Order COMMUNITY CARE-OPTOMETRY ROUTINE EYE EXAM Cons Lead Enterprise Architect's Choice [facility] Feb 25, 2024 12:00 AM Laboratory - Chemistry Order CBC PROFILE BLOOD(LAV-EDTA-WB) [facility] Feb 25, 2024 12:00 AM Laboratory - Chemistry Order LIVER PROFILE LT GREEN(LI HEP) PLASMA [facility] Feb 25, 2024 12:00 AM Laboratory - Chemistry Order LIPOPROTEIN CHOLESTEROL FRACT. PANEL LT GREEN(LI HEP) PLASMA [facility] Feb 25, 2024 12:00 AM Laboratory - Chemistry Order VIT D 25-OH(WRJ) BLOOD(GOLD) SERUM [facility] Feb 25, 2024 12:00 AM Laboratory - Chemistry Order PSA (CABLE TELEVISION ACCESS COORDINATOR) BLOOD(GOLD) [facility] Feb 25, 2024 12:00 AM Laboratory - Chemistry Order TSH BLOOD(GOLD) [facility] Feb 25, 2024 12:00 AM Laboratory - Chemistry Order VITAMIN B-12 BLOOD(GOLD) [facility] Feb 25, 2024 12:00 AM Laboratory - Chemistry Order GLYCOHEMOGLOBIN (A1C ONLY) BLOOD(LAV-EDTA-WB) [facility] Feb 25, 2024 12:00 AM Laboratory - Chemistry Order P4 GLU,BUN,CREAT,LYTES,CA LT GREEN(LI HEP) PLASMA SP ANT [facility] Feb 27, 2024 12:00 AM Laboratory - Chemistry Order HEPATITIS C AB(WRJ)w/Reflex BLOOD(GOLD)(3) SERUM SP ANT [facility] Feb 27, 2024 12:00 AM Laboratory - Chemistry Order HIV Ag/Ab SCREEN BLOOD(GOLD) SERUM SP [facility] Encounter Notes: All associated encounter notes This section contains the clinical notes associated to the Encounter. Date/Time Encounter Note(s) Provider Source Jan 22, 2024 09:49 AM ADMINISTRATIVE NOT E: LOCAL TITLE: CCC: SCHEDULING ADMINISTRATION STANDARD TITLE: ADMINISTRATIVE NOTE DATE OF NOTE: JAN 22, 2024@09:49:16 ENTRY DATE: JAN 22, 2024@09:49:17 AUTHOR: DIANA BULLOCK EXP COSIGNER: URGENCY: STATUS: COMPLETED Patient Demographics Patient Name: ABBY PARTIDA Patient Primary Phone: [phone] Patient Primary Address: [address] [place] [address] Patient : 1955 Patient Age: 68 Call Back Number: [phone] Caller/Recipient Relation to Patient: Self Administrative Administrative Note Reason: Other Administrative Note Comments: Pt is requesting a renewal on the following cc consult: [address] [address] P: F: IMPORTANT: This note was created by [facility] Clinical Contact Center staff. Please do not alert the staff member by adding them as a signer for future communications. Alerts are not monitored by this user. /kwesi/ DIANA BULLOCK Advanced Senior Technologist Signed: 01/22/2024 09:49 Receipt Acknowledged By: 01/22/2024 10:34 /es/ MICHAEL GRADY LPN 01/22/2024 11:05 /kwesi/ JEWELS BROWNE Registered Nurse DIANA BULLOCK [facility]
--- OUTSIDE RECORDS SUMMARY | 2024-05-04 08:51 | XMS_ITS | Encounter Summary ---
Author Name [place] Address [address] [place] [address] Care Team Providers Care Environmental Conflict Manager Name Role Phone AG SALGUERO Primary [...] Name Patient's Relationship to Policy Lorenzo HUMANA [facility] (WNR) MEDICARE ADVANTAGE [facility](W NR) Jun 13, 2023 [id number] JENN PARTIDA Y PATIENT Selected Encounter This [...] AMBULATORY - NONE WHITE KRISTIN MALONE [facility] Mar 19, 2024 10:00 AM AMBULATORY - NONE WHITE RI KIRA [facility] Mar 19, 2024 10:30 AM AMBULATORY - NONE WHITE RI KIRA [facility] Apr 21, 2024 11:00 AM AMBULATORY - NONE WHITE RI KIRA [facility] Jun 17, 2024 11:00 AM AMBULATORY - NONE WHITE RI KIRA [facility] Active, Pending, and Scheduled Orders This section includes a listing of several types of active, pending, and scheduled orders, including clinic medications orders, diagnostic test orders, procedure orders and consult orders; where the start date of the order is 45 days before the date of the Encounter or 45 days after the date of theEncounter. The data comes from all [facility]. Test Date/Time Test Type Test Details Facility Name Jan 22, 2024 10:34 AM Consult Order COMMUNITY CARE-OPTOMETRY ROUTINE EYE EXAM Cons Sizing Sprayer's Choice [facility] Feb 25, 2024 12:00 AM Laboratory - Chemistry Order CBC PROFILE BLOOD(LAV-EDTA-WB) [facility] Feb 25, 2024 12:00 AM Laboratory - Chemistry Order LIVER PROFILE LT GREEN(LI HEP) PLASMA [facility] Feb 25, 2024 12:00 AM Laboratory - Chemistry Order LIPOPROTEIN CHOLESTEROL FRACT. PANEL LT GREEN(LI HEP) PLASMA [facility] Feb 25, 2024 12:00 AM Laboratory - Chemistry Order VIT D 25-OH(WRJ) BLOOD(GOLD) SERUM [facility] Feb 25, 2024 12:00 AM Laboratory - Chemistry Order PSA (SCRUB TECH) BLOOD(GOLD) [facility] Feb 25, 2024 12:00 AM Laboratory - Chemistry Order TSH BLOOD(GOLD) [facility] Feb 25, 2024 12:00 AM Laboratory - Chemistry Order VITAMIN B-12 BLOOD(GOLD) [facility] Feb 25, 2024 12:00 AM Laboratory - Chemistry Order GLYCOHEMOGLOBIN (A1C ONLY) BLOOD(LAV-EDTA-WB) [facility] Feb 25, 2024 12:00 AM Laboratory - Chemistry Order P4 GLU,BUN,CREAT,LYTES,CA LT GREEN(LI HEP) PLASMA SP [facility] Feb 27, 2024 12:00 AM Laboratory - Chemistry Order HEPATITIS C AB(WRJ)w/Reflex BLOOD(GOLD)(3) SERUM SP [facility] Feb 27, 2024 12:00 AM Laboratory - Chemistry Order HIV Ag/Ab SCREEN BLOOD(GOLD) SERUM SP [facility] Encounter Notes: All associated encounter notes [...] STAR RUSSELL 02/06/2024 07:37 /kwesi/ AFTAB MARCUS [facility]
--- OUTSIDE RECORDS SUMMARY | 2024-05-04 08:51 | XMS_ITS ---
Author Name [facility] [place] [facility] [place] [facility] [place] Address [address] [place] [address] Care Team Providers Care Zipper Cutter Name Role Phone AG SALGUERO Primary Care [...] Name Patient's Relationship to Policy Lorenzo HUMANA [facility] (WNR) MEDICARE ADVANTAGE [facility](W NR) Jun 13, 2023 [id number] [phone] HELGAJENN Y PATIENT Selected Encounter This section includes the information on record at [place] for the Encounter. Date/Time Encounter Type Encounter [...] 2023@14:02 ENTRY DATE: JUL 18, 2023@14:02:46 AUTHOR: LATRICE GOVEA EXP COSIGNER: URGENCY: STATUS: COMPLETED Prescriptions were received from a non-VA provider. This patient does not have an active Community Care Consult for this provider. The patient has been contacted with instructions to have their non-VA provider send the prescriptions to an outside pharmacy. The prescription was from [facility]. /kwesi/ LATRICE GOVEA PHARM.D Clinical Pharmacist Signed: 07/18/2023 14:03 LATRICE GOVEA [facility]
--- OUTSIDE RECORDS SUMMARY | 2024-05-04 08:51 | XMS_ITS | Continuity of Care Document ---
Author Name [facility] Organization [facility] Care Team Providers Care Borematic Operator Name Role Phone [facility] Unavailable Unavailable Problems Combined list of problems from Department of Defense and Veterans Affairs facilities. It does not include entries that were removed or entered in error. Problem Status Onset Date Problem Type Date of Resolution Comments Source Alcohol intake above recommended sensible limits Active Condition [facility] Chronic obstructive lung disease Active Condition [facility] Depression ([facility] [id number]) Active Condition [facility] Hyperlipidemia ([facility] [id number]) Active Condition [facility] Impaired fasting glucose Active Condition [facility] Insomnia Active Condition [facility] Right inguinal hernia Active Condition [facility] Tobacco User ([facility] [id number]) Active Condition [facility] Traumatic brain injury Active Condition [facility] Valvular heart disease Active Condition Feb 19, 2023 Entered By: AG SALGUERO Comment: Mod MR, Mod to severe [place] [facility] Diagnosis: ICD-10-CM Z76.89 Persons encountering health services in oth circumstances Active Diagnosis [facility] Diagnosis: ICD-10-CM Z59.86 Financial insecurity Active Diagnosis [facility] Diagnosis: ICD-10-CM J44.9 Chronic obstructive pulmonary disease, unspecified Active Diagnosis [facility] Diagnosis: ICD-10-CM Z46.0 Encounter for fit/adjst of spectacles and contact lenses Active Diagnosis [facility] Medications Combined list of outpatient medications from [...] ATION) DISCONT INUED BY PROVIDE R 02/20/2024 [id number] KORIN SALGUERO 2022 1 [facility] ALBUTEROL INHL,ORAL INHALE BY MOUTH FOUR TIMES DAILY NEEDED RESPIR ATORY (INHAL ATION) ACTIVE KORIN SALGUERO 2022 [facility] AMITRIPTYLI NE HCL 100MG TAB TAKE ONE TABLET BY MOUTH AT BEDTIME FOR SLEEP ORAL DISCONT INUED BY PROVIDE R 08/02/2024 [id number] 4 KORIN SALGUERO 2023 90 [facility] AMITRIPTYLI NE HCL 100MG TAB TAKE ONE TABLET BY MOUTH AT BEDTIME FOR SLEEP ORAL DISCONT INUED 02/29/2024 [id number] 4 KORIN SALGUERO 2022 90 [facility] AMITRIPTYLI NE HCL 100MG TAB TAKE ONE TABLET BY MOUTH AT BEDTIME ORAL ACTIVE [place] 2020 [facility] ATORVASTATI N CA 80MG TAB TAKE ONE TABLET BY MOUTH ONCE DAILY TO LOWER CHOLESTE ROL ORAL DISCONT INUED BY PROVIDE R 02/29/2024 [id number] 4 KORIN SALGUERO 2022 90 [facility] ATORVASTATI N CA 80MG TAB TAKE ONE TABLET BY MOUTH AT BEDTIME ORAL ACTIVE KORIN SALGUERO 2022 [facility] CHOLECALCIF ZEYNEP 25MCG (1,000UNIT) TAB TAKE ONE TABLET BY MOUTH ONCE DAILY FOR VITAMIN D DEFICIEN CY ORAL DISCONT INUED BY PROVIDE R 02/29/2024 [id number] 4 KORIN SALGUERO 2022 100 [facility] CHOLECALCIF ZEYNEP 25MCG (1,000UNIT) TAB TAKE ONE TABLET BY MOUTH EVERY DAY ORAL ACTIVE [place] 2020 [facility] FUROSEMIDE 20MG TAB TAKE ONE TABLET BY MOUTH EVERY MORNING FOR EDEMA ORAL DISCONT INUED BY PROVIDE R 02/29/2024 [id number] 3 KORIN SALGUERO 2022 90 [facility] FUROSEMIDE 20MG TAB TAKE ONE TABLET BY MOUTH ONCE DAILY NEEDED ORAL ACTIVE KORIN SALGUERO 2022 [facility] MULTIVITAMI N W/MINERALS CAP/TAB TAKE BY MOUTH ONCE DAILY ORAL ACTIVE KORIN SALGUERO 2022 [facility] MULTIVITAMI NS W/MINERALS CAP/TAB TAKE ONE CAP/TAB BY MOUTH ONCE DAILY TO SUPPLEME NT VITAMINS ORAL DISCONT INUED BY PROVIDE R 02/29/2024 [id number] 4 KORIN SALGUERO 2022 130 [facility] NICOTINE POLACRILEX 2MG TAB,CHEWG GUM CHEW 1 PIECE BY MOUTH EVERY TWO HOURS NEEDED FOR SMOKING CESSATIO N ORAL DISCONT INUED BY PROVIDE R 02/29/2024 [id number] 3 KORIN SALGUERO 2022 110 [facility] NICOTINE POLACRILEX 2MG TAB,CHEWG GUM CHEW 1 PIECE BY MOUTH EVERY TWO HOURS NEEDED ORAL ACTIVE KORIN SALGUERO 2022 [facility] TIOTROPIUM 2.5MCG/ACTU AT INHL,ORAL,6 0D,4GM INHALE 2 PUFFS BY MOUTH ONCE DAILY FOR COPD RESPIR ATORY (INHAL ATION) DISCONT INUED BY PROVIDE R 02/20/2024 [id number] 4 KORIN SALGUERO 2022 3 [facility] TRAZODONE HCL 50MG TAB TAKE ONE-HALF TABLET BY MOUTH AT BEDTIME FOR INSOMNIA ORAL DISCONT INUED BY PROVIDE R 02/29/2024 [id number] 4 KORIN SALGUERO 2022 45 [facility] TRAZODONE HCL 50MG TAB TAKE ONE-HALF TABLET BY MOUTH AT BEDTIME ORAL ACTIVE KORIN SALGUERO 2022 [facility] VARENICLINE 1MG TAB TAKE ONE-HALF TABLET BY MOUTH ONCE DAILY FOR 3 DAYS, THEN TAKE ONE-HALF TABLET TWICE A DAY FOR 4 DAYS, THEN TAKE ONE TABLET TWICE A DAY FOR SMOKING CESSATIO N ORAL DISCONT INUED BY PROVIDE R 08/02/2024 [id number] 4 REKHA SALGUEROE N 2023 56 [facility] VARENICLINE 1MG TAB TAKE ONE-HALF TABLET BY MOUTH ONCE DAILY FOR 3 DAYS, THEN TAKE ONE-HALF TABLET TWICE A DAY FOR 4 DAYS, THEN TAKE ONE TABLET TWICE A DAY FOR SMOKING CESSATIO N ORAL 05/14/2023 [id number] 3 KORIN SALGUERO N 2022 168 [facility] Allergies, Adverse Reactions, Alerts Combined list of allergies from Department of Defense and Veterans Affairs facilities. It does not include entries that were removed or entered in error. Substance Category Reaction Severity Reaction type Status Date Reported Comments Source WELLBUTRIN Propensity to adverse reactions to drug (finding) active 02/19/2023 [facility] Immunizations Combined list of available immunizations from the Department of Defense and Veterans Affairs facilities. Immunization Series Date Given Administered By Site Reaction Lot Number CVX Code Drug Material Handler 1St Shift Status Comments Source COVID-19 (MODERNA), MRNA, LNP-S, PF, 50 MCG/0.5 ML (AGES 12+ YEARS) 2023 LACLAIRVASILE LIZZ M LEFT DELTO ID [id number] 312 complet ed [facility] INFLUENZA, HIGH-DOSE, TRIVALENT, PF 2023 LACLOUVASILE LIZZ M RIGHT DELTO ID [id number] 135 complet ed [facility] COVID-19 (PFIZER), MRNA, LNP-S, PF, LAKSHMI-SUCROSE, 30 MCG/0.3 ML (AGES 12+ YEARS) 2021 309 complet ed Lot#: [id number] [facility] TD (ADULT) 2021 138 complet ed [facility] TD(ADULT) UNSPECIFIED FORMULATION 2021 139 complet ed [facility] COVID-19 (MODERNA), MRNA, LNP-S, PF, 100 MCG/0.5ML DOSE OR 50 MCG/0.25ML DOSE 2021 207 complet ed Lot#: [id number] [facility] COVID-19 (NOVAVAX), SUBUNIT, RS-NANOPARTIC LE, ADJUVANTED, PF, 5 MCG/0.5 ML (AGES 12+ YEARS) 2020 313 complet ed [facility] COVID-19 (MODERNA), MRNA, LNP-S, PF, 50 MCG/0.5 ML (AGES 12+ YEARS) 2020 312 complet ed [facility] PNEUMOCOCCAL POLYSACCHARID E PPV23 2019 33 complet ed [facility] ZOSTER LIVE 2014 121 complet ed [facility] TDAP 2013 115 complet ed [facility] Vital Signs Combined list of inpatient and outpatient Vital Signs from Department of Defense and Veterans Affairs, ranging from 12 months to all on record, depending upon the facility. Vital Sign Value Date Comments Source SYSTOLIC BLOOD PRESSURE 132 02/27/2024 14:28:00 [facility] DIASTOLIC BLOOD PRESSURE 74 02/27/2024 14:28:00 [facility] PULSE OXIMETRY 90 02/27/2024 14:28:00 [facility] WEIGHT 128.8 02/27/2024 14:28:00 [facility] BMI 19kg/m2 02/27/2024 14:28:00 [facility] PAIN 0 02/27/2024 14:28:00 [facility] HEIGHT 69.75 02/27/2024 14:28:00 [facility] TEMPERATURE 96.6 02/27/2024 14:28:00 [facility] PULSE 59 02/27/2024 14:28:00 [facility] Encounters Combined list of: 1) Encounters from Department of Veterans Affairs facilities going back up to thelast 18 months. 2) Encounters from the Department of Defense facilities going back up to 280 months. Location Location Details Encounter Type Encounter Number Reason For Visit Attending Provider ADM Date DC Date Status Disposition Source [facility] Outpatient Encounter [id number] 12/24 [facility] Outpatient Encounter [id number] 01/30 [facility] Outpatient Encounter [id number] 02/05 [facility] Encounter [id number] 02/07 [facility] Outpatient Encounter [id number] 02/07 [place] [facility] Outpatient Encounter [id number] PETTIGBEN MENON A 02/13 [facility] Out[facility] Encounter [id number] 02/13 [facility] Out[facility] Encounter [id number] 02[facility]14 [facility] OFF[facility] O/P [place] 60-74 MIN [id number] Diagnos is: ICD-10- CM J44.9 Chronic obstruc tive pulmona ry disease , unspeci fied
AG SALGUERO 02/19 [facility] HC PRO PHONE CALL 5-10 MIN [id number] Diagnos is: ICD-10- CM Z76.89 [facility] in oth circums tances< br/> HAMIDA AKBAR P 02/20 [facility] Outpatient Encounter [id number] 02/21 [facility] Outpatient Encounter [id number] 02/25 [facility] Outpatient Encounter [id number] 02/28 [facility] Outpatient [facility]counter [id number] 02/28 [facility] Outpatient Encounter [id number] 03/08 [facility] Outpatient Encounter [id number] 03/11 [facility] [employer] BIFOCAL [id number] Diagnos is: ICD-10- CM Z46.0 Encount er for fit/adj st of spectac les and contact lenses< br/> MANISH DIETRICH 03/13 [facility] [employer] B[employer] [id number] Diagnos is: ICD-10- CM Z46.0 Encount er for fit/adj st of spectac les and contact lenses< br/> MANISH DIETRICH 05/01 [facility] Outpatient Encounter [id number] 07/17 [facility] Outpatient Encounter [id number] 07/29 [facility] Outpatient Encounter [id number] 01/20 [facility] Outpatient Encounter [id number] 01/21 [facility] Outpatient Encounter [id number] 01/27 [facility] Outpatient Encounter [id number] 01/27 [facility] Outpatient Encounter [id number] 02/04 [place] [facility] OFFICE O/P EST HI 40 MIN [id number] Diagnos is: ICD-10- CM J44.9 Chronic obstruc tive pulmona ry disease , unspeci fied
AG SALGUERO 02/26 [facility] [place] [facility] Outpatient Encounter [id number] 02/27 [facility] Encounter [id number] 03/02 [facility] CASE MANAGEMENT [id number] Diagnos is: ICD-10- CM Z59.86 Financi al insecur ity<br/ > Alisa BALLARDAlisa 03/02 [facility] [place] [facility] Outpatient Encounter [id number] 03/02 [place] [facility] Encounter [id number] 03/03 [facility] Out[facility] Encounter [id number] 03/04 [facility] HC PRO PHONE CALL 11-20 MIN [id number] Diagnos is: ICD-10- CM Z76.89 Persons encount [facility] in oth circums tances< br/> DREWESTELA YN M 03/04 [facility] [place] [facility] Encounter [id number] 03/05 [facility] Outpatient [facility]counter [id number] 03/09 [facility] Outpatient Encounter [id number] 03/10 [facility] Outpatient Encounter [id number] 03/19 [facility] Out[facility] Encounter [id number] 03/19 [facility] Outpatient Encounter [id number] 03/19 [facility] Outpatient Encounter [id number] 03/26 [facility] Outpatient Encounter [id number] 04/02 [facility] Social History Combined list of available smoking, tobacco, and other social history from Department of Defense and Veterans Affairs facilities. Social History Type Response Date Comment Sourc e Tobacco smoking status NHIS VA-TOBACCO FORMER USER 02/27/2024 [facility] History of tobacco use VA-TOBACCO QUIT < 1 YEAR 02/27/2024 [facility] History of tobacco use VA-TOBACCO USER E VERY DAY 02/19/2023 [facility] Plan of Care List of future care activities from Department of Veterans Affairs facilities. Additional future care activities may be listed in the Assessment and Plan section. Date/Time Care Activity Care Activity Detail Facili ty 06/17/2024 AMBULATORY - NONE AMBULATORY - NONE [facility] [place] [facility] 04/06/2024 Consult Order COMMUNITY CARE-C T Cons Vending Machine Filler's Choice [facility]
--- OUTSIDE RECORDS SUMMARY | 2024-05-04 08:52 | XMS_ITS | Encounter Summary ---
Author Name [facility] [place] [place] Organization [place] Address [address] [place] [address] Care Team Providers Care Picker Box Operator Name Role Phone AG SALGUERO Primary [...] Name Patient's Relationship to Policy Lorenzo HUMANA [facility] (WNR) MEDICARE ADVANTAGE [facility](W NR) Jun 13, 2023 [id number] JENN PARTIDA Y PATIENT Selected Encounter This section includes the information on record at [place] for the Encounter. Date/Time Encounter Type Encounter Description Reason Pro vider Source Mar 04, 2024 07:55 AM Outpatient Encounter PRIMARY CARE/MEDICINE IHE Encounter Template Text not used by [place] Plan of Treatment: Future Appointments (+ 6 months) and Future Tests (+/- 45 days) The Plan of Treatment section includes future care activities for the patient from all [place] treatmentfacilities. This section includes future appointments and future orders which are active, pending or scheduled. Future Appointments This section includes appointments that were scheduled to occur 6 months from the date of the Encounter, up to a maximum of 20 appointments. The data comes from all [place] treatment facilities. Appointment Date/Time Appointment Type Appointme nt Facility Name Mar 19, 2024 10:00 AM AMBULATORY - NONE [facility] Mar 19, 2024 10:30 AM AMBULATORY - NONE [facility] Apr 21, 2024 11:00 AM AMBULATORY - NONE [facility] Jun 17, 2024 11:00 AM AMBULATORY - NONE [facility] Active, Pending, and Scheduled Orders This section includes a listing of several types of active, pending, and scheduled orders, including clinic medications orders, diagnostic test orders, procedure orders and consult orders; where the start date of the order is 45 days before the date of the Encounter or 45 days after the date of theEncounter. The data comes from all [facility] facilities. Test Date/Time Test Type Test Details Facility Name Jan 22, 2024 10:34 AM Consult Order COMMUNITY CARE-OPTOMETRY ROUTINE EYE EXAM Cons Digital Librarian's Choice [facility] Feb 25, 2024 12:00 AM Laboratory - Chemistry Order CBC PROFILE BLOOD(LAV-EDTA-WB) [facility] Feb 25, 2024 12:00 AM Laboratory - Chemistry Order LIVER PROFILE LT GREEN(LI HEP) PLASMA [facility] Feb 25, 2024 12:00 AM Laboratory - Chemistry Order LIPOPROTEIN CHOLESTEROL FRACT. PANEL LT GREEN(LI HEP) PLASMA [facility] Feb 25, 2024 12:00 AM Laboratory - Chemistry Order VIT D 25-OH(WRJ) BLOOD(GOLD) SERUM [facility] Feb 25, 2024 12:00 AM Laboratory - Chemistry Order PSA (ON AIR DIRECTOR) BLOOD(GOLD) SERUM [facility] Feb 25, 2024 12:00 AM Laboratory - Chemistry Order TSH BLOOD(GOLD) SERUM [facility] Feb 25, 2024 12:00 AM Laboratory - Chemistry Order VITAMIN B-12 BLOOD(GOLD) SERUM [facility] Feb 25, 2024 12:00 AM Laboratory - Chemistry Order GLYCOHEMOGLOBIN (A1C ONLY) BLOOD(LAV-EDTA-WB) [facility] Feb 25, 2024 12:00 AM Laboratory - Chemistry Order P4 GLU,BUN,CREAT,LYTES,CA LT GREEN(LI HEP) PLASMA [facility] Feb 27, 2024 12:00 AM Laboratory - Chemistry Order HEPATITIS C AB(WRJ)w/Reflex BLOOD(GOLD)(3) SERUM SP ANT STUART [facility] Feb 27, 2024 12:00 AM Laboratory - Chemistry Order HIV Ag/Ab SCREEN BLOOD(GOLD) SERUM SP ANT [facility]UART [facility] Apr 06, 2024 12:56 AM Consult Order COMMUNITY CARE-CT Cons Digital Librarian's Choice ANT STUART [facility] Radiology Reports: +/- 30 days of the encounter Radiology Reports For cases when an order for radiology services may have been completed prior to the date of the Encounter, the report list includes the Radiology Reports that were completed up to 30 days before dateof the Encounter. For cases when an order for radiology services may have been completed after the date of the Encounter, the report list also includes the Radiology Reports that were completed up to30 days after date of the Encounter. The data comes from all [place] treatment facilities. Date/Time Radiology Report Provider Source Mar 19, 2024 09:[address] NECK SOFT TISSU E W/CONT: KARYN PARTIDA [id number] -1955 M Exm Date: MAR 19, 2024@09:17 Req Phys: ANABEL QIU Pat Loc: OUTSIDE [facility] CT SCAN (Req'g Loc Img Loc: OUTSIDE [facility] CT SCAN Service: Unknown (Case [id number] COMPLETE) CT NECK SOFT TISSUE W/CONT (CT Detailed) CPT:05487 Reason for Study: Exam imported from outside Clinical History: Original Data for Imported Study Patient Name: Karyn Partida Date: 1955 Sex: M Study Date: 03/19/24 Study Time: 09:17:27 Study Description: CT NECK W Referring Physician: AG SALGUERO Series 1: 1 CT file, description: MEDRAD Injection Images Acquisition site: [facility] Report Status: Electronically Filed Date Reported: MAR 26, 2024 Report: RADIOLOGY PROCEDURE: N O T I C E: SCANNED IN EXAM THIS EXAMINATION WAS PERFORMED AND INTERPRETED AT A NON-[place] FACILITY. To view the Images or report (if a report was included with the images), select the CPRS Tools Menu and choose the Image Display (Viewer) option. Impression: RADIOLOGY PROCEDURE: N O T I C E: SCANNED IN EXAM THIS EXAMINATION WAS PERFORMED AND INTERPRETED AT A NON-[place] FACILITY. To view the Images or report (if a report was included with the images), select the CPRS Tools Menu and choose the Image Display (Viewer) option. VERIFIED BY: / *ELECTRONICALLY FILED* [facility]T [facility] Mar 19, 2024 09:13 AM LDCT LUNG CANCER S CREENING: KARYN PARTIDA [id number] -1955 M Exm Date: MAR 19, 2024@09:13 Req Phys: ANABEL QIU Loc: OUTSIDE [facility] CT SCAN (Req'g Loc Img Loc: OUTSIDE [facility] CT SCAN Service: Unknown (Case [id number] COMPLETE) LDCT LUNG CANCER SCREENING (CT Detailed) CPT:G0297 Reason for Study: Exam imported from outside Clinical History: Original Data for Imported Study Patient Name: Karyn Partida Date: 1955 Sex: M Study Date: 03/19/24 Study Time: 09:13:47 Study Description: CT CHEST LUNG CANCER SCREEN Referring Physician: AG SALGUERO Series 1: 1 CT file, description: 0.60 cor Topogram Series 2: 182 CT files, description: 2.00 ST AX CHEST Series 3: 182 CT files, description: 2.00 ax CHEST Series 4: 126 CT files, description: 2.00 cor CHEST Series 5: 153 CT files, description: 2.00 sag CHEST Series 6: 179 CT files, description: 8.00 ax LUNG MIP CHEST Series 7: 364 CT files, description: 1.00 LUNG CAD CHEST Series 8: 5 CT files, description: Lung CAD [15] Candidates Series 9: 1 CT file, description: Patient Protocol Series 10: 1 SR file, description: Dose Report Series 11: 1 SR file, description: Examination Report Acquisition site: [facility] Address: [facility] [place] Report Status: Electronically Filed Date Reported: MAR 26, 2024 Report: RADIOLOGY PROCEDURE: N O T I C E: SCANNED IN EXAM THIS EXAMINATION WAS PERFORMED AND INTERPRETED AT A NON-VA FACILITY. To view the Images or report (if a report was included with the images), select the CPRS Tools Menu and choose the Image Display (Viewer) option. Impression: RADIOLOGY PROCEDURE: N O T I C E: SCANNED IN EXAM THIS EXAMINATION WAS PERFORMED AND INTERPRETED AT A NON-VA FACILITY. To view the Images or report (if a report was included with the images), select the CPRS Tools Menu and choose the Image Display (Viewer) option. VERIFIED BY: / *ELECTRONICALLY FILED* ANT STUART [facility] Mar 19, 2024 08:16 AM ULTRASOUND ABDOMIN AL AORTA SCREEN (AAA): KARYN PARTIDA [id number] -1955 M Exm Date: MAR 19, 2024@08:16 Req Phys: ANABEL QIU Loc: OUTSIDE ULTRASOUND (Req'g Loc) Img Loc: OUTSIDE ULTRASOUND Service: Unknown (Case [id number] COMPLETE) ULTRASOUND ABDOMINAL AORTA SCREEN(US Detailed) CPT:05492 Reason for Study: Exam imported from outside Clinical History: Original Data for Imported Study Patient Name: Karyn Partida Date: 1955 Sex: M Study Date: 03/19/24 Study Time: 08:16:57 Study Description: US AAA SCREENING Referring Physician: AG SALGUERO Series 1: 12 US files, description: US AAA SCREENING Series 2: 1 SR file, description: US AAA SCREENING Series 3: 1 SD file, description: SCANNED DOCUMENT Acquisition site: [facility] Report Status: Electronically Filed Date Reported: MAR 26, 2024 Report: RADIOLOGY PROCEDURE: N O T I C E: SCANNED IN EXAM THIS EXAMINATION WAS PERFORMED AND INTERPRETED AT A NON-VA FACILITY. To view the Images or report (if a report was included with the images), select the CPRS Tools Menu and choose the Image Display (Viewer) option. Impression: RADIOLOGY PROCEDURE: N O T I C E: SCANNED IN EXAM THIS EXAMINATION WAS PERFORMED AND INTERPRETED AT A NON-VA FACILITY. To view the Images or report (if a report was included with the images), select the CPRS Tools Menu and choose the Image Display (Viewer) option. Primary Diagnostic Code: NOT ORDERED BY [place] VERIFIED BY: / *ELECTRONICALLY FILED* ANT [facility] Encounter Notes: All associated encounter notes This section contains the clinical notes associated to the Encounter. Date/Time Encounter Note(s) Provider Source Mar 04, 2024 08:00 AM ADDENDUM: LOCAL TITLE: Addendum STANDARD TITLE: ADDENDUM DATE OF NOTE: MAR 04, 2024@08:00:15 ENTRY DATE: MAR 04, 2024@08:00:16 AUTHOR: AG SALGUERO EXP COSIGNER: URGENCY: STATUS: COMPLETED Vet has medical conditions that could require phone contact, including COPD and moderate to severe aortic regurgitation. /kwesi/ AG SALGUERO PA-C Signed: 03/04/2024 08:02 Receipt Acknowledged By: 03/04/2024 09:19 /kwesi/ STAR RUSSELL Soaking Pits Supervisor --- Original Document --- 03/04/24 Administrative Note/Social Work: DOROTEO FRAGA received this email response: Chely, We do not help with phone bills unless the has a medical condition that requires phone contact. If that is the case with him then we would need documentation that states that. Suzanna Fletcher [facility] of [facility] Affairs [address] [place], [place] [phone] [email or web address] Also PRATIBHA NOE asked about a virtual visit tomorrow with [facility]. KUSUM reminded PRATIBHA NOE that [place] does to have a phone, but [facility] if they can do a conference zoom mtg. KUSUM also deferred PRATIBHA NOE to LIT SW. *CC'ing LIT SW and PCP if able to help with request above re: phone and medical condition that requires phone contact /es/ SUZANNE CARBONE Primary Care [place]aking [place] Supervisor Signed: 03/04/2024 07:57 /es/ ION [place] Caregiver Support Ux Architect Cosigned: 03/04/2024 09:14 Receipt Acknowledged By: 03/04/2024 09:18 /es/ STAR RUSSELL [place] Supervisor 03/04/2024 08:00 /es/ AG CASTORENA PA-C [facility] Mar 04, 2024 07:55 AM SOCIAL WORK NOTE: [facility] TITLE: Administrative Note/Social Work STANDARD TITLE: SOCIAL WORK NOTE DATE OF NOTE: MAR 04, 2024@07:55 ENTRY DATE: MAR 04, 2024@07:56:01 AUTHOR: LINK CARBONE EXP COSIGNER: WILL SHULTZ URGENCY: STATUS: COMPLETED Administrative Note/Social Work Has ADDENDA DOROTEO PACT KUSUM received this email response: Chely, We do not help with phone bills unless the has a medical condition that requires phone contact. If that is the case with him then we would need documentation that states that. Suzanna Fletcher [facility] [address] [place] [phone] [email or web address] Also PRATIBHA NOE asked about a virtual visit tomorrow with [facility]. KUSUM reminded PRATIBHA NOE that does to have a phone, but [facility]IFI if they can do a conference zoom mtg. KUSUM also deferred PRATIBHA NOE to LIT SW. *CC'ing LIT SW and PCP if able to help with request above re: phone and medical condition that requires phone contact /es/ SUZANNE CARBONE Primary Care Soaking P[place] Supervisor Signed: 03/04/2024 07:57 /es/ ION [place] Caregiver Support Ux Architect Cosigned: 03/04/2024 09:14 Receipt Acknowledged By: 03/04/2024 09:18 /kwesi/ STAR RUSSELL [place] P[employer] Supervisor 03/04/2024 08:00 /kwesi/ GA SALGUERO PA-C 03/04/2024 ADDENDUM STATUS: COMPLETED Vet has medical conditions that could require phone contact, including COPD and moderate to severe aortic regurgitation. /kwesi/ AG SALGUERO PA-C Signed: 03/04/2024 08:02 Receipt Acknowledged By: 03/04/2024 09:19 /kwesi/ STAR RUSSELL Soaking Pits Supervisor SUZANNE CARBONE OC
--- OUTSIDE RECORDS SUMMARY | 2024-05-04 08:52 | XMS_ITS | Encounter Summary ---
Author Name [facility] [place] Organization [facility] [place] Address [address] [place] [address] Care Team Providers Care Talent Acquisition Sourcer Name Role Phone AG SALGUERO Primary Care [...] Name Patient's Relationship to Policy Lorenzo HUMANA [facility] (WNR) MEDICARE ADVANTAGE [facility](W NR) Jun 13, 2023 [id number] JENN PARTIDA Y PATIENT Selected Encounter This section includes the information on record at [place] for the Encounter. Date/Time Encounter Type Encounter Description Reason Pro vider Source Mar 02, 2024 01:27 PM Outpatient Encounter ADMIN PAT ACTIVTIES (MASNONCT) IHE Encounter Template Text not used by [place] Plan of Treatment: Future Appointments (+ 6 [...] NONE [facility] Mar 19, 2024 10:30 AM AMBULATORY - NONE [facility] Apr 21, 2024 11:00 AM AMBULATORY - NONE [facility] Jun 17, 2024 11:00 AM AMBULATORY [...] of theEncounter. The data comes from all [facility]. Test Date/Time Test Type Test Details Facility Name Jan 22, 2024 10:34 AM Consult Order COMMUNITY CARE-OPTOMETRY ROUTINE EYE EXAM Cons Gas Plant Repairer's Choice [facility] Feb 25, 2024 12:00 AM Laboratory - Chemistry Order CBC PROFILE BLOOD(LAV-EDTA-WB) [facility] Feb 25, 2024 12:00 AM Laboratory - Chemistry Order LIVER PROFILE LT GREEN(LI HEP) PLASMA [facility] Feb 25, 2024 12:00 AM Laboratory - Chemistry Order LIPOPROTEIN CHOLESTEROL FRACT. PANEL LT GREEN(LI HEP) PLASMA [facility] Feb 25, 2024 12:00 AM Laboratory - Chemistry Order VIT D 25-OH(WRJ) BLOOD(GOLD) SERUM [facility] Feb 25, 2024 12:00 AM Laboratory - Chemistry Order PSA (ZUMBA INSTRUCTOR) BLOOD(GOLD) SERUM [facility] Feb 25, 2024 12:00 AM Laboratory - Chemistry Order TSH BLOOD(GOLD) SERUM [facility] Feb 25, 2024 12:00 AM Laboratory - Chemistry Order VITAMIN B-12 BLOOD(GOLD) SERUM [facility] Feb 25, 2024 12:00 AM Laboratory - Chemistry Order GLYCOHEMOGLOBIN (A1C ONLY) BLOOD(LAV-EDTA-WB) [facility] Feb 25, 2024 12:00 AM Laboratory - Chemistry Order P4 GLU,BUN,CREAT,LYTES,CA LT GREEN(LI HEP) PLASMA [facility] Feb 27, 2024 12:00 AM Laboratory - Chemistry Order HEPATITIS C AB(WRJ)w/Reflex BLOOD(GOLD)(3) SERUM SP ANT STUART [facility] Feb 27, 2024 12:00 AM Laboratory - Chemistry Order HIV Ag/Ab SCREEN BLOOD(GOLD) SERUM SP ANT STUART [facility] Apr 06, 2024 12:56 AM Consult Order COMMUNITY CARE-CT Cons Gas Plant Repairer's Choice ANT STUART [facility] Radiology Reports: +/- 30 days of [...] the Encounter. The data comes from all [facility] facilities. Date/Time Radiology Report Provider Source Mar 19, 2024 09:[address] NECK SOFT TISSU E W/CONT: KARYN PARTIDA [id number] -1955 M Exm Date: MAR 19, 2024@09:17 Req Phys: ANABEL QIU Pat Loc: OUTSIDE [facility] CT SCAN (Req'g Loc Img Loc: OUTSIDE [facility] CT SCAN Service: Unknown (Case [id number] COMPLETE) CT NECK SOFT TISSUE W/CONT (CT Detailed) CPT:10320 Reason for Study: Exam imported from outside Clinical History: Original Data for Imported Study Patient Name: Karyn Partida Date: 1955 Sex: M Study Date: 03/19/24 Study Time: 09:17:27 Study Description: CT NECK W Referring Physician: AG SALGUERO Series 1: 1 CT file, description: MEDRAD Injection Images Acquisition site: [facility] Report Status: Electronically Filed Date Reported: MAR 26, 2024 Report: RADIOLOGY PROCEDURE: N O T I C E: SCANNED IN EXAM THIS EXAMINATION WAS PERFORMED AND INTERPRETED AT A NON-[place] FACILITY. To view the Images or report (if a report was included with the images), select the CPRS Tools Menu and choose the Image Display (Viewer) option. Impression: RADIOLOGY PROCEDURE: N O T I C E: SCANNED IN EXAM THIS EXAMINATION WAS PERFORMED AND INTERPRETED AT A NON-[place] FACILITY. To view the Images or report (if a report was included with the images), select the CPRS Tools Menu and choose the Image Display (Viewer) option. VERIFIED BY: / *ELECTRONICALLY FILED* ANT STUART [facility] Mar 19, 2024 09:13 AM LDCT LUNG CANCER S CREENING: KARYN PARTIDA [id number] -1955 M Exm Date: MAR 19, 2024@09:13 [...] SR file, description: Examination Report Acquisition site: [facility] Address: [facility] [place] Report Status: Electronically Filed Date Reported: [...] VERIFIED BY: / *ELECTRONICALLY FILED* ANT STUART [facility] Mar 19, 2024 08:16 AM ULTRASOUND ABDOMIN AL AORTA SCREEN (AAA): KARYN PARTIDA [id number] -1955 M Exm Date: MAR 19, 2024@08:16 Req Phys: ANABEL QIU Loc: OUTSIDE ULTRASOUND (Req'g Loc) Img Loc: OUTSIDE ULTRASOUND Service: Unknown (Case [id number] COMPLETE) ULTRASOUND ABDOMINAL AORTA SCREEN(US Detailed) CPT:47153 Reason for Study: Exam imported from outside [...] SD file, description: SCANNED DOCUMENT Acquisition site: [facility] Report Status: Electronically Filed Date Reported: [...] [place] VERIFIED BY: / *ELECTRONICALLY FILED* ANT [facility] Encounter Notes: All associated encounter notes This [...] Next MEANS Test Due: 02/2025 Preferred Facility: [facility] or Jessica /kwesi/ [facility] Signed: 03/02/2024 13:28 GIANNI [facility]ERV[facility]ES [facility]
--- OUTSIDE RECORDS SUMMARY | 2024-05-04 08:52 | XMS_ITS | Encounter Summary ---
Author Name [facility] [place] [place] Organization [place] Address [address] [place] [address] Care Team Providers Care Poultry Sexer Name Role Phone AG SALGUERO Primary Care [...] [facility] NR) Jun 13, 2023 [id number] [phone] JENN PARTIDA Y PATIENT Selected Encounter This section includes the information on record at [place] for the Encounter. Date/Time Encounter Type Encounter Description Reason Pro vider Source Mar 19, 2024 01:19 PM Outpatient Encounter COMMUNITY CARE CONSULT IHE [...] 20 appointments. The data comes from all [place] treatment facilities. Appointment Date/Time Appointment Type Appointme nt Facility Name Apr 21, 2024 11:00 AM AMBULATORY - NONE [facility] Jun 17, 2024 11:00 AM AMBULATORY - NONE [facility] Active, Pending, and [...] of theEncounter. The data comes from all [facility] facilities. Test Date/Time Test Type Test Details Facility Name Feb 25, 2024 12:00 AM Laboratory - [...] 12:00 AM Laboratory - Chemistry Order PSA (VICE PRESIDENT OF BRAND MANAGEMENT) BLOOD(GOLD) [facility] Feb 25, [...] Chemistry Order HIV Ag/Ab SCREEN BLOOD(GOLD) [facility] Apr 06, 2024 12:56 AM Consult Order COMMUNITY CARE-CT Cons Junior Mechanical Engineer's Choice [facility]T [facility] Radiology Reports: +/- 30 days of [...] the Encounter. The data comes from all [place] treatment facilities. Date/Time Radiology Report Provider Source Mar 19, 2024 09:[address] NECK SOFT TISSU E W/CONT: KARYN PARTIDA [id number] -1955 M Exm Date: MAR 19, 2024@09:17 Req Phys: ANABEL QIU Pat Loc: OUTSIDE [facility] CT SCAN (Req'g Loc Img Loc: OUTSIDE [facility] CT SCAN Service: Unknown (Case [id number] COMPLETE) CT NECK SOFT TISSUE W/CONT (CT Detailed) CPT:24431 Reason for Study: Exam imported from outside [...] EXAMINATION WAS PERFORMED AND INTERPRETED AT A NON-[place] FACILITY. To view the Images or report (if a report was included with the images), select the bLife Tools Menu and choose the Image Display (Viewer) option. Impression: RADIOLOGY PROCEDURE: N O T I C E: SCANNED IN EXAM THIS EXAMINATION WAS PERFORMED AND INTERPRETED AT A NON-VA FACILITY. To view the Images or report (if a report was included with the images), select the Thrillist[employer]com[employer] Tools Menu and choose the Image Display (Viewer) option. VERIFIED BY: / *ELECTRONICALLY FILED* [facility] Mar 19, 2024 09:13 AM LDCT LUNG CANCER S CREENING: KARYN PARTIDA [id number] -1955 M Exm Date: MAR 19, 2024@09:13 Req Phys: ANABEL QIU Pat Loc: OUTSIDE [...] Examination Report Acquisition site: [facility] Address: [facility] [place] Report Status: Electronically Filed Date Reported: MAR 26, 2024 Report: RADIOLOGY PROCEDURE: N O T I C E: SCANNED IN EXAM THIS EXAMINATION WAS PERFORMED AND INTERPRETED AT A NON-[place] FACILITY. To view the Images or report [...] VERIFIED BY: / *ELECTRONICALLY FILED* ANT [facility] Mar 19, 2024 08:16 AM ULTRASOUND ABDOMIN AL AORTA SCREEN (AAA): KARYN PARTIDA [id number] -1955 M Exm Date: MAR 19, 2024@08:16 Req Phys: ANABEL QIU Loc: OUTSIDE ULTRASOUND (Req'g Loc) Img Loc: OUTSIDE ULTRASOUND Service: Unknown (Case [id number] COMPLETE) ULTRASOUND ABDOMINAL AORTA SCREEN(US Detailed) CPT:00720 Reason for Study: Exam imported from outside [...] SD file, description: SCANNED DOCUMENT Acquisition site: [facility] Report Status: Electronically Filed Date [...] / *ELECTRONICALLY FILED* [facility] Encounter Notes: All associated encounter notes This section contains the clinical notes associated to the Encounter. Date/Time Encounter Note(s) Provider Source Mar 25, 2024 02:11 PM ADDENDUM: LOCAL TITLE: Addendum STANDARD TITLE: ADDENDUM DATE OF NOTE: MAR 25, 2024@14:11:39 ENTRY DATE: MAR 25, 2024@14:11:39 AUTHOR: MICHAEL GRADY COSIGNER: URGENCY: STATUS: COMPLETED [facility] Xavier Mendez : 1955 EXAM: CT NECK W CLINICAL HISTORY: 1887 Other nonspecfici lymphadenitis [id number]. TECHNIQUE: Imaging Protocol: Axial computed tomography images with menchaca) and sagittal reformatted images were created and reviewed CONTRAST MATERIAL: Intravenous: Omnipaque 350 Contrast volume:100 ml contrast COMPARISON: No exams were available for comparison FINDINGS: Parotids: Normal. Submandibular glands: Normal. Thyroid gland: Normal. Lymph nodes: There are scattered lymph nodes seen along the level one to level three all measuring less than 8 mm in short axis diameter which are physiologic in nature. Carotids arteries: Calcification of the common carotid bulbs but no significant stenosis. Vertebral arteries: No significant stenosis or dissection. Soft tissues: The floor the mouth is unremarkable. The tonsils and adenoids are unremarkable. The epiglottis and vocal cords are within normal limits. Lungs: Emphysematous changes noted Bones: Degenerative changes of the cervical spine. Visualized portions of the brain and orbits: Unremarkable. Sinuses and mastoids: Clear. IMPRESSION: No evidence of mass or adenopathy /kwesi/ MICHAEL GRADY LPN Signed: 03/25/2024 14:13 Receipt Acknowledged By: 03/26/2024 17:25 /kwesi/ AG SALGUERO PA-C === --- Original Document --- 03/19/24 COMMUNITY CARE CONSULT RESULT NOTE: VistA Imaging - Scanned Document COMMUNITY CARE-CT 03/19/2024 CT NECK W [facility] /es/ Delia Medina MRT Signed: 03/24/2024 13:20 03/24/2024 ADDENDUM STATUS: COMPLETED Tara mobley /kwesi/ AG SALGUERO PA-C Signed: 03/24/2024 14:04 Receipt Acknowledged By: 03/25/2024 14:14 /kwesi/ MICHAEL MERCADO LPN [facility] Mar 24, 2024 02:04 PM ADDENDUM: LOCAL TITLE: Addendum STANDARD TITLE: ADDENDUM DATE OF NOTE: MAR 24, 2024@14:04:34 ENTRY DATE: MAR 24, 2024@14:04:35 AUTHOR: AG SALGUERO COSIGNER: URGENCY: STATUS: COMPLETED Tara mobley /kwesi/ AG SALGUERO PA-C Signed: 03/24/2024 14:04 Receipt Acknowledged By: 03/25/2024 14:14 /es/ MICHAEL GRADY LPN === --- Original Document --- 03/19/24 COMMUNITY CARE CONSULT RESULT NOTE: VistA Imaging - Scanned Document COMMUNITY CARE-CT 03/19/2024 CT NECK W [facility] /es/ Deliarobert Hillmantarun Marcialian MRT Signed: 03/24/2024 13:20 03/25/2024 ADDENDUM STATUS: COMPLETED [facility] Xavier Boss W : 1955 EXAM: CT NECK W CLINICAL HISTORY: 1888 Other nonspecfici lymphadenitis [id number]. TECHNIQUE: Imaging Protocol: Axial computed tomography images with menchaca) and sagittal reformatted images were created and reviewed CONTRAST MATERIAL: Intravenous: Omnipaque 350 Contrast volume:100 ml contrast COMPARISON: No exams were available for comparison FINDINGS: Parotids: Normal. Submandibular glands: Normal. Thyroid gland: Normal. Lymph nodes: There are scattered lymph nodes seen along the level one to level three all measuring less than 8 mm in short axis diameter which are physiologic in nature. Carotids arteries: Calcification of the common carotid bulbs but no significant stenosis. Vertebral arteries: No significant stenosis or dissection. Soft tissues: The floor the mouth is unremarkable. The tonsils and adenoids are unremarkable. The epiglottis and vocal cords are within normal limits. Lungs: Emphysematous changes noted Bones: Degenerative changes of the cervical spine. Visualized portions of the brain and orbits: Unremarkable. Sinuses and mastoids: Clear. IMPRESSION: No evidence of mass or adenopathy /kwesi/ MICHAEL GRADY LPN Signed: 03/25/2024 14:13 Receipt Acknowledged By: * AWAITING SIGNATURE * AG SALGUERO ELLEN [facility] Mar 19, 2024 01:19 PM NONVA CONSULT: LOCAL TITLE: COMMUNITY CARE CONSULT RESULT NOTE STANDARD TITLE: NONVA CONSULT DATE OF NOTE: MAR 19, 2024@13:19 ENTRY DATE: MAR 24, 2024@13:20:07 AUTHOR: DELIA MEDINA COSIGNER: URGENCY: STATUS: COMPLETED COMMUNITY CARE CONSULT RESULT NOTE Has ADDENDA VistA Imaging - Scanned Document COMMUNITY CARE-CT 03/19/2024 CT NECK W [facility] /kwesi/ Delia Medina MRT Signed: 03/24/2024 13:20 03/24/2024 ADDENDUM STATUS: COMPLETED Tara Chelo mobley /kwesi/ AG SALGUERO PA-C Signed: 03/24/2024 14:04 Receipt Acknowledged By: 03/25/2024 14:14 /kwesi/ MICHAEL GRADY LPN 03/25/2024 ADDENDUM STATUS: COMPLETED [facility] Xavier Boss W : 1955 EXAM: CT NECK W CLINICAL HISTORY: 1887 Other nonspecfici lymphadenitis [id number]. TECHNIQUE: Imaging Protocol: Axial computed tomography images with menchaca) and sagittal reformatted images were created and reviewed CONTRAST MATERIAL: Intravenous: Omnipaque 350 Contrast volume:100 ml contrast COMPARISON: No exams were available for comparison FINDINGS: Parotids: Normal. Submandibular glands: Normal. Thyroid gland: Normal. Lymph nodes: There are scattered lymph nodes seen along the level one to level three all measuring less than 8 mm in short axis diameter which are physiologic in nature. Carotids arteries: Calcification of the common carotid bulbs but no significant stenosis. Vertebral arteries: No significant stenosis or dissection. Soft tissues: The floor the mouth is unremarkable. The tonsils and adenoids are unremarkable. The epiglottis and vocal cords are within normal limits. Lungs: Emphysematous changes noted Bones: Degenerative changes of the cervical spine. Visualized portions of the brain and orbits: Unremarkable. Sinuses and mastoids: Clear. IMPRESSION: No evidence of mass or adenopathy /es/ MICHAEL GRADY LPN Signed: 03/25/2024 14:13 Receipt Acknowledged By: * AWAITING SIGNATURE * AG SALGUERO TAMMY DENEGE ANN [facility]
--- OUTSIDE RECORDS SUMMARY | 2024-05-04 08:52 | XMS_ITS | Encounter Summary ---
Author Name [facility] of [place] [place] Organization [place] Address [address] [place] [address] Care Team Providers Care Metal Template Maker Name Role Phone AG SALGUERO Primary Care [...] Name Patient's Relationship to Policy Lorenzo [facility] ([facility]) MEDICARE ADVANTAGE [facility] NR) Jun 13, 2023 [id number] [phone] JENN PARTIDA Y PATIENT Selected Encounter This section includes the information on record at [place] for the Encounter. Date/Time Encounter Type Encounter Description Reason Pro vider Source Mar 10, 2024 10:33 AM Outpatient Encounter TELEPHONE PRIMARY CARE IHE Encounter Template Text not used by [place] Plan of Treatment: Future Appointments (+ 6 [...] 20 appointments. The data comes from all [place] treatment facilities. Appointment Date/Time Appointment Type Appointme nt Facility Name Mar 19, 2024 10:00 AM AMBULATORY - NONE [facility] Mar 19, 2024 10:30 AM AMBULATORY - NONE [facility] Apr 21, 2024 11:00 AM AMBULATORY - NONE [facility] Jun 17, 2024 11:00 AM AMBULATORY - NONE [facility] Active, Pending, and Scheduled Orders This section includes a listing of several types of active, pending, and scheduled orders, including clinic medications orders, diagnostic test orders, procedure orders and consult orders; where the start date of the order is 45 days before the date of the Encounter or 45 days after the date of theEncounter. The data comes from all [facility] facilities. Test Date/Time Test Type Test Details [...] 12:00 AM Laboratory - Chemistry Order PSA (CONCRETE PAVER) BLOOD(GOLD) [facility] Feb 25, [...] Ag/Ab SCREEN BLOOD(GOLD) SERUM SP [facility] Apr 06, 2024 12:56 AM Consult Order COMMUNITY CARE-CT Cons Pattern Hand's Choice [facility] Radiology Reports: +/- 30 days of the [...] the Encounter. The data comes from all [place] treatment facilities. Date/Time Radiology Report Provider Source Mar 19, 2024 09:[address] NECK SOFT TISSU E W/CONT: KARYN PARTIDA [id number] -1955 M Exm Date: MAR 19, 2024@09:17 Req Phys: ANABEL QIU Loc: OUTSIDE [facility] CT SCAN (Req'g Loc Img Loc: OUTSIDE [facility] CT SCAN Service: Unknown (Case [id number] COMPLETE) CT NECK SOFT TISSUE W/CONT (CT Detailed) CPT:03204 Reason for Study: Exam imported from outside Clinical History: Original Data for Imported Study Patient Name: Karyn Partida Date: 1955 Sex: M Study Date: 03/19/24 Study Time: 09:17:27 Study Description: CT NECK W Referring Physician: AG SALGUERO Series 1: 1 CT file, description: MEDRAD Injection Images Acquisition site: [facility] Report Status: Electronically Filed Date Reported: MAR 26, 2024 Report: RADIOLOGY PROCEDURE: N O T I C E: SCANNED IN EXAM THIS EXAMINATION WAS PERFORMED AND INTERPRETED AT A NON-[place] FACILITY. To view the Images or report (if a report was included with the images), select the CPRS Tools Menu and choose the Image Display (Viewer) option. Impression: RADIOLOGY PROCEDURE: N O T I C E: SCANNED IN EXAM THIS EXAMINATION WAS PERFORMED AND INTERPRETED AT A NON-[place] FACILITY. To view the Images or report (if a report was included with the images), select the CPRS Tools Menu and choose the Image Display (Viewer) option. VERIFIED BY: / *ELECTRONICALLY FILED* [facility]T [facility] Mar 19, 2024 09:13 AM LDCT LUNG CANCER S CREENING: KARYN PARTIDA [id number] -1955 M Exm Date: MAR 19, 2024@09:13 [...] SR file, description: Examination Report Acquisition site: [facility] Report Status: Electronically Filed Date Reported: MAR 26, 2024 Report: RADIOLOGY PROCEDURE: N O T I C E: SCANNED IN EXAM THIS EXAMINATION WAS PERFORMED AND INTERPRETED AT A NON-VA FACILITY. To view the Images or report (if a report was included with the images), select the [employer] Tools Menu and choose the Image Display (Viewer) option. Impression: RADIOLOGY PROCEDURE: N O T I C E: SCANNED IN EXAM THIS EXAMINATION WAS PERFORMED AND INTERPRETED AT A NON-VA FACILITY. To view the Images or report (if a report was included with the images), select the [employer] Tools Menu and choose the Image Display (Viewer) option. VERIFIED BY: / *ELECTRONICALLY FILED* [facility] Mar 19, 2024 08:16 AM ULTRASOUND ABDOMIN AL AORTA SCREEN (AAA): KARYN PARTIDA [id number] -1955 M Exm Date: MAR 19, 2024@08:16 Req Phys: ANABEL QIU Loc: OUTSIDE ULTRASOUND (Req'g Loc) Img Loc: OUTSIDE ULTRASOUND Service: Unknown (Case [id number] COMPLETE) ULTRASOUND ABDOMINAL AORTA SCREEN(US Detailed) CPT:11358 Reason for Study: Exam imported from outside [...] SD file, description: SCANNED DOCUMENT Acquisition site: [facility] Report Status: Electronically Filed Date Reported: MAR 26, 2024 Report: RADIOLOGY PROCEDURE: N O T I C E: SCANNED IN EXAM THIS EXAMINATION WAS PERFORMED AND INTERPRETED AT A NON-VA FACILITY. To view the Images or report (if a report was included with the images), select the Stampt Tools Menu and choose the Image Display [...] Encounter. Date/Time Encounter Note(s) Provider Source Mar 10, 2024 10:33 AM SOCIAL WORK TELEPH ONE ENCOUNTER NOTE: LOCAL TITLE: Social Work Telephone Note STANDARD TITLE: SOCIAL WORK TELEPHONE ENCOUNTER NOTE DATE OF NOTE: MAR 10, 2024@10:33 ENTRY DATE: MAR 10, 2024@10:34:01 AUTHOR: STAR RUSSELL EXP COSIGNER: URGENCY: STATUS: COMPLETED Social Work Telephone Note Has ADDENDA KUSUM received a call back from Sterling Duran, the [facility] support person and [place] outreach officer at [phone] attempted visit at the home of the . Sterling reported [place] quite [place] and there was a large dog barking. He went as he safely could and called out 's name several times and there was no response. NO one has been able to reach as phone is disconnected. KUSUM has been working with the [facility] veterans affairs office with Suzanna Fletcher who has approved him for funding with doctors letter that verified he has medical condition verifying that he is in need of a phone for medical reasons. However, the [place] affairs office requires copy of DD214 and there is not one one file at [place]; although he has been with [place] health care since 2009 and was recently verified by eligibility for benefits. Sterling could not see any sign of life such as smoke stack or any food or other indications he has been moving around. KUSUM after discussion with Ke Duran decided to request a safety assessment from [facility] Police. KUSUM contacted and spoke with officer [place] who will contact Sterling and determine next best step for veterans well being. has not had any history of suicide thoughts or behavior and was seen by pcp on February 26 with review of suicide and any concerns on food or housing were denied. It appears the phone going out and banking scam are recent issues. /es/ STAR RUSSELL Dean Of Students Signed: 03/10/2024 11:43 Receipt Acknowledged By: 03/11/2024 08:14 /es/ SUZANNE CARBONE Primary Care Dean Of Students 03/16/2024 08:23 /es/ ION SANTIAGO, ASW-G PRIMARY CARE STRIPE MATCHER, [facility] 03/12/2024 07:24 /es/ AG SALGUERO PA-C 03/11/2024 ADDENDUM STATUS: COMPLETED hand delivered a copy of his DD214 to [facility] uncertain if scanned, but this magazine writer received a copy and sending to [facility] KUSUM. /es/ SUZANNE CARBONE Primary Care Dean Of Students Signed: 03/11/2024 08:14 /es/ ION [place] Caregiver Support Insurance Sales Associate Cosigned: 03/11/2024 08:34 Receipt Acknowledged By: * AWAITING SIGNATURE * STAR RUSSELL [facility]
--- OUTSIDE RECORDS SUMMARY | 2024-05-04 08:52 | XMS_ITS | Encounter Summary ---
Author Name [facility] [place] [facility] [place] Address [address] [place] [address] Care Team Providers Care Patient Escort Name Role Phone AG SALGUERO Primary Care [...] Name Patient's Relationship to Policy Lorenzo [employer]MANA [facility] (WNR) MEDICARE ADVANTAGE [facility](W NR) Jun 13, 2023 [id number] JENN PARTIDA Y PATIENT Selected Encounter This section includes the information on record at [place] for the Encounter. Date/Time Encounter Type Encounter Description Reason Provider Source Mar 04, 2024 09:43 AM HC PRO PHONE CALL 11-20 MIN TELEPHONE PRIMARY CARE ICD-10-CM Z76.89 Persons encountering health services in oth circumstances ST[facility]SELL Encounter Template Text not used by [place] Assessments - Encounter Diagnoses This section includes the primary and secondary diagnoses documented for the Encounter. Date/Time Primary/Secondary Diagnosis Diagnosis Name Provider Source Mar 04, 2024 09:43 AM PRIMARY Persons encountering health services in oth circumstances [facility] Plan of Treatment: Future Appointments (+ 6 months) and Future Tests (+/- 45 days) The Plan of Treatment section includes future care activities for the patient [facility] This section includes future appointments and future orders which are active, pending or scheduled. Future Appointments This section includes appointments that were scheduled to occur 6 months from the date of the Encounter, up to a maximum of 20 appointments. The data comes from all [facility]. Appointment Date/Time Appointment Type Appointme nt Facility Name Mar 19, 2024 10:00 AM AMBULATORY - NONE [facility] Mar 19, 2024 10:30 AM AMBULATORY - NONE [facility] Apr 21, 2024 11:00 AM AMBULATORY - NONE [facility] Jun 17, 2024 11:00 AM AMBULATORY [...] of theEncounter. The data comes from all [facility]. Test Date/Time Test Type Test Details Facility Name Jan 22, 2024 10:34 AM Consult Order COMMUNITY CARE-OPTOMETRY ROUTINE EYE EXAM Cons Fuse Coiler's Choice [facility] Feb 25, 2024 12:00 AM Laboratory - Chemistry Order CBC PROFILE BLOOD(LAV-EDTA-WB) [facility] Feb 25, 2024 12:00 AM Laboratory - Chemistry Order LIVER PROFILE LT GREEN(LI HEP) PLASMA [facility] Feb 25, 2024 12:00 AM Laboratory - Chemistry Order LIPOPROTEIN CHOLESTEROL FRACT. PANEL LT GREEN(LI HEP) PLASMA [facility] Feb 25, 2024 12:00 AM Laboratory - Chemistry Order VIT D 25-OH(WRJ) BLOOD(GOLD) SERUM [facility] Feb 25, 2024 12:00 AM Laboratory - Chemistry Order PSA (SKI LIFT ATTENDANT) BLOOD(GOLD) SER[facility] Feb 25, 2024 12:00 AM Laboratory - Chemistry Order TSH BLOOD(GOLD) [facility] Feb 25, 2024 12:00 AM Laboratory - Chemistry Order VITAMIN B-12 [facility]LOOD(GOLD) [facility] Feb 25, 2024 12:00 AM Laboratory - Chemistry Order GLYCOHEMOGLOBIN (A1C ONLY) BLOOD(LAV-EDTA-WB) SP [facility] Feb 25, 2024 12:00 AM Laboratory - Chemistry Order P4 GLU,BUN,CREAT,LYTES,CA LT GREEN(LI HEP) PLASMA SP [facility] Feb 27, 2024 12:00 AM Laboratory - Chemistry Order HEPATITIS C AB(WRJ)w/Reflex BLOOD(GOLD)(3) SERUM [facility] Feb 27, 2024 12:00 AM Laboratory - Chemistry Order HIV Ag/Ab SCREEN BLOOD(GOLD) SERUM [facility] Apr 06, 2024 12:56 AM Consult Order COMMUNITY CARE-CT Cons Fuse [employer] Choice [facility] Social History: Smoking Status (Most current) and Tobacco Use (All prior to encounter date) This section includes the most current, and the historical, smoking and tobacco- related health factors from the [place] facility where the Encounter took place. Current Smoking Status This section includes the most current smoking, or tobacco-related health factor, from the [place] facility where the Encounter took place. Date/Time Current Smoking Status Comment Facil ity Feb 27, 2024 02:30 PM VA-TOBACCO FORMER USER [facility] Tobacco Use History This section includes a history of the smoking, or tobacco-related health factors, that were collected on or before the date of the Encounter. The data comes from the [place] facility where the Encounter took place. 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 The data comes from all [place] treatment facilities. Date/Time Radiology Report Provider Source Mar 19, 2024 09:[address] NECK SOFT TISSU E W/CONT: KARYN PARTIDA [id number] -1955 M Exm Date: MAR 19, 2024@09:17 Req Phys: ANABEL QIU Loc: OUTSIDE [facility] CT SCAN (Req'g Loc Img Loc: OUTSIDE [facility] CT SCAN Service: Unknown (Case [id number] COMPLETE) CT NECK SOFT TISSUE W/CONT (CT Detailed) CPT:94250 Reason for Study: Exam imported from outside Clinical History: Original Data for Imported Study Patient Name: Karyn Partida Date: 1955 Sex: M Study Date: 03/19/24 Study Time: 09:17:27 Study Description: CT NECK W Referring Physician: AG SALGUERO Series 1: 1 CT file, description: MEDRAD Injection Images Acquisition site: [facility] Report Status: Electronically Filed Date Reported: MAR 26, 2024 Report: RADIOLOGY PROCEDURE: N O T I C E: SCANNED IN EXAM THIS EXAMINATION WAS PERFORMED AND INTERPRETED AT A NON-[place] FACILITY. To view the Images or report (if a report was included with the images), select the [employer] Tools Menu and choose the Image Display (Viewer) option. Impression: RADIOLOGY PROCEDURE: N O T I C E: SCANNED IN EXAM THIS EXAMINATION WAS PERFORMED AND INTERPRETED AT A NON-[place] FACILITY. To view the Images or report (if a report was included with the images), select the [employer] Tools Menu and choose the Image Display (Viewer) option. VERIFIED BY: / *ELECTRONICALLY FILED* ANT [place] [facility] [facility] Mar 19, 2024 09:13 AM LDCT LUNG CANCER S CREENING: KARYN PARTIDA [id number] -1955 M Exm Date: MAR 19, 2024@09:13 [...] SR file, description: Examination Report Acquisition site: [facility] Address: [facility] Report Status: Electronically Filed Date Reported: MAR 26, 2024 Report: RADIOLOGY PROCEDURE: N O T I C E: SCANNED IN EXAM THIS EXAMINATION WAS PERFORMED AND INTERPRETED AT A NON-[place] FACILITY. To view the Images or report (if a report was included with the images), select the [employer] Tools Menu and choose the Image Display (Viewer) option. Impression: RADIOLOGY PROCEDURE: N O T I C E: SCANNED IN EXAM THIS EXAMINATION WAS PERFORMED AND INTERPRETED AT A NON-VA FACILITY. To view the Images or report (if a report was included with the images), select the [employer] Tools Menu and choose the Image Display (Viewer) option. VERIFIED BY: / *ELECTRONICALLY FILED* ANT STUART [facility] Mar 19, 2024 08:16 AM ULTRASOUND ABDOMIN AL AORTA SCREEN (AAA): KARYN PARTIDA [id number] -1955 M Exm Date: MAR 19, 2024@08:16 Req Phys: ANABEL QIU Loc: OUTSIDE ULTRASOUND (Req'g Loc) Img Loc: OUTSIDE ULTRASOUND Service: Unknown (Case [id number] COMPLETE) ULTRASOUND ABDOMINAL AORTA SCREEN(US Detailed) CPT:73008 Reason for Study: Exam imported from outside [...] SD file, description: SCANNED DOCUMENT Acquisition site: [facility] Report Status: Electronically Filed Date Reported: MAR 26, 2024 Report: RADIOLOGY PROCEDURE: N O T I C E: SCANNED IN EXAM THIS EXAMINATION WAS PERFORMED AND INTERPRETED AT A NON-VA FACILITY. To view the Images or report (if a report was included with the images), select the [employer] Tools Menu and choose the Image Display (Viewer) option. Impression: RADIOLOGY PROCEDURE: N O T I C E: SCANNED IN EXAM THIS EXAMINATION WAS PERFORMED AND INTERPRETED AT A NON-VA FACILITY. To view the Images or report (if a report was included with the images), select the [employer] Tools Menu and choose the Image Display (Viewer) option. Primary Diagnostic Code: NOT ORDERED BY [facility] VERIFIED BY: / *ELECTRONICALLY FILED* ANT [place] [facility] [facility] Encounter Notes: All associated encounter notes This section contains the clinical notes associated to the Encounter. Date/Time Encounter Note(s) Provider Source Mar 04, 2024 09:48 AM SOCIAL WORK TELEPH ONE ENCOUNTER NOTE: LOCAL TITLE: Social Work Telephone Note STANDARD TITLE: SOCIAL WORK TELEPHONE ENCOUNTER NOTE DATE OF NOTE: MAR 04, 2024@09:48 ENTRY DATE: MAR 04, 2024@09:48:30 AUTHOR: STAR RUSSELL EXP COSIGNER: URGENCY: STATUS: COMPLETED KUSUM is aware that rui does not have phone service and KUSUM contacted affairs office in [facility] to talk with Suzanna Fletcher regarding the once in alife program of $500.00 for veterans. KUSUM was told she was not in and she was the only person who can release those funds. KUSUM sees that it is documented in his last pcp visit that he does have significant COPD requiring that he have access to phone serivices. KUSUM will call again tomorrow. KUSUM was also given contact of Jono Foote with [facility] support services and KUSUM will email both Jono and Sterling Duran, who is the customer support consultant for [facility] where Mr.Tracy Partida is residing.KUSUM will express urgency for face to face visit and assistance with payment of phone bill. He also needs food and so SW will include food insecurity. /kwesi/ STAR RUSSELL [employer] Signed: 03/04/2024 10:12 Receipt Acknowledged By: 03/04/2024 12:32 /kwesi/ SUZANNE CARBONE Primary Care Pastry Sous Chef [facility]
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
--- OUTSIDE RECORDS SUMMARY | 2024-05-04 08:52 | XMS_ITS | Encounter Summary ---
Author Name [facility] [place] Organization [place] Address [address] [place] [address] Care Team Providers Care Syrup Mixer Helper Name Role Phone AG SALGUERO Primary Care [...] Name Patient's Relationship to Policy Lorenzo HUMANA [facility] (WNR) MEDICARE ADVANTAGE [facility](W NR) Jun 13, 2023 [id number] JENN PARTIDA Y PATIENT Selected Encounter This section includes the information on record at [place] for the Encounter. Date/Time Encounter Type Encounter Description Reason Pro vider Source Mar 09, 2024 03:58 PM Outpatient Encounter TELEPHONE PRIMARY CARE IHE Encounter [...] 20 appointments. The data comes from all [place] treatment facilities. Appointment Date/Time Appointment Type Appointme nt Facility Name Mar 19, 2024 10:00 AM AMBULATORY - NONE [facility] Mar 19, 2024 10:30 AM AMBULATORY - NONE [facility] Apr 21, 2024 11:00 AM AMBULATORY - NONE [facility] Jun 17, 2024 11:00 AM AMBULATORY - NONE [facility] Active, Pending, and Scheduled Orders This section includes a listing of several types of active, pending, and scheduled orders, including clinic medications orders, diagnostic test orders, procedure orders and consult orders; where the start date of the order is 45 days before the date of the Encounter or 45 days after the date of theEncounter. The data comes from all [facility] facilities. Test Date/Time Test Type Test Details Facility Name Feb 25, 2024 12:00 AM Laboratory - Chemistry Order CBC PROFILE BLOOD(LAV-EDTA-WB) [facility] Feb 25, 2024 12:00 AM Laboratory - Chemistry Order LIVER PROFILE LT GREEN(LI HEP) PLASMA [facility] Feb 25, 2024 12:00 AM Laboratory - Chemistry Order LIPOPROTEIN CHOLESTEROL FRACT. PANEL LT GREEN(LI HEP) PLASMA [facility] Feb 25, 2024 12:00 AM Laboratory - Chemistry Order VIT D 25-OH(WRJ) BLOOD(GOLD) SERUM [facility] Feb 25, 2024 12:00 AM Laboratory - Chemistry Order PSA (CONSTRUCTION REP) BLOOD(GOLD) SERUM [facility] Feb 25, 2024 12:00 AM Laboratory - Chemistry Order TSH BLOOD(GOLD) SER[facility] Feb 25, 2024 12:00 AM Laboratory - Chemistry Order VITAMIN B-12 BLOOD(GOLD) SERUM [facility] Feb 25, 2024 12:00 AM Laboratory - Chemistry Order GLYCOHEMOGLOBIN (A1C ONLY) BLOOD(LAV-EDTA-WB) [facility] Feb 25, 2024 12:00 AM Laboratory - Chemistry Order P4 GLU,BUN,CREAT,LYTES,CA LT GREEN(LI HEP) PLASMA [facility] Feb 27, 2024 12:00 AM Laboratory - Chemistry Order HEPATITIS C AB(WRJ)w/Reflex BLOOD(GOLD)(3) SERUM [facility] Feb 27, 2024 12:00 AM Laboratory - Chemistry Order HIV Ag/Ab SCREEN BLOOD(GOLD) [facility] SP ANT [facility] Apr 06, 2024 12:56 AM Consult Order COMMUNITY CARE-CT Cons Utility Mechanic Supervisor's Choice ANT [facility] Radiology Reports: +/- 30 days of the [...] the Encounter. The data comes from all [place] treatment facilities. Date/Time Radiology Report Provider Source Mar 19, 2024 09:[address] NECK SOFT TISSU E W/CONT: KARYN PARTIDA [id number] -1955 M Exm Date: MAR 19, 2024@09:17 Req Phys: ANABEL QIU Loc: OUTSIDE [facility] CT SCAN (Req'g Loc Img Loc: OUTSIDE [facility] CT SCAN Service: Unknown (Case [id number] COMPLETE) CT NECK SOFT TISSUE W/CONT (CT Detailed) CPT:28347 Reason for Study: Exam imported from outside Clinical History: Original Data for Imported Study Patient Name: Karyn Partida Date: 1955 Sex: M Study Date: 03/19/24 Study Time: 09:17:27 Study Description: CT NECK W Referring Physician: AG SALGUERO Series 1: 1 CT file, description: MEDRAD Injection Images Acquisition site: Report Status: Electronically Filed Date Reported: MAR [...] VERIFIED BY: / *ELECTRONICALLY FILED* ANT [facility] Mar 19, 2024 09:13 AM LDCT LUNG CANCER S CREENING: KARYN PARTIDA [id number] -1955 M Exm Date: MAR 19, 2024@09:13 [...] SR file, description: Examination Report Acquisition site: Address: [facility] Report Status: Electronically Filed Date Reported: MAR 26, 2024 Report: RADIOLOGY PROCEDURE: N O T I C E: SCANNED IN EXAM THIS EXAMINATION WAS PERFORMED AND INTERPRETED AT A NON-VA FACILITY. To view the Images or report (if a report was included with the images), select the [employer] Tools Menu and choose the Image Display (Viewer) option. Impression: RADIOLOGY PROCEDURE: N O T I C E: SCANNED IN EXAM THIS EXAMINATION WAS PERFORMED AND INTERPRETED AT A NON-VA FACILITY. To view the Images or report (if a report was included with the images), select the [employer] Tools Menu and choose the Image Display (Viewer) option. VERIFIED BY: / *ELECTRONICALLY FILED* ANT [facility] Mar 19, 2024 08:16 AM ULTRASOUND ABDOMIN AL AORTA SCREEN (AAA): KARYN PARTIDA [id number] -1955 M Exm Date: MAR 19, 2024@08:16 Req Phys: ANABEL QIU Loc: OUTSIDE ULTRASOUND (Req'g Loc) Img Loc: OUTSIDE ULTRASOUND Service: Unknown (Case [id number] COMPLETE) ULTRASOUND ABDOMINAL AORTA SCREEN(US Detailed) CPT:46458 Reason for Study: Exam imported from outside [...] SD file, description: SCANNED DOCUMENT Acquisition site: [facility] Report Status: Electronically Filed Date Reported: MAR 26, 2024 Report: RADIOLOGY PROCEDURE: N O T I C E: SCANNED IN EXAM THIS EXAMINATION WAS PERFORMED AND INTERPRETED AT A NON-VA FACILITY. To view the Images or report (if a report was included with the images), select the [employer] Tools Menu and choose the Image Display [...] Encounter. Date/Time Encounter Note(s) Provider Source Mar 09, 2024 03:59 PM SOCIAL WORK TELEPH ONE ENCOUNTER NOTE: LOCAL TITLE: Social Work Telephone Note STANDARD TITLE: SOCIAL WORK TELEPHONE ENCOUNTER NOTE DATE OF NOTE: MAR 09, 2024@15:59 ENTRY DATE: MAR 09, 2024@15:59:12 AUTHOR: STAR RUSSELL EXP COSIGNER: URGENCY: STATUS: COMPLETED Social Work Telephone Note Has ADDENDA Sw still not able to reach by phone and sending the administrative support associate for [facility], Ke Duran, to assist with restoring services and getting assistance with banking fraud. /kwesi/ STAR RUSSELL Wood Web Weaving Machine Operator Signed: 03/09/2024 16:07 03/09/2024 ADDENDUM STATUS: COMPLETED Ke Duran will plan to see in afternoon of 03/10/24. /kwesi/ STAR RUSSELL Wood Web Weaving Machine Operator Signed: 03/09/2024 16:08 STAR RUSSELL [facility]
--- OUTSIDE RECORDS SUMMARY | 2024-05-04 08:52 | XMS_ITS | Encounter Summary ---
Author Name [facility] [place] [place] Organization [place] Address [address] [place] [id number] Care Team Providers Care Automobile Body Repairer Helper Name Role Phone AG SALGUERO Primary [...] Name Patient's Relationship to Policy Lorenzo HUMANA [facility] (WNR) MEDICARE ADVANTAGE [facility](W NR) Jun 13, 2023 [id number] [id number] JENN PARTIDA Y PATIENT Selected Encounter This section includes the information on record at [place] for the Encounter. Date/Time Encounter Type Encounter [...] 20 appointments. The data comes from all [place] treatment facilities. Appointment Date/Time Appointment Type Appointme nt Facility Name Mar 19, 2024 10:00 AM AMBULATORY - NONE [facility] Mar 19, 2024 10:30 AM AMBULATORY - NONE [facility] Apr 21, 2024 11:00 AM AMBULATORY - NONE [facility] Jun 17, 2024 11:00 AM AMBULATORY - NONE [facility] Active, Pending, and Scheduled Orders This section includes a listing of several types of active, pending, and scheduled orders, including clinic medications orders, diagnostic test orders, procedure orders and consult orders; where the start date of the order is 45 days before the date of the Encounter or 45 days after the date of theEncounter. The data comes from all [facility] facilities. Test Date/Time Test Type Test Details Facility Name Jan 22, 2024 10:34 AM Consult Order COMMUNITY CARE-OPTOMETRY ROUTINE EYE EXAM Cons Credit Product Analyst's Choice [facility] Feb 25, 2024 12:00 AM Laboratory - Chemistry Order CBC PROFILE BLOOD(LAV-EDTA-WB) [facility] Feb 25, 2024 12:00 AM Laboratory - Chemistry Order LIVER PROFILE LT GREEN(LI HEP) PLASMA [facility] Feb 25, 2024 12:00 AM Laboratory - Chemistry Order LIPOPROTEIN CHOLESTEROL FRACT. PANEL LT GREEN(LI HEP) PLASMA [facility] Feb 25, 2024 12:00 AM Laboratory - Chemistry Order VIT D 25-OH(WRJ) BLOOD(GOLD) SERUM [facility] Feb 25, 2024 12:00 AM Laboratory - Chemistry Order PSA (POLYSOM TECH) BLOOD(GOLD) SERUM [facility] Feb 25, 2024 12:00 AM Laboratory - Chemistry Order TSH BLOOD(GOLD) [facility] Feb 25, 2024 12:00 AM Laboratory - Chemistry Order VITAMIN B-12 BLOOD(GOLD) SERUM [facility] Feb 25, 2024 12:00 AM Laboratory - Chemistry Order GLYCOHEMOGLOBIN (A1C ONLY) BLOOD(LAV-EDTA-WB) [facility] Feb 25, 2024 12:00 AM Laboratory - Chemistry Order P4 GLU,BUN,CREAT,LYTES,CA LT GREEN(LI HEP) PLASMA [facility] Feb 27, 2024 12:00 AM Laboratory - Chemistry Order HEPATITIS C AB(WRJ)w/Reflex BLOOD(GOLD)(3) [facility] ANT STUART [facility] Feb 27, 2024 12:00 AM Laboratory - Chemistry Order HIV Ag/Ab SCREEN BLOOD(GOLD) [facility] ANT [facility] Apr 06, 2024 12:56 AM Consult Order COMMUNITY CARE-CT Cons Credit Product Analyst's Choice ANT STUART [facility] Radiology Reports: +/- 30 days of the [...] the Encounter. The data comes from all [place] treatment facilities. Date/Time Radiology Report Provider Source Mar 19, 2024 09:[address] NECK SOFT TISSU E W/CONT: KARYN PARTIDA MIC [id number] -1955 M Exm Date: MAR 19, 2024@09:17 Req Phys: ANABEL QIU Pat Loc: OUTSIDE [facility] CT SCAN (Req'g Loc Img Loc: OUTSIDE [facility] CT SCAN Service: Unknown (Case [id number] COMPLETE) CT NECK SOFT TISSUE W/CONT (CT Detailed) CPT:85992 Reason for Study: Exam imported from outside Clinical History: Original Data for Imported Study Patient Name: Karyn Partida Date: 1955 Sex: M Study Date: 03/19/24 Study Time: 09:17:27 Study Description: CT NECK W Referring Physician: AG SALGUERO Series 1: 1 CT file, description: MEDRAD Injection Images Acquisition site: [facility] Report Status: Electronically Filed Date Reported: MAR 26, 2024 Report: RADIOLOGY PROCEDURE: N O T I C E: SCANNED IN EXAM THIS EXAMINATION WAS PERFORMED AND INTERPRETED [place] A NON-[place] FACILITY. To view the Images or report (if a report was included with the images), select the [employer] Tools Menu and choose the Image Display (Viewer) option. Impression: RADIOLOGY PROCEDURE: N O T I C E: SCANNED IN EXAM THIS EXAMINATION WAS PERFORMED AND INTERPRETED AT A NON-[place] FACILITY. To view the Images or report (if a report was included with the images), select the [employer] Tools Menu and choose the Image Display (Viewer) option. VERIFIED BY: / *ELECTRONICALLY FILED* ANT [facility] Mar 19, 2024 09:13 AM LDCT LUNG CANCER S CREENING: KARYN PARTIDA [id number] -1955 M Exm Date: MAR 19, 2024@09:13 [...] SR file, description: Examination Report Acquisition site: [facility] Address: [facility] Report Status: Electronically Filed Date [...] VERIFIED BY: / *ELECTRONICALLY FILED* ANT [facility] Mar 19, 2024 08:16 AM ULTRASOUND ABDOMIN AL AORTA SCREEN (AAA): KARYN PARTIDA [id number] -1955 M Exm Date: MAR 19, 2024@08:16 Req Phys: ANABEL QIU Loc: OUTSIDE ULTRASOUND (Req'g Loc) Img Loc: OUTSIDE ULTRASOUND Service: Unknown (Case [id number] COMPLETE) ULTRASOUND ABDOMINAL AORTA SCREEN(US Detailed) CPT:15509 Reason for Study: Exam imported from outside [...] SD file, description: SCANNED DOCUMENT Acquisition site: [facility] Report Status: Electronically Filed Date Reported: [...] EXAMINATION WAS PERFORMED AND INTERPRETED AT A NON-[place] FACILITY. To view the Images or report (if a report was included with the images), select the [employer] Tools Menu and choose the Image Display (Viewer) option. Primary Diagnostic Code: NOT ORDERED BY [place] VERIFIED BY: / *ELECTRONICALLY FILED* ANT [facility] Encounter Notes: All associated encounter notes This section contains the clinical notes associated to the Encounter. Date/Time Encounter Note(s) Provider Source Feb 28, 2024 01:46 PM NONVA NOTE: LOCAL TITLE: [facility] CARE-CARE COORDINATION PLAN NOTE STANDARD TITLE: NONVA NOTE DATE OF NOTE: FEB 28, 2024@13:46 ENTRY DATE: FEB 28, 2024@13:47:02 AUTHOR: RUKHSANA DENTON EXP COSIGNER: URGENCY: STATUS: COMPLETED [facility] CARE-CARE COORDINATION PLAN NOTE Has ADDENDA Per [facility] would like the CT Neck to be WITH CONTRAST, and would like a CREATNINE LAB ORDER. Asking Provider if approved for WITH Contrast on the CT Neck and to place a cr lab order. /kwesi/ RUKHSANA DENTON Registered Nurse Signed: 02/28/2024 13:48 Receipt Acknowledged By: 03/04/2024 07:53 /kwesi/ JEANE VIZCAINO RN 03/02/2024 08:58 /es/ TEAGAN TERRELL 03/04/2024 08:14 /kwesi/ AG SALGUERO PA-C 03/04/2024 ADDENDUM STATUS: COMPLETED ok to change to add with contrast. CC placed for lab /kwesi/ AG SALGUERO PA-C Signed: 03/04/2024 08:14 RUKHSANA DENTON [facility]
--- OUTSIDE RECORDS SUMMARY | 2024-05-04 08:52 | XMS_ITS | Encounter Summary ---
Author Name [facility] [place] [place] Organization [place] Address [address] [place] [address] Care Team Providers Care Head Operator Name Role Phone AG SALGUERO Primary [...] Name Patient's Relationship to Policy Lorenzo HUMANA [facility] (WNR) MEDICARE ADVANTAGE [facility](W NR) Jun 13, 2023 [id number] [phone] JENN PARK Y PATIENT Selected Encounter This section includes the information on record at [place] for the Encounter. Date/Time Encounter Type Encounter Description Reason Provider Source Mar 02, 2024 02:43 PM CASE MANAGEMENT PRIMARY CARE/MEDICINE ICD-10-CM Z59.[address] ALBA BALLARDA IHE Encounter Template Text not used by [facility] Assessments - Encounter Diagnoses This section includes the primary and secondary diagnoses documented for the Encounter. Date/Time Primary/Secondary Diagnosis Diagnosis Name Provider Source Mar 03, 2024 02:07 [address] ALBA BALLARD [facility] Mar 03, 2024 02:07 PM SECONDARY Other problems related to housing and economic circumstances ST ARUNA BALLARDJA BENJIA [facility] Mar 03, 2024 02:07 PM SECONDARY Other problems related to life management difficulty ALBA CARBONE [facility] Mar 03, 2024 02:07 PM SECONDARY Problems of adjustment to life-cycle transitions ALBA CARBONE [facility] Mar 03, 2024 02:07 PM SECONDARY Problems related to living alone ALBA CARBONE [facility] Plan of Treatment: Future Appointments (+ 6 months) and Future Tests (+/- 45 days) The Plan of Treatment section includes future care activities for the patient [facility] [place] [facility] This section includes future appointments and future orders which are active, pending or scheduled. Future Appointments This section includes appointments that were scheduled to occur 6 months from the date of the Encounter, up to a maximum of 20 appointments. The data comes from all [facility]. Appointment Date/Time Appointment Type Appointme [...] of theEncounter. The data comes from all [facility]. Test Date/Time Test Type Test Details Facility Name Jan 22, 2024 10:34 AM Consult Order COMMUNITY CARE-OPTOMETRY ROUTINE EYE EXAM Cons Technician [employer]icon[employer] Development's Choice [facility] Feb 25, 2024 12:00 AM Laboratory - Chemistry Order CBC PROFILE BLOOD(LAV-EDTA-WB) [facility] Feb 25, 2024 12:00 AM Laboratory - Chemistry Order LIVER PROFILE LT GREEN(LI HEP) PLASMA [facility] Feb 25, 2024 12:00 AM Laboratory - Chemistry Order LIPOPROTEIN CHOLESTEROL FRACT. PANEL LT GREEN(LI HEP) PLASMA [facility] Feb 25, 2024 12:00 AM Laboratory - Chemistry Order VIT D 25-OH(WRJ) BLOOD(GOLD) SERUM [facility] Feb 25, 2024 12:00 AM Laboratory - Chemistry Order PSA (HIGHWAY TECHNICIAN) BLOOD(GOLD) SERUM [facility] Feb 25, 2024 12:00 AM Laboratory - Chemistry Order TSH BLOOD(GOLD) SERUM [facility] Feb 25, 2024 12:00 AM Laboratory - Chemistry Order VITAMIN B-12 BLOOD(GOLD) SERUM [facility] Feb 25, 2024 12:00 AM Laboratory - Chemistry Order GLYCOHEMOGLOBIN (A1C ONLY) BLOOD(LAV-EDTA-WB) [facility] Feb 25, 2024 12:00 AM Laboratory - Chemistry Order P4 GLU,BUN,CREAT,LYTES,CA LT GREEN(LI HEP) PLASMA [facility] Feb 27, 2024 12:00 AM Laboratory - Chemistry Order HEPATITIS C AB(WRJ)w/Reflex BLOOD(GOLD)(3) SERUM [facility] Feb 27, 2024 12:00 AM Laboratory - Chemistry Order HIV Ag/Ab SCREEN BLOOD(GOLD) SERUM [facility] Apr 06, 2024 12:56 AM Consult Order COMMUNITY CARE-CT Cons Technician Semiconductor Development's Choice [facility] Social History: Smoking Status (Most current) and Tobacco Use (All prior to encounter date) This section includes the most current, and the historical, smoking and tobacco- related health factors from the [place] facility where the Encounter took place. Current Smoking Status This section includes the most current smoking, or tobacco-related health factor, from the [place] facility where the Encounter took place. Date/Time Current Smoking Status Comment Mami randall Feb 27, 2024 02:30 PM VA-TOBACCO FORMER USER [facility] Tobacco Use History This section includes a history of the smoking, or tobacco-related health factors, that were collected on or before the date of the Encounter. The data comes from the [place] facility where the Encounter took place. Date/Time Smoking Status/Tobacco Use Comment F acility Feb 27, 2024 02:30 PM VA-TOBACCO QUIT < 1 YEAR [facility] Feb 19, 2023 01:00 PM VA-TOBACCO USE 30 YEARS OR MORE [facility] Feb 19, 2023 01:00 PM VA-TOBACCO USE ADVICE [facility] Feb 19, 2023 01:00 PM VA-TOBACCO USE RESEARCH HYDRAULIC ENGINEER NO [facility] Feb 19, 2023 01:00 PM VA-TOBACCO USE MED YES [facility] Feb 19, 2023 01:00 PM VA-TOBACCO USE WI 30 MIN OF WAKE UP [facility] Feb 19, 2023 01:00 PM VA-TOBACCO USER EVERY DAY [facility] Radiology Reports: +/- 30 days [...] the Encounter. The data comes from all [place] treatment facilities. Date/Time Radiology Report Provider Source Mar 19, 2024 09:[address] NECK SOFT TISSU E W/CONT: KARYN PARK [id number] -1955 M Exm Date: MAR 19, 2024@09:17 Req Phys: ANABEL QIU Pat Loc: OUTSIDE WRJ CT SCAN (Req'g Loc Img Loc: OUTSIDE WRJ CT SCAN Service: Unknown (Case [id number] COMPLETE) CT NECK SOFT TISSUE W/CONT (CT Detailed) CPT:49730 Reason for Study: Exam imported from outside Clinical History: Original Data for Imported Study Patient Name: Karyn Park Date: 1955 Sex: M Study Date: 03/19/24 Study Time: 09:17:27 Study Description: CT NECK W Referring Physician: AG SALGUERO Series 1: 1 CT file, description: MEDRAD Injection Images Acquisition site: [facility] Report Status: Electronically Filed Date Reported: MAR 26, 2024 Report: RADIOLOGY PROCEDURE: N O T I C E: SCANNED IN EXAM THIS EXAMINATION WAS PERFORMED AND INTERPRETED AT A NON-[place] FACILITY. To view the Images or report (if a report was included with the images), select the CPRS Tools Menu and choose the Image Display (Viewer) option. Impression: RADIOLOGY PROCEDURE: N O T I C E: SCANNED IN EXAM THIS EXAMINATION WAS PERFORMED AND INTERPRETED AT A NON-[place] FACILITY. To view the Images or report (if a report was included with the images), select the CPRS Tools Menu and choose the Image Display (Viewer) option. VERIFIED BY: / *ELECTRONICALLY FILED* ANT STUART [facility] Mar 19, 2024 09:13 AM LDCT LUNG CANCER S CREENING: KARYN PARK [id number] -1955 M Exm Date: MAR 19, 2024@09:13 Req Phys: ANABEL QIU Pat Loc: OUTSIDE WRJ CT SCAN (Req'g Loc Img Loc: OUTSIDE WRJ CT SCAN Service: Unknown (Case [id number] COMPLETE) LDCT LUNG CANCER SCREENING (CT Detailed) CPT:G0297 Reason for Study: Exam imported from outside Clinical History: Original Data for Imported Study Patient Name: Karyn Park Date: 1955 Sex: M Study Date: 03/19/24 [...] SR file, description: Examination Report Acquisition site: [facility] Address: [facility] Report Status: Electronically Filed Date [...] VERIFIED BY: / *ELECTRONICALLY FILED* ANT STUART [facility] Mar 19, 2024 08:16 AM ULTRASOUND ABDOMIN AL AORTA SCREEN (AAA): KARYN PARK [id number] -1955 M Exm Date: MAR 19, 2024@08:16 Req Phys: ANABEL QIU Loc: OUTSIDE ULTRASOUND (Req'g Loc) Img Loc: OUTSIDE ULTRASOUND Service: Unknown (Case [id number] COMPLETE) ULTRASOUND ABDOMINAL AORTA SCREEN(US Detailed) CPT:28194 Reason for Study: Exam imported from outside Clinical History: Original Data for Imported Study Patient Name: Karyn Park Date: 1955 Sex: M Study Date: 03/19/24 Study Time: 08:16:57 Study Description: US AAA SCREENING Referring Physician: AG SALGUERO Series 1: 12 US files, description: US AAA SCREENING Series 2: 1 SR file, description: US AAA SCREENING Series 3: 1 SD file, description: SCANNED DOCUMENT [facility] Report Status: Electronically Filed Date Reported: MAR [...] EXAMINATION WAS PERFORMED AND INTERPRETED AT A NON-[place] FACILITY. To view the Images or report (if a report was included with the images), select the CPRS Tools Menu and choose the Image Display (Viewer) option. Primary Diagnostic Code: NOT ORDERED BY [facility] VERIFIED BY: / *ELECTRONICALLY FILED* ANT STUART J[facility] Encounter Notes: All associated encounter notes This section contains the clinical notes associated to the Encounter. Date/Time Encounter Note(s) Provider Source Mar 02, 2024 02:43 PM SOCIAL WORK RISK ASSESSMENT SCREENING NOTE: LOCAL TITLE: Social Work Triage Assessment STANDARD TITLE: SOCIAL WORK RISK ASSESSMENT SCREENING NOTE DATE OF NOTE: MAR 02, 2024@14:43 ENTRY DATE: MAR 02, 2024@14:44:05 AUTHOR: LINK CARBONE COSIGNER: ROXANNA MORENO URGENCY: STATUS: COMPLETED Social Work Triage Assessment Has ADDENDA Social Work Triage Assessment Referral Source: [place] Presenting Issue: Financial Stressors just walked out of [facility] and asked for directions to the [facility] while this typewriter tester was out on a walk. KUSUM inquired exactly what Milton is looking for. He reports he is hoping to apply financial assistance as he cannot pay his bills. KUSUM asked who his PCP is and he reports Ross at [facility]. This typewriter tester met with Milton to try assist since he drove a long distance to get help. Rom appears poorly groomed, with dirty shirt. He reports his managed everything such as getting their [place] Tax Exemption in, but he missed the deadline. He reports his past 5 years ago. KUSUM looked up Milton's reinsurance clerk's office and learned the deadline is actually 03/13/24 and encouraged to stop by his reinsurance clerk to get the application in. KUSUM tried to screen for [place] [facility], but reports he has no teeth and in need of dentures, but that is not a priority for him at this time. KUSUM asked if he is able to get food. KUSUM asked if he has reached out to [employer]. reports he believes it is [employer] that is delivering him food 2x/week. KUSUM suggests he reach out to them for support especially with winter coming up if he needs any fuel/heat assistance. KUSUM then asked to explain his situation further so this typewriter tester can try to help him with resources in present moment. KUSUM reports this typewriter tester can ask his PACT SW to call him afterwards for any follow up. Milton reports that is one of the issues. Milton reports he fell into a scam and has 2 loans that he cannot afford. He reports his phone was cut off and he owes around $800, but must pay at least $177 to get it turned back on. Milton reports he cannot do this. does have access to Internet and his email. Rom reports he lives off the grid. KUSUM reports he may be able to ask for assistance with the phone bill from 2 possible organizations. KUSUM had work on FOV application during visit so this typewriter tester could submit on his behalf. KUSUM asked about this scam. Milton claims someone called to let him know he has won or they shipped out 2 iPads to him to use. Rom claims the iPads never came, but they told him it was a scam. KUSUM asked who is they. He reports his bank at [employer] ([employer]) and claims there is a fraudulent check, but when he asked to see it, they said it was no longer available to show him. Milton reports he had to put his motorcycle up as collateral for $13K. Milton reports he is not happy with how he has been treated with [employer] that went to a new bank, [employer], to open up a new account and closed his debit card with [employer] today as well, but the loans cannot be transferred over. Rom does not understand the two letters from the [facility]. KUSUM also did not understand the loans in response to a scam he fell for. KUSUM and Rom called [facility] and spoke with a signs and displays sales representative who was able to explain both letters Rom received. Rep reports all santiago offer Share Draft Line of Credit in case spend over amount available on credit or debit card. Rep aware Rom closed his account with them, but he still had a balance so he must work on paying that off which would come to $40/month. Once the balance is complete, the loan will close. Rep reports the other loan, $319.69/month, is related to a fraudulent situation. Rep claims that Rom deposited a fraudulent check into his account at [facility] then purchased $4,000 in gift cards. Rom got upset denying that ever happened. He reports he would never spend that much money since he doesn't get much. Rep claims this is in his record and so they need to get paid for the fraudulent check so his motorcycle was used as collateral. SW asked about the amount. Rep reports Rom may have had some outstanding amount left to pay off his motorcycle and they had to add the amount they are trying to collect for fake check which Rom is responsible for since it was a scam. Rom became even more upset saying none of this happened and that is not the story with the scam. KUSUM appreciated the clarification. KUSUM reports this typewriter tester is not certain about anything that can be done. Milton wanted SW to know he would never spend money I don't have to get gift cards. Rom does not remember buying any gift cards. Milton reports he only gets SS ($2,000). He reports his main goal is to pay off the loans, but he will need help since he cannot do it on his own/his limited income. Milton reports he is wondering about assistance for the loan payments and for his phone bill because he cannot do anything without a phone. KUSUM and Rom called [place] [employer] to inquire about One-Time Fund. It seems Rom has started the process for this request and possibly submitted what was need to Suzanna Fletcher who was out of the office when we called. Rom provided permission for Suzanna to follow up with this typewriter tester since he does not have a phone. KUSUM provided this typewriter tester's contact info. KUSUM reviewed next steps with Rom. KUSUM reports it is worth a shot to apply for FOV whether they can help with the smaller loan or his phone bill since it is crucial to be in communication with or reachable to others. appreciative of assistance. He reports my day is getting better. Thank you. Location: Office Time: 45 Minutes Plan: *KUSUM sent MLP referral to PRATIBHA NOE for review if possible for virtual MLP. CC'ing PRATIBHA NOE as well. *KUSUM sent FOV application to FOV. *KUSUM will assist in communication with Suzanna Chance from [place] [facility] re: One Time Fund assistance since Vet does not have a phone. *KUSUM cc'ing [facility] PACT SWs as handoff. Would suggest PCP involvement in case needs further cognitive work up. Uncertain if he was hiding or embarrassed what happened with the scam. Maybe Jono Foote team since they can meet F2F in community? KUSUM received this response from Suzanna Fletcher (03/03): I'm getting back to you on the messages you left yesterday. I returned Mr. Park's phone call but the phone was not accepting any messages and I do not have the time to johann these veterans down. [place] and will be back this afternoon. I'll reach out when I return. /es/ SUZANNE CARBONE Primary Care Legal Collector Signed: 03/03/2024 14:07 /es/ ION [place] Caregiver Support Lap Machine Tender Cosigned: 03/03/2024 17:05 Receipt Acknowledged By: 03/03/2024 14:29 /es/ STAR RUSSELL Legal Collector * AWAITING SIGNATURE * ANABEL PATEL 03/16/2024 08:18 /es/ ION SANTIAGO, ASW-G PRIMARY CARE DIMENSION QUARRY SUPERVISOR, LUIS 03/03/2024 ADDENDUM STATUS: COMPLETED CORRECTION: Milton has a wood stove he uses for heat. He did receive help from [facility], but still needs at least $900 to get more cord of wood for this winter. Milton co-signed a car loan for a friend's daughter. She pays then stops. This fluctuation has impacted his credit score. He claims the daughter is working on getting someone else to be her co-signer. He is still waiting. /kwesi/ SUZANNE CARBONE Primary Care Legal Collector Signed: 03/03/2024 14:14 /kwesi/ Roxanna Moreno [employer] Caregiver Support Lap Machine Tender Cosigned: 03/03/2024 17:01 SUZANNE CARBONE OC
--- OUTSIDE RECORDS SUMMARY | 2024-05-04 08:52 | XMS_ITS | Encounter Summary ---
Author Name [facility] [place] [place] Organization [place] Address [address] [place] [address] Care Team Providers Care Family Psychologist Name Role Phone AG SALGUERO Primary Care [...] Name Patient's Relationship to Policy Lorenzo HUMANA [facility] (WNR) MEDICARE ADVANTAGE [facility](W NR) Jun 13, 2023 [id number] JENN PARTIDA Y PATIENT Selected Encounter This section includes the information on record at [place] for the Encounter. Date/Time Encounter Type Encounter Description Reason Pro vider Source Mar 03, 2024 02:31 PM Outpatient Encounter TELEPHONE PRIMARY CARE IHE Encounter Template Text not used by [place] Plan of Treatment: Future Appointments (+ 6 [...] 20 appointments. The data comes from all [place] treatment facilities. Appointment Date/Time Appointment Type Appointme nt Facility Name Mar 19, 2024 10:00 AM AMBULATORY - NONE [facility] Mar 19, 2024 10:30 AM AMBULATORY - NONE [facility] Apr 21, 2024 11:00 AM AMBULATORY - NONE [facility] Jun 17, 2024 11:00 AM AMBULATORY - NONE [facility] Active, Pending, and Scheduled Orders This section includes a listing of several types of active, pending, and scheduled orders, including clinic medications orders, diagnostic test orders, procedure orders and consult orders; where the start date of the order is 45 days before the date of the Encounter or 45 days after the date of theEncounter. The data comes from all [facility] facilities. Test Date/Time Test Type Test Details Facility Name Jan 22, 2024 10:34 AM Consult Order COMMUNITY CARE-OPTOMETRY ROUTINE EYE EXAM Cons Injection Molder's Choice [facility] Feb 25, 2024 [...] 12:00 AM Laboratory - Chemistry Order PSA (MAT MAKING MACHINE TENDER) BLOOD(GOLD) SERUM [facility] Feb 25, 2024 12:00 AM Laboratory - Chemistry Order TSH BLOOD(GOLD) SER[facility] Feb 25, 2024 12:00 AM Laboratory - Chemistry Order VITAMIN B-12 BLOOD(GOLD) SERUM [facility] Feb 25, 2024 12:00 AM Laboratory - Chemistry Order GLYCOHEMOGLOBIN (A1C ONLY) BLOOD(LAV-EDTA-WB) [facility] Feb 25, 2024 12:00 AM Laboratory - Chemistry Order P4 GLU,BUN,CREAT,LYTES,CA LT GREEN(LI HEP) PLASMA [facility] Feb 27, 2024 12:00 AM Laboratory - Chemistry Order HEPATITIS C AB(WRJ)w/Reflex BLOOD(GOLD)(3) SERUM SP ANT STUART [facility] Feb 27, 2024 12:00 AM Laboratory - Chemistry Order HIV Ag/Ab SCREEN BLOOD(GOLD) SERUM SP ANT STUART [facility] Apr 06, 2024 12:56 AM Consult Order COMMUNITY CARE-CT Cons Injection Molder's Choice ANT STUART [facility] Radiology Reports: +/- 30 days of [...] the Encounter. The data comes from all [place] treatment facilities. Date/Time Radiology Report Provider Source Mar 19, 2024 09:[address] NECK SOFT TISSU E W/CONT: KARYN PARTIDA MIC [id number] -1955 M Exm Date: MAR 19, 2024@09:17 Req Phys: ANABEL QIU Pat Loc: OUTSIDE WRJ CT SCAN (Req'g Loc Img Loc: OUTSIDE WRJ CT SCAN Service: Unknown (Case [id number] COMPLETE) CT NECK SOFT TISSUE W/CONT (CT Detailed) CPT:02661 Reason for Study: Exam imported from outside Clinical History: Original Data for Imported Study Patient Name: Karyn Partida Date: 1955 Sex: M Study Date: 03/19/24 Study Time: 09:17:27 Study Description: CT NECK W Referring Physician: AG SALGUERO Series 1: 1 CT file, description: MEDRAD Injection Images Acquisition site: [facility] Report Status: Electronically Filed Date Reported: MAR 26, 2024 Report: RADIOLOGY PROCEDURE: N O T I C E: SCANNED IN EXAM THIS EXAMINATION WAS PERFORMED AND INTERPRETED AT A NON-[place] FACILITY. To view the Images or report (if a report was included with the images), select the CPRS Tools Menu and choose the Image Display (Viewer) option. Impression: RADIOLOGY PROCEDURE: N O T I C E: SCANNED IN EXAM THIS EXAMINATION WAS PERFORMED AND INTERPRETED AT A NON-[place] FACILITY. To view the Images or report (if a report was included with the images), select the CPRS Tools Menu and choose the Image Display (Viewer) option. VERIFIED BY: / *ELECTRONICALLY FILED* ANT STUART T [facility] Mar 19, 2024 09:13 AM LDCT LUNG CANCER S CREENING: KARYN PARTIDA [id number] -1955 M Exm Date: MAR 19, 2024@09:13 [...] SR file, description: Examination Report Acquisition site: [facility] Address: [facility] Report Status: Electronically Filed Date [...] VERIFIED BY: / *ELECTRONICALLY FILED* ANT STUART [facility] Mar 19, 2024 08:16 AM ULTRASOUND ABDOMIN AL AORTA SCREEN (AAA): KARYN PARTIDA [id number] -1955 M Exm Date: MAR 19, 2024@08:16 Req Phys: ANABEL QIU Loc: OUTSIDE ULTRASOUND (Req'g Loc) Img Loc: OUTSIDE ULTRASOUND Service: Unknown (Case [id number] COMPLETE) ULTRASOUND ABDOMINAL AORTA SCREEN(US Detailed) CPT:06392 Reason for Study: Exam imported from outside [...] SD file, description: SCANNED DOCUMENT Acquisition site: [facility] Report Status: Electronically Filed Date Reported: MAR [...] Encounter. Date/Time Encounter Note(s) Provider Source Mar 03, 2024 02:44 PM SOCIAL WORK CONSUL T: LOCAL TITLE: CONSULT: Social Work Service STANDARD TITLE: SOCIAL WORK CONSULT DATE OF NOTE: MAR 03, 2024@14:44 ENTRY DATE: MAR 03, 2024@14:45:35 AUTHOR: STAR RUSSELL EXP COSIGNER: URGENCY: STATUS: COMPLETED SW will refer to [facility] social worker assistant through Jono Foote or kateryna Duran to try to meet him at this home since he is not able to receive any phone calls. Note earlier this week records that vetern travelled all the way to [facility] to get assitance as he has no phone and no funds and has been the victime of two cases of fraudulent checks that he deposited thinking that he won some [employer] drawing. is now aware that he was scammed and is trying to get food and finacial assistance as is not service connected but appears to be quite distressed and unable to function as he is needing food and assistnace to access funds at bank and needs assistnace with fuel for wood stove. SW will alert Kateryna and Jono of veterans needs and have them try to meet with him. /kwesi/ STAR RUSSELL Api Developer Signed: 03/03/2024 14:54 Receipt Acknowledged By: 03/03/2024 15:08 /es/ SUZANNE CARBONE Primary Care Api Developer 03/04/2024 07:58 /es/ STAR CAMP PA-C [facility] Mar 03, 2024 02:31 PM SOCIAL WORK TELEPH ONE ENCOUNTER NOTE: LOCAL TITLE: Social Work Telephone Note STANDARD TITLE: SOCIAL WORK TELEPHONE ENCOUNTER NOTE DATE OF NOTE: MAR 03, 2024@14:31 ENTRY DATE: MAR 03, 2024@14:32:06 AUTHOR: STAR RUSSELL EXP COSIGNER: URGENCY: STATUS: COMPLETED Sw will reach out to as SW does have resource for heating assitance if will work with SW to make contact and get fuel delivery ordered. /kwesi/ STAR RUSSELL Api Developer Signed: 03/03/2024 14:34 STAR RUSSELL [facility]
--- OUTSIDE RECORDS SUMMARY | 2024-05-04 08:52 | XMS_ITS | Encounter Summary ---
Author Name [facility] [place] Organization [place] Address [address] [place] [address] Care Team Providers Care Ham Marker Name Role Phone AG SALGUERO Primary Care [...] Member ID Insurance Provider's Telephone Number Policy Loernzo's Name Patient's Relationship to Policy Lorenzo HUMANA [facility] (WNR) MEDICARE ADVANTAGE [facility](W NR) Jun 13, 2023 [id number] JENN PARTIDA Y PATIENT Selected Encounter This section includes the information on record at [place] for the Encounter. Date/Time Encounter Type Encounter Description Reason Pro vider Source Mar 19, 2024 01:22 PM Outpatient Encounter COMMUNITY CARE CONSULT IHE [...] 20 appointments. The data comes from all [place] treatment facilities. Appointment Date/Time Appointment Type Appointme nt Facility Name Apr 21, 2024 11:00 AM AMBULATORY - NONE [facility] Jun 17, 2024 11:00 AM AMBULATORY - NONE [facility] Active, Pending, and Scheduled Orders This [...] data comes from all [facility] facilities. Test Date/Time Test Type Test Details [...] 12:00 AM Laboratory - Chemistry Order PSA (HOTEL RECREATIONAL FACILITIES MANAGER) BLOOD(GOLD) SERUM [facility] Feb 25, [...] GREEN(LI HEP) PLASMA [facility] Feb 27, 2024 12:00 AM Laboratory - Chemistry Order HEPATITIS C AB(WRJ)w/Reflex BLOOD(GOLD)(3) SERUM [facility] Feb 27, 2024 12:00 AM Laboratory - Chemistry Order HIV Ag/Ab SCREEN BLOOD(GOLD) SERUM [facility] Apr 06, 2024 12:56 AM Consult Order COMMUNITY CARE-CT Cons Tar Heater's Choice ANT [facility] Radiology Reports: +/- 30 days [...] the Encounter. The data comes from all [place] treatment facilities. Date/Time Radiology Report Provider Source Mar 19, 2024 09:[address] NECK SOFT TISSU E W/CONT: KARYN PARTIDA [id number] -1955 M Exm Date: MAR 19, 2024@09:17 Req Phys: ANABEL QIU Pat Loc: OUTSIDE [facility] CT SCAN (Req'g Loc Img Loc: OUTSIDE [facility]J CT SCAN Service: Unknown (Case [id number] COMPLETE) CT NECK SOFT TISSUE W/CONT (CT Detailed) CPT:27596 Reason for Study: Exam imported from outside Clinical History: Original Data for Imported Study Patient Name: Karyn Partida Date: 1955 Sex: M Study Date: 03/19/24 Study Time: 09:17:27 Study Description: CT NECK W Referring Physician: AG SALGUERO Series 1: 1 CT file, description: MEDRAD Injection Images Acquisition site: [facility] Report Status: Electronically Filed Date Reported: MAR 26, 2024 Report: RADIOLOGY PROCEDURE: N O T I C E: SCANNED IN EXAM THIS EXAMINATION WAS PERFORMED AND INTERPRETED AT A NON-[place] FACILITY. To view the Images or report (if a report was included with the images), select the [email or web address] Tools Menu and choose the Image Display (Viewer) option. Impression: RADIOLOGY PROCEDURE: N O T I C E: SCANNED IN EXAM THIS EXAMINATION WAS PERFORMED AND INTERPRETED AT A NON-VA FACILITY. To view the Images or report (if a report was included with the images), select the [employer] Tools Menu and choose the Image Display (Viewer) option. VERIFIED BY: / *ELECTRONICALLY FILED* [facility]T [facility] Mar 19, 2024 09:13 AM LDCT LUNG CANCER S CREENING: KARYN PARTIDA [id number] -1955 M Exm Date: MAR 19, 2024@09:13 [...] SR file, description: Examination Report Acquisition site: [facility] Address: [facility] [place] Report Status: Electronically Filed Date Reported: MAR 26, 2024 Report: RADIOLOGY PROCEDURE: N O T I C E: SCANNED IN EXAM THIS EXAMINATION WAS PERFORMED AND INTERPRETED AT A NON-[place] FACILITY. To view the Images or report [...] VERIFIED BY: / *ELECTRONICALLY FILED* ANT STUART [facility] Mar 19, 2024 08:16 AM ULTRASOUND ABDOMIN AL AORTA SCREEN (AAA): KARYN PARTIDA [id number] -1955 M Exm Date: MAR 19, 2024@08:16 Req Phys: ANABEL QIU Loc: OUTSIDE ULTRASOUND (Req'g Loc) Img Loc: OUTSIDE ULTRASOUND Service: Unknown (Case [id number] COMPLETE) ULTRASOUND ABDOMINAL AORTA SCREEN(US Detailed) CPT:18808 Reason for Study: Exam imported from outside [...] SD file, description: SCANNED DOCUMENT Acquisition site: [facility] Report Status: Electronically Filed Date Reported: MAR [...] Encounter Note(s) Provider Source Mar 25, 2024 02:09 PM ADDENDUM: LOCAL TITLE: Addendum STANDARD TITLE: ADDENDUM DATE OF NOTE: MAR 25, 2024@14:09:06 ENTRY DATE: MAR 25, 2024@14:09:06 AUTHOR: MICHAEL GRADY COSIGNER: URGENCY: STATUS: COMPLETED [facility] Patient Name: Julita Mendez Ordering Provider: Silviano Exam(s) a CT:CT chest lung cancer screen Exam(s) CT CHEST LUNG CANCER SCREEN EXAM: Cl CHEST LUNG CANCER SCREEN CLINICAL HISTORY 2121 Encounter for screening for Malig neop of resp organs [id number] Tracheobronohial tree: Patent where visualized. No bronchiectasis. Pulmonary parenchyma: There is a small reticular nodular contour infiltrate in the right lower lobe and the right upper lobe. The left lung Is clear. Moderate centrilobular emphysematous changes are present. Lung Nodules: There is a 3 mm nodule in the anterior aspect of the left lower lobe. (Series 6, image 142). This was not present on the prior examination. Mediastinum and Sendy: No dominant adenopathy or fluid collection. The esophagus is unremarkable. Thyroid gland: Unremarkable. Lymph nodes: Unremarkable. Pleura: No effusion or pneumothorax, Heart. The heart is not dilated. Coronary artery calcifications are present, No pericardial effusion. Aorta: Thoracic aorta non-dilated. Atherosclerotic calcification is present. Upper abdomen Unremarkable. Soft Tissues. Unremarkable. Bones Within normal limits IMPRESSION: 1.New 3 mm nodule in the anterior aspect of the left lower lobe. 2.Reticular nodular infiltrate seen in the right lower and right upper lobes An inflammatory or infectious process should be considered, A follow-up CT scan to document resolution is recommended in 2-3 months. Lung RADS Cat 2 - Benign Appearance / Behavior: Nodules with a very low likelihood of becoming a clinically active cancer due to size or lack of growth /kwesi/ MICHAEL GRADY LPN Signed: 03/25/2024 14:11 Receipt Acknowledged By: 03/26/2024 17:25 /abigail SALGUERO PA-C --- Original Document --- 03/19/24 COMMUNITY CARE CONSULT RESULT NOTE: [facility] - Scanned Document COMMUNITY CARE-CT 03/19/2024 CT CHEST LUNG CANCER SCREEN NV /kwesi/ Delia Rafytarun Medina MRT Signed: 03/24/2024 13:25 03/24/2024 ADDENDUM STATUS: COMPLETED Tara mobley /abigail SALGUERO PA-C Signed: 03/24/2024 14:04 Receipt Acknowledged By: 03/25/2024 14:06 /MICHAEL Honeycutt LPN [facility] Mar 24, 2024 02:04 PM ADDENDUM: LOCAL TITLE: Addendum STANDARD TITLE: ADDENDUM DATE OF NOTE: MAR 24, 2024@14:04:18 ENTRY DATE: MAR 24, 2024@14:04:20 AUTHOR: AG SALGUERO COSIGNER: URGENCY: STATUS: COMPLETED Tara mobley /abigail SALGUERO PA-C Signed: 03/24/2024 14:04 Receipt Acknowledged By: 03/25/2024 14:06 /kwesi/ MICHAEL GRADY LPN --- Original Document --- 03/19/24 COMMUNITY CARE CONSULT RESULT NOTE: [facility] Imaging - Scanned Document COMMUNITY CARE-CT 03/19/2024 CT CHEST LUNG CANCER SCREEN [facility] /es/ Delia Hillmantarun Medina MRT Signed: 03/24/2024 13:25 AG SALGUERO [facility] Mar 19, 2024 01:22 PM NONVA CONSULT: LOCAL TITLE: COMMUNITY CARE CONSULT RESULT NOTE STANDARD TITLE: NONVA CONSULT DATE OF NOTE: MAR 19, 2024@13:22 ENTRY DATE: MAR 24, 2024@13:24:57 AUTHOR: DELIA MEDINA COSIGNER: URGENCY: STATUS: COMPLETED COMMUNITY CARE CONSULT RESULT NOTE Has ADDENDA [facility] Imaging - Scanned Document COMMUNITY CARE-CT 03/19/2024 CT CHEST LUNG CANCER SCREEN [facility] /es/ Delia Chasedebbie Medina MRT Signed: 03/24/2024 13:25 03/24/2024 ADDENDUM STATUS: COMPLETED Tara mobley /kwesi/ AG SALGUERO PA-C Signed: 03/24/2024 14:04 Receipt Acknowledged By: 03/25/2024 14:06 /es/ MICHAEL GRADY LPN 03/25/2024 ADDENDUM STATUS: COMPLETED [facility] Patient Name: Julita Mendez Ordering Provider: Silviano Exam(s) a CT:CT chest lung cancer screen Exam(s) CT CHEST LUNG CANCER SCREEN EXAM: Cl CHEST LUNG CANCER SCREEN CLINICAL HISTORY 2121 Encounter for screening for Malig neop of resp organs [id number] Tracheobronohial tree: Patent where visualized. No bronchiectasis. Pulmonary parenchyma: There is a small reticular nodular contour infiltrate in the right lower lobe and the right upper lobe. The left lung Is clear. Moderate centrilobular emphysematous changes are present. Lung Nodules: There is a 3 mm nodule in the anterior aspect of the left lower lobe. (Series 6, image 142). This was not present on the prior examination. Mediastinum and Sendy: No dominant adenopathy or fluid collection. The esophagus is unremarkable. Thyroid gland: Unremarkable. Lymph nodes: Unremarkable. Pleura: No effusion or pneumothorax, Heart. The heart is not dilated. Coronary artery calcifications are present, No pericardial effusion. Aorta: Thoracic aorta non-dilated. Atherosclerotic calcification is present. Upper abdomen Unremarkable. Soft Tissues. Unremarkable. Bones Within normal limits IMPRESSION: 1.New 3 mm nodule in the anterior aspect of the left lower lobe. 2.Reticular nodular infiltrate seen in the right lower and right upper lobes An inflammatory or infectious process should be considered, A follow-up CT scan to document resolution is recommended in 2-3 months. Lung RADS Cat 2 - Benign Appearance / Behavior: Nodules with a very low likelihood of becoming a clinically active cancer due to size or lack of growth /es/ MICHAEL GRADY LPN Signed: 03/25/2024 14:11 Receipt Acknowledged By: * AWAITING SIGNATURE * AG SALGUERO TAMMY DENEGE [place] Elyssa [facility]
--- OUTSIDE RECORDS SUMMARY | 2024-05-04 08:52 | XMS_ITS | Encounter Summary ---
Author Name Department of [place]a [place] Organization [place] Address [address] [place] [address] Care Team Providers Care Certified Real Estate Appraiser Name Role Phone AG SALGUERO Primary Care [...] Name Patient's Relationship to Policy Lorenzo HUMANA [facility] (WNR) MEDICARE ADVANTAGE [facility](W NR) Jun 13, 2023 [id number] JENN PARTIDA Y PATIENT Selected Encounter This section includes the information on record at [place] for the Encounter. Date/Time Encounter Type Encounter Description Reason Pro vider Source Mar 02, 2024 03:06 PM Outpatient Encounter PRIMARY CARE/MEDICINE IHE Encounter Template Text not used by [place] Plan of Treatment: Future Appointments (+ 6 months) and Future Tests (+/- 45 days) The Plan of Treatment section includes future care activities for the patient from all [place] treatmentfacilities. This section includes future appointments and [...] 11:00 AM AMBULATORY - NONE [facility] Jun 17, 2024 11:00 AM [...] of theEncounter. The data comes from all [facility] facilities. Test Date/Time Test Type Test Details Facility Name Jan 22, 2024 10:34 AM Consult Order COMMUNITY CARE-OPTOMETRY ROUTINE EYE EXAM Cons Red Hat Engineer's Choice [facility] Feb 25, [...] 12:00 AM Laboratory - Chemistry Order PSA (SEMICONDUCTOR WAFERS ETCHER STRIPPER) BLOOD(GOLD) SERUM [facility] Feb 25, [...] C AB(WRJ)w/Reflex BLOOD(GOLD)(3) SERUM SP ANT [facility] Feb 27, 2024 12:00 AM Laboratory - Chemistry Order HIV Ag/Ab SCREEN BLOOD(GOLD) SERUM SP ANT [facility] Apr 06, 2024 12:56 AM Consult Order COMMUNITY CARE-CT Cons Red Hat Engineer's Choice ANT [facility] Radiology Reports: +/- 30 days of [...] the Encounter. The data comes from all [place] treatment facilities. Date/Time Radiology Report Provider Source Mar 19, 2024 09:[address] NECK SOFT TISSU E W/CONT: KARYN PARTIDA [id number] -1955 M Exm Date: MAR 19, 2024@09:17 Req Phys: ANABEL QIU Pat Loc: OUTSIDE [facility]J CT SCAN (Req'g Loc Img Loc: OUTSIDE [facility]J CT SCAN Service: Unknown (Case [id number] COMPLETE) CT NECK SOFT TISSUE W/CONT (CT Detailed) CPT:28318 Reason for Study: Exam imported from outside [...] EXAMINATION WAS PERFORMED AND INTERPRETED AT A NON-[place] FACILITY. To view the Images or report (if a report was included with the images), select the CPRS Tools Menu and choose the Image Display (Viewer) option. Impression: RADIOLOGY PROCEDURE: N O T I C E: SCANNED IN EXAM THIS EXAMINATION WAS PERFORMED AND INTERPRETED AT A NON-[place] FACILITY. To view the Images or report (if a report was included with the images), select the CPRS Tools Menu and choose the Image Display (Viewer) option. VERIFIED BY: / *ELECTRONICALLY FILED* [facility] Mar 19, 2024 09:13 AM LDCT LUNG CANCER S CREENING: KARYN PARTIDA [id number] -1955 M Exm Date: MAR 19, 2024@09:13 [...] Report Acquisition site: [facility] Address: [facility] [place] Report Status: Electronically Filed Date Reported: [...] VERIFIED BY: / *ELECTRONICALLY FILED* ANT STUART [facility] Mar 19, 2024 08:16 AM ULTRASOUND ABDOMIN AL AORTA SCREEN (AAA): KARYN PARTIDA [id number] -1955 M Exm Date: MAR 19, 2024@08:16 Req Phys: ANABEL QIU Loc: OUTSIDE ULTRASOUND (Req'g Loc) Img Loc: OUTSIDE ULTRASOUND Service: Unknown (Case [id number] COMPLETE) ULTRASOUND ABDOMINAL AORTA SCREEN(US Detailed) CPT:10567 Reason for Study: Exam imported from outside [...] SD file, description: SCANNED DOCUMENT Acquisition site: [facility] Report Status: Electronically Filed Date Reported: [...] Historical Date Administered: Apr 25, 2022 Lot: [id number] Exp Date: Unknown Information Source: FROM OTHER REGISTRY Documented: COVID-19 (MODERNA), MRNA, LNP-S, PF, 100 MCG/0.5ML DOSE OR 50 MCG/0.25ML DOSE Historical Date Administered: Dec 25, 2021 Lot: [id number] Exp Date: Unknown Information Source: FROM OTHER [...] MICHAEL GRADY LPN Signed: 03/02/2024 15:12 MICHAEL GRDAY [facility]
--- OUTSIDE RECORDS SUMMARY | 2024-05-04 08:52 | XMS_ITS | Encounter Summary ---
Author Name Department of [place] Organization Department [place] Address [address] [place] [address] Care Team Providers Care Printing Bindery Assistant Name Role Phone AG SALGUERO Primary Care [...] Name Patient's Relationship to Policy Lorenzo HUMANA [facility] (WNR) MEDICARE ADVANTAGE [facility]([place]) Jun 13, 2023 [id number] HELGAJENN Y PATIENT Selected Encounter This section includes the information on record at [place] for the Encounter. Date/Time Encounter Type Encounter Description Reason Pro vider Source IHE Encounter Template Text not used by [place]
--- OUTSIDE RECORDS SUMMARY | 2024-05-04 08:52 | XMS_ITS | Encounter Summary ---
Author Name Department of [place] Organization Department of [place] Address [address] [place] [address] Care Team Providers Care Steel Engraver Name Role Phone AG SALGUERO Primary Care [...] Name Patient's Relationship to Policy Lorenzo HUMANA [facility] (WNR) MEDICARE ADVANTAGE [facility](W NR) Jun 13, 2023 [id number] JENN PARTIDA Y PATIENT Selected Encounter This section includes the information on record at [place] for the Encounter. Date/Time Encounter Type Encounter Description Reason Pro vider Source Feb 05, 2024 09:37 AM Outpatient Encounter ADMIN PAT ACTIVTIES (MASNONCT) IHE Encounter Template Text not used by [place] Plan of Treatment: Future Appointments (+ 6 [...] PM AMBULATORY - NONE [facility] Mar 19, 2024 10:00 AM AMBULATORY - NONE [facility] Mar 19, 2024 10:30 AM AMBULATORY - NONE [facility] Apr 21, 2024 11:00 AM AMBULATORY - NONE [facility] Jun 17, 2024 11:00 AM AMBULATORY - NONE [facility] Active, Pending, and Scheduled Orders This section includes a listing of several types of active, pending, and scheduled orders, including clinic medications orders, diagnostic test orders, procedure orders and consult orders; where the start date of the order is 45 days before the date of the Encounter or 45 days after the date of theEncounter. The data comes from all [facility]. Test Date/Time Test Type Test Details Facility Name Jan 22, 2024 10:34 AM Consult Order COMMUNITY CARE-OPTOMETRY ROUTINE EYE EXAM Cons Completions Engineer's Choice [facility] Feb 25, 2024 12:00 AM [...] 12:00 AM Laboratory - Chemistry Order PSA (REVENUE AGENT) BLOOD(GOLD) SERUM [facility] Feb [...] GLU,BUN,CREAT,LYTES,CA LT GREEN(LI HEP) PLASMA SP ANT [facility] Feb 27, 2024 12:00 AM Laboratory - Chemistry Order HEPATITIS C AB(WRJ)w/Reflex BLOOD(GOLD)(3) SERUM SP ANT [facility] Feb 27, 2024 12:00 AM Laboratory - Chemistry Order HIV Ag/Ab SCREEN BLOOD(GOLD) SERUM SP [facility] Encounter [...] Patient Name: ABBY PARTIDA Patient Primary Phone: [phone] Patient Primary Address: [address] [place] [address] Patient : 1955 Patient Age: 68 Caller/Recipient Relation to Patient: Self Administrative Administrative Note Reason: Other Administrative Note Comments: Vet wanted to make PACT team aware that he no longer wishes to have meds received through the [facility] and reports he will be refilling them through the state as it is a lower cost for . IMPORTANT: This note was created by [facility] Clinical Contact Center staff. Please do not alert the staff member by adding them as a signer for future communications. Alerts are not monitored by this user. /kwesi/ RUKHSANA BERMEO VISN [address] [facility] Signed: 02/05/2024 09:37 Receipt Acknowledged By: 02/06/2024 09:11 /es/ MICHAEL GRADY LPN 02/05/2024 10:01 /kwesi/ JEWELS BROWNE Registered Nurse RUKHSANA BERMEO [facility]
--- OUTSIDE RECORDS SUMMARY | 2024-05-04 08:52 | XMS_ITS | Encounter Summary ---
Author Name Department of [place] Organization [place] Address [address] [place] [address] Care Team Providers Care Billing Customer Service Representative Name Role Phone AG SALGUERO Primary Care [...] Name Patient's Relationship to Policy Lorenzo HUMANA [employer] (WNR) MEDICARE ADVANTAGE [employer](W NR) Jun 13, 2023 [id number] JENN PARTIDA Y PATIENT Selected Encounter This section includes the information on record at [place] for the Encounter. Date/Time Encounter Type Encounter Description Reason Pro vider Source Mar 05, 2024 08:15 AM Outpatient Encounter TELEPHONE PRIMARY CARE IHE Encounter Template Text not used by [place] Plan of Treatment: Future Appointments (+ 6 [...] 20 appointments. The data comes from all [place] treatment facilities. Appointment Date/Time Appointment Type Appointme nt Facility Name Mar 19, 2024 10:00 AM AMBULATORY - NONE [facility] Mar 19, 2024 10:30 AM AMBULATORY - NONE [facility] Apr 21, 2024 11:00 AM AMBULATORY - NONE [facility] Jun 17, 2024 11:00 AM AMBULATORY - NONE [facility] Active, Pending, and Scheduled Orders This section includes a listing of several types of active, pending, and scheduled orders, including clinic medications orders, diagnostic test orders, procedure orders and consult orders; where the start date of the order is 45 days before the date of the Encounter or 45 days after the date of theEncounter. The data comes from all [facility] facilities. Test Date/Time Test Type Test Details Facility Name Jan 22, 2024 10:34 AM Consult Order COMMUNITY CARE-OPTOMETRY ROUTINE EYE EXAM Cons Vice President Of Advertising's Choice [facility] Feb 25, 2024 [...] 12:00 AM Laboratory - Chemistry Order PSA (FIBER DRIER OPERATOR) BLOOD(GOLD) SERUM [facility] Feb 25, [...] AB(WRJ)w/Reflex BLOOD(GOLD)(3) SERUM SP ANT [facility] Feb 27, 2024 12:00 AM Laboratory - Chemistry Order HIV Ag/Ab SCREEN BLOOD(GOLD) SERUM SP ANT [facility] Apr 06, 2024 12:56 AM Consult Order COMMUNITY CARE-CT Cons Vice President Of Advertising's Choice ANT STUART [facility] Radiology Reports: +/- 30 days of the [...] the Encounter. The data comes from all [place] treatment facilities. Date/Time Radiology Report Provider Source Mar 19, 2024 09:[address] NECK SOFT TISSU E W/CONT: KARYN PARTIDA MIC [id number] -1955 M Exm Date: MAR 19, 2024@09:17 Req Phys: ANABEL QIU Pat Loc: OUTSIDE [facility] CT SCAN (Req'g Loc Img Loc: OUTSIDE [facility] CT SCAN Service: Unknown (Case [id number] COMPLETE) CT NECK SOFT TISSUE W/CONT (CT Detailed) CPT:53004 Reason for Study: Exam imported from outside Clinical History: Original Data for Imported Study Patient Name: Karyn Partida Date: 1955 Sex: M Study Date: 03/19/24 Study Time: 09:17:27 Study Description: CT NECK W Referring Physician: AG SALGUERO Series 1: 1 CT file, description: MEDRAD Injection Images Acquisition site: [facility] Report Status: Electronically Filed Date Reported: MAR 26, 2024 Report: RADIOLOGY PROCEDURE: N O T I C E: SCANNED IN EXAM THIS EXAMINATION WAS PERFORMED AND INTERPRETED AT A NON-[place] FACILITY. To view the Images or report (if a report was included with the images), select the CPRS Tools Menu and choose the Image Display (Viewer) option. Impression: RADIOLOGY PROCEDURE: N O T I C E: SCANNED IN EXAM THIS EXAMINATION WAS PERFORMED AND INTERPRETED AT A NON-[place] FACILITY. To view the Images or report (if a report was included with the images), select the CPRS Tools Menu and choose the Image Display (Viewer) option. VERIFIED BY: / *ELECTRONICALLY FILED* ANT [facility] Mar 19, 2024 09:13 AM LDCT LUNG CANCER S CREENING: KARYN PARTIDA [id number] -1955 M Exm Date: MAR 19, 2024@09:13 [...] SR file, description: Examination Report Acquisition site: [facility] Address: [facility] [place] Report Status: Electronically Filed Date [...] VERIFIED BY: / *ELECTRONICALLY FILED* ANT STUART [facility] Mar 19, 2024 08:16 AM ULTRASOUND ABDOMIN AL AORTA SCREEN (AAA): KARYN PARTIDA [id number] -1955 M Exm Date: MAR 19, 2024@08:16 Req Phys: ANABEL QIU Loc: OUTSIDE ULTRASOUND (Req'g Loc) Img Loc: OUTSIDE ULTRASOUND Service: Unknown (Case [id number] COMPLETE) ULTRASOUND ABDOMINAL AORTA SCREEN(US Detailed) CPT:76961 Reason for Study: Exam imported from outside [...] file, description: SCANNED DOCUMENT Acquisition site: [facility] Report Status: Electronically Filed Date Reported: [...] Encounter Note(s) Provider Source Mar 05, 2024 05:10 PM SOCIAL WORK TELEPH ONE ENCOUNTER NOTE: LOCAL TITLE: Social Work Telephone Note STANDARD TITLE: SOCIAL WORK TELEPHONE ENCOUNTER NOTE DATE OF NOTE: MAR 05, 2024@17:10 ENTRY DATE: MAR 05, 2024@17:10:20 AUTHOR: STAR RUSSELL EXP COSIGNER: URGENCY: STATUS: COMPLETED KUSUM 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 His telephone has been shut off due to inability to pay. SW will determine if they will turn phone back on since funds will be sent from the [place] [facility]. [place] wool batting worker will go to veterans home on Saturday afternoon to assist with getting phone support and other needs h has due to recent scam and bank now collecting for loss of funds from the deposits made to his bankaccount. KUSUM will work with [facility] to secure funds to pay for telepone bills. /kwesi/ STAR RUSSELL Consulting Services Project Manager Signed: 03/05/2024 17:15 Receipt Acknowledged By: 03/06/2024 07:59 /kwesi/ SUZANNE CARBONE Primary Care Consulting Services Project Manager 03/06/2024 08:13 /kwesi/ STAR ROBISON OC
--- OUTSIDE RECORDS SUMMARY | 2024-05-04 08:53 | XMS_ITS | Encounter Summary ---
Author Name [facility] [place] [facility] [place] Address [address] [place] [address] Care Team Providers Care Foster Care Case Manager Name Role Phone AG SALGUERO Primary [...] [facility] Jun 13, 2023 [id number] [phone] JENN PARTIDA Y PATIENT Selected Encounter This section includes the information on record at [place] for the Encounter. Date/Time Encounter Type Encounter Description Reason Pro vider Source Mar 26, 2024 05:10 PM Outpatient Encounter PRIMARY CARE/MEDICINE IHE Encounter Template Text not used by [place] Plan of Treatment: Future Appointments (+ 6 months) and Future Tests (+/- 45 days) The Plan of Treatment section includes future care activities for the patient from all [place] treatmentfacilities. This section includes future appointments and future orders which are active, pending or scheduled. Future Appointments This section includes appointments that were scheduled to occur 6 months from the date of the Encounter, up to a maximum of 20 appointments. The data comes from all [place] treatment facilities. Appointment Date/Time Appointment Type Appointme nt Facility Name Apr 21, 2024 11:00 AM AMBULATORY - NONE [facility] Jun 17, 2024 11:00 AM AMBULATORY - NONE [facility] K[facility] Active, Pending, and Scheduled Orders This section includes a listing of several types of active, pending, and scheduled orders, including clinic medications orders, diagnostic test orders, procedure orders and consult orders; where the start date of the order is 45 days before the date of the Encounter or 45 days after the date of theEncounter. The data comes from all [facility]. Test Date/Time Test Type Test Details Facility Name Feb 25, 2024 12:00 AM Laboratory - Chemistry Order CBC PROFILE BLOOD(LAV-EDTA-WB) [facility] Feb 25, 2024 12:00 AM Laboratory - Chemistry Order LIVER PROFILE LT GREEN(LI HEP) PLASMA [facility] Feb 25, 2024 12:00 AM Laboratory - Chemistry Order LIPOPROTEIN CHOLESTEROL FRACT. PANEL LT GREEN(LI HEP) PLASMA [facility] Feb 25, 2024 12:00 AM Laboratory - Chemistry Order VIT D 25-OH(WRJ) BLOOD(GOLD) [facility] Feb 25, 2024 12:00 AM Laboratory - Chemistry Order PSA (SENIOR ADMINISTRATIVE SERVICES OFFICER) BLOOD(GOLD) [facility] Feb 25, 2024 12:00 AM Laboratory - Chemistry Order TSH BLOOD(GOLD) [facility] Feb 25, 2024 12:00 AM Laboratory - Chemistry Order VITAMIN B-12 BLOOD(GOLD) [facility] Feb 25, 2024 12:00 AM Laboratory - Chemistry Order GLYCOHEMOGLOBIN (A1C ONLY) BLOOD(LAV-EDTA-WB) [facility] Feb 25, 2024 12:00 AM Laboratory - Chemistry Order P4 GLU,BUN,CREAT,LYTES,CA LT GREEN(LI HEP) PLASMA [facility] Feb 27, 2024 12:00 AM Laboratory - Chemistry Order HEPATITIS C AB(WRJ)w/Reflex BLOOD(GOLD)(3) [facility] Feb 27, 2024 12:00 AM Laboratory - Chemistry Order HIV Ag/Ab SCREEN BLOOD(GOLD) [facility] Apr 06, 2024 12:56 AM Consult Order COMMUNITY CARE-CT Cons Nuts And Bolts Assembler's Choice [facility] Radiology Reports: +/- [...] the Encounter. The data comes from all [place] treatment facilities. Date/Time Radiology Report Provider Source Mar 19, 2024 09:[address] NECK SOFT TISSU E W/CONT: KARYN PARTIDA [id number] -1955 M Exm Date: MAR 19, 2024@09:17 Req Phys: ANABEL QIU Loc: OUTSIDE [facility] CT SCAN (Req'g Loc Img Loc: OUTSIDE [facility] CT SCAN Service: Unknown (Case [id number] COMPLETE) CT NECK SOFT TISSUE W/CONT (CT Detailed) CPT:68285 Reason for Study: Exam imported from outside Clinical History: Original Data for Imported Study Patient Name: Karyn Partida Date: 1955 Sex: M Study Date: 03/19/24 Study Time: 09:17:27 Study Description: CT NECK W Referring Physician: AG SALGUERO Series 1: 1 CT file, description: MEDRAD Injection Images Acquisition site: [facility] Report Status: Electronically Filed Date Reported: MAR 26, 2024 Report: RADIOLOGY PROCEDURE: N O T I C E: SCANNED IN EXAM THIS EXAMINATION WAS PERFORMED AND INTERPRETED AT A NON-[place] FACILITY. To view the Images or report (if a report was included with the images), select the [employer] Tools Menu and choose the Image Display (Viewer) option. Impression: RADIOLOGY PROCEDURE: N O T I C E: SCANNED IN EXAM THIS EXAMINATION WAS PERFORMED AND INTERPRETED AT A NON-[place] FACILITY. To view the Images or report (if a report was included with the images), select the [employer] Tools Menu and choose the Image Display (Viewer) option. VERIFIED BY: / *ELECTRONICALLY FILED* [facility] Mar 19, 2024 09:13 AM LDCT LUNG CANCER S CREENING: KARYN PARTIDA [id number] -1955 M Exm Date: MAR 19, 2024@09:13 [...] SR file, description: Examination Report Acquisition site: [facility] Address: [facility] [place] Report Status: Electronically Filed Date Reported: MAR 26, 2024 Report: RADIOLOGY PROCEDURE: N O T I C E: SCANNED IN EXAM THIS EXAMINATION WAS PERFORMED AND INTERPRETED AT A NON-[place] FACILITY. To view the Images or report [...] VERIFIED BY: / *ELECTRONICALLY FILED* ANT [facility] Mar 19, 2024 08:16 AM ULTRASOUND ABDOMIN AL AORTA SCREEN (AAA): KARYN PARTIDA [id number] -1955 M Exm Date: MAR 19, 2024@08:16 Req Phys: ANABEL QIU Loc: OUTSIDE ULTRASOUND (Req'g Loc) Img Loc: OUTSIDE ULTRASOUND Service: Unknown (Case [id number] COMPLETE) ULTRASOUND ABDOMINAL AORTA SCREEN(US Detailed) CPT:99569 Reason for Study: Exam imported from outside [...] SD file, description: SCANNED DOCUMENT Acquisition site: [facility] Report Status: Electronically Filed [...] VERIFIED BY: / *ELECTRONICALLY FILED* [facility] Encounter Notes: All associated encounter notes This section contains the clinical notes associated to the Encounter. Date/Time Encounter Note(s) Provider Source Mar 26, 2024 05:24 PM ADDENDUM: LOCAL TITLE: Addendum STANDARD TITLE: ADDENDUM DATE OF NOTE: MAR 26, 2024@17:24:13 ENTRY DATE: MAR 26, 2024@17:24:14 AUTHOR: AG SALGUERO EXP COSIGNER: URGENCY: STATUS: COMPLETED Please mail this letter to the patient. Thank you, Ag /kwesi/ AG SALGUERO PA-C Signed: 03/26/2024 17:24 Receipt Acknowledged By: 03/27/2024 06:45 /kwesi/ CELIA [employer] Adjunct Instructor --- Original Document --- 03/26/24 Test Results Patient Letter: MAR 26, 2024 MR. KARYN PARTIDA [address], [place] [address] Dear Mr. Partida, I'm writing to let you know the results of your most recent tests. I'm writing to let you know the results of your ultrasound to screen you for an abdominal aortic aneurysm (also called a AAA). Your ultrasound is normal - you do not have a AAA. No further testing or future screening is needed. Here is a summary of your report FINDINGS: Abdominal Aorta: Proximal: 2.3 x 2.5 cm Mid: 1,9x1.9cm Distal: 1.7 x 1.7 cnn lliac's: Right: 0.7 x 0.9 cm Left: 1.1 x 0.9 cm Atherosclerotic calcification is present. IMPRESSION No evidence of abdominal aortic aneurysm.. I am writing to you with the results of the lung CT scan you had done on 03/19/24: You have a new, tiny, 3mm nodule in your left lung lower lobe. There are areas in your right lung that show findings that could be from inflammation or infection. Please call if you are having any problems with cough, wheezing, shortness of breath, and/or fevers. The radiologist advises a repeat CT scan in 2 to 3 months. I have placed an order for you to have this at [facility] in 3 months. Here is a copy of the report. Date Procedure CPT Status Case # 03/19/2024 LDCT LUNG CANCER SCREENING [id number] IMPRESSION: 1.New 3 mm nodule in the [...] due to size or lack of growth Your neck CT scan showed no concerning or suspicious findings. You have some visible lymph nodes of normal appearance. Here is a copy of the report. FINDINGS: Parotids: Normal. Submandibular glands: Normal. Thyroid [...] IMPRESSION: No evidence of mass or adenopathy Please don't hesitate to call the office if you have questions or concerns. Sincerely, FLACO Grover [facility] [phone] AG SALGUERO [facility] Mar 26, 2024 05:10 PM LETTERS: LOCAL TITLE: Test Results Patient Letter STANDARD TITLE: LETTERS DATE OF NOTE: MAR 26, 2024@17:10 ENTRY DATE: MAR 26, 2024@17:10:57 AUTHOR: AG SALGUERO EXP COSIGNER: URGENCY: STATUS: COMPLETED Test Results Patient Letter Has ADDENDA MAR 26, 2024 MR. KARYN PARTIDA [address], [place] [address] Dear Mr. Partida, I'm writing to let you know the results of your most recent tests. I'm writing to let you know the results of your ultrasound to screen you for an abdominal aortic aneurysm (also called a AAA). Your ultrasound is normal - you do not have a AAA. No further testing or future screening is needed. Here is a summary of your report FINDINGS: Abdominal Aorta: Proximal: 2.3 x 2.5 cm Mid: 1,9x1.9cm Distal: 1.7 x 1.7 cnn ia's: Right: 0.7 x 0.9 cm Left: 1.1 x 0.9 cm Atherosclerotic calcification is present. IMPRESSION No evidence of abdominal aortic aneurysm.. I am writing to you with the results of the lung CT scan you had done on 03/19/24: You have a new, tiny, 3mm nodule in your left lung lower lobe. There are areas in your right lung that show findings that could be from inflammation or infection. Please call if you are having any problems with cough, wheezing, shortness of breath, and/or fevers. The radiologist advises a repeat CT scan in 2 to 3 months. I have placed an order for you to have this at [facility] in 3 months. Here is a copy of the report. Date Procedure CPT Status Case # 03/19/2024 LDCT LUNG CANCER SCREENING [id number] IMPRESSION: 1.New 3 mm nodule in the [...] due to size or lack of growth Your neck CT scan showed no concerning or suspicious findings. You have some visible lymph nodes of normal appearance. Here is a copy of the report. FINDINGS: Parotids: Normal. Submandibular glands: Normal. Thyroid [...] IMPRESSION: No evidence of mass or adenopathy Please don't hesitate to call the office if you have questions or concerns. Sincerely, FLACO Grover [facility] [phone] 03/26/2024 ADDENDUM STATUS: COMPLETED Please mail this letter to the patient. Thank you, Ag /kwesi/ AG SALGUERO PA-C Signed: 03/26/2024 17:24 Receipt Acknowledged By: 03/27/2024 06:45 /kwesi/ [facility] Adjunct Instructor AG SALGUERO [facility]
--- OUTSIDE RECORDS SUMMARY | 2024-05-04 08:53 | XMS_ITS | Encounter Summary ---
[place] [address] Care Team Providers Care Revenue Liaison Name Role Phone Nahomy Curry SARAH Primary Care Provider [phone] Reason for Referral * Consultation (Urgent) - Closed Specialty Diagnoses / Procedures Referred By Contac t Referred To Contact Orthopaedics Diagnoses Injury of extensor tendon of left hand, initial encounter Dog bite, initial encounter Injury of extensor tendon of left hand DOG BITE DOI APPROX 1 MONTH AGO Yvan Hodge MD [address] [place] [address] [facility] [address] [place] [phone] Referral ID Status Reason Start Date Expiration Date V isits Requested Visits Authorized [id number] Closed Consult, Test & Treat PCP Updated and/or Approved 03/07/2022 03/07/2023 6 6 Encounter Details Date Type Department Care Team (Latest Contact Info) Description 03/07/2022 Transcribe Orders eDH Incoming Referrals [phone] Yvan Hodge MD [address] [place], [place] [id number] Injury of extensor tendon of left hand, [...] encounter documented in this encounter Care Teams Revenue Liaison Relationship Specialty Start Date End Date Nahomy Curry, PHOTOGRAPHS CURATOR PCP - General Family Medicine 01/30/21 documented as of this encounter
--- OUTSIDE RECORDS SUMMARY | 2024-05-04 08:53 | XMS_ITS | Clinical Summary ---
Author Organization [facility] Address [address] [place] [address] Care Team Providers Care E Commerce Director Name Role Phone Nahomy Curry REPEATER CHIEF Primary Care Provider [phone] Social History Tobacco Use Types Packs/Day Years Used Date Smoking Tobacco: Never Assessed Interpersonal Safety Answer Date Record ed Physically Hurt Never 01/14/2020 Verbally Threaten Not on file 01/14/2020 Sex and Gender Information Value Date Recorded Sex Assigned at Not on file Legal Sex Male 18:42 EST Gender Identity Not on file Sexual Orientation Not on file Plan of Treatment Health Maintenance Due Date Last Done Comments Hepatitis C Screen 1955 Fall Risk Screening 02/24/2020 COVID-19 Vaccine (2023- season) 2024 RSV Immunization ( o r 60+ Years) (1 - 1-dose 75+ series) 2030 Insurance [facility] MEDICARE MEDICARE Care Teams E Commerce Director Relationship Specialty Start Date End Date Nahomy Curry NP [address] [place] [phone] PCP - General 01/04/20
--- OUTSIDE RECORDS SUMMARY | 2024-05-04 08:53 | XMS_ITS | Encounter Summary ---
Author Organization [facility] Address [address] [place] [address] Care Team Providers Care Marker Machine Attendant Name Role Phone AnthonyNahomy veloz Mae MARKET RESEARCH SENIOR PROJECT MANAGER Primary Care Provider [phone] Encounter Details Date Type Department Care Team (Late st Contact Info) Description 05/24/2021 Lab Requisition [facility] Pathology & Laboratory Medicine - [address] [id number] Outr Resulting Lab, Provider Social History Tobacco [...] 15:35 EST) Hold Hold 05/24/2021 17:01 EST [facility] Blood VENOUS BLOOD / Unknown 05/23/2021 15:35 EST 05/24/2021 15:54 EST us Provider Outr Resulting Lab LAB INFO SERVICE AND SUPPORT & PHONE RESULT Final Result [facility] [address] [place] [address] * HOLD SST (05/23/2021 15:35 EST) [facility] Signature Hold Hold 05/24/2021 17:01 EST [facility] Blood VENOUS BLOOD / Unknown 05/23/2021 15:35 EST 05/24/2021 15:54 EST us Provider Outr Resulting Lab LAB INFO SERVICE AND SUPPORT & PHONE RESULT Final Result Performing Organization Address City/[facility]/ZIP Co de Phone Number [facility] [address] [place] [address] * RHEUMATOID FACTOR (05/23/2021 15:35 EST) [facility] Rheumatoid Factor <8.6 <12.0 IU/mL 05/24/2021 16:06 EST [facility] Blood VENOUS BLOOD / Unknown 05/23/2021 15:35 EST 05/24/2021 15:52 EST us Provider Outr Resulting Lab CHEMISTRY & BLOOD GA S ORDERABLES Final Result Performing Organization Address City/[facility]/ZIP Co de Phone Number [facility] [address] [place] [address] * ANTI DNA (DOUBLE STRANDED) (05/23/2021 15:35 EST) [facility] Anti-DNA (Double Stranded) 14.0 <30.0 IU/mL 05/25/2021 12:32 EST [facility] Comment: ? Negative: ??<30.0 IU/mL ? Borderline Positive: ??30.0 - 75.0 IU/mL ? Positive: ??>75.0 IU/mL Results were obtained with the INOVA QUANTA Lite dsDNA SC MOON assay on the [employer] DSX. Blood VENOUS BLOOD / Unknown 05/23/2021 15:35 EST 05/24/2021 15:52 EST us Provider Outr Resulting Lab IMMUNOLOGY AND SEROL OGY ORDERABLES Final Result Performing Organization Address [facility] de Phone Number [facility] [address] [place] [address] * (ABNORMAL) ANTI NUCLEAR AB (LEATHA), IFA (05/23/2021 15:35 EST) LEATHA Interpretation Positive(A) Negative 05/26/2021 13:58 EST [facility] Comment: For titers greater [...] Pattern 1 1:320 Homogeneous 05/26/2021 13:58 EST [facility] Blood VENOUS BLOOD / Unknown 05/23/2021 15:35 EST 05/24/2021 15:52 EST Narrative [facility] - 05/26/2021 13:58 EST Results were obtained with the INOVA NOVA Lite HEp-2 LEATHA Kit by indirect immunofluorescence. us Provider Outr Resulting Lab IMMUNOLOGY AND SEROL OGY ORDERABLES Final Result Performing Organization Address [facility] Co de Phone Number [facility] [address] [place] [address] * CCP ANTIBODIES (05/23/2021 15:35 EST) CCP Antibodies <2.5 <5.0 U/mL 05/25/2021 9:16 EST [facility] Blood VENOUS BLOOD / Unknown 05/23/2021 15:35 EST 05/24/2021 15:52 EST us Provider Outr Resulting Lab IMMUNOLOGY AND SEROL OGY ORDERABLES Final Result [facility] [address] [place] [address] documented in this encounter Visit Diagnoses Not on filedocumented in this encounter Care Teams Marker Machine Attendant Relationship Specialty Start Date End Date Nahomy Curry, ZULY [address] [place] [phone] PCP - General 01/04/20 documented as of this encounter
--- OUTSIDE RECORDS SUMMARY | 2024-05-04 08:53 | XMS_ITS | Referral Summary ---
Author Organization [facility] Address [address] [place] [address] Care Team Providers Care Health It Specialist Name Role Phone Nahomy Curry PROGRAM STRATEGIST Primary Care Provider [phone] Social History Tobacco Use Types Packs/Day Years Used Date Smoking Tobacco: Never Assessed Interpersonal Safety Answer Date Record ed Physically Hurt Never 01/14/2020 Verbally Threaten Not on file 01/14/2020 Sex and Gender Information Value Date Recorded Sex Assigned at Not on file Legal Sex Male 18:42 EST Gender Identity Not on file Sexual Orientation Not on file Plan of Treatment Not on file Insurance [employer] MEDICARE MEDICARE Care Teams Health It Specialist Relationship Specialty Start Date End Date Nahomy Curry NP [address] [place] [address] PCP - General 01/04/20
--- OUTSIDE RECORDS SUMMARY | 2024-05-04 08:53 | XMS_ITS | Encounter Summary ---
Author Organization [facility] [place] [address] Care Team Providers Care Sap Bpc Developer Name Role Phone Nahomy Curry GUITAR REPAIRER Primary Care Provider [phone] Encounter Details Date Type Department Care Team [...] on filedocumented in this encounter Care Teams Sap Bpc Developer Relationship Specialty Start Date End Date Nahomy Curry APRN PCP - General Family Medicine 01/30/21 documented as of this encounter
--- OUTSIDE RECORDS SUMMARY | 2024-05-04 08:53 | XMS_ITS | Encounter Summary ---
Author Organization [facility] [place] [address] Care Team Providers Care Diet Attendant Name Role Phone Nahomy Curry APRN Primary Care Provider [phone] Encounter Details Date Type Department Care Team (Late st Contact Info) Description 02/28/2022 Ancillary Procedure Radiology Library at [facility] [place] [phone] Nahomy Curry APRN [address] [place] [address] Social History Tobacco Use Types Packs/Day Years [...] IMG FILM LIBRARY ORD ERABLES [place]EN[place]ICK [place] documented in this encounter Visit Diagnoses Not on filedocumented in this encounter Care Teams Diet Attendant Relationship Specialty Start Date End Date Nahomy Curry, SARAH PCP - General Family Medicine 01/30/21 documented as of this encounter
--- OUTSIDE RECORDS SUMMARY | 2024-05-04 08:53 | XMS_ITS | Encounter Summary ---
Author Organization [facility] Address [facility] [place] [address] Care Team Providers Care Purchasing Officer Name Role Phone AnthonyNahomy veloz aMe SMITH Primary Care Provider [phone] Reason for Visit * Reason Comments Establish Care LT hand injury * Consultation (Urgent) - Closed Specialty Diagnoses / Procedures Referred By Contac t Referred To Contact Orthopaedics Diagnoses Injury of extensor tendon of left hand, initial encounter Dog bite, initial encounter Injury of extensor tendon of left hand DOG BITE DOI APPROX 1 MONTH AGO Yvan Hodge MD [address] [place] [address] [facility] [address] [place] [phone] Referral ID Status Reason Start Date Expiration Date V isits Requested Visits Authorized [id number] Closed Consult, Test & Treat PCP Updated and/or Approved 03/07/2022 03/07/2023 6 6 Encounter Details Date Type Department Care Team (Late st Contact Info) Description 03/20/2022 11:30 AM EST Office [place] [address] David Vaughn Jr., MD [facility] [address] [place] [address] Extensor tendon laceration of finger [...] 03/20/2022 11:30 AM EST Karyn Park 1955 [id number] 03/20/2022 HPI: Karyn is 67 y.o. 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
--- OUTSIDE RECORDS SUMMARY | 2024-05-04 08:53 | XMS_ITS | Encounter Summary ---
Author Name [facility] [place] Organization [place] Address [address] [place] [address] Care Team Providers Care Landmen Name Role Phone AG SALGUERO Primary Care [...] Name Patient's Relationship to Policy Lorenzo HUMANA [facility] (WNR) MEDICARE ADVANTAGE [facility](W NR) Jun 13, 2023 [id number] [phone] JENN PARTIDA Y PATIENT Selected Encounter This section includes the information on record at [place] for the Encounter. Date/Time Encounter Type Encounter Description Reason Pro vider Source Mar 19, 2024 01:27 PM Outpatient Encounter COMMUNITY CARE CONSULT IHE [...] 20 appointments. The data comes from all [place] treatment facilities. Appointment Date/Time Appointment Type Appointme nt Facility Name Apr 21, 2024 11:00 AM AMBULATORY - NONE [facility] Jun 17, 2024 11:00 AM AMBULATORY - NONE [facility] Active, Pending, and Scheduled Orders This section includes a listing of several types of active, pending, and scheduled orders, including clinic medications orders, diagnostic test orders, procedure orders and consult orders; where the start date of the order is 45 days before the date of the Encounter or 45 days after the date of theEncounter. The data comes from all [facility] facilities. Test Date/Time Test Type Test [...] 12:00 AM Laboratory - Chemistry Order PSA (EQUIPMENT SERVICE ENGINEER) BLOOD(GOLD) [facility]UM [facility] [...] Chemistry Order HIV Ag/Ab SCREEN BLOOD(GOLD) [facility] Apr 06, 2024 12:56 AM Consult Order COMMUNITY CARE-CT Cons Roll Table Operator's Choice ANT [facility] Radiology Reports: +/- 30 days [...] the Encounter. The data comes from all [place] treatment facilities. Date/Time Radiology Report Provider Source Mar 19, 2024 09:[address] NECK SOFT TISSU E W/CONT: KARYN PARTIDA [id number] -1955 M Exm Date: MAR 19, 2024@09:17 Req Phys: ANABEL QIU Pat Loc: OUTSIDE [facility] CT SCAN (Req'g Loc Img Loc: OUTSIDE [facility] CT SCAN Service: Unknown (Case [id number] COMPLETE) CT NECK SOFT TISSUE W/CONT (CT Detailed) CPT:05098 Reason for Study: Exam imported from outside Clinical History: Original Data for Imported Study Patient Name: Karyn Partida Date: 1955 Sex: M Study Date: 03/19/24 Study Time: 09:17:27 Study Description: CT NECK W Referring Physician: AG SALGUERO Series 1: 1 CT file, description: MEDRAD Injection Images Acquisition site: [facility] Report Status: Electronically Filed Date Reported: MAR 26, 2024 Report: RADIOLOGY PROCEDURE: N O T I C E: SCANNED IN EXAM THIS EXAMINATION WAS PERFORMED AND INTERPRETED AT A NON-[place] FACILITY. To view the Images or report (if a report was included with the images), select the [employer] Tools Menu and choose the Image Display (Viewer) option. Impression: RADIOLOGY PROCEDURE: N O T I C E: SCANNED IN EXAM THIS EXAMINATION WAS PERFORMED AND INTERPRETED AT A NON-VA FACILITY. To view the Images or report (if a report was included with the images), select the InMyShowS Tools Menu and choose the Image Display (Viewer) option. VERIFIED BY: / *ELECTRONICALLY FILED* ANT [facility] Mar 19, 2024 09:13 AM LDCT LUNG CANCER S CREENING: KARYN PARTIDA [id number] -1955 M Exm Date: MAR 19, 2024@09:13 [...] SR file, description: Examination Report Acquisition site: [facility] Address: [facility] [place] Report Status: Electronically Filed Date Reported: MAR 26, 2024 Report: RADIOLOGY PROCEDURE: N O T I C E: SCANNED IN EXAM THIS EXAMINATION WAS PERFORMED AND INTERPRETED AT A NON-[place] FACILITY. To view the Images or report [...] VERIFIED BY: / *ELECTRONICALLY FILED* ANT [facility] Mar 19, 2024 08:16 AM ULTRASOUND ABDOMIN AL AORTA SCREEN (AAA): KARYN PARTIDA [id number] -1955 M Exm Date: MAR 19, 2024@08:16 Req Phys: ANABEL QIU Loc: OUTSIDE ULTRASOUND (Req'g Loc) Img Loc: OUTSIDE ULTRASOUND Service: Unknown (Case [id number] COMPLETE) ULTRASOUND ABDOMINAL AORTA SCREEN(US Detailed) CPT:53804 Reason for Study: Exam imported from outside [...] Encounter Note(s) Provider Source Mar 25, 2024 08:27 AM ADDENDUM: LOCAL TITLE: Addendum STANDARD TITLE: ADDENDUM DATE OF NOTE: MAR 25, 2024@08:27:55 ENTRY DATE: MAR 25, 2024@08:27:56 AUTHOR: MICHAEL GRADY COSIGNER: URGENCY: STATUS: COMPLETED [facility] Patient Name: Karyn Partida Ordering Provider. Ag Salguero Exam(s) US AAA SCREENING EXAM: US AAA SCREENING CLINICAL HISTORY: 2135 Enoounterfor screening Cardiovascular disorders [id number] COMPARISON: US ABDOMEN ULTRASOUND from 12/09/[address] ABDOMEN PELVIS VVOM/ from 03/16/2021 FINDINGS: Abdominal Aorta: Proximal: 2.3 x 2.5 cm Mid: 1,9x1.9cm Distal: 1.7 x 1.7 cnn lliac's: Right: 0.7 x 0.9 cm Left: 1.1 x 0.9 cm Atherosclerotic calcification is present. IMPRESSION No evidence of abdominal aortic aneurysm.. /kwesi/ MICHAEL GRADY BUNDLE HELPER Signed: 03/25/2024 08:31 Receipt Acknowledged By: 03/26/2024 17:25 /kwesi/ AG SALGUERO PA-C --- Original Document --- 03/19/24 COMMUNITY CARE CONSULT RESULT NOTE: [facility] - Scanned Document COMMUNITY CARE-RADIOLOGY VASCULAR 03/19/2024 US AAA SCREENING [facility] /es/ Delia Medina MRT Signed: 03/24/2024 13:29 03/24/2024 ADDENDUM STATUS: COMPLETED Tara lee/ AG SALGUERO PA-C Signed: 03/24/2024 14:04 Receipt Acknowledged By: 03/25/2024 08:23 /kwesi/ MICHAEL MERCADO LPN [facility] Mar 24, 2024 02:04 PM ADDENDUM: LOCAL TITLE: Addendum STANDARD TITLE: ADDENDUM DATE OF NOTE: MAR 24, 2024@14:04:05 ENTRY DATE: MAR 24, 2024@14:04:07 AUTHOR: AG SALGUERO EXP COSIGNER: URGENCY: STATUS: COMPLETED Tara mobley /kwesi/ AG SALGUERO PA-C Signed: 03/24/2024 14:04 Receipt Acknowledged By: 03/25/2024 08:23 /kwesi/ MICHAEL GRADY LPN --- Original Document --- 03/19/24 COMMUNITY CARE CONSULT RESULT NOTE: [facility] - Scanned Document COMMUNITY CARE-RADIOLOGY VASCULAR 03/19/2024 US AAA SCREENING [facility] /es/ Delia Medina MRT Signed: 03/24/2024 13:29 AG SALGUERO [facility] Mar 19, 2024 01:27 PM NONVA CONSULT: LOCAL TITLE: COMMUNITY CARE CONSULT RESULT NOTE STANDARD TITLE: NONVA CONSULT DATE OF NOTE: MAR 19, 2024@13:27 ENTRY DATE: MAR 24, 2024@13:28:35 AUTHOR: DELIA MEDINA COSIGNER: URGENCY: STATUS: COMPLETED COMMUNITY CARE CONSULT RESULT NOTE Has ADDENDA [facility] - Scanned Document COMMUNITY CARE-RADIOLOGY VASCULAR 03/19/2024 US AAA SCREENING [facility] /es/ Delia Medina MRT Signed: 03/24/2024 13:29 03/24/2024 ADDENDUM STATUS: COMPLETED Tara mobley /kwesi/ AG SALGUERO PA-C Signed: 03/24/2024 14:04 Receipt Acknowledged By: 03/25/2024 08:23 /es/ MICHAEL GRADY LPN 03/25/2024 ADDENDUM STATUS: COMPLETED [facility] Patient Name: Karyn Partida Ordering Provider. Ag Salguero Exam(s) US AAA SCREENING EXAM: US AAA SCREENING CLINICAL HISTORY: 2135 Enoounterfor screening Cardiovascular disorders [id number] COMPARISON: US ABDOMEN ULTRASOUND from 12/09/[address] ABDOMEN PELVIS VVOM/ from 03/16/2021 FINDINGS: Abdominal Aorta: Proximal: 2.3 x 2.5 cm Mid: 1,9x1.9cm Distal: 1.7 x 1.7 cnn lliac's: Right: 0.7 x 0.9 cm Left: 1.1 x 0.9 cm Atherosclerotic calcification is present. IMPRESSION No evidence of abdominal aortic aneurysm.. /es/ MICHAEL GRADY BUNDLE HELPER Signed: 03/25/2024 08:31 Receipt Acknowledged By: * AWAITING SIGNATURE * AG SALGUERO TAMMY DENEGE ANN [facility]
--- OUTSIDE RECORDS SUMMARY | 2024-05-04 08:53 | XMS_ITS | Encounter Summary ---
Author Organization [facility] Address [address] [place] [address] Care Team Providers Care Tin Whiz Machine Operator Name Role Phone Unavailable Primary Care Provider Unavailabl e Encounter Details Date Type Department Care Team (Late st Contact Info) Description 08/14/2007 Results Only [facility] - Maple conversion [address] [place] [address] John Paul Menezes MD [address] [place] [id number] Social History Tobacco Use Types Packs/Day Years [...] ? KARYN PARTIDA ? Accession #: ? [id number] ? : ? 1955 (Age: 52) ??M [...] Description: ? Received in Hollande's fixative labelled [place] and #1 polyp rectum is a 0.5 x 0.4 x 0.4 cm firm smooth surfaced sessile polyp which is trisected and submitted entirely in one cassette. ??(Ruslan Gee/vinicius End of Report [facility] 08/14/2007 08/15/2007 10: 20 EDT us John Paul Menezes MD PATHOLOGY ORDERABLES Final Result [facility] [address] [place] [address] documented in this encounter Visit Diagnoses Not on filedocumented in this encounter
--- OUTSIDE RECORDS SUMMARY | 2024-05-04 08:53 | XMS_ITS | Encounter Summary ---
Author Organization [facility] Address [address] [place] [address] Care Team Providers Care Tube Draw Helper Name Role Phone Nahomy Curry LEAD DATA ENTRY OPERATOR Primary Care Provider Encounter Details Date Type Department Care Team (Late st Contact Info) Description 01/04/2020 Lab Requisition [facility] Pathology & Laboratory Medicine - [address] [address] Huey Altman MD [address] [place] [address] [address] [place], [place] [id number] Encounter for screening for malignant neoplasm of [...] sections have been examined. 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 Surgical Product Sales Consultant slides of this case were reviewed at the intradepartmental GI consultation conference. ANTIBODY(CLONE)(BLOCK ):RESULT SMA (alpha Smooth Muscle Actin (asm-1, Leica) (A1): Negative DOG-1 (K9,Leica) (A1): Negative S-100 Protein DAB (4C4.9, [place]) (A1): Strongly positive NOTE: One or more [...] performance characteristics have been determined by [facility] and/or by the referring laboratory. [...] high complexity clinical laboratory testing. 01/08/2020 17:15 [facility] Attestation There was significan t resident/fellow involvement in the diagnostic evaluation of this case. By the signature below, the attending physician certifies that they have personally conducted a gross and/or microscopic examination of the described specimens and rendered or confirmed the above diagnosis. 01/08/2020 17:15 [facility] at 1715 Clinical History Colon cancer screening; personal history of polyp 01/08/2020 17:15 [facility] Gross Description A. Received in formalin labelled with proper patient identification (initials M, T) and cecal polyp is a single fragment of crystal tissue (0.2 x 0.2 x 0.2 cm). The specimen is submitted entirely in A1. 01/05/2020 7:26 01/08/2020 17:15 [facility] Resident/Fell ow: Dain Weems MD 01/08/2020 17:15 [facility] Performing Lab [facility] 01/08/2020 17:15 [facility] Scanned Images 01/08/2020 17:15 EDT [facility] Tissue CECUM STRUCTURE / Unknown 01/04/2020 9:54 EDT 01/04/2020 17:05 EDT us Huey Altman MD PATHOLOGY ORDERABLES Fin al Result [facility] [address] [place] [address] documented in this encounter Visit Diagnoses Diagnosis Encounter for screening for malignant neoplasm of colon Special screening for malignant neoplasms, colon documented in this encounter Care Teams Tube Draw Helper Relationship Specialty Start Date End Date Nahomy Curry NP [address] [place] [id number] PCP - General 01/04/20 documented as of this encounter
--- OUTSIDE RECORDS SUMMARY | 2024-05-04 08:53 | XMS_ITS | Encounter Summary ---
Author Organization [facility] [place] [address] Care Team Providers Care Graining Machine Operator Name Role Phone Nahomy Curry APRN Primary Care Provider [phone] Reason for Visit * Consultation (Routine) - Closed Specialty Diagnoses / Procedures Referred By Kaylie pope Referred To Contact Dermatology Diagnoses Disorder of pigmentation, unspecified Macule - L forearm and forehead Nahomy Curry APRN [address] [place] [address] [facility] Dermatology [address] [place] [address] Referral ID Status Reason Start Date Expiration Date V isits Requested Visits Authorized [id number] Closed Consult, [facility] PCP Updated and/or Approved 01/24/2021 01/24/2022 6 6 Encounter Details Date Type Department Care Team (Late Contact Info) Description 03/23/2021 10:00 AM EST Office Visit Dermatology at [facility] [address] [place] [phone] Carl Seo MD SK (seborrheic keratosis); Ecchymosis Social History Tobacco [...] forearm irregular lesion. Comes and goes gets police communications dispatcher and darker. Denies bleeding. Reports carries firewood [...] by: Carl Seo MD Dermatology [facility] Patient seen and evaluated with staff mechanical press operator: Grayson Fernandez MD Department of Dermatology [facility] * Grayson Fernandez MD - 03/23/2021 10:00 [...] disorders documented in this encounter Care Teams Graining Machine Operator Relationship Specialty Start Date End Date Nahomy Curry APRN PCP - General Family Medicine 01/30/21 documented as of this encounter
--- OUTSIDE RECORDS SUMMARY | 2024-05-04 08:53 | XMS_ITS | Clinical Summary ---
Author Organization [facility] Address [facility] [place] [address] Care Team Providers Care Data Collection Technician Name Role Phone Antoinette Nahomy Mae SMITH Primary Care Provider [phone] Allergies No known active allergies Medications Medication [...] year) with FIT yearly 1955 Sigmoidoscopy 1955 Hepatitis C Screening 1973 Pneumoccocal Vaccine: 65+ (1 of 2 - PCV) 1974 Tetanus/Diphtheria/Pertussis Vaccines (1 - Tdap) 02/23 Zoster vaccine (1 of 2) 2005 Advance Directive 2010 AAA Screen 02/24/2020 Covid-19 Vaccine ( - season) 2024 Influenza (Flu) vaccine (1 o f 1 - Influenza standard series) 01/12/2024 Care Teams Data Collection Technician Relationship Specialty Start Date End Date Nahomy Curry APRN PCP - General Family Medicine 01/30/21
--- OUTSIDE RECORDS SUMMARY | 2024-05-04 08:53 | XMS_ITS | Encounter Summary ---
Author Name [facility] [place] Organization [facility] [place] [facility] [place] Address [address] [place] [address] Care Team Providers Care Cable Respooler Name Role Phone AG SALGUERO Primary Care [...] [employer]([place] NR) Jun 13, 2023 [id number] [phone] JENN PARTIDA Y PATIENT Selected Encounter This section includes the information on record at [place] for the Encounter. Date/Time Encounter Type Encounter Description Reason Pro vider Source Apr 02, 2024 12:29 PM Outpatient Encounter COMMUNITY CARE CONSULT IHE [...] AMBULATORY - NONE [facility] Jun 17, 2024 11:00 AM AMBULATORY - NONE [facility] Active, Pending, and Scheduled Orders This section includes a listing of several types of active, pending, and scheduled orders, including clinic medications orders, diagnostic test orders, procedure orders and consult orders; where the start date of the order is 45 days before the date of the Encounter or 45 days after the date of theEncounter. The data comes from all [facility] facilities. Test Date/Time Test Type Test Details [...] 12:00 AM Laboratory - Chemistry Order PSA (SALESPERSON FURS) BLOOD(GOLD) SERUM [facility] Feb 25, [...] 12:56 AM Consult Order COMMUNITY CARE-CT Cons Social Sciences Research Scientist's Choice ANT [facility] Radiology Reports: +/- 30 days [...] the Encounter. The data comes from all [place] treatment facilities. Date/Time Radiology Report Provider Source Mar 19, 2024 09:[address] NECK SOFT TISSU E W/CONT: KARYN PARTIDA [id number] -1955 M Exm Date: MAR 19, 2024@09:17 Req Phys: ANABEL QIU Pat Loc: OUTSIDE [facility] CT SCAN (Req'g Loc Img Loc: OUTSIDE [facility] CT SCAN Service: Unknown (Case [id number] COMPLETE) CT NECK SOFT TISSUE W/CONT (CT Detailed) CPT:87181 Reason for Study: Exam imported from outside Clinical History: Original Data for Imported Study Patient Name: Karyn Partida Date: 1955 Sex: M Study Date: 03/19/24 Study Time: 09:17:27 Study Description: CT NECK W Referring Physician: AG SALGUERO Series 1: 1 CT file, description: MEDRAD Injection Images Acquisition site: [facility] Report Status: Electronically Filed Date Reported: MAR 26, 2024 Report: RADIOLOGY PROCEDURE: N O T I C E: SCANNED IN EXAM THIS EXAMINATION WAS PERFORMED AND INTERPRETED AT A NON-[place] FACILITY. To view the Images or report (if a report was included with the images), select the [employer] Tools Menu and choose the Image Display (Viewer) option. Impression: RADIOLOGY PROCEDURE: N O T I C E: SCANNED IN EXAM THIS EXAMINATION WAS PERFORMED AND INTERPRETED AT A NON-VA FACILITY. To view the Images or report (if a report was included with the images), select the [employer] Tools Menu and choose the Image Display (Viewer) option. VERIFIED BY: / *ELECTRONICALLY FILED* [facility]T [facility] Mar 19, 2024 09:13 AM LDCT LUNG CANCER S CREENING: KARYN PARTIDA [id number] -1955 M Exm Date: MAR 19, 2024@09:13 [...] SR file, description: Examination Report Acquisition site: [facility] Address: [facility] [place] Report Status: Electronically Filed Date Reported: MAR 26, 2024 Report: RADIOLOGY PROCEDURE: N O T I C E: SCANNED IN EXAM THIS EXAMINATION WAS PERFORMED AND INTERPRETED AT A NON-[place] FACILITY. To view the Images or report [...] VERIFIED BY: / *ELECTRONICALLY FILED* ANT STUART [facility] Mar 19, 2024 08:16 AM ULTRASOUND ABDOMIN AL AORTA SCREEN (AAA): KARYN PARTIDA [id number] -1955 M Exm Date: MAR 19, 2024@08:16 Req Phys: ANABEL QIU Loc: OUTSIDE ULTRASOUND (Req'g Loc) Img Loc: OUTSIDE ULTRASOUND Service: Unknown (Case [id number] COMPLETE) ULTRASOUND ABDOMINAL AORTA SCREEN(US Detailed) CPT:38679 Reason for Study: Exam imported from outside [...] file, description: SCANNED DOCUMENT [facility]quisition site: [facility] Report Status: Electronically Filed Date Reported: [...] BY: / *ELECTRONICALLY FILED* ANT [facility] Encounter Notes: All associated encounter notes This section contains the clinical notes associated to the Encounter. Date/Time Encounter Note(s) Provider Source Apr 02, 2024 12:29 PM CONSULT: LOCAL TITLE: [facility] COMMUNITY CARE COORDINATION PLAN NOTE STANDARD TITLE: CONSULT DATE OF NOTE: APR 02, 2024@12:29:55 ENTRY DATE: APR 02, 2024@12:29:55 AUTHOR: RUKHSANA DENTON COSIGNER: URGENCY: STATUS: COMPLETED SUBJECT: HSRM Care Coordination Plan Note DC Facility Community Care Office OPTOMETRY ROUTINE EYE EXAM Care Coordination Plan Note CCPN Number: 1 Last Name: Xavier First Name: Karyn Gomezan Social: [phone] CF#: [id number] CONSULT AND REFERRAL INFORMATION Name of Referring DC Provider: Ag Salguero SEOC[facility] 1.3.15 Level of Care Coordination: Moderate Referral Number: [id number] Unique Consult ID: [id number] Patient Admitted (Yes/No): If yes, then please complete the Discharge Planning Addendum. Chief Complaint: Routine Eye Exam Risks (e.g. clinical or biophysical risks identified from S/T tool or brief chart review, such as dementia, homelessness, no family support, etc. If unknown, state Unknown): Level of Care Coordination: Moderate Please review all notes, this note may have one or more of the following addenda associated: Care Coordination Follow Up: Appointment Management: Case Management: Continued Stay Review: Disease Management: Discharge Planning: Discharge Disposition: Contact: Provider Contact: Transfer: [place] Handoff: FACILITY COMMUNITY CARE OFFICE CONTACT Care Coordination Point of Contact: [facility] - DR MORALES Address: [address] [place] [address], [place], [address] Phone #: [phone] Fax #: [phone] 'S CAREGIVER CONTACT INFO Is 's caregiver same as next of kin listed in the demographic section of CPRS (Yes/No)?: If no, provide the following: Caregiver Type: Caregiver Details: PLAN: Referral will be active for 90 days from the first appointment. RCT RN will be available for questions PRN. CC Plan may include specialty and associated appointment information, date of surgery, post-op needs, post d/c appointment, and any other care coordination plan ADDITIONAL NOTES: /kwesi/ RUKHSANA EDNTON Registered Nurse Signed: 04/02/2024 12:29 RUKHSANA DENTON [facility]
[2024-05-04 15:28] LABS: Abs Immature Grans 0.01 10^3/uL (0.0-0.06); Absolute Basophil Count 0.02 10^3/uL (0.0-0.2); Absolute Eosinophil Count 0.12 10^3/uL (0.0-0.7); Absolute Lymphocyte Count 0.57 10^3/uL (1.2-3.4); Absolute Monocyte Count 0.66 10^3/uL (0.1-0.8); Absolute Neutrophil Count 4.53 10^3/uL (1.2-6.7); Basophils % 0.3 %; HCT 35.2 % (40.0-50.0); HGB 11.4 g/dL (13.5-17.5); Immature Grans % 0.2 %; Lymphocytes % 9.6 %; MCH 31.6 pg (27.0-33.0); MCHC 32.4 % (32.0-36.0); MCV 98 fL (80-95); MPV 11.5 fL (8.0-11.0); Monocytes % 11.2 %; Neutrophils % 76.7 %; Platelet Count 212 10^3/uL (130-400); RBC 3.61 10^6/uL (4.36-5.78); RDW 15.6 % (11.8-14.1); RDW-SD 55.4 fL; WBC 5.91 10^3/uL (4.4-10.8)
[2024-05-04 16:06] LABS: ALT 27 U/L (16-63); AST 25 U/L (15-37); Albumin 3.3 g/dL (3.4-5.0); Alkaline Phosphatase 129 U/L (46-116); Bilirubin, Direct 0.1 mg/dL (0.0-0.2); Bilirubin, Total 0.27 mg/dL (0.2-1.0); Total Protein 7.6 g/dL (6.4-8.2)
== END 2024-05-04 08:50 | disposition home or self-care (01) ==
LOC: NCHCN 08:49
PROVIDERS: PCP Physician Assistant Medical; Visit Provider Physician Assistant Medical
DX: R74.01 Elevation of levels of liver transaminase levels (principal)
CPT/HCPCS: 80076; 85025

== ENCOUNTER → 2024-11-04 12:57 | Outpatient (BNVA) | payer MEDICARE, SELFPAY | PROVIDERS: PCP Physician Assistant Medical; Referring Provider Physician Assistant Medical; Visit Provider Physician Assistant Surgical | DX: J43.9 Emphysema, unspecified (principal); I27.20 Pulmonary hypertension, unspecified; I05.0 Rheumatic mitral stenosis; I35.1 Nonrheumatic aortic (valve) insufficiency; R93.89 Abnormal findings on diagnostic imaging of other specified body structures; F17.210 Nicotine dependence, cigarettes, uncomplicated | CPT/HCPCS: 99214 ==

== ENCOUNTER 2024-11-23 03:19 | Outpatient (CLI) | payer MEDICARE, SELFPAY ==
[2024-11-23] MEDS: Levalbuterol HFA 15 GM INH 4 PUFF IH (14:04)
[2024-11-23] MEDS: Inhaler, Assist Device 1 EACH MC (14:04)
--- NOTE | 2024-12-07 12:24 | W.PFT ---
Date of service: 11/23/24 Time of Service: 12:48 Pulmonary Function Test Result Indications: Emphysema Impression 1. Good patient effort was noted. ATS standards for reproducibility were met. 2. Spirometry showed mild obstructive lung disease with an FEV1 of 106% (3.15 L) 3. Following the administration of a bronchodilator there was a significant response 4. TLC was normal. No evidence of restrictive lung disease 5. DLCO was 62%, consistent with a moderate defect in alveolar gas exchange
== END 2024-11-23 03:20 | disposition home or self-care (01) ==
PROVIDERS: PCP Physician Assistant Medical; Referring Provider Physician Assistant Surgical; Visit Provider Physician Assistant Surgical
DX: J43.9 Emphysema, unspecified (principal)
CPT/HCPCS: 94060; 94726; 94729

== ENCOUNTER → 2024-12-07 10:32 | Outpatient (BNVA) | payer MEDICARE, SELFPAY | PROVIDERS: PCP Physician Assistant Medical; Referring Provider Physician Assistant Medical; Visit Provider Physician Assistant Surgical | DX: J43.9 Emphysema, unspecified (principal); I27.20 Pulmonary hypertension, unspecified; I05.0 Rheumatic mitral stenosis; I35.1 Nonrheumatic aortic (valve) insufficiency; R93.89 Abnormal findings on diagnostic imaging of other specified body structures; F17.211 Nicotine dependence, cigarettes, in remission | CPT/HCPCS: 99214; 94618; 00123 ==